=== PATIENT | male | born 1950 | race Caucasian/White ===

== ENCOUNTER 2019-07-10 15:55 | Inpatient (IN) | payer MEDICARE, OTHER, SELFPAY ==
[2019-07-10] VITALS (9 sets, daily range): BP systolic 173–219; BP diastolic 89–109; PULSE 62–70; RESP 13–22; TEMP 36.4–36.6; O2SAT 95–99; BMI 33.9
--- NOTE | ~2019-07-10 | XR_ITS ---
EXAMINATION: XR chest 1V portable EXAM DATE: 07/10/2019 16:38 INDICATION: Slurring words. Speech impairment. TECHNIQUE: Portable AP frontal chest x-ray was obtained. There is no prior study for comparison. FINDINGS: The lungs are clear. There are no pleural effusions. Mild cardiomegaly. There is no pneu mothorax suspected. The bones and soft tissues are unremarkable. IMPRESSION: Mild cardiomegaly. Reviewed, dictated and finalized at location A. HERIZATION INSTALLER IMPRESSION: Mild cardiomegaly.
--- NOTE | ~2019-07-10 | XR_ITS ---
EXAMINATION: XR chest 2V EXAM DATE: 07/13/2019 15:06 INDICATION: Cough. Aspiration risk. TECHNIQUE: Frontal and lateral projections of the chest obtained and reviewed. Comparison is made to prior examination from 07/10/2019. FINDINGS: Doppler feeding tube with tip overlying gastric cardia, adequate. There patient has develop ed subsegmental right middle lobe airspace disease which could be atelectasis given its linear appear ance. If patient has been aspirating, difficult to exclude developing pneumonia. The cardiomediastina l silhouette is prominent but magnified on this AP technique. Cardiac silhouette is stable in size co mpared to prior exam. No pneumothorax or pleural effusion. IMPRESSION: 1. Subsegmental linear right middle lobe opacity appearance most consistent with atelectasis. Develo ping pneumonia not excludable. 2. Doppler tube in position. Reviewed, dictated and finalized at location A. AND BEVERAGE OUTLETS MANAGER IMPRESSION: 1. Subsegmental linear right middle lobe opacity appearance most consistent wi th atelectasis. Developing pneumonia not excludable. 2. Doppler tube in position.
--- NOTE | ~2019-07-10 | CT_ITS ---
EXAMINATION: CT brain wo con EXAM DATE: 07/10/2019 16:18 INDICATION: Facial droop, slurred speech. Stroke protocol. TECHNIQUE: Spiral CT of the head was performed without contrast. Axial, coronal and sagittal images were reviewed. The dose-length product (DLP) for this examination was 681.00 mGy-cm. The exposure w as tailored according to patient size, and iterative reconstruction (ASIR) was used as additional dos e reduction technique. There is no prior study for comparison. FINDINGS: There is no acute intraparenchymal hemorrhage. No evidence of intraparenchymal brain mass lesion. No evidence of acute infarction. Please note that initial head CT has limited sensitivity f or small or acute infarctions. There is mild periventricular and subcortical hypodensity, nonspecifi c but probably related to small vessel ischemic disease. There is mild prominence of the sulci and ventricles related to cerebral atrophy. There is intracranial carotid arteriosclerosis. There are no extra-axial collections. There is no mass effect or midline shift. The orbits are unremarkable. Soft tissue is unremarkable. Moderate-sized mucus retention cyst in the inferior aspect of the left maxillary sinus with mild to m oderate mucoperiosteal thickening elsewhere in sinus wall thickening indicating that this is likely c hronic. There is also small amount of fluid in the left maxillary sinus. Mild to moderate opacity in the left ethmoid and sphenoid sinuses as well. Wall thickening of other sinuses indicating history of chronic sinusitis. IMPRESSION: 1. No acute intracranial findings. 2. Chronic age related findings. 3. Sinus opacity with small amount of fluid in the left maxillary sinus, could indicate acute on chr onic. As per stroke protocol, I called these results to emergency room, discussed with Angel Kathleen MD at 07/10/2019 16:21 HEAVY DUTY PRESS OPERATOR . Reviewed, dictated and finalized at location A. Y DUTY PRESS OPERATOR IMPRESSION: 1. No acute intracranial findings. 2. Chronic age related findings. 3. Sinus opacity with small amount of fluid in the left maxillary sinus, could indicate acute on chronic. As per stroke protocol, I called these results to emergency room, discussed dany Kathleen MD at 07/10/2019 16:21 HEAVY DUTY PRESS OPERATOR .
--- NOTE | ~2019-07-10 | MR_ITS ---
EXAMINATION: MR brain/brain stem wo/w con DATE: 07/11/2019 11:37 INDICATION: Stroke. TECHNIQUE: Magnetic resonance imaging (MRI) of the brain and brainstem was performed without and with 20 mL MultiHance intravenous contrast. Sequences included sagittal and axial T1-weighted FSE, axial diffusion-weighted FS EPI, axial T2*-weighted GRE, axial T2-weighted FLAIR Propeller, and axial T2-we ighted Propeller. Postcontrast sequences included axial and coronal T1-weighted FSE. Apparent diffusi on coefficient (ADC) maps were created. COMPARISON: Head CT 07/10/2019 FINDINGS: There is an acute infarct in the right side of the medulla. There are scattered areas of no nspecific increased T2-weighted signal intensity in the cerebral white matter, which is within normal limits for the patient's age. There is no intracranial hemorrhage or abnormal mass lesion. The ventr icles are normal in size. There is mucosal thickening in the paranasal sinuses. The orbits are normal . The mastoid air cells are normal. There is loss of the normal flow void in right vertebral artery. IMPRESSION: 1. 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 2. Loss of the normal flow void in right vertebral artery, consistent with thrombosis versus slow trinh w. Reviewed, dictated and finalized at location B. ANT DIRECTOR IMPRESSION: 1. 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 2. Loss of the normal flow void in right vertebral artery, consistent with thro mbosis versus slow flow.
--- NOTE | ~2019-07-10 | XR_ITS ---
EXAMINATION: XR chest 2V DATE: 07/16/2019 14:27 INDICATION: Aspiration pneumonia. TECHNIQUE: Frontal and lateral views of the chest were obtained. COMPARISON: Chest 2 views 07/13/2019 FINDINGS: The chest demonstrates clear lungs without pneumonia, pleural effusion, or pneumothorax. Th e heart size is normal. IMPRESSION: 1. No acute cardiopulmonary disease. Reviewed, dictated and finalized at location A. STOCK SPECULATOR
--- NOTE | ~2019-07-10 | CT_ITS ---
EXAMINATION: CTA brain DATE: 07/11/2019 13:30 INDICATION: Slurred speech. TECHNIQUE: Computed tomographic angiography (CTA) of the head was performed without and with 100 mL O mnipaque-350 intravenous contrast. Automated exposure control and iterative reconstruction technique were employed. The dose-length product was 1376.15 mGy-cm. Maximum intensity projection 3D reconstru ctions were created. Volume-rendered 3D reconstructions of the intracranial arteries were created by the technologist on a separate workstation. COMPARISON: Head CT 07/10/2019, brain MRI 07/11/2019 FINDINGS: There is no intracranial hemorrhage, acute infarction, or abnormal intracranial mass lesion . The ventricles are normal in size. The orbits are normal. There is mucosal thickening in the parana erika sinuses. There is thickening and sclerosis of the engle of the maxillary and left sphenoid sinuse s, consistent with chronic sinusitis. The mastoid air cells are normal. There is total occlusion of r ight vertebral artery. There is mild stenosis of left vertebral artery. There is no significant steno sis of basilar artery or the posterior cerebral arteries. There is no significant stenosis of the int racranial internal carotid arteries or anterior or middle cerebral arteries. Anterior communicating a rtery and the posterior communicating arteries are normal. There is no aneurysm. IMPRESSION: 1. Normal brain. 2. Total occlusion of right vertebral artery. 3. Chronic sinusitis. Reviewed, dictated and finalized at location B. LANE MECHANIC APPRENTICE
--- NOTE | ~2019-07-10 | XR_ITS ---
EXAMINATION: XR barium swallow modified DATE: 07/11/2019 14:39 INDICATION: Dysphagia. TECHNIQUE: Modified barium esophagram was performed by myself to administered fluoroscopy, in conjun ction with speech pathologist who administered barium in varying consistencies as per speech patholog ist documentation. This was recorded on tape. A single fluoroscopic spot image was recorded. The DA P for this procedure was 1.752 Gycm2. Fluoroscopy exposure time was 1.4 minutes. FINDINGS: Oral stage: Adequate function. Pharyngeal phase: Piriform sinus residue, unable to trigger swallow, no laryngeal closure.. Laryngeal penetration: None observed. Aspiration: None observed. Laryngeal sensitivity: Present. IMPRESSION: Puriform sinus residue with inability to trigger swallow at the pharyngeal stage. Please refer to speech pathologist findings and specific feeding recommendations. Reviewed, dictated and finalized at location A. ING MILL OPERATOR HELPER IMPRESSION: Puriform sinus residue with inability to trigger swallow at the pha ryngeal stage. Please refer to speech pathologist findings and specific feedin g recommendations.
--- NOTE | ~2019-07-10 | XR_ITS ---
EXAMINATION: XR fl Dobhoff insert/rad w img EXAM DATE: 07/12/2019 15:59 INDICATION: New stroke. TECHNIQUE: Fluoroscopy used during Dobhoff feeding tube placement, procedure performed by Dr. Jonny melchor. The DAP for this procedure was 4.5 Gycm2. FINDINGS: Dobhoff feeding tube was flushed with sterile saline syringe. Tube was carefully advanced, with multiple fluoroscopy checks during successive tube advancements to confirm expected course of t ube until tip was overlying gastric cardia, could not get tip to point inferiorly for placement more distal. The wire was then removed from the tube. There were no immediate complications. Patient jared ated the procedure well. IMPRESSION: Dobhoff feeding tube successfully placed, tip in gastric cardia. Reviewed, dictated and finalized at location A. EMENT OFFICER
--- NOTE | ~2019-07-10 | US_ITS ---
EXAMINATION: US carotid duplex BI DATE: 07/11/2019 11:16 INDICATION: Cerebral vascular accident. Slurred speech. TECHNIQUE: Grayscale, color Doppler, and pulsed Doppler images of the cervical carotid arteries were obtained. The degree of vessel stenosis is placed in one of the following categories: normal, <50%, 5 0-69%, >=70% but less than near-occlusion, near-occlusion, or total occlusion. Note that percent sten osis relative to normal distal artery lumen diameter is indirectly measured from velocity measurement s as described by Angel, et al. Radiology 2003; [id number]:340-346. COMPARISON: None. FINDINGS: RIGHT: The right common carotid artery (CCA) peak systolic velocity (PSV) is 109 cm/s. The right internal ca rotid artery (ICA) PSV is 58 cm/s. The right ICA end-diastolic velocity (EDV) is 20 cm/s. The right I CA/CCA PSV ratio is 0.5. Grayscale and color Doppler images yield an estimate of <50% diameter reduct ion from plaque in the ICA. There is antegrade flow in the right vertebral artery. LEFT: The left CCA PSV is 73 cm/s. The left ICA PSV is 54 cm/s. The left ICA EDV is 16 cm/s. The left ICA/C CA PSV ratio is 0.7. Grayscale and color Doppler images yield an estimate of <50% diameter reduction from plaque in the ICA. There is antegrade flow in the left vertebral artery. IMPRESSION: 1. <50% stenosis in the right internal carotid artery. 2. <50% stenosis in the left internal carotid artery. Reviewed, dictated and finalized at location B. ROBUTADIENE SCRUBBER OPERATOR
--- NOTE | 2019-07-10 16:00 | ECG_ITS ---
Measurements Intervals [place] Rate: 76 P: 53 TN: 168 QRS: -6 QRSD: 88 T: 44 QT: 375 QTc: 424 Interpretive Statements SINUS RHYTHM RSR' IN V1 OR V2, CONSIDER RIGHT VENTRICULAR HYPERTROPHY OR RIGHT VCD BORDERLINE ECG Electronically Signed On 07-11-2019 13:58:14 VENETIAN BLIND MACHINE OPERATOR by Jesús Smyth D.O.
--- NOTE | 2019-07-10 16:03 | ED.NEUROSD ---
HPI - Neuro Symptoms/Deficit General Chief Complaint: Suspected CVA Stated Complaint: slurring words Time Seen by Provider: 07/10/19 16:01 Source: patient and RN notes reviewed Mode of arrival: ambulatory Limitations: no limitations History of Present Illness HPI Narrative: Pt is a 69 y/o male who presents to the ED with c/o ataxia starting this afternoon. He notes that he felt normal this morning, stating that he was able to go for a long walk with no complications. Pt notes that he then took a nap around 13:30. He states that immediately after waking up, he tried getting up and walking, but notes that he kept falling to his rt side. Pt states that he doesn't feel weak on his rt side. He notes that his throat has been dry, which has affected his speech. Pt denies any visual changes, dizziness, lightheadedness, CP, or SOB. He notes that he has a Hx of HTN, but states that he hasn't taken any BP medications for quite some time. Location: ataxia Associated symptoms: other (abnormal speech) Related Data Allergies Allergy/AdvReac Type Severity Reaction Status Date / Time No Known Allergies Verified 12/10/09 09:50 Review of Systems Review of Systems: All systems reviewed & are unremarkable except as noted in HPI and below Eyes: Eyes: Denies change in vision Cardiovascular: Cardiovascular: Denies chest pain Respiratory: Respiratory: Denies dyspnea Neurologic: Reports Abnormal speech present, Reports abnormal gait, Denies dizziness, Denies focal weakness and Denies other (lightheadedness) PMFSH Past Medical History Medical History (Updated 07/10/19 @ 17:07 by Angel Kathleen MD) HTN (hypertension) Skin cancer Surgical History Surgical History (Updated 07/10/19 @ 16:19 by Catarino Baker) H/O local excision of skin lesion Social History Social History Gender identity (if verbalized by the patient): Male Comments PMHx limited. PCP is Dr. Armas. Exam Const: General: healthy appearing and no acute distress Nutritional Appearance: well nourished HENMT: Mouth: Yes tongue abnormal (tongue is asymmetrical) and Yes other (uvula deviated to the lt) Resp: Effort & Inspection: normal respiratory effort and no respiratory distress Auscultation: clear to auscultation bilaterally Cardio: Rate: regular rate Rhythm: regular rhythm Heart sounds: no murmurs Back/Spine/Pelvis: Back: other (Full ROM) Skin: General skin exam: normal color and other (warm; dry) Neuro: General: patient oriented x3 and other (Alert) Cranial nerves: Yes CN's II-XII intact bilaterally Speech: dysarthria Motor exam (neuro): 5/5 motor strength present throughout Extrem: General: normal to inspection and full ROM Psych: Appearance: grossly normal Affect: normal affect Course Reevaluation(s) Reevaluation #1: Spoke to pt and his and explained the risks and benefits of TPA, including the time sensitive nature. She said she understood, but wanted to wait to discuss with her daughter when she gets here. Date: 07/10/19 Time: 16:25 Reevaluation #2: Discussed TPA in detail with the patient in family. They are in agreement that they do not believe it is worth the risk. Date: 07/10/19 Time: 17:06 Consultations Consultation #1: Discussed case with PA to Hospitalist, Ingrid Yuan. Accepted admission. Date: 07/10/19 Time: 16:53 Vital Signs Vital signs: Vital Signs Temperature 36.4 C L 07/10/19 16:01 Pulse Rate 70 07/10/19 16:01 Respiratory Rate 15 07/10/19 16:01 Blood Pressure 211/98 H 07/10/19 16:01 Pulse Oximetry 99 07/10/19 16:01 Temperature 36.4 C L 07/10/19 16:01 Pulse Rate 66 07/10/19 16:30 Respiratory Rate 16 07/10/19 16:30 Blood Pressure 192/105 H 07/10/19 16:30 Pulse Oximetry 96 07/10/19 16:30 MDM - Neuro Symptoms/Deficit Differential Diagnosis Differential diagnosis: Likely cerebrovascular accident and transient cerebral ischemia Medical Records Attestation: I reviewed the patient's m
[2019-07-10] MEDS: LABETALOL HCL INJ 100 MG/20 ML VIAL 20 MG IV PUSH (16:23)
[2019-07-10 16:32] LABS: Glucose Point of Care 146 (65-105)
[2019-07-10 16:39] LABS: Basophils Percent Auto 0.2 % (0.2-1.2); Eosinophils Absolute Auto 0.1 K/mm3 (0-0.3); Eosinophils Percent Auto 1.2 % (0-4.4); Hematocrit 44.6 % (42.0-52.0); Hemoglobin 14.8 g/dL (14.0-18.0); Immature Granulocyte Absolute 0.03 K/mm3 (0.00-0.031); Immature Granulocyte Percent A 0.3 % (0-0.5); Lymphocytes Absolute Auto 1.09 K/mm3 (0.9-3.2); Lymphocytes Percent Auto 9.8 % (18.3-44.2); Mean Corpuscular HGB Conc 33.2 g/dl (32-36); Mean Corpuscular Volume 84.5 fl (80-100); Mean Platelet Volume 9.9 fl (7.4-10.4); Monocytes Absolute Auto 0.5 K/mm3 (0.1-0.6); Monocytes Percent Auto 4.9 % (2.6-8.5); Neutrophils Absolute Auto 9.3 K/mm3 (1.3-6.7); Neutrophils Percent Auto 83.6 % (45.5-73.1); Platelet Count Result 246 k/mm3 (150-375); Red Blood Count 5.28 M/mm3 (4.6-6.20); Red Cell Distribution Width 12.4 % (11.5-14.5); White Blood Count 11.1 K/mm3 (4.5-10.0)
[2019-07-10 16:48] LABS: Prothrombin Time 12.7 Seconds (11.1-14.7)
[2019-07-10 16:49] LABS: Partial Thromboplastin Time 32.6 SECONDS (22.3-36.8)
[2019-07-10 16:52] LABS: Alanine Aminotransferase 25 U/L (4-50); Albumin Level 4.2 g/dL (3.5-5.1); Alkaline Phosphatase 96 U/L (38-126); Aspartate Amino Transferase 27 U/L (17-59); Bilirubin,Total 0.5 mg/dL (0.2-1.3); Blood Urea Nitrogen 18 mg/dL (9-20); Calcium 8.8 mg/dL (8.4-10.2); Carbon Dioxide 23 mmol/L (22-30); Chloride 101 mmol/L (98-107); Estimated CRCL calculation 86 ml/min; Estimated Glomerular Filt Rate > 60; Glucose 152 mg/dL (75-110); Potassium 3.7 mmol/L (3.4-5.0); Sodium 135 mmol/L (137-145)
[2019-07-10] MEDS: ASPIRIN 81 MG CHEWABLE TABLET 324 MG PO (16:57)
--- NOTE | 2019-07-10 17:00 | PM.IMHP ---
H&P: HPI History of Present Illness Chief complaint: Slurred speech. Narrative: Mathew Venegas is a 69 year old male with longstanding untreated hypertension who presented to the emergency department earlier this afternoon from home for evaluation of slurred speech. He was in his usual state of health this morning, had lunch, and lay down to take a nap approximately 13:30. At approximately 15:00 the phone rang, and when he answered he notes that his speech was slurred. When he went to stand up he tells me that he was ?listing to the right? but denies overt vertigo. The symptoms continued and he came to the emergency department approximately 1 hour thereafter for evaluation. Brain CT was normal and tPA was discussed with the patient and his family members by the emergency department physician, however the patient did decline. He is noted to have frequent secretions, and with further questioning he has apparently had a productive cough for nearly 1 months time, and this is unchanged. He denies that he is having difficult times handling the secretions. He has not had a headache, auditory or visual changes, focal weakness, or paresthesias. He denies palpitations and feelings of racing heart. Review of Systems Review of Systems: Narrative: He has had a productive cough, occasionally green sputum, for nearly 1 months time. He denies other symptoms, specifically denying sinus congestion, otalgia, and odynophagia. He has not had fever, chills, or sweats. No chest pain or palpitations. No shortness of breath. He denies nausea and vomiting. Except as documented, all other systems were reviewed and are negative. [facility] Past Medical History Medical History (Updated 07/10/19 @ 22:46 by Ingrid Yuan PA-C) Hypertension He has not taken antihypertensives for > 15 years, which was the last time he saw physician. Skin cancer Surgical History Surgical History (Updated 07/10/19 @ 16:19 by Catarino Baker) H/O local excision of skin lesion Family History Family History Sibling Pancreatic cancer Cerebrovascular accident Mother Diabetes mellitus High cholesterol Renal failure Hypertension Father Stomach cancer CHF (congestive heart failure) High cholesterol Hypertension Other Patient's brother is Patient's father is Patient's mother is Social History Social History (Updated 07/10/19 @ 22:43 by Ingrid Yuan PA-C) Social History: The patient lives in [place] with his . He designates his Deb as his surrogate decision maker and he wishes to be a full code. He is a lifelong nonsmoker and denies alcohol and drug abuse. Smoking status: Never smoker Second hand tobacco smoke exposure: Yes (old occupation) Alcohol intake: never Substance use: never Gender identity (if verbalized by the patient): Male Spiritual care concerns: No Agree to blood products: Yes Meds Home Medications and Allergies Home Medications Medication Instructions Recorded Confirmed Type multivit with min-folic acid 0.4 mg PO QAM 07/10/19 07/10/19 History [Adult One Daily Multivitamin] Allergies Allergy/AdvReac Type Severity Reaction Status Date / Time mold Allergy Watery Eye Verified 07/10/19 18:33 ragweed pollen Allergy Watery Eye Verified 07/10/19 18:33 Vital Signs Vital Signs - 24 hr 07/10/19 16:01 07/10/19 16:21 07/10/19 16:23 Temperature 97.5 F L Pulse Rate 70 67 65 Respiratory Rate 15 19 13 Blood Pressure 211/98 H 219/109 H 173/103 H Pulse Oximetry 99 95 97 07/10/19 16:30 07/10/19 17:53 07/10/19 18:00 Temperature Pulse Rate 66 62 66 Respiratory Rate 16 20 Blood Pressure 192/105 H 174/101 H Pulse Oximetry 96 97 07/10/19 18:08 07/10/19 20:00 07/10/19 21:49 Temperature 97.8 F 97.7 F Pulse Rate 62 66 62 Respiratory Rate 22 H 20 Blood Pressure 186/98 H 180/89 H Pulse Oxi
[2019-07-10 17:03] LABS: Troponin I < 0.012 ng/mL (0.000-0.034)
--- NOTE | 2019-07-10 18:04 | ADMGEN ---
This patient, Mathew Venegas, was admitted to Medical Room 252-01. Patient/family oriented to hospital policies and general routines including ID bracelet, bed and alarms, visiting hours, pain management, procedures, bathroom and other care routines, personal items, smoking policy, room service/diet, and visiting hours. Valuables list has been completed. Information on how to activate the Rapid Response Team has been discussed. Patient/Family are encouraged to report perceived risks to care and to ask questions if they do not understand what they are told or what they should do.
--- NOTE | 2019-07-10 20:35 | PC.NURSE ---
ATTEMPTED TO GET PT OUT OF BED, LEANSTO RIGHT AND VERY UNSTEADY ON FEET. HAND GRASPS AND FOOT PUSHES EQUAL. PT HAVING TROUBLE SWALLOWING SECRETIONS, YANKAUR SUCTION GIVEN TO PT.
[2019-07-11] VITALS (13 sets, daily range): BP systolic 172–191; BP diastolic 89–113; PULSE 72–86; RESP 16–20; TEMP 36.6–37.2; O2SAT 93–94
[2019-07-11 05:06] LABS: Hematocrit 44.8 % (42.0-52.0); Hemoglobin 14.8 g/dL (14.0-18.0); Mean Corpuscular Volume 84.8 fl (80-100); Mean Platelet Volume 9.9 fl (7.4-10.4); Platelet Count Result 255 k/mm3 (150-375); Red Blood Count 5.28 M/mm3 (4.6-6.20); Red Cell Distribution Width 12.6 % (11.5-14.5); White Blood Count 9.7 K/mm3 (4.5-10.0)
[2019-07-11 05:17] LABS: Alanine Aminotransferase 23 U/L (4-50); Albumin Level 4.2 g/dL (3.5-5.1); Alkaline Phosphatase 84 U/L (38-126); Aspartate Amino Transferase 26 U/L (17-59); Bilirubin,Total 0.6 mg/dL (0.2-1.3); Blood Urea Nitrogen 19 mg/dL (9-20); Calcium 8.8 mg/dL (8.4-10.2); Carbon Dioxide 23 mmol/L (22-30); Chloride 100 mmol/L (98-107); Cholesterol 140 mg/dL (0-200); Estimated CRCL calculation 96 ml/min; Estimated Glomerular Filt Rate > 60; Glucose 132 mg/dL (75-110); HDL Direct 32 mg/dL; Potassium 3.9 mmol/L (3.4-5.0); Sodium 135 mmol/L (137-145); Triglycerides 151 mg/dL (<150)
[2019-07-11 05:28] LABS: LDL Cholesterol Direct 83 mg/dL
--- NOTE | 2019-07-11 11:00 | PCPTNOTE ---
Attempted PT eval. Pt off floor for MRI. Will try again at later time.
--- NOTE | 2019-07-11 13:07 | PCPTNOTE ---
Attempted PT eval. Pt going for test. Will try again at later time.
--- NOTE | 2019-07-11 14:07 | PCSTNOTE ---
Please refer to the Bedside Swallow Evaluation in the EMR.
--- NOTE | 2019-07-11 14:40 | PCPTNOTE ---
Attempted PT eval. Pt still off floor for tests. Will try again tomorrow.
[2019-07-11] MEDS: hydrALAZINE HCL 20 MG/ML VIAL 10 MG IV PUSH (15:51)
--- NOTE | 2019-07-11 16:18 | PM.IMPN ---
Progress Note: A&P Assessment and Plan (1) CVA (cerebral vascular accident): Code(s): I63.9 - Cerebral infarction, unspecified Status: Acute Assessment and Plan: May very well be due to longstanding, uncontrolled hypertension. It was decided by the patient's family and himself to declined tPA in the emergency room after the risks and benefits were given and everything falling around the 4 hour hermelinda. MRI showed infarct to the right side of the medulla in the expected distribution of the right vertebral artery. Loss of normal flow void in the right vertebral artery, consistent with thrombus versus low-flow. CTA brain and brainstem showed normal brain, total occlusion of right vertebral artery. Carotid Dopplers showed less than 50% bilaterally. Echocardiogram is still pending. Telemetry showed Normal sinus rhythm rate 79, with no abnormality noted just artifact. Will continue monitoring on telemetry to rule out any underlying abnormal arrhythmia. Dr. Fam neurology evaluated the patient and reported having a right brainstem stroke. The patient has been started on baby aspirin 81 mg daily, plans to better control patient's blood pressure and continue monitoring his symptoms. (2) Dysphagia: Code(s): R13.10 - Dysphagia, unspecified Status: Acute Assessment and Plan: The patient has been having dysphagia. The patient failed his bedside swallow and modified barium swallow showed very minimal laryngeal elevation and no laryngeal closure. The speech therapist do not recommend the patient having anything by mouth at this time and they will continue treating his dysphagia with daily speech therapy lessons. I called our GI specialist Dr. Gee miramontes who is on-call about the patient and possible need of a PEG tube. At this time we will place either an NG tube or Dobbhoff tube for feeding and see how much the patient improved with speech therapy. If the patient is not doing much better on Sunday we may need to place a PEG tube until further therapy can be completed. I discussed this with the patient and family and they are both in understanding and agreement with the plan at this point. Continue monitoring. Aspiration precautions initiated. (3) Hypertension: Code(s): I10 - Essential (primary) hypertension Status: Acute Assessment and Plan: The patient has not seen a physician in 15 years, and stopped taking his blood pressure medications about the same time. For now we will allow permissive hypertension. Starting in the morning the patient will be given lisinopril 10 mg and hydrochlorothiazide 12.5 mg which will be placed through his NG or Dobbhoff tube. Continue monitoring the patient's blood pressure. P.r.n. hydralazine is ordered as needed for systolic blood pressure greater than 180 or diastolic blood pressure greater than 100. (4) Hyperglycemia: Code(s): R73.9 - Hyperglycemia, unspecified Status: Acute Assessment and Plan: The patient's glucose on arrival was slightly elevated at 142 and this morning on his fasting labs glucose was 132. I am going to check hemoglobin A1c in the morning and continue monitoring his glucose. (5) Dyslipidemia: Code(s): E78.5 - Hyperlipidemia, unspecified Status: Acute Assessment and Plan: Patient's cholesterol value showed total cholesterol 140, triglycerides 151, LDL 83, HDL 32. We will start on a statin medication HS to keep LDL less than 70 since he now has a history of new CVA. Will have his primary care follow-up with checking his cholesterol again in 3 months. Time Spent With Patient Time with patient: 25 - 35 minutes Subjective Date/time seen: 07/11/19 16:18 Interval histo
[2019-07-11] MEDS: DEXTROSE 5%/LACTATED RINGERS 1,000 ML 100 ML IV CONT (18:21)
--- NOTE | 2019-07-11 18:23 | CONS_ITS ---
DATE OF CONSULTATION: 07/10/[address] Rosalva Campa. HISTORY OF PRESENT ILLNESS: This 69 years old right-handed male has been admitted to [facility] through the emergency room for the complaint of slurred speech. Reportedly, he was in usual state of health in the morning, had lunch, laid down to take a nap approximately 1330. At approximately 3 p.m., the phone rang and when he answered he noted his speech was slurred. He went to stand up, he tells. He told that he was lurching to the right side, though he was not vertiginous. Symptomatology continued until he came to the emergency room 1 hour thereafter for evaluation. Brain CT scan was negative. TPA was discussed with the patient and family members by the ER department physician; however, they declined. He was noted to have frequent secretion, productive cough of 1 month duration, was having difficult times in handling the secretion. He also did not complain of any headache, any visual difficulties or paresthesia. He has ongoing history of 1. Hypertension, though he is not taking medication for more than 15 years. 2. He has a history of skin cancer for which he underwent local excision. FAMILY HISTORY: Positive pancreatic cancer, cerebrovascular accident, diabetes mellitus, hypercholesterolemia, hypertension, renal failure, gastric cancer, and congestive heart failure. SOCIAL HISTORY: The patient himself is a nonsmoker, though he was exposed to secondhand tobacco on his occupation. MEDICATIONS: At the time of admission, he was taking only multivitamin 1 tablet daily. ALLERGIES: HE WAS ALLERGIC TO MOLD AND RAGWEED. PHYSICAL EXAMINATION: VITAL SIGNS: Stable with temp of 97.5, pulse 70, respiration 15, and blood pressure 211 over 90s, came down to 173/103. GENERAL: Revealed him to be awake, alert, cooperative, in no obvious acute distress. HEENT: Head normocephalic with no cranial bruit. Ears, nose, and throat exam normal. NECK: Supple with no cervical bruit. No thyromegaly. No lymphadenopathy. HEART: Regular. LUNGS: Clear. ABDOMEN: Soft. NEUROLOGICAL: He was awake, alert, oriented x3. Pupils round, regular. Jennings of vision full. Extraocular movements full. Face slightly asymmetrical with left facial droop. Tongue midline. Uvula and palate were asymmetrical. Motor examination revealed him to have weakness on the left side. He was admitted to the hospital for the diagnosis of the brainstem stroke in addition to hypertension. Subsequent evaluation included, as mentioned before, CT of the head which was negative for the bleed. MRI of the brain suggestive of the acute infarct in the right side of the medulla in the distribution of the right vertebral artery. 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 Chest x-ray negative with mild cardiomegaly. Carotid Doppler study with negative, less than 50% stenosis bilaterally. IMPRESSION: Brainstem stroke with right medullary infarct. Family informed, discussed and he is to be continued on the aspirin and further recommendation accordingly. SNEHA CHAVEZ M.D. PRODUCT MGMT DEV MANAGER PRODUCT MGMT DEV MANAGER D Will MT: Romain
[2019-07-11] MEDS: PANTOPRAZOLE SODIUM IV 40 MG VIAL IV PUSH (20:09)
--- NOTE | 2019-07-11 22:55 | ECHO_ITS ---
Patient Info Name: Mathew Venegas Age: 69 years : 1950 Gender: Male Ht: 70 in Wt: 236 lbs BSA: 2.34 m2 HR: 76 bpm BP: 185 / 97 mmHg Heart Rhythm: Sinus Rhythm Technical Quality: Fair Exam Date: 07/11/2019 2:53 PM Exam Location: [facility] Pulmonary Exam [place]: [facility] [place] [facility] [place] Patient Status: Inpatient Admit Date: 07/10/2019 Staff Ordering Physician: Ingrid Yuan PA-C Sports Book Board Attendant: Rose Gar RCS Attending Provider: Humera Nugent PA-C Referring Physician: Kwabena WONG; Exam Type: CA echo doppler color flow Study Info Indications - cva uncontrolled htn Complete two-dimensional, color flow and Doppler transthoracic echocardiogram is performed. Summary 1. Left ventricular chamber dimension is normal. 2. Left ventricular systolic function is normal, estimated at 60-65%. 3. There is mildly increased left ventricular wall thickness. 4. The left ventricular diastolic function is grade I diastolic dysfunction. 5. E/e' 7 is not elevated. 6. Left atrial chamber dimension is mildly enlarged. 7. There is mild aortic valve sclerosis. 8. There is trace aortic valve regurgitation. 9. No pulmonary hypertension, estimated pulmonary arterial systolic pressure is 23 mmHg. 10. There is mild pulmonic regurgitation. Left Ventricle E/e' 7 is not elevated. Left ventricular chamber dimension is normal. Left ventricular systolic function is normal, estimated at 60-65%. There is mildly increased left ventricular wall thickness. The left ventricular diastolic function is grade I diastolic dysfunction. Right Ventricle Right ventricular chamber dimension is normal. Right ventricular systolic function is normal. Left Atria Left atrial chamber dimension is mildly enlarged. Right Atria Right atrial chamber dimension is normal. Aortic Valve The aortic valve is trileaflet. There is mild aortic valve sclerosis. There is no aortic valve stenosis. There is trace aortic valve regurgitation. Pulmonic Valve There is mild pulmonic regurgitation. Mitral Valve There is no mitral valve stenosis. There is no mitral valve regurgitation. Tricuspid Valve There is no tricuspid valve regurgitation. No pulmonary hypertension, estimated pulmonary arterial systolic pressure is 23 mmHg. Pericardium/Pleural There is no pericardial effusion. Inferior Vena Cava Normal inferior vena cava with >50% collapse upon inspiration consistent with normal right atrial pressure, 5 mmHg. Aorta The aortic root size at the sinus of Valsalva is normal. Left Ventricular Outflow Tract Name Value Normal LVOT 2D LVOT Diameter 2.0 cm LVOT Doppler LVOT Peak Gradient 4 mmHg LVOT Mean Gradient 2 mmHg LVOT VTI 19 cm LVOT VTI/AV VTI Ratio 0.8 LVOT Stroke Volume 61 ml LVOT CO 13.0 l/min LVOT CI 5.6 l/min/m2 Pulmonic Valve Name
[2019-07-12] VITALS (12 sets, daily range): BP systolic 134–189; BP diastolic 66–95; PULSE 72–96; RESP 16–18; TEMP 36.4–37.3; O2SAT 84–94
[2019-07-12] MEDS: hydrALAZINE HCL 20 MG/ML VIAL 10 MG IV PUSH ×2 (04:20→14:47)
[2019-07-12] MEDS: DEXTROSE 5%/LACTATED RINGERS 1,000 ML 100 ML IV CONT ×2 (04:21→14:04)
[2019-07-12 05:38] LABS: Hematocrit 44.3 % (42.0-52.0); Hemoglobin 14.5 g/dL (14.0-18.0); Mean Corpuscular HGB Conc 32.7 g/dl (32-36); Mean Corpuscular Hemoglobin 27.9 pg (26-34); Mean Corpuscular Volume 85.4 fl (80-100); Mean Platelet Volume 10.2 fl (7.4-10.4); Platelet Count Result 273 k/mm3 (150-375); Red Blood Count 5.19 M/mm3 (4.6-6.20); Red Cell Distribution Width 12.9 % (11.5-14.5)
[2019-07-12 05:54] LABS: Blood Urea Nitrogen 17 mg/dL (9-20); Calcium 8.7 mg/dL (8.4-10.2); Carbon Dioxide 22 mmol/L (22-30); Chloride 102 mmol/L (98-107); Estimated CRCL calculation 96 ml/min; Estimated Glomerular Filt Rate > 60; Glucose 127 mg/dL (75-110); Potassium 3.6 mmol/L (3.4-5.0); Sodium 137 mmol/L (137-145)
[2019-07-12 06:28] LABS: Hemoglobin A1C 6.2 % (<5.7)
--- NOTE | 2019-07-12 11:44 | WPDGICN ---
Assessment and Plan Assessment and plan (1) Dysphagia: Qualifiers: Dysphagia type: oral phase Qualified Code(s): R13.11 - Dysphagia, oral phase Code(s): R13.10 - Dysphagia, unspecified Status: Acute Assessment and Plan: due to acute infarct of medulla. Patient and would like to attempt first enteral feeding after DobbHoff placement and await few days to see if he will have some improvement after speech therapy. They also understand that if does not recover enough function of swallowing then will need G-tube placement endoscopically but they would like to hold off for now. We can reassess in few more days to see his progress. 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 Code(s): I63.9 - Cerebral infarction, unspecified Status: Acute Assessment and Plan: medical management and neurology on board. (3) Hypertension: Qualifiers: Hypertension type: essential hypertension Qualified Code(s): I10 - Essential (primary) hypertension Code(s): I10 - Essential (primary) hypertension Status: Acute GI Consult Note Consult date/time: 07/12/19 11:44 re: dysphagia HPI: Mathew Venegas is a 69 year old male history of untreated hypertension who was in usual state of health the day of admission and noted new onset of slurred speech, also body leaning towards the right side. MRI showed acute infarct in the right side of the medulla in the expected distribution of the right vertebral artery and loss of the normal flow void in right vertebral artery, consistent with thrombosis versus slow flow. Family and patient declined TPA on arrival to ER. Barium esophagram showed uriform sinus residue with inability to trigger swallow at the pharyngeal stage, high risk of aspiration and speech recommended not to try oral feeding. He is scheduled to have DHT placement by radiology later today. He is alert and oriented x3 otherwise, he just can't control his swallowing. Patient never had dysphagia previous this hospitalization and no history of EGD or abdominal surgeries, his says that in fact he is quite healthy and has not been in the hospital for a long time. Review of Systems Constitutional: Constitutional: Denies headache(s) and Denies weakness Eyes: Eyes: Denies blurry vision ENT: Reports Normal hearing present, Denies headache(s) and Denies neck pain Cardiovascular: Cardiovascular: Denies chest pain and Denies dyspnea Respiratory: Respiratory: Denies dyspnea Gastrointestinal: Gastrointestinal: Reports dysphagia Genitourinary: Genitourinary: Denies dysuria Musculoskeletal: Musculoskeletal: Denies neck pain Integumentary/Breasts: Skin/Breast: Denies dry skin Neurologic: Reports Normal hearing present and Denies syncope Comments: dysphagia Psychiatric: Psychiatric: Denies anxiety Endocrine: Endocrine: Denies change in body appearance Hematologic/Lymphatic: Hematologic/Lymphatic: Denies easy bleeding Allergic/Immunologic: Allergic/Immunologic: Denies urticaria PMFSH Past Medical History Medical History (Updated 07/12/19 @ 11:54 by Maynor Martinez MD) Hypertension He has not taken antihypertensives for > 15 years, which was the last time he saw physician. Skin cancer Surgical History Surgical History (Updated 07/10/19 @ 16:19 by Catarino Baker) H/O local excision of skin lesion Family History Family History Sibling Pancreatic cancer Cerebrovascular accident Mother Diabetes mellitus High cholesterol Renal failure Hypertension Father Stomach cancer CHF (congestive heart failure) High cholesterol Hypertension Other Patient's brother is Pat
[2019-07-12] MEDS: PANTOPRAZOLE SODIUM IV 40 MG VIAL IV PUSH ×2 (13:53→20:19)
--- NOTE | 2019-07-12 14:00 | PM.IMPN ---
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 It was decided by the patient's family and himself to declined tPA in the emergency room after the risks and benefits were given and everything falling around the 4 hour hermelinda. MRI showed infarct to the right side of the medulla in the expected distribution of the right vertebral artery. Loss of normal flow void in the right vertebral artery, consistent with thrombus versus low-flow. CTA brain and brainstem showed normal brain, total occlusion of right vertebral artery. Carotid Dopplers showed less than 50% bilaterally. Echocardiogram showed Left ventricular chamber dimension is normal and systolic function is normal, EF 60-65%. There is mild LVH. The left ventricular diastolic function is grade I diastolic dysfunction. Telemetry showed Normal sinus rhythm rate 78, an alarm showing PVC every 7th beat x5, otherwise normal. Will discontinue his Telemetry at this time. CVA was most likely from plaque build up to right vertebral artery and uncontrolled HTN. Dr. Fam neurology evaluated the patient and reported having a right brainstem stroke. The patient has been started on baby aspirin 81 mg daily, plans to better control patient's blood pressure and continue monitoring his symptoms. (2) Dysphagia: Qualifiers: Dysphagia type: oral phase Qualified Code(s): R13.11 - Dysphagia, oral phase Code(s): R13.10 - Dysphagia, unspecified Status: Acute Assessment and Plan: The patient has been having dysphagia. The patient failed his bedside swallow and modified barium swallow showed very minimal laryngeal elevation and no laryngeal closure. The speech therapist do not recommend the patient having anything by mouth at this time and they will continue treating his dysphagia with daily speech therapy lessons. GI specialist Dr. Flynn who evaluated the patient today and will continue monitoring how the patient does in the next few days with speech therapy and talk about further placement of possible PEG tube at that time. We are waiting for the patient to be taken down for either an NG tube or Dobbhoff tube for feeding and see how much the patient improved with speech therapy. If the patient is not doing much better on Sunday we may need to place a PEG tube until further therapy can be completed. I discussed this with the patient and family and they are both in understanding and agreement with the plan at this point. Continue monitoring. Aspiration precautions initiated. (3) Hypertension: Qualifiers: Hypertension type: essential hypertension Qualified Code(s): I10 - Essential (primary) hypertension Code(s): I10 - Essential (primary) hypertension Status: Acute Assessment and Plan: The patient has not seen a physician in 15 years, and stopped taking his blood pressure medications about the same time. For now we will allow permissive hypertension. Will start lisinopril 10 mg and hydrochlorothiazide 12.5 mg once NG or Dobbhoff tube is in place. Continue monitoring the patient's blood pressure. P.r.n. hydralazine is ordered as needed for systolic blood pressure greater than 180 or diastolic blood pressure greater than 100. (4) Urinary retention: Code(s): R33.9 - Retention of urine, unspecified Status: Acute Assessment and Plan: Patient was noted to have urinary retentio
[2019-07-12 14:59] LABS: Add Urine Microscopic? YES; Appearance Urine Clear (Clear); Bacteria Urine Trace /hpf; Bilirubin Urine Negative (Negative); Blood Urine Negative (Negative); Color Urine Yellow (Yellow); Glucose Urine UA Negative (Negative); Ketones Urine Trace mg/dL (Negative); Leukocyte Esterase Ur Negative LEU/UL (Negative); Mucus Urine Rare /lpf; Nitrate Urine Negative (Negative); Protein Urine 1+ mg/dL (Negative); RBC Urine 0-2 /hpf (0-2); Urobilinogen Urine Negative mg/dL (<2.0)
--- NOTE | 2019-07-12 15:16 | PC.NURSE ---
To Radiology per stretcher with IV saline locked for dobhoff placement.
--- NOTE | 2019-07-12 15:56 | PC.NURSE ---
Patient returned to floor via stretcher with dobhoff in place. `
--- NOTE | 2019-07-12 16:05 | PC.NURSE ---
Spoke with Radiologist Jonny Johnson and dofantasmaoff is in correct place and ready for use at this time.
[2019-07-12] MEDS: ASPIRIN 81 MG CHEWABLE TABLET PO (16:27)
[2019-07-12] MEDS: hydroCHLOROthiazide 12.5 MG CAPSULE PO (16:27)
[2019-07-12] MEDS: THERAPEUTIC MULTIVITAMINS/MINERALS TAB (*BKC) 1 TABLET PO (16:27)
[2019-07-12] MEDS: lisinopriL 10 MG TABLET PO (16:27)
--- NOTE | 2019-07-12 17:47 | PCRCNOTE ---
Window of time for administration has passed. See next scheduled administration.
--- NOTE | 2019-07-12 17:48 | PCRCNOTE ---
Window of time for administration has passed. See next scheduled administration.
--- NOTE | 2019-07-12 17:51 | WPDNEUROPN ---
Progress Note: A&P Assessment and Plan (1) Urinary retention: Code(s): R33.9 - Retention of urine, unspecified Status: Acute (2) Dyslipidemia: Code(s): E78.5 - Hyperlipidemia, unspecified Status: Acute (3) Hyperglycemia: Code(s): R73.9 - Hyperglycemia, unspecified Status: Acute (4) Dysphagia: Qualifiers: Dysphagia type: oral phase Qualified Code(s): R13.11 - Dysphagia, oral phase Code(s): R13.10 - Dysphagia, unspecified Status: Acute (5) CVA (cerebral vascular accident): Qualifiers: CVA mechanism: thrombosis Precerebral and cerebral artery: vertebral artery Laterality of affected vessel: right Qualified Code(s): 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 Code(s): I63.9 - Cerebral infarction, unspecified Status: Acute (6) Hypertension: Qualifiers: Hypertension type: essential hypertension Qualified Code(s): I10 - Essential (primary) hypertension Code(s): I10 - Essential (primary) hypertension Status: Acute (7) Stroke: Qualifiers: CVA mechanism: unspecified Qualified Code(s): I63.9 - Cerebral infarction, unspecified Code(s): I63.9 - Cerebral infarction, unspecified Status: Acute Additional Plan patient has medullary infarct along with vertebral occlusion discussed with the family he will need PT OT and gait training along with the monitoring of his swallowing status Review of Systems Review of Systems: All systems reviewed & are unremarkable except as noted in HPI and below Exam Const: General: comfortable and no acute distress HENMT: General nose exam: Normal nares present Mouth: Yes moist mucous membranes Other: decreased movement of the palate Eyes: General: appearance normal, both eyes and all related structures Neck: Neck: supple and no JVD Resp: Effort & Inspection: normal respiratory effort Auscultation: clear to auscultation bilaterally Cardio: Rate: regular rate Rhythm: regular rhythm GI: Auscultation: normal bowel sounds Skin: General skin exam: normal color and no rashes or lesions noted Neuro: Other: patient has dysphagia, dysphonia and slight dysarthria along with right-sided weakness Extrem: General: normal to inspection Objective Data Vital Signs Vital Signs: Vital Signs - 24 hr 07/11/19 20:00 07/11/19 22:00 07/12/19 00:00 Temperature 37.2 C Pulse Rate 86 83 80 Respiratory Rate 18 Blood Pressure 172/95 H Pulse Oximetry 94 07/12/19 04:00 07/12/19 04:10 07/12/19 05:20 Temperature 37.3 C Pulse Rate 92 87 Respiratory Rate 18 Blood Pressure 189/94 H 185/95 H Pulse Oximetry 94 07/12/19 05:35 07/12/19 08:00 07/12/19 12:00 Temperature Pulse Rate 96 81 Respiratory Rate Blood Pressure 159/84 H Pulse Oximetry 07/12/19 14:00 Temperature 36.8 C Pulse Rate 81 Respiratory Rate 18 Blood Pressure 185/90 H Pulse Oximetry 94 Intake/Output Intake/Output: Intake & Output 07/09/19 07/10/19 07/11/19 07/12/19 23:59 23:59 23:59 23:59 Intake Total 0 2202 Output Total 800 243 7117 Balance -250 -550 -98 Meds/Results Medications: Active Medications Generic Name Dose Route Start Last Admin Trade Name Freq PRN Reason Stop Dose Admin Albuterol 2.5 mg 07/12/19 14:00 07/12/19 17:46 Albuterol Sulf Neb 2.5mg/0.5ml INHALATION Not Given Q6HRT [facility] Aspirin 81 mg 07/11/19 08:00 07/12/19 16:27 Aspirin Chewable PO 81 mg DAILY@0800 LICHA Administration Atorvastatin Calcium 40 mg 07/11/19 21:00 07/11/19 17:44 Lipitor PO Not Given HS [facility] Finasteride 5 mg 07/13/19 09:00 Proscar PO QAM [facility] Hydralazine HCl 10 mg 07/11/19 15:32 07/12/19 14:47 Apresoline Hcl Inj IV PUSH 10 mg Q8H PRN Administration Blood Pressure - High Hydrochlorothiazide 12.5 mg 07/11/19 09:00 07/12/19 16:27 Hydrochlorothiazide PO
[2019-07-12] MEDS: IPRATROPIUM BR 0.02% INH SOLN 0.5 MG/2.5 ML VIAL INHALATION (19:24)
[2019-07-12] MEDS: ALBUTEROL SULFATE NEB 2.5 MG/0.5 ML INH INHALATION (19:24)
[2019-07-12] MEDS: FINASTERIDE 5 MG TABLET PO (20:18)
[2019-07-12] MEDS: ATORVASTATIN 40 MG TABLET PO (20:19)
[2019-07-13] VITALS (11 sets, daily range): BP systolic 154–172; BP diastolic 78–93; PULSE 69–84; RESP 16–20; TEMP 36.4–37.7; O2SAT 93–94
[2019-07-13] MEDS: DEXTROSE 5%/LACTATED RINGERS 1,000 ML 75 ML IV CONT (00:23)
[2019-07-13] MEDS: ALBUTEROL SULFATE NEB 2.5 MG/0.5 ML INH INHALATION ×4 (02:49→20:19)
[2019-07-13] MEDS: IPRATROPIUM BR 0.02% INH SOLN 0.5 MG/2.5 ML VIAL INHALATION ×4 (02:49→20:19)
[2019-07-13 06:11] LABS: Hematocrit 43.4 % (42.0-52.0); Hemoglobin 14.5 g/dL (14.0-18.0); Mean Corpuscular HGB Conc 33.4 g/dl (32-36); Mean Corpuscular Hemoglobin 28.3 pg (26-34); Mean Corpuscular Volume 84.6 fl (80-100); Mean Platelet Volume 9.8 fl (7.4-10.4); Platelet Count Result 292 k/mm3 (150-375); Red Blood Count 5.13 M/mm3 (4.6-6.20); Red Cell Distribution Width 12.8 % (11.5-14.5); White Blood Count 11.7 K/mm3 (4.5-10.0)
[2019-07-13 06:19] LABS: Blood Urea Nitrogen 15 mg/dL (9-20); Calcium 8.6 mg/dL (8.4-10.2); Carbon Dioxide 25 mmol/L (22-30); Chloride 99 mmol/L (98-107); Estimated CRCL calculation 96 ml/min; Estimated Glomerular Filt Rate > 60; Glucose 122 mg/dL (75-110); Potassium 3.1 mmol/L (3.4-5.0); Sodium 135 mmol/L (137-145)
[2019-07-13] MEDS: PANTOPRAZOLE SODIUM IV 40 MG VIAL IV PUSH ×2 (09:40→21:16)
[2019-07-13] MEDS: lisinopriL 10 MG TABLET PO (09:40)
[2019-07-13] MEDS: hydroCHLOROthiazide 12.5 MG CAPSULE PO (09:40)
[2019-07-13] MEDS: FINASTERIDE 5 MG TABLET PO (09:40)
[2019-07-13] MEDS: ASPIRIN 81 MG CHEWABLE TABLET PO (09:40)
[2019-07-13] MEDS: POTASSIUM CHLORIDE 20 MEQ PACKET (FOR LIQUID) 40 MEQ PO (09:40)
[2019-07-13] MEDS: THERAPEUTIC MULTIVITAMINS/MINERALS TAB (*BKC) 1 TABLET PO (09:40)
--- NOTE | 2019-07-13 09:41 | PM.IMPN ---
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 It was decided by the patient's family and himself to declined tPA in the emergency room after the risks and benefits were given and everything falling around the 4 hour hermelinda. MRI showed infarct to the right side of the medulla in the expected distribution of the right vertebral artery. Loss of normal flow void in the right vertebral artery, consistent with thrombus versus low-flow. CTA brain and brainstem showed normal brain, total occlusion of right vertebral artery. Carotid Dopplers showed less than 50% bilaterally. Echocardiogram showed Left ventricular chamber dimension is normal and systolic function is normal, EF 60-65%. There is mild LVH. The left ventricular diastolic function is grade I diastolic dysfunction. Telemetry showed Normal sinus rhythm rate 78, an alarm showing PVC every 7th beat x5, otherwise normal. Will discontinue his Telemetry at this time. CVA was most likely from plaque build up to right vertebral artery and uncontrolled HTN. Dr. Fam Neurology evaluated the patient and reported having a right brainstem stroke. At this time we are working with physical therapy, occupational therapy, and speech therapy. The patient has been started on baby aspirin 81 mg daily, plans to better control patient's blood pressure and continue monitoring his symptoms. (2) Dysphagia: Qualifiers: Dysphagia type: oral phase Qualified Code(s): R13.11 - Dysphagia, oral phase Code(s): R13.10 - Dysphagia, unspecified Status: Acute Assessment and Plan: The patient has been having dysphagia. The patient failed his bedside swallow and modified barium swallow showed very minimal laryngeal elevation and no laryngeal closure. The speech therapist do not recommend the patient having anything by mouth at this time and they will continue treating his dysphagia with daily speech therapy lessons. GI specialist Dr. Flynn who evaluated the patient today and will continue monitoring how the patient does in the next few days with speech therapy and talk about further placement of possible PEG tube at that time. The patient had a Dobbhoff placed yesterday and he has started tube feedings and tolerating them well. If the patient is not doing much better on Sunday we may need to place a PEG tube until further therapy can be completed. I discussed this with the patient and family and they are both in understanding and agreement with the plan at this point. Continue monitoring. Aspiration precautions initiated. (3) Hypertension: Qualifiers: Hypertension type: essential hypertension Qualified Code(s): I10 - Essential (primary) hypertension Code(s): I10 - Essential (primary) hypertension Status: Acute Assessment and Plan: The patient has not seen a physician in 15 years, and stopped taking his blood pressure medications about the same time. After Dobbhoff tube was placed yesterday week administered blood pressure medications, lisinopril 10 mg and hydrochlorothiazide 12.5 mg. This morning his blood pressure is 161/78 before medications were given. Continue monitoring the patient's blood pressure. P.r.n. hydralazine is ordered as needed for systolic blood pressure greater than 180 or diastolic blood pressure greater than 100. (4) Urinary retention: Code(s): R33.9 - Retention of urine, uns
--- NOTE | 2019-07-13 12:11 | WPDGIPROGNO ---
Progress Note: A&P Assessment and Plan (1) Dysphagia: Qualifiers: Dysphagia type: oral phase Qualified Code(s): R13.11 - Dysphagia, oral phase Code(s): R13.10 - Dysphagia, unspecified Status: Acute Assessment and Plan: due to CVA, patient decided to wait few days and see progress with speech therapy before moving forward with G-tube placement. 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 Still not swallowing. Review of Systems Review of Systems: All systems reviewed & are unremarkable except as noted in HPI and below Exam Const: General: comfortable and no acute distress HENMT: General nose exam: Normal nares present Eyes: General: appearance normal, both eyes and all related structures Neck: Neck: no JVD Resp: Auscultation: clear to auscultation bilaterally Cardio: Rate: regular rate Rhythm: regular rhythm GI: Inspection: non-distended GI Palp: No abdominal tenderness and Yes Soft to palpation Auscultation: normal bowel sounds Skin: General skin exam: normal color Neuro: General: gait normal Speech: normal speech Extrem: General: normal to inspection Psych: Mental Status: mental status grossly normal Objective Data Vital Signs Vital Signs: Vital Signs - 24 hr 07/12/19 14:00 07/12/19 18:28 07/12/19 19:24 Temperature 98.2 F Pulse Rate 81 72 Respiratory Rate 18 16 Blood Pressure 185/90 H 155/77 H Pulse Oximetry 94 84 L 07/12/19 19:30 07/12/19 21:07 07/13/19 02:49 Temperature 97.6 F Pulse Rate 79 82 71 Respiratory Rate 16 16 16 Blood Pressure 134/66 Pulse Oximetry 94 07/13/19 03:00 07/13/19 06:00 07/13/19 07:55 Temperature 98.7 F Pulse Rate 77 78 84 Respiratory Rate 16 18 16 Blood Pressure 161/78 H Pulse Oximetry 94 07/13/19 08:05 Temperature Pulse Rate 82 Respiratory Rate 16 Blood Pressure Pulse Oximetry Intake/Output Intake/Output: Intake & Output 07/10/19 07/11/19 07/12/19 07/13/19 23:59 23:59 23:59 23:59 Intake Total 0 2202 2451 Output Total 919 204 8726 987 Balance -250 -862 -851 2658 Meds/Results Medications: Active Medications Generic Name Dose Route Start Last Admin Trade Name Freq PRN Reason Stop Dose Admin Albuterol 2.5 mg 07/12/19 14:00 07/13/19 07:54 Albuterol Sulf Neb 2.5mg/0.5ml INHALATION 2.5 mg Q6HRT LICHA Administration Aspirin 81 mg 07/11/19 08:00 07/13/19 09:40 Aspirin Chewable PO 81 mg DAILY@0800 LICHA Administration Atorvastatin Calcium 40 mg 07/11/19 21:00 07/12/19 20:19 Lipitor PO 40 mg HS LICHA Administration Finasteride 5 mg 07/12/19 18:15 07/13/19 09:40 Proscar PO 5 mg QAM LICHA Administration Hydralazine HCl 10 mg 07/11/19 15:32 07/12/19 14:47 Apresoline Hcl Inj IV PUSH 10 mg Q8H PRN Administration Blood Pressure - High Hydrochlorothiazide 12.5 mg 07/11/19 09:00 07/13/19 09:40 Hydrochlorothiazide PO 12.5 mg QAM LICHA Administration Ipratropium [place] 0.5 mg 07/12/19 14:00 07/13/19 07:54 Atrovent Neb INHALATION 0.5 mg Q6HRT LICHA Administration Lisinopril 10 mg
--- NOTE | 2019-07-13 15:40 | WPDNEUROPN ---
Progress Note: A&P Assessment and Plan (1) Blepharitis of left eye: Code(s): H01.006 - Unspecified blepharitis left eye, unspecified eyelid Status: Acute (2) Urinary retention: Code(s): R33.9 - Retention of urine, unspecified Status: Acute (3) Dyslipidemia: Code(s): E78.5 - Hyperlipidemia, unspecified Status: Acute (4) Hyperglycemia: Code(s): R73.9 - Hyperglycemia, unspecified Status: Acute (5) Dysphagia: Qualifiers: Dysphagia type: oral phase Qualified Code(s): R13.11 - Dysphagia, oral phase Code(s): R13.10 - Dysphagia, unspecified Status: Acute (6) CVA (cerebral vascular accident): Qualifiers: CVA mechanism: thrombosis Precerebral and cerebral artery: vertebral artery Laterality of affected vessel: right Qualified Code(s): 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 Code(s): I63.9 - Cerebral infarction, unspecified Status: Acute (7) Hypertension: Qualifiers: Hypertension type: essential hypertension Qualified Code(s): I10 - Essential (primary) hypertension Code(s): I10 - Essential (primary) hypertension Status: Acute (8) Stroke: Qualifiers: CVA mechanism: unspecified Qualified Code(s): I63.9 - Cerebral infarction, unspecified Code(s): I63.9 - Cerebral infarction, unspecified Status: Acute Additional Plan we should continue the present medical management physical therapy of compression therapy and gait training and since patient is not able to swallow and if he is not getting aspirin he can be given rectal aspirin rest of the management as per attending physician Review of Systems Constitutional: Constitutional: Reports no additional constitutional complaints Eyes: Eyes: Reports no additional eye complaints ENT: Reports system reviewed and no additional complaints, except as documented Cardiovascular: Cardiovascular: Reports no additional cardiovascular complaints Respiratory: Respiratory: Reports no additional respiratory complaints Gastrointestinal: Gastrointestinal: Reports no additional gastrointestinal complaints Genitourinary: Genitourinary: Reports no additional male genitourinary complaints Musculoskeletal: Musculoskeletal: Reports no additional musculoskeletal complaints Integumentary/Breasts: Skin/Breast: Reports system reviewed and no additional complaints, except as docu Neurologic: Reports system reviewed and no additional complaints, except as documented Comments: patient's mental status is normal he does have evidence of palatal weakness and dysphonia and dysarthria and dysphagia He has nasogastric tube placement hoping that he would improves and we will able to offer some Psychiatric: Psychiatric: Reports no additional psychiatric complaints Exam Const: General: comfortable and no acute distress HENMT: General nose exam: Normal nares present Mouth: Yes moist mucous membranes Other: palatal weakness causing dysphonia dysarthria and dysphagia Eyes: General: appearance normal, both eyes and all related structures Neck: Neck: supple and no JVD Resp: Effort & Inspection: normal respiratory effort Auscultation: clear to auscultation bilaterally Cardio: Rate: regular rate Rhythm: regular rhythm GI: Auscultation: normal bowel sounds Skin: General skin exam: normal color and no rashes or lesions noted Neuro: Other: dysphagia dysphonia and dysarthria with intact mental status examination and rest of the cranial examination however he has generalized weakness superimposed with the hemiparesis which in fact has improved Objective Data Vital Signs Vital Signs: Vital Signs - 24 hr 07/12/19 18:28 07/12/19 19:24 07/12/19 19:30 Temperature Pulse Rate 72 79 Respiratory Rate 16 16 Blood Pressure 155/77 H Pulse Oximetry 84 L 07/12/19 21:07 07/13/19 02:49 07/13/19 03:00 Temperature 36
[2019-07-13] MEDS: BACITRACIN OINTMENT 15 GM TUBE 1 APPLIC TOPICAL (21:16)
[2019-07-13] MEDS: ATORVASTATIN 40 MG TABLET PO (21:16)
[2019-07-14] VITALS (13 sets, daily range): BP systolic 121–185; BP diastolic 57–117; PULSE 61–90; RESP 16–18; TEMP 36.3–37.6; O2SAT 93–98; BMI 33.9
[2019-07-14] MEDS: ALBUTEROL SULFATE NEB 2.5 MG/0.5 ML INH INHALATION ×4 (01:47→20:23)
[2019-07-14] MEDS: IPRATROPIUM BR 0.02% INH SOLN 0.5 MG/2.5 ML VIAL INHALATION ×4 (01:47→20:23)
[2019-07-14] MEDS: hydrALAZINE HCL 20 MG/ML VIAL 10 MG IV PUSH (06:08)
[2019-07-14] MEDS: ASPIRIN 81 MG CHEWABLE TABLET PO (08:04)
[2019-07-14] MEDS: THERAPEUTIC MULTIVITAMINS/MINERALS TAB (*BKC) 1 TABLET PO (08:04)
[2019-07-14] MEDS: FINASTERIDE 5 MG TABLET PO (08:04)
[2019-07-14] MEDS: PANTOPRAZOLE SODIUM IV 40 MG VIAL IV PUSH ×2 (08:05→20:47)
[2019-07-14] MEDS: lisinopriL 10 MG TABLET PO (08:05)
[2019-07-14] MEDS: hydroCHLOROthiazide 12.5 MG CAPSULE PO (08:05)
--- NOTE | 2019-07-14 09:09 | PM.IMPN ---
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 It was decided by the patient's family and himself to declined tPA in the emergency room after the risks and benefits were given and everything falling around the 4 hour hermelinda. MRI showed infarct to the right side of the medulla in the expected distribution of the right vertebral artery. Loss of normal flow void in the right vertebral artery, consistent with thrombus versus low-flow. CTA brain and brainstem showed normal brain, total occlusion of right vertebral artery. Carotid Dopplers showed less than 50% bilaterally. Echocardiogram showed Left ventricular chamber dimension is normal and systolic function is normal, EF 60-65%. There is mild LVH. The left ventricular diastolic function is grade I diastolic dysfunction. Telemetry showed Normal sinus rhythm rate 78, an alarm showing PVC every 7th beat x5, otherwise normal. Will discontinue his Telemetry at this time, 07/13/2019. CVA was most likely from plaque build up to right vertebral artery and uncontrolled HTN. Dr. Fam Neurology evaluated the patient and we will continue Aspirin, BP control and therapy. At this time we are working with physical therapy, occupational therapy, and speech therapy. Will continue monitoring his symptoms. (2) Dysphagia: Qualifiers: Dysphagia type: oral phase Qualified Code(s): R13.11 - Dysphagia, oral phase Code(s): R13.10 - Dysphagia, unspecified Status: Acute Assessment and Plan: The patient has been having dysphagia. The patient failed his bedside swallow and modified barium swallow showed very minimal laryngeal elevation and no laryngeal closure. The speech therapist do not recommend the patient having anything by mouth at this time and they will continue treating his dysphagia with daily speech therapy lessons. The patient had a Dobbhoff placed 07/12/2019 and he has started tube feedings and tolerating them well. GI specialist Dr. Flynn who evaluated the patient today as well as myself and told the patient at this point since there has not been much progress made with his swallowing he needs to consider a PEG Tube. The patient told Dr. Flynn that he would like to talk to his about this. Dr. Flynn states he could probably place PEG Tube tomorrow. Continue monitoring. Aspiration precautions initiated. (3) Hypertension: Qualifiers: Hypertension type: essential hypertension Qualified Code(s): I10 - Essential (primary) hypertension Code(s): I10 - Essential (primary) hypertension Status: Acute Assessment and Plan: The patient has not seen a physician in 15 years, and stopped taking his blood pressure medications about the same time. He was started on lisinopril 10 mg and hydrochlorothiazide 12.5 mg. This morning his blood pressure is 159/77 before medications were given. Continue monitoring the patient's blood pressure. Make further adjustments if needed. P.r.n. hydralazine is ordered as needed for systolic blood pressure greater than 180 or diastolic blood pressure greater than 100. (4) Urinary retention: Code(s): R33.9 - Retention of urine, unspecified Status: Acute Assessment and Plan: The patient was having urinary retention issues and we place a Yates catheter in him yesterday. Urinalysis was ordered before Yates catheter was placed, which showed
[2019-07-14] MEDS: SALINE 0.65% NAS SOLN 44 ML BTL 1 SPRAY NASAL (10:50)
--- NOTE | 2019-07-14 10:56 | WPDNEUROPN ---
Progress Note: A&P Assessment and Plan (1) Urinary retention: Code(s): R33.9 - Retention of urine, unspecified Status: Acute (2) Dyslipidemia: Code(s): E78.5 - Hyperlipidemia, unspecified Status: Acute (3) Hyperglycemia: Code(s): R73.9 - Hyperglycemia, unspecified Status: Acute (4) Dysphagia: Qualifiers: Dysphagia type: oral phase Qualified Code(s): R13.11 - Dysphagia, oral phase Code(s): R13.10 - Dysphagia, unspecified Status: Acute (5) CVA (cerebral vascular accident): Qualifiers: CVA mechanism: thrombosis Precerebral and cerebral artery: vertebral artery Laterality of affected vessel: right Qualified Code(s): 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 Code(s): I63.9 - Cerebral infarction, unspecified Status: Acute (6) Hypertension: Qualifiers: Hypertension type: essential hypertension Qualified Code(s): I10 - Essential (primary) hypertension Code(s): I10 - Essential (primary) hypertension Status: Acute Additional Plan stable and improving will benefit from G-tube ,discussed with pt and family Review of Systems Review of Systems: All systems reviewed & are unremarkable except as noted in HPI and below Exam Narrative: Exam Narrative: NG tube in Const: General: cooperative, healthy appearing, comfortable, alert and awake Nutritional Appearance: average body habitus Orientation/consciousness: patient oriented x3 Limitations: other limitations (right hemiparetic) HENMT: Ears: hearing grossly normal bilaterally Eyes: Visual Melgar: normal visual melgar by confrontation Alignment and Position: position normal Cornea: corneas normal Pupils: Equal, round and reactive pupils present EOM: EOMs intact bilaterally Neck: Neck: full ROM Resp: Effort & Inspection: normal respiratory effort Auscultation: clear to auscultation bilaterally Cardio: Rate: regular rate Rhythm: regular rhythm Neuro: General: patient oriented x3 Cranial nerves: Yes Equal, round and reactive pupils present, Yes Nystagmus not present, Yes Midline tongue present, Yes Normal hearing present and Yes Ability to bilaterally elevate shoulders present Cognition (Neuro): normal cognition Speech: dysarthria and Other speech findings present (Neuro) (dysphonia) Gait exam (Neuro): Unable to assess gait Motor exam (neuro): 5/5 motor strength present throughout (right hemiparesis improving) Objective Data Vital Signs Vital Signs: Vital Signs - 24 hr 07/13/19 14:00 07/13/19 14:20 07/13/19 14:29 Temperature 36.4 C Pulse Rate 77 80 79 Respiratory Rate 20 16 16 Blood Pressure 154/80 H Pulse Oximetry 94 07/13/19 20:19 07/13/19 20:30 07/13/19 22:41 Temperature 37.7 C H Pulse Rate 69 70 84 Respiratory Rate 16 16 16 Blood Pressure 172/93 H Pulse Oximetry 93 07/14/19 01:48 07/14/19 01:55 07/14/19 06:02 Temperature 37.6 C Pulse Rate 61 71 77 Respiratory Rate 16 16 16 Blood Pressure 183/91 H Pulse Oximetry 96 07/14/19 06:05 07/14/19 08:00 07/14/19 08:25 Temperature 36.6 C Pulse Rate 88 90 Respiratory Rate 18 Blood Pressure 185/117 H 159/77 H Pulse Oximetry 93 07/14/19 08:31 Temperature Pulse Rate 88 Respiratory Rate 18 Blood Pressure Pulse Oximetry Intake/Output Intake/Output: Intake & Output 07/11/19 07/12/19 07/13/19 07/14/19 23:59 23:59 23:59 23:59 Intake Total 0 2202 3402 Output Total 550 2650 1878 500 Balance -550 -448 1527 -500 Meds/Results Medications: Active Medications Generic Name Dose Route Start Last Admin Trade Name Freq PRN Reason Stop Dose Admin Acetaminophen 650 mg 07/14/19 09:20 Tylenol Elixir FEED TUBE Q6H PRN Mild Pain (1-3),Fever,HEADACHE Albuterol 2.5 mg 07/12/19 14:00 07/14/19 08:23 Albuterol Sulf Neb 2.5mg/0.5ml INHALATION 2.5 mg Q6HRT LICHA Administration Artificial Tears 1
--- NOTE | 2019-07-14 12:59 | WPDGIPROGNO ---
Progress Note: A&P Assessment and Plan (1) Dysphagia: Qualifiers: Dysphagia type: oral phase Qualified Code(s): R13.11 - Dysphagia, oral phase Code(s): R13.10 - Dysphagia, unspecified Status: Acute Assessment and Plan: patient and family discussed with neurology, most likely we are looking a long time before recovery of swallowing function thus recommendation to proceed with g-tube placement, I will do it tomorrow. Patient will get abx before g-tube placement. 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 Review of Systems Review of Systems: All systems reviewed & are unremarkable except as noted in HPI and below Exam Const: General: comfortable and no acute distress HENMT: General nose exam: Normal nares present Eyes: EOM: EOMs intact bilaterally Neck: Neck: no JVD Resp: Auscultation: clear to auscultation bilaterally Cardio: Rate: regular rate Rhythm: regular rhythm GI: Inspection: non-distended GI Palp: No abdominal tenderness and Yes Soft to palpation Auscultation: normal bowel sounds Skin: General skin exam: normal color Neuro: General: gait normal Speech: normal speech Extrem: General: normal to inspection Psych: Mental Status: mental status grossly normal Objective Data Vital Signs Vital Signs: Vital Signs - 24 hr 07/13/19 14:00 07/13/19 14:20 07/13/19 14:29 Temperature 97.6 F Pulse Rate 77 80 79 Respiratory Rate 20 16 16 Blood Pressure 154/80 H Pulse Oximetry 94 07/13/19 20:19 07/13/19 20:30 07/13/19 22:41 Temperature 99.8 F H Pulse Rate 69 70 84 Respiratory Rate 16 16 16 Blood Pressure 172/93 H Pulse Oximetry 93 07/14/19 01:48 07/14/19 01:55 07/14/19 06:02 Temperature 99.6 F Pulse Rate 61 71 77 Respiratory Rate 16 16 16 Blood Pressure 183/91 H Pulse Oximetry 96 07/14/19 06:05 07/14/19 08:00 07/14/19 08:25 Temperature 97.9 F Pulse Rate 88 90 Respiratory Rate 18 Blood Pressure 185/117 H 159/77 H Pulse Oximetry 93 07/14/19 08:31 Temperature Pulse Rate 88 Respiratory Rate 18 Blood Pressure Pulse Oximetry Intake/Output Intake/Output: Intake & Output 07/11/19 07/12/19 07/13/19 07/14/19 23:59 23:59 23:59 23:59 Intake Total 0 2202 3402 Output Total 550 2650 1875 500 Balance -550 -448 1527 -500 Meds/Results Medications: Active Medications Generic Name Dose Route Start Last Admin Trade Name Freq PRN Reason Stop Dose Admin Acetaminophen 650 mg 07/14/19 09:20 Tylenol Elixir FEED TUBE Q6H PRN Mild Pain (1-3),Fever,HEADACHE Albuterol 2.5 mg 07/12/19 14:00 07/14/19 08:23 Albuterol Sulf Neb 2.5mg/0.5ml INHALATION 2.5 mg Q6HRT LICHA Administration Artificial Tears 1 drop 07/13/19 13:09 07/13/19 21:16 Artificial Tears EACH EYE 1 drop QID PRN Administration Dry Eye(s) Aspirin 81 mg 07/15/19 08:00 Aspirin Chewable FEED TUBE DAILY@0800 LICHA Atorvastatin Calcium 40 mg 07/14/19 21:00 Lipitor FEED TUBE HS LICHA Bacitracin 1 applic 07/13/19 21:00 07/13/19 21:16 Bacitracin Oint 15 Gm TOPICAL 1 applic HS [facility] Administration Cefazolin Sodium 1 gm 07/15/19 13:56 Ancef IV PUSH 07/15/19 13:57 ONCE ONE Finasteride 5
[2019-07-14] MEDS: BACITRACIN OINTMENT 15 GM TUBE 1 APPLIC TOPICAL (20:47)
[2019-07-14] MEDS: ATORVASTATIN 40 MG TABLET FEED TUBE (20:47)
[2019-07-15] VITALS (19 sets, daily range): BP systolic 125–169; BP diastolic 77–94; PULSE 18–87; RESP 16–95; TEMP 36.2–37.4; O2SAT 84–96
[2019-07-15] MEDS: ALBUTEROL SULFATE NEB 2.5 MG/0.5 ML INH INHALATION ×4 (01:53→19:00)
[2019-07-15] MEDS: IPRATROPIUM BR 0.02% INH SOLN 0.5 MG/2.5 ML VIAL INHALATION ×4 (01:53→19:00)
[2019-07-15 05:40] LABS: Basophils Percent Auto 0.2 % (0.2-1.2); Eosinophils Absolute Auto 0.1 K/mm3 (0-0.3); Hemoglobin 14.8 g/dL (14.0-18.0); Immature Granulocyte Absolute 0.05 K/mm3 (0.00-0.031); Immature Granulocyte Percent A 0.4 % (0-0.5); Lymphocytes Absolute Auto 1.44 K/mm3 (0.9-3.2); Lymphocytes Percent Auto 11.2 % (18.3-44.2); Mean Corpuscular HGB Conc 32.9 g/dl (32-36); Mean Corpuscular Hemoglobin 27.8 pg (26-34); Mean Corpuscular Volume 84.6 fl (80-100); Mean Platelet Volume 9.5 fl (7.4-10.4); Monocytes Absolute Auto 1.2 K/mm3 (0.1-0.6); Monocytes Percent Auto 9.2 % (2.6-8.5); Neutrophils Absolute Auto 10.1 K/mm3 (1.3-6.7); Platelet Count Result 288 k/mm3 (150-375); Red Blood Count 5.32 M/mm3 (4.6-6.20); Red Cell Distribution Width 12.7 % (11.5-14.5); White Blood Count 12.9 K/mm3 (4.5-10.0)
[2019-07-15 05:50] LABS: Blood Urea Nitrogen 22 mg/dL (9-20); Calcium 8.5 mg/dL (8.4-10.2); Carbon Dioxide 27 mmol/L (22-30); Chloride 98 mmol/L (98-107); Estimated CRCL calculation 78 ml/min; Estimated Glomerular Filt Rate > 60; Glucose 116 mg/dL (75-110); Magnesium 2.1 mg/dL (1.6-2.3); Potassium 3.8 mmol/L (3.4-5.0); Sodium 136 mmol/L (137-145)
--- NOTE | 2019-07-15 06:30 | PC.NURSE ---
Report given to Sherry and patient transfered to GI lab for PEG placement. Pt is alert and oriented and is at bedside
[2019-07-15] MEDS: LACTATED RINGERS 1,000 ML 150 ML IV CONT (06:44)
--- NOTE | 2019-07-15 07:09 | WPDANESEPPF ---
Anes - Initial Pre Proc Eval Procedure: Operation Date: 07/15/19 07:30 Proposed Procedures p Esophagogastroduodenoscopy - Maynor Martinez MD s Percutaneous Endoscopic Gastrostomy - Maynor Martinez MD Date/Time: 07/15/19 07:09 Pre Op Diagnosis: Stroke Patient Data Age: 69 Gender: M Height: 1.78 m Weight: 107.2 kg Last Vital Signs Temp 36.9 C 07/14/19 22:00 Pulse 87 07/15/19 02:01 Resp 18 07/15/19 02:01 BP 121/57 L 07/14/19 22:00 Pulse Ox 94 07/14/19 22:00 Allergies Allergy/AdvReac Type Severity Reaction Status Date / Time mold Allergy Watery Eye Verified 07/10/19 18:33 ragweed pollen Allergy Watery Eye Verified 07/10/19 18:33 Home Medications Medication Instructions Recorded Confirmed Type multivit with min-folic acid 0.4 mg PO QAM 07/10/19 07/10/19 History [Adult One Daily Multivitamin] Laboratory Tests 07/15/19 07/15/19 05:05 05:05 WBC 12.9 K/mm3 H K/mm3 (4.5-10.0) RBC 5.32 M/mm3 M/mm3 (4.6-6.20) Hgb 14.8 g/dL g/dL (14.0-18.0) Hct 45.0 % % (42.0-52.0) MCV 84.6 fl fl (80-100) MCH 27.8 pg pg (26-34) MCHC 32.9 g/dl g/dl (32-36) RDW 12.7 % % (11.5-14.5) Plt Count 288 k/mm3 k/mm3 (150-375) MPV 9.5 fl fl (7.4-10.4) Immature Gran % (Auto) 0.4 % % (0-0.5) Neut % (Auto) 78.0 % H % (45.5-73.1) Lymph % (Auto) 11.2 % L % (18.3-44.2) [place] % (Auto) 9.2 % H % (2.6-8.5) Eos % (Auto) 1.0 % % (0-4.4) Baso % (Auto) 0.2 % % (0.2-1.2) Lymph # (Auto) 1.44 K/mm3 K/mm3 (0.9-3.2) [place] # (Auto) 1.2 K/mm3 H K/mm3 (0.1-0.6) Eos # (Auto) 0.1 K/mm3 K/mm3 (0-0.3) Baso # (Auto) 0.0 K/mm3 K/mm3 (0.0-0.1) Abs Immat Gran (auto) 0.05 K/mm3 H K/mm3 (0.00-0.031) Absolute Neuts (auto) 10.1 K/mm3 H K/mm3 (1.3-6.7) Absolute Nucleated RBC 0.0 K/mm3 K/mm3 (0.0-0.012) Nucleated RBC % 0.0 % % (0.0-0.2) Sodium 136 mmol/L L mmol/L (137-145) Potassium 3.8 mmol/L mmol/L (3.4-5.0) Chloride 98 mmol/L mmol/L (98-107) Carbon Dioxide 27 mmol/L mmol/L (22-30) BUN 22 mg/dL H mg/dL (9-20) Creatinine 1.00 mg/dL mg/dL (0.7-1.3) Estim Creat Clear Calc 78 ml/min ml/min Estimated GFR > 60 (59 - ) Glucose 116 mg/dL H mg/dL (75-110) Calcium 8.5 mg/dL mg/dL (8.4-10.2) Magnesium 2.1 mg/dL mg/dL (1.6-2.3) ECG: Date of Service: 07/10/19 Procedure(s): CA 12 lead EKG Accession Number(s): [id number] cc: ~ Measurements Intervals [place] Rate: 76 P: 53 RI: 168 QRS: -6 QRSD: 88 T: 44 QT: 375 QTc: 424 Interpretive Statements SINUS RHYTHM RSR' IN V1 OR V2, CONSIDER RIGHT VENTRICULAR HYPERTROPHY OR RIGHT VCD BORDERLINE ECG Electronically Signed On 07-11-2019 13:58:14 [employer]ERCIAL CREDIT ANALYST by Jesús Smyth D.O. Dictated By: Jesús Smyth DO 07/10/19 1606 Patient hx anesthesia problems: none Family hx anesthesia problems: none [facility] Past Medical History Medical History (Updated 07/15/19 @ 07:11 by Acosta Odonnell MD) Cancer basal cell carcinoma CVA (cerebral vascular accident) Depression Dyslipidemia Dysphagia Hypertension He has not taken antihypertensives for > 15 years, which was the last time he saw physician. Obesity Skin cancer Urinary retention Surgical History Surgical History (Updated 07/10/19 @ 16:19 by Catarino Baker) H/O local excision of skin lesion Family History Family History Sibling Pancreatic cancer Cerebrovascular accide
--- NOTE | 2019-07-15 08:22 | SUR.PHASEII ---
pt to post-op peg tube placed, #4 at flange at skin. dressing intact. no drainage noted, bates catheter intact
--- NOTE | 2019-07-15 08:49 | PC.NURSE ---
Returned from GI Lab. Report received from JOSUE Boyd.
--- NOTE | 2019-07-15 09:45 | PC.NURSE ---
Patient not receiving 0900 meds through PEG tube due to orders from Dr. Flynn to not use PEG for 6 hours post PEG insertion. (Due to be used again at 1500). Sky Vasquez notified that patient will not receive 0900 meds.
[2019-07-15] MEDS: PANTOPRAZOLE SODIUM IV 40 MG VIAL IV PUSH ×2 (09:50→20:17)
--- NOTE | 2019-07-15 10:42 | PCPTNOTE ---
The PT treatment was not completed this morning due to recent return from PEG placement procedure. Will continue per Plan of Care frequency and duration.
--- NOTE | 2019-07-15 10:43 | PCDIET ---
Nutrition Follow-Up Complete: Swallowing Difficulties as related to Dysphasia as evidenced by failed MBS. Meet estimated kcal needs via tube feedings Goal:New goal started Pt current nutrition is npo. Nutrition recommendation: Jevity 1.2 with goal of 30ml/hr day one, advancing to final goal of 70ml/hr day two if tolerated Last recorded weight is 107.2 kg. Bowel Motility:na Labs Reviewed:glucose 116, Na 136 Meds Noted: Lisinopril, MTV, protonix Additional Notes: Pt currently day 5 NPO. At risk for refeeding syndrome. EN should start slow at 10ml/hr, advancing 10ml/ q 6hrs to goal of 30ml/hr day one. If tolerated and electrolytes remain stable (K, Na, Glucose, PO4), then recommend advancing as tolerated to final goal of 70ml/hr day two. PO4 lab recommend. At goal, EN will meet 100% of needs providing 1848 kcals, 85g protein, and 1243ml of free water over 22hrs. Free water flush of 80ml q 4 hrs recommend if no other fluids provided. Will monitor every Sunday and Sunday
--- NOTE | 2019-07-15 12:38 | WPDNEUROPN ---
Progress Note: A&P Additional Plan righy medullary stroke with peg now Exam Const: General: cooperative, healthy appearing, comfortable and no acute distress Nutritional Appearance: well nourished Orientation/consciousness: patient oriented x3 Eyes: General: appearance normal, both eyes and all related structures Neck: Neck: full ROM Resp: Auscultation: clear to auscultation bilaterally Cardio: Rate: regular rate Rhythm: regular rhythm Neuro: General: patient oriented x3 Psych: Appearance: grossly normal Objective Data Vital Signs Vital Signs: Vital Signs - 24 hr 07/14/19 14:00 07/14/19 14:14 07/14/19 14:22 Temperature 36.3 C L Pulse Rate 84 86 84 Respiratory Rate 16 16 18 Blood Pressure 150/87 H Pulse Oximetry 98 07/14/19 20:23 07/14/19 20:44 07/14/19 22:00 Temperature 36.9 C Pulse Rate 85 84 89 Respiratory Rate 18 18 16 Blood Pressure 121/57 L Pulse Oximetry 94 07/15/19 01:53 07/15/19 02:01 07/15/19 06:00 Temperature 36.6 C Pulse Rate 87 87 84 Respiratory Rate 18 18 18 Blood Pressure 159/78 H Pulse Oximetry 96 07/15/19 06:35 07/15/19 08:07 07/15/19 08:17 Temperature 37.4 C Pulse Rate 85 81 78 Respiratory Rate 18 16 16 Blood Pressure 141/81 H 132/79 125/77 Pulse Oximetry 93 92 93 07/15/19 08:27 07/15/19 08:50 07/15/19 09:02 Temperature 36.2 C L Pulse Rate 78 20 L 87 Respiratory Rate 16 93 H 18 Blood Pressure 125/80 155/86 H Pulse Oximetry 95 86 L 07/15/19 09:05 07/15/19 09:14 07/15/19 09:35 Temperature 36.3 C L 36.7 C Pulse Rate 18 L 86 20 L Respiratory Rate 95 H 18 94 H Blood Pressure 169/94 H 164/86 H Pulse Oximetry 86 L 84 L Intake/Output Intake/Output: Intake & Output 07/12/19 07/13/19 07/14/19 07/15/19 23:59 23:59 23:59 23:59 Intake Total 2202 3402 1857 627 Output Total 2650 1875 950 700 Balance -448 1527 907 -73 Meds/Results Medications: Active Medications Generic Name Dose Route Start Last Admin Trade Name Freq PRN Reason Stop Dose Admin Acetaminophen 650 mg 07/14/19 09:20 Tylenol Elixir FEED TUBE Q6H PRN Mild Pain (1-3),Fever,HEADACHE Albuterol 2.5 mg 07/12/19 14:00 07/15/19 09:00 Albuterol Sulf Neb 2.5mg/0.5ml INHALATION 2.5 mg Q6HRT LICHA Administration Artificial Tears 1 drop 07/13/19 13:09 07/14/19 14:31 Artificial Tears EACH EYE 1 drop QID PRN Administration Dry Eye(s) Aspirin 81 mg 07/15/19 08:00 07/15/19 09:05 Aspirin Chewable FEED TUBE Not Given DAILY@0800 LICHA Atorvastatin Calcium 40 mg 07/14/19 21:00 07/14/19 20:47 Lipitor FEED TUBE 40 mg HS LICHA Administration Bacitracin 1 applic 07/13/19 21:00 07/14/19 20:47 Bacitracin Oint 15 Gm TOPICAL 1 applic HS LICHA Administration Finasteride 5 mg 07/15/19 09:00 07/15/19 09:05 Proscar XX Not Given QAM LICHA Hydralazine HCl 10 mg 07/11/19 15:32 07/14/19 06:08 Apresoline Hcl Inj IV PUSH 10 mg Q8H PRN Administration Blood Pressure - High Hydrochlorothiazide 12.5 mg 07/15/19 09:00 07/15/19 09:05 Hydrochlorothiazide FEED TUBE Not Given QAM [facility] Acetaminophen 1,000 mg in 100 mls @ 400 mls/hr 07/15/19 08:58 07/15/19 09:48 Ofirmev 1,000 Mg Ivpb IVPB 07/16/19 08:59 400 mls/hr Q6H PRN Administration Headache Ipratropium [place] 0.5 mg 07/12/19 14:00 07/15/19 09:00 Atrovent Neb INHALATION 0.5 mg Q6HRT LICHA Administration Lisinopril 10 mg 07/15/19 09:00 07/15/19 09:05 Prinivil FEED TUBE Not Given DAILY LICHA Multivitamins/Calcium 1 tablet 07/15/19 09:00 07/15/19 09:06 Therapeutic Multivitamins/Minerals FEED TUBE Not Given QAM LICHA Pantoprazole Sodium 40 mg 07/11/19 21:00 07/15/19 09:50 Protonix Iv IV PUSH 40 mg Q12HR LICHA Administration Sodium Chloride 1 spray 07/14/19 09:06 07/14/19 10:50 [place] Nasal [place] NASAL 1 spray Q6HR PRN Administration Congestion Radiology Results: ITS I
--- NOTE | 2019-07-15 18:03 | PM.IMPN ---
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 MRI showed infarct to the right side of the medulla in the expected distribution of the right vertebral artery. Loss of normal flow void in the right vertebral artery, consistent with thrombus versus low-flow. CTA brain and brainstem showed normal brain, total occlusion of right vertebral artery. Carotid Dopplers unremarkable. Echocardiogram grossly unremarkable; grade I diastolic dysfunction noted. Dr. Fam Neurology evaluated the patient and we will continue Aspirin, BP control and therapy. Appreciate recommendations Continue with physical therapy, occupational therapy, and speech therapy. Will continue monitoring his symptoms. CC working on TRC placement (2) Dysphagia: Qualifiers: Dysphagia type: oral phase Qualified Code(s): R13.11 - Dysphagia, oral phase Code(s): R13.10 - Dysphagia, unspecified Status: Acute Assessment and Plan: The patient has been having dysphagia. The patient failed his bedside swallow and modified barium swallow showed very minimal laryngeal elevation and no laryngeal closure. The speech therapist do not recommend the patient having anything by mouth at this time and they will continue treating his dysphagia with daily speech therapy lessons. PEG tube placed today per Dr. Flynn; patient tolerating feeds thus far. Continue monitoring. Aspiration precautions initiated. Rhonchi noted on exam, although cleared with cough. Will monitor this tomorrow as patient at risk for aspiration PNA. If continued to have rhonchi, or spiking fever, consider another CXR. (3) Hypertension: Qualifiers: Hypertension type: essential hypertension Qualified Code(s): I10 - Essential (primary) hypertension Code(s): I10 - Essential (primary) hypertension Status: Acute Assessment and Plan: The patient has not seen a physician in 15 years, and stopped taking his blood pressure medications about the same time. He was started on lisinopril 10 mg and hydrochlorothiazide 12.5 mg. Continue this This morning his blood pressure is 120-140s sys prior to procedure Monitor as medications to be resumed P.r.n. hydralazine with parameters (4) Urinary retention: Code(s): R33.9 - Retention of urine, unspecified Status: Acute Assessment and Plan: The patient was having urinary retention issues currently has Yates He was started on Finasteride, cannot start Flomax because it is unable to be crushed to place in [facility]. Will continue monitoring his urine output and consider pulling Yates with Voiding trial prior to discharge vs continuing with Yates catheter in place and follow up with Urology. (5) Hyperglycemia: Code(s): R73.9 - Hyperglycemia, unspecified Status: Acute Assessment and Plan: The patient's glucose was slightly elevated at 132 this morning. [id number] was 6.2 which shows he is at risk for developing diabetes. Patient will need education on the risks of diabetes, diet changes, exercise daily. Will continue monitoring glucose while hospitalized. BGL 100s today
--- NOTE | 2019-07-15 18:43 | PC.NURSE ---
Spoke with burrer hand this afternoon in regards to patients tube feedings. She stated that patient should receive Jevity 1.2 at 30mls/hr until tomorrow (day shift). Tomorrow we may increase the tube feedings to 70mls/hr as he was previously receiving.
[2019-07-15] MEDS: GABAPENTIN 100 MG CAPSULE PO (19:03)
[2019-07-15] MEDS: ATORVASTATIN 40 MG TABLET FEED TUBE (20:17)
[2019-07-15] MEDS: MELATONIN 3 MG TABLET FEED TUBE (20:17)
[2019-07-15] MEDS: BACITRACIN OINTMENT 15 GM TUBE 1 APPLIC TOPICAL (20:17)
[2019-07-16] VITALS (13 sets, daily range): BP systolic 118–156; BP diastolic 65–95; PULSE 74–81; RESP 16–20; TEMP 35.9–37.6; O2SAT 91–95
[2019-07-16] MEDS: IPRATROPIUM BR 0.02% INH SOLN 0.5 MG/2.5 ML VIAL INHALATION ×3 (01:27→20:47)
[2019-07-16] MEDS: ALBUTEROL SULFATE NEB 2.5 MG/0.5 ML INH INHALATION ×3 (01:27→20:48)
[2019-07-16 06:03] LABS: Basophils Percent Auto 0.2 % (0.2-1.2); Eosinophils Absolute Auto 0.2 K/mm3 (0-0.3); Eosinophils Percent Auto 1.9 % (0-4.4); Hematocrit 44.6 % (42.0-52.0); Hemoglobin 14.5 g/dL (14.0-18.0); Immature Granulocyte Absolute 0.06 K/mm3 (0.00-0.031); Immature Granulocyte Percent A 0.5 % (0-0.5); Lymphocytes Absolute Auto 1.38 K/mm3 (0.9-3.2); Lymphocytes Percent Auto 11.1 % (18.3-44.2); Mean Corpuscular HGB Conc 32.5 g/dl (32-36); Mean Corpuscular Hemoglobin 28.2 pg (26-34); Mean Corpuscular Volume 86.6 fl (80-100); Mean Platelet Volume 9.9 fl (7.4-10.4); Monocytes Absolute Auto 1.2 K/mm3 (0.1-0.6); Monocytes Percent Auto 9.9 % (2.6-8.5); Neutrophils Absolute Auto 9.5 K/mm3 (1.3-6.7); Neutrophils Percent Auto 76.4 % (45.5-73.1); Platelet Count Result 279 k/mm3 (150-375); Red Blood Count 5.15 M/mm3 (4.6-6.20); Red Cell Distribution Width 12.8 % (11.5-14.5); White Blood Count 12.4 K/mm3 (4.5-10.0)
[2019-07-16 06:06] LABS: Blood Urea Nitrogen 24 mg/dL (9-20); Calcium 8.4 mg/dL (8.4-10.2); Carbon Dioxide 28 mmol/L (22-30); Chloride 98 mmol/L (98-107); Estimated CRCL calculation 86 ml/min; Estimated Glomerular Filt Rate > 60; Glucose 143 mg/dL (75-110); Magnesium 2.3 mg/dL (1.6-2.3); Potassium 4.2 mmol/L (3.4-5.0); Sodium 134 mmol/L (137-145)
[2019-07-16] MEDS: ASPIRIN 81 MG CHEWABLE TABLET FEED TUBE (08:46)
[2019-07-16] MEDS: PANTOPRAZOLE SODIUM IV 40 MG VIAL IV PUSH ×2 (08:46→21:00)
[2019-07-16] MEDS: FINASTERIDE 5 MG TABLET XX (08:47)
[2019-07-16] MEDS: hydroCHLOROthiazide 12.5 MG CAPSULE FEED TUBE (08:47)
[2019-07-16] MEDS: THERAPEUTIC MULTIVITAMINS/MINERALS TAB (*BKC) 1 TABLET FEED TUBE (08:47)
[2019-07-16] MEDS: lisinopriL 10 MG TABLET FEED TUBE (08:48)
--- NOTE | 2019-07-16 09:39 | PM.IMPN ---
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 MRI showed infarct to the right side of the medulla in the expected distribution of the right vertebral artery. Loss of normal flow void in the right vertebral artery, consistent with thrombus versus low-flow. CTA brain and brainstem showed normal brain, total occlusion of right vertebral artery. Carotid Dopplers unremarkable. Echocardiogram grossly unremarkable; grade I diastolic dysfunction noted. Dr. Fam (Neurology) evaluated the patient and we will continue Aspirin, BP control and therapy. Appreciate recommendations Continue with physical therapy, occupational therapy, and speech therapy. Will continue monitoring his symptoms. CC working on TRC placement (2) Dysphagia: Qualifiers: Dysphagia type: oral phase Qualified Code(s): R13.11 - Dysphagia, oral phase Code(s): R13.10 - Dysphagia, unspecified Status: Acute Assessment and Plan: The patient has been having dysphagia. The patient failed his bedside swallow and modified barium swallow showed very minimal laryngeal elevation and no laryngeal closure. The speech therapist do not recommend the patient having anything by mouth at this time and they will continue treating his dysphagia with daily speech therapy lessons. PEG tube placed today per Dr. Flynn; patient tolerating feeds thus far. Continue monitoring. Aspiration precautions initiated. Rhonchi noted on exam, although improved with cough. Will continue to monitor as patient at risk for aspiration PNA. Patient afebrile with improving leukocytosis; asymptomatic. If continued to have rhonchi, or spiking fever, consider another CXR. IS encouraged (3) Hypertension: Qualifiers: Hypertension type: essential hypertension Qualified Code(s): I10 - Essential (primary) hypertension Code(s): I10 - Essential (primary) hypertension Status: Acute Assessment and Plan: The patient has not seen a physician in 15 years, and stopped taking his blood pressure medications about the same time. He was started on lisinopril 10 mg and hydrochlorothiazide 12.5 mg. Continue this This morning his blood pressure is 130s sys Monitor closely P.r.n. hydralazine with parameters (4) Urinary retention: Code(s): R33.9 - Retention of urine, unspecified Status: Acute Assessment and Plan: The patient was having urinary retention issues currently has Yates He was started on Finasteride, cannot start Flomax because it is unable to be crushed to place in [place]/PEG Will continue monitoring his urine output and consider pulling Yates with voiding trial prior to discharge vs continuing with Yates catheter in place and follow up with Urology. (5) Hyperglycemia: Code(s): R73.9 - Hyperglycemia, unspecified Status: Acute Assessment and Plan: The patient's glucose was slightly elevated at 143 this morning. [id number] was 6.2 which shows he is at risk for developing diabetes. Patient will need education on the risks of diabetes, diet changes, exercise daily. Will continue monitoring glucose while hospitalized. BGL 100s
[2019-07-16] MEDS: GABAPENTIN 100 MG CAPSULE XX (10:24)
--- NOTE | 2019-07-16 10:50 | PCDIET ---
Stopped tube feeding.
--- NOTE | 2019-07-16 10:55 | WPDNEUROPN ---
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 Code(s): I63.9 - Cerebral infarction, unspecified Status: Acute (4) Hyperglycemia: Code(s): R73.9 - Hyperglycemia, unspecified Status: Acute (5) Hypertension: Qualifiers: Hypertension type: essential hypertension Qualified Code(s): I10 - Essential (primary) hypertension Code(s): I10 - Essential (primary) hypertension Status: Acute (6) Intractable hiccoughs: Code(s): R06.6 - Hiccough Status: Acute Review of Systems Review of Systems: Narrative: c/o continuous hiccough All systems reviewed & are unremarkable except as noted in HPI and below Exam Const: General: well developed, alert, awake and in distress Nutritional Appearance: well nourished Orientation/consciousness: patient oriented x3 Eyes: General: appearance normal, both eyes and all related structures Pupils: Equal, round and reactive pupils present EOM: EOMs intact bilaterally Neck: Neck: full ROM Resp: Effort & Inspection: normal respiratory effort Auscultation: clear to auscultation bilaterally Cardio: Rate: regular rate GI: Auscultation: normal bowel sounds Neuro: General: patient oriented x3 and moves all extremities Cranial nerves: Yes Equal, round and reactive pupils present, Yes Nystagmus not present and Yes Midline tongue present Cognition (Neuro): normal cognition Speech: normal speech (slow) Gait exam (Neuro): Unable to assess gait Deep tendon reflexes (DTR's): Right triceps reflex intensity grade: 2+, Left triceps reflex intensity grade: 1+, Rt Biceps (C5, C6): 2+, Left biceps reflex intensity grade: 1+, Right brachioradialis reflex intensity grade: 2+, Left brachioradialis reflex intensity grade: 1+, Right patellar reflex intensity grade: 2+, Left patellar reflex intensity grade: 1+, Right ankle reflex intensity grade: 2+ and Left ankle reflex intensity grade: 1+ Plantar Reflex Responses: upgoing (positive Babinski): right Objective Data Vital Signs Vital Signs: Vital Signs - 24 hr 07/15/19 14:00 07/15/19 15:00 07/15/19 15:07 Temperature 37.2 C Pulse Rate 83 84 85 Respiratory Rate 18 18 18 Blood Pressure 140/77 Pulse Oximetry 93 07/15/19 18:00 07/15/19 19:00 07/15/19 19:06 Temperature 36.6 C Pulse Rate 84 82 80 Respiratory Rate 16 18 18 Blood Pressure 156/93 H Pulse Oximetry 91 07/15/19 22:23 07/16/19 01:27 07/16/19 01:32 Temperature 37.1 C Pulse Rate 78 75 76 Respiratory Rate 16 18 18 Blood Pressure Pulse Oximetry 92 07/16/19 06:28 07/16/19 08:00 07/16/19 08:47 Temperature 37.3 C Pulse Rate 78 80 78 Respiratory Rate 16 18 18 Blood Pressure 137/65 Pulse Oximetry 95 93 07/16/19 08:49 07/16/19 08:56 07/16/19 10:05 Temperature 37.6 C H Pulse Rate 80 78 Respiratory Rate 18 16 Blood Pressure 156/95 H Pulse Oximetry 93 92 Intake/Output Intake/Output: Intake & Output 07/13/19 07/14/19 07/15/19 07/16/19 23:59 23:59 23:59 23:59 Intake Total 3400 1855 906 Output Total 4920 313 7931 1200 Balance 1525 861 -629 -2379 Meds/Results Medications: Active Medications Generic Name Dose Route Start Last Admin Trade Name Freq PRN Reason Stop Dose Admin Acetaminophen 650 mg 07/14/19 09:20 Tylenol Elixir FEED TUBE Q6H PRN Mild Pain (1-3),Fever,HEADACHE Albuterol 2.5 mg 07/12/19 14:00 07/16/19 08:46 Albuterol
--- NOTE | 2019-07-16 11:06 | PCOTNOTE ---
Attempted to see patient for OT treatment this AM. Patient declined any/all activity, reporting I haven't gotten any sleep in 2 days. I'm too tired. Will continue to attempt.
--- NOTE | 2019-07-16 11:53 | PC.NURSE ---
2 mls tube feeding residual. Started Jevity 1.2 at 20 ml/hour continuously.
[2019-07-16] MEDS: PROCHLORPERAZINE EDISYLATE 10 MG/2 ML VIAL IM (12:01)
[2019-07-16 13:28] LABS: Basophils Percent Auto 0.1 % (0.2-1.2); Eosinophils Absolute Auto 0.2 K/mm3 (0-0.3); Eosinophils Percent Auto 1.9 % (0-4.4); Hematocrit 44.7 % (42.0-52.0); Hemoglobin 14.7 g/dL (14.0-18.0); Immature Granulocyte Absolute 0.05 K/mm3 (0.00-0.031); Immature Granulocyte Percent A 0.4 % (0-0.5); Mean Corpuscular HGB Conc 32.9 g/dl (32-36); Mean Corpuscular Hemoglobin 28.1 pg (26-34); Mean Corpuscular Volume 85.5 fl (80-100); Mean Platelet Volume 9.8 fl (7.4-10.4); Monocytes Percent Auto 8.1 % (2.6-8.5); Neutrophils Absolute Auto 10.1 K/mm3 (1.3-6.7); Neutrophils Percent Auto 78.5 % (45.5-73.1); Platelet Count Result 274 k/mm3 (150-375); Red Blood Count 5.23 M/mm3 (4.6-6.20); Red Cell Distribution Width 12.6 % (11.5-14.5); White Blood Count 12.8 K/mm3 (4.5-10.0)
[2019-07-16 13:38] LABS: Alanine Aminotransferase 63 U/L (4-50); Alkaline Phosphatase 80 U/L (38-126); Aspartate Amino Transferase 44 U/L (17-59); Blood Urea Nitrogen 23 mg/dL (9-20); Calcium 8.6 mg/dL (8.4-10.2); Carbon Dioxide 27 mmol/L (22-30); Chloride 97 mmol/L (98-107); Estimated CRCL calculation 78 ml/min; Estimated Glomerular Filt Rate > 60; Glucose 124 mg/dL (75-110); Potassium 4.2 mmol/L (3.4-5.0); Sodium 134 mmol/L (137-145)
--- NOTE | 2019-07-16 14:00 | WPDANESPN ---
Anes - Prog Note Post-Op Date/Time: 07/16/19 14:00 Cardiovascular status: normal Respiratory status: normal Airway patency: baseline Mental status: baseline Post-Op hydration status: normal Vital Signs: Last Vital Signs Temp 37.6 C H 07/16/19 10:05 Pulse 78 07/16/19 10:05 Resp 16 07/16/19 10:05 BP 156/95 H 07/16/19 10:05 Pulse Ox 92 07/16/19 10:05 I/O: Intake & Output 07/15/19 07/16/19 07/16/19 23:59 07:59 15:59 Intake Total 179 210 Output Total 550 400 800 Balance -371 -400 -590 Laboratory Tests 07/16/19 13:16 07/16/19 13:16 07/16/19 07/16/19 07/16/19 05:05 05:05 13:16 WBC 12.4 H 12.8 H RBC 5.15 5.23 Hgb 14.5 14.7 Hct 44.6 44.7 MCV 86.6 85.5 MCH 28.2 28.1 MCHC 32.5 32.9 RDW 12.8 12.6 Plt Count 279 274 MPV 9.9 9.8 Immature Gran % (Auto) 0.5 0.4 Neut % (Auto) 76.4 H 78.5 H Lymph % (Auto) 11.1 L 11.0 L [place] % (Auto) 9.9 H 8.1 Eos % (Auto) 1.9 1.9 Baso % (Auto) 0.2 0.1 L Lymph # (Auto) 1.38 1.40 [place] # (Auto) 1.2 H 1.0 H Eos # (Auto) 0.2 0.2 Baso # (Auto) 0.0 0.0 Abs Immat Gran (auto) 0.06 H 0.05 H Absolute Neuts (auto) 9.5 H 10.1 H Absolute Nucleated RBC 0.0 0.0 Nucleated RBC % 0.0 0.0 Sodium 134 L Potassium 4.2 Chloride 98 Carbon Dioxide 28 BUN 24 H Creatinine 0.90 Estim Creat Clear Calc 86 Estimated GFR > 60 Glucose 143 H Calcium 8.4 Magnesium 2.3 Total Bilirubin AST ALT Alkaline Phosphatase Total Protein Albumin 07/16/19 13:16 WBC RBC Hgb Hct MCV MCH MCHC RDW Plt Count MPV Immature Gran % (Auto) Neut % (Auto) Lymph % (Auto) [place] % (Auto) Eos % (Auto) Baso % (Auto) Lymph # (Auto) [place] # (Auto) Eos # (Auto) Baso # (Auto) Abs Immat Gran (auto) Absolute Neuts (auto) Absolute Nucleated RBC Nucleated RBC % Sodium 134 L Potassium 4.2 Chloride 97 L Carbon Dioxide 27 BUN 23 H Creatinine 1.00 Estim Creat Clear Calc 78 Estimated GFR > 60 Glucose 124 H Calcium 8.6 Magnesium Total Bilirubin 1.0 AST 44 ALT 63 H Alkaline Phosphatase 80 Total Protein 8.0 Albumin 4.0 Post-procedural complaints: none Patient Feedback: Patient satisfied with anesthetic care.
[2019-07-16] MEDS: CHLORPROMAZINE HCL 25 MG TABLET FEED TUBE ×2 (14:34→21:12)
--- NOTE | 2019-07-16 14:52 | PCOTNOTE ---
OT treatment attempted this PM. Patient had just come back from testing and expressed that he was exhausted from not getting any rest the last two days. Pt. declined OT treatment this date. Will attempt OT treatment session tomorrow AM.
--- NOTE | 2019-07-16 15:05 | WPDGIPROGNO ---
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 Code(s): I63.9 - Cerebral infarction, unspecified Status: Acute (2) Dysphagia: Qualifiers: Dysphagia type: oral phase Qualified Code(s): R13.11 - Dysphagia, oral phase Code(s): R13.10 - Dysphagia, unspecified Status: Acute Assessment and Plan: g-tube placement yesterday without any problem (3) Hypertension: Qualifiers: Hypertension type: essential hypertension Qualified Code(s): I10 - Essential (primary) hypertension Code(s): I10 - Essential (primary) hypertension Status: Acute (4) Intractable hiccoughs: Code(s): R06.6 - Hiccough Status: Acute Assessment and Plan: started before G-tube placement, on compazine. CXR pending. Subjective Date/time seen: 07/16/19 15:05 Interval history: he is still having hiccups ( says that started the night before the endoscopic). He was tolerating tube feeding via g-tube but on hold for now because he is getting CXR (also cough with rhonchi) Review of Systems Review of Systems: Narrative: c/o continuous hiccough All systems reviewed & are unremarkable except as noted in HPI and below Exam Const: General: comfortable and no acute distress HENMT: General nose exam: Normal nares present Eyes: EOM: EOMs intact bilaterally Neck: Neck: no JVD Resp: Auscultation: no crackles, rhonchi and no wheezes Cardio: Rate: regular rate Rhythm: regular rhythm GI: Inspection: non-distended GI Palp: Yes Soft to palpation Auscultation: normal bowel sounds Other: g-tube in position, no bleeding, site looks ok Skin: General skin exam: normal color Neuro: General: gait normal Speech: normal speech Extrem: General: normal to inspection Psych: Mental Status: mental status grossly normal Objective Data Vital Signs Vital Signs: Vital Signs - 24 hr 07/15/19 15:07 07/15/19 18:00 07/15/19 19:00 Temperature 97.9 F Pulse Rate 85 84 82 Respiratory Rate 18 16 18 Blood Pressure 156/93 H Pulse Oximetry 91 07/15/19 19:06 07/15/19 22:23 07/16/19 01:27 Temperature 98.7 F Pulse Rate 80 78 75 Respiratory Rate 18 16 18 Blood Pressure Pulse Oximetry 92 07/16/19 01:32 07/16/19 06:28 07/16/19 08:00 Temperature 99.1 F Pulse Rate 76 78 80 Respiratory Rate 18 16 18 Blood Pressure 137/65 Pulse Oximetry 95 93 07/16/19 08:47 07/16/19 08:49 07/16/19 08:56 Temperature Pulse Rate 78 80 Respiratory Rate 18 18 Blood Pressure Pulse Oximetry 93 07/16/19 10:05 Temperature 99.7 F H Pulse Rate 78 Respiratory Rate 16 Blood Pressure 156/95 H Pulse Oximetry 92 Intake/Output Intake/Output: Intake & Output 07/13/19 07/14/19 07/15/19 07/16/19 23:59 23:59 23:59 23:59 Intake Total 3402 1857 906 210 Output Total 2408 766 2303 1200 Balance 1527 900 -176 -990 Meds/Results Medications: Active Medications Generic Name Dose Route Start Last Admin Trade Name Freq PRN Reason Stop Dose Admin Acetaminophen 650 mg 07/14/19 09:20 Tylenol Elixir FEED TUBE Q6H PRN Mild Pain (1-3),Fever,HEADACHE Albuterol 2.5 mg 07/12/19 14:00 07/16/19 14:14 Albuterol Sulf Neb 2.5mg/0.5ml INHALATION Not Given Q6HRT REPLACED BY [facility] Artificial Tears 1 drop 07/13/19 13:09 07/14/19 14:31 Artificial Tears EACH EYE 1 drop QID PRN Administration Dry Eye(s) Aspirin 81 mg 07/15/19 08:00 07/16/19 08:46 Aspirin Chewable FEED TUBE 81 mg DAILY@0800 REPLACED BY [facility] Administration Atorvastatin Calcium 40 mg 07/14/19 21:00 07/15/19 20:17 Lipitor FEED TUBE 40 mg HS LICHA Administration Bacitracin 1 applic 07/13/19 21:00 07/15/19 20:17 Bacitra
[2019-07-16] MEDS: BACITRACIN OINTMENT 15 GM TUBE 1 APPLIC TOPICAL (20:59)
[2019-07-16] MEDS: ATORVASTATIN 40 MG TABLET FEED TUBE (20:59)
[2019-07-16] MEDS: MELATONIN 3 MG TABLET FEED TUBE (21:00)
[2019-07-17] VITALS (11 sets, daily range): BP systolic 122–146; BP diastolic 72–77; PULSE 64–83; RESP 16–20; TEMP 35.9–36.8; O2SAT 91–93
[2019-07-17] MEDS: ALBUTEROL SULFATE NEB 2.5 MG/0.5 ML INH INHALATION ×4 (01:38→21:54)
[2019-07-17] MEDS: IPRATROPIUM BR 0.02% INH SOLN 0.5 MG/2.5 ML VIAL INHALATION ×4 (01:38→21:54)
[2019-07-17 06:00] LABS: Basophils Percent Auto 0.2 % (0.2-1.2); Eosinophils Absolute Auto 0.3 K/mm3 (0-0.3); Eosinophils Percent Auto 2.3 % (0-4.4); Hematocrit 45.4 % (42.0-52.0); Hemoglobin 14.6 g/dL (14.0-18.0); Immature Granulocyte Absolute 0.05 K/mm3 (0.00-0.031); Immature Granulocyte Percent A 0.4 % (0-0.5); Lymphocytes Absolute Auto 1.16 K/mm3 (0.9-3.2); Lymphocytes Percent Auto 9.3 % (18.3-44.2); Mean Corpuscular HGB Conc 32.2 g/dl (32-36); Mean Corpuscular Hemoglobin 27.9 pg (26-34); Mean Corpuscular Volume 86.6 fl (80-100); Mean Platelet Volume 10.2 fl (7.4-10.4); Monocytes Absolute Auto 1.2 K/mm3 (0.1-0.6); Monocytes Percent Auto 9.6 % (2.6-8.5); Neutrophils Absolute Auto 9.8 K/mm3 (1.3-6.7); Neutrophils Percent Auto 78.2 % (45.5-73.1); Platelet Count Result 271 k/mm3 (150-375); Red Blood Count 5.24 M/mm3 (4.6-6.20); Red Cell Distribution Width 12.8 % (11.5-14.5); White Blood Count 12.5 K/mm3 (4.5-10.0)
[2019-07-17 06:11] LABS: Blood Urea Nitrogen 27 mg/dL (9-20); Calcium 8.6 mg/dL (8.4-10.2); Carbon Dioxide 27 mmol/L (22-30); Chloride 98 mmol/L (98-107); Estimated CRCL calculation 78 ml/min; Estimated Glomerular Filt Rate > 60; Glucose 141 mg/dL (75-110); Magnesium 2.4 mg/dL (1.6-2.3); Sodium 135 mmol/L (137-145)
[2019-07-17] MEDS: PANTOPRAZOLE SODIUM IV 40 MG VIAL IV PUSH ×2 (08:45→21:02)
[2019-07-17] MEDS: THERAPEUTIC MULTIVITAMINS/MINERALS TAB (*BKC) 1 TABLET FEED TUBE (08:49)
[2019-07-17] MEDS: hydroCHLOROthiazide 12.5 MG CAPSULE FEED TUBE (08:49)
[2019-07-17] MEDS: FINASTERIDE 5 MG TABLET XX (08:49)
[2019-07-17] MEDS: ASPIRIN 81 MG CHEWABLE TABLET FEED TUBE (08:49)
[2019-07-17] MEDS: lisinopriL 10 MG TABLET FEED TUBE (08:54)
[2019-07-17] MEDS: CHLORPROMAZINE HCL 25 MG TABLET FEED TUBE (10:56)
--- NOTE | 2019-07-17 12:16 | PM.IMPN ---
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 It was decided by the patient's family and himself to decline tPA in the emergency room after the risks and benefits were given and everything falling around the 4 hour hermelinda. MRI showed infarct to the right side of the medulla in the expected distribution of the right vertebral artery. Loss of normal flow void in the right vertebral artery, consistent with thrombus versus low-flow. CTA brain and brainstem showed normal brain, total occlusion of right vertebral artery. Carotid Dopplers unremarkable. Echocardiogram grossly unremarkable; grade I diastolic dysfunction noted. Dr. Fam (Neurology) evaluated the patient and we will continue Aspirin, BP control and therapy. Appreciate recommendations Continue with physical therapy, occupational therapy, and speech therapy. TR upon discharge Patient medically stable for discharge to [facility] when facility is ready to accept patient (2) Dysphagia: Qualifiers: Dysphagia type: oral phase Qualified Code(s): R13.11 - Dysphagia, oral phase Code(s): R13.10 - Dysphagia, unspecified Status: Acute Assessment and Plan: The patient has been having dysphagia. The patient failed his bedside swallow and modified barium swallow showed very minimal laryngeal elevation and no laryngeal closure. The speech therapist do not recommend the patient having anything by mouth at this time and they will continue treating his dysphagia with daily speech therapy lessons. PEG tube placed today per Dr. Flynn; patient tolerating feeds thus far. Continue monitoring. Aspiration precautions initiated. Rhonchi noted on exam, improved with cough. Afebrile for 24 hours (slight temp of 99.7 yesterday morning) with stable/mild leukocytosis; asymptomatic. CXR yesterday was grossly unremarkable. If continued to have rhonchi, or spiking fever, consider another CXR or another UA (grossly unremarkable on 07/12) with reflex culture to rule out other source of infection IS encouraged (3) Hypertension: Qualifiers: Hypertension type: essential hypertension Qualified Code(s): I10 - Essential (primary) hypertension Code(s): I10 - Essential (primary) hypertension Status: Acute Assessment and Plan: The patient has not seen a physician in 15 years, and stopped taking his blood pressure medications about the same time. He was started on lisinopril 10 mg and hydrochlorothiazide 12.5 mg. Continue this BP 120s sys this afternoon Further management per TRC (4) Urinary retention: Code(s): R33.9 - Retention of urine, unspecified Status: Acute Assessment and Plan: The patient was having urinary retention issues and currently has Yates He was started on Finasteride, cannot start Flomax because it is unable to be crushed to place in Dobhoff/PEG Will do voiding trial tonight Replace Yates if still having urinary retention (5) Hyperglycemia: Code(s): R73.9 - Hyperglycemia, unspecified Status: Acute Assessment and Plan: The patient's glucose was slightly elevated at 141 this morning. [id number] was 6.2 which shows he is at risk for developing diabetes. Patient will need education on the risks of diabetes, diet changes, exercise daily. Further follow up with PCP
[2019-07-17] MEDS: ACETAMINOPHEN ELIXIR 325 MG/10.15 ML UDC 650 MG FEED TUBE ×2 (15:11→21:01)
--- NOTE | 2019-07-17 15:49 | PCOTNOTE ---
Attempted to see pt, PT with pt.
[2019-07-17] MEDS: BISACODYL 10 MG SUPPOSITORY RECTAL (18:11)
[2019-07-17] MEDS: BACITRACIN OINTMENT 15 GM TUBE 1 APPLIC TOPICAL (21:01)
[2019-07-17] MEDS: MELATONIN 3 MG TABLET FEED TUBE (21:02)
[2019-07-17] MEDS: ATORVASTATIN 40 MG TABLET FEED TUBE (21:02)
[2019-07-18] VITALS (8 sets, daily range): BP systolic 125–137; BP diastolic 74–78; PULSE 67–107; RESP 12–22; TEMP 35.9–37.4; O2SAT 91–92
[2019-07-18] MEDS: CHLORPROMAZINE HCL 25 MG TABLET FEED TUBE ×2 (01:59→08:30)
[2019-07-18] MEDS: ALBUTEROL SULFATE NEB 2.5 MG/0.5 ML INH INHALATION ×3 (02:30→14:47)
[2019-07-18] MEDS: IPRATROPIUM BR 0.02% INH SOLN 0.5 MG/2.5 ML VIAL INHALATION ×3 (02:30→14:47)
[2019-07-18 05:42] LABS: Basophils Percent Auto 0.1 % (0.2-1.2); Eosinophils Absolute Auto 0.3 K/mm3 (0-0.3); Eosinophils Percent Auto 2.2 % (0-4.4); Hematocrit 46.3 % (42.0-52.0); Hemoglobin 15.1 g/dL (14.0-18.0); Immature Granulocyte Absolute 0.06 K/mm3 (0.00-0.031); Immature Granulocyte Percent A 0.4 % (0-0.5); Lymphocytes Absolute Auto 1.06 K/mm3 (0.9-3.2); Lymphocytes Percent Auto 7.2 % (18.3-44.2); Mean Corpuscular HGB Conc 32.6 g/dl (32-36); Mean Corpuscular Hemoglobin 27.9 pg (26-34); Mean Corpuscular Volume 85.4 fl (80-100); Mean Platelet Volume 9.8 fl (7.4-10.4); Monocytes Percent Auto 6.7 % (2.6-8.5); Neutrophils Absolute Auto 12.3 K/mm3 (1.3-6.7); Neutrophils Percent Auto 83.4 % (45.5-73.1); Platelet Count Result 271 k/mm3 (150-375); Red Blood Count 5.42 M/mm3 (4.6-6.20); Red Cell Distribution Width 12.5 % (11.5-14.5); White Blood Count 14.8 K/mm3 (4.5-10.0)
[2019-07-18 05:50] LABS: Blood Urea Nitrogen 31 mg/dL (9-20); Carbon Dioxide 25 mmol/L (22-30); Chloride 95 mmol/L (98-107); Estimated CRCL calculation 86 ml/min; Estimated Glomerular Filt Rate > 60; Glucose 153 mg/dL (75-110); Potassium 3.9 mmol/L (3.4-5.0); Sodium 134 mmol/L (137-145)
--- NOTE | 2019-07-18 05:59 | PC.NURSE ---
pt feeding advanced by 10 ml at midnight. pt had complaints shortly after of hiccups and believes it is related, pt requested further advancement be held until later during the morning.
[2019-07-18] MEDS: lisinopriL 10 MG TABLET FEED TUBE (08:28)
[2019-07-18] MEDS: ASPIRIN 81 MG CHEWABLE TABLET FEED TUBE (08:28)
[2019-07-18] MEDS: hydroCHLOROthiazide 12.5 MG CAPSULE FEED TUBE (08:28)
[2019-07-18] MEDS: FINASTERIDE 5 MG TABLET XX (08:28)
[2019-07-18] MEDS: THERAPEUTIC MULTIVITAMINS/MINERALS TAB (*BKC) 1 TABLET FEED TUBE (08:29)
[2019-07-18] MEDS: PANTOPRAZOLE SODIUM IV 40 MG VIAL IV PUSH (08:29)
[2019-07-18] MEDS: ACETAMINOPHEN ELIXIR 325 MG/10.15 ML UDC 650 MG FEED TUBE (08:35)
--- NOTE | 2019-07-18 12:10 | PCNFU ---
Nutrition Follow-Up Complete: Swallowing Difficulties as related to Dysphagia as evidenced by failed MBS. Meet estimated kcal needs via tube feedings Goal:progressing towards goal. Pt current nutrition is tube feedings of Jevity 1.2 at 50 ml/hr. Nutrition recommendation: Jevity 1.2 at 70 ml/hr Last recorded weight is 107.2 kg. Bowel Motility:+BM reported 07/12 Labs Reviewed:BUN 31,Glu 152, Na 134 Meds Noted:Lipitor, Protonix Additional Notes: Patient had PEG placed on 07/15. Tube feeding is currently at 50 ml/hr and tolerating per nursing. I spoke with RN today, patient is not wanting tube feeding advanced due to the fact that he is getting hiccups. RD would continue to recommend advancing tube feeding by 10 ml/hr q 4 hours to goal rate of 70 ml/hr to meet caloric needs. Monitoring; Will monitor every Sunday and Sunday
--- NOTE | 2019-07-18 12:50 | PM.IMPN ---
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 It was decided by the patient's family and himself to decline tPA in the emergency room after the risks and benefits were given and everything falling around the 4 hour hermelinda. MRI showed infarct to the right side of the medulla in the expected distribution of the right vertebral artery. Loss of normal flow void in the right vertebral artery, consistent with thrombus versus low-flow. CTA brain and brainstem showed normal brain, total occlusion of right vertebral artery. Carotid Dopplers unremarkable. Echocardiogram grossly unremarkable; grade I diastolic dysfunction noted. Dr. Fam (Neurology) evaluated the patient and we will continue Aspirin, BP control and therapy. Appreciate recommendations Continue with physical therapy, occupational therapy, and speech therapy. TR upon discharge Patient medically [facility] facility [facility] to accept patient (2) Dysphagia: Qualifiers: Dysphagia type: oral phase Qualified Code(s): R13.11 - Dysphagia, oral phase Code(s): R13.10 - Dysphagia, unspecified Status: Acute Assessment and Plan: The patient has been having dysphagia. The patient failed his bedside swallow and modified barium swallow showed very minimal laryngeal elevation and no laryngeal closure. The speech therapist do not recommend the patient having anything by mouth at this time and they will continue treating his dysphagia with daily speech therapy lessons. PEG tube placed today per Dr. Flynn; patient tolerating feeds thus far. Continue monitoring. Aspiration precautions initiated. Rhonchi noted on exam, improved with cough; improved from yesterday as well. Afebrile for 24 hours (slight temp of 99.7 yesterday morning) with stable/mild leukocytosis; asymptomatic. CXR yesterday was grossly unremarkable. In setting of leukocytosis, UA (grossly unremarkable on 07/12) with reflex culture was ordered to rule out possible source of infection, although given that he is asymptomatic, I think this is unlikely. BC also obtained IS encouraged (3) Hypertension: Qualifiers: Hypertension type: essential hypertension Qualified Code(s): I10 - Essential (primary) hypertension Code(s): I10 - Essential (primary) hypertension Status: Acute Assessment and Plan: The patient has not seen a physician in 15 years, and stopped taking his blood pressure medications about the same time. Continue lisinopril 10 mg and hydrochlorothiazide 12.5 mg BP 130s sys today Further management per TRC (4) Urinary retention: Code(s): R33.9 - Retention of urine, unspecified Status: Acute Assessment and Plan: The patient was having urinary retention issues and had Yates during stay. Nursing reports patient not urinating as much, but he is urinating. He was started on Finasteride, cannot start Flomax because it is unable to be crushed to place in Dobhoff/PEG Monitor progress Replace Yates if still having urinary retention (5) Hyperglycemia: Code(s): R73.9 - Hyperglycemia, unspecified Status: Acute Assessment and Plan: The patient's glucose was slightly elevated at 141 this morning. [id number] was 6.2 which shows he is at risk for developing diabetes. Patient will need education
--- NOTE | 2019-07-18 13:46 | PM.DS ---
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 It was decided by the patient's family and himself to decline tPA in the emergency room after the risks and benefits were given and everything falling around the 4 hour hermelinda. MRI showed infarct to the right side of the medulla in the expected distribution of the right vertebral artery. Loss of normal flow void in the right vertebral artery, consistent with thrombus versus low-flow. CTA brain and brainstem showed normal brain, total occlusion of right vertebral artery. Carotid Dopplers unremarkable. Echocardiogram grossly unremarkable; grade I diastolic dysfunction noted. Dr. Fam (Neurology) evaluated the patient and we will continue Aspirin, BP control and therapy. Appreciate recommendations Continue with physical therapy, occupational therapy, and speech therapy. [facility] upon discharge Patient medically stable for discharge to [facility] today (2) Dysphagia: Qualifiers: Dysphagia type: oral phase Qualified Code(s): R13.11 - Dysphagia, oral phase Code(s): R13.10 - Dysphagia, unspecified Status: Acute Assessment and Plan: The patient has been having dysphagia. The patient failed his bedside swallow and modified barium swallow showed very minimal laryngeal elevation and no laryngeal closure. The speech therapist did not recommend the patient having anything by mouth at this time and they will continue treating his dysphagia with daily speech therapy lessons. PEG tube placed 07/[address] Flynn; patient tolerating feeds thus far. Continue monitoring. Aspiration precautions initiated. Rhonchi noted on exam, improved with cough; improved from yesterday as well. Afebrile for 24 hours (slight temp of 99.7 07/16 morning) with stable/mild leukocytosis; asymptomatic. CXR yesterday was grossly unremarkable. In setting of leukocytosis, UA (grossly unremarkable on 07/12) with reflex culture was ordered to rule out possible source of infection, although given that he is asymptomatic, I think this is unlikely. BC also obtained IS encouraged (3) Hypertension: Qualifiers: Hypertension type: essential hypertension Qualified Code(s): I10 - Essential (primary) hypertension Code(s): I10 - Essential (primary) hypertension Status: Acute Assessment and Plan: The patient has not seen a physician in 15 years, and stopped taking his blood pressure medications about the same time. Continue lisinopril 10 mg and hydrochlorothiazide 12.5 mg BP 130s sys today Further management per TRC (4) Urinary retention: Code(s): R33.9 - Retention of urine, unspecified Status: Acute Assessment and Plan: The patient was having urinary retention issues and had Yates during stay. Nursing reports patient not urinating as much, but he is urinating. He was started on Finasteride, cannot start Flomax because it is unable to be crushed to place in Dobhoff/PEG Monitor progress Replace Yates if still having urinary retention (5) Hyperglycemia: Code(s): R73.9 - Hyperglycemia, unspecified Status: Acute Assessment and Plan: The patient's glucose was slightly elevated at 141 this morning. [id number] was 6.2 which shows he is at risk for developing diabe
--- NOTE | 2019-07-18 13:51 | WPDNEUROPN ---
Progress Note: A&P Additional Plan stable with angelica can be transferred to ARU Review of Systems Review of Systems: All systems reviewed & are unremarkable except as noted in HPI and below Exam HENMT: Throat: uvula midline (deviated) Eyes: General: appearance normal, both eyes and all related structures Alignment and Position: alignment normal Conjunctivae: conjunctivae normal Sclera: sclerae normal Pupils: Equal, round and reactive pupils present EOM: EOMs intact bilaterally Neck: Neck: full ROM Resp: Effort & Inspection: normal respiratory effort and able to speak in complete sentences Auscultation: clear to auscultation bilaterally Cardio: Rate: regular rate Rhythm: regular rhythm Neuro: General: patient oriented x3, tone normal, moves all extremities and no meningeal signs Cranial nerves: Yes Equal, round and reactive pupils present, Yes Bilaterally intact EOM present, Yes Nystagmus not present, Yes Normal facial strength present, Yes Midline tongue present and Yes Symmetric palate elevation present (abnormal) Cognition (Neuro): normal cognition Gait exam (Neuro): Unable to assess gait Motor exam (neuro): Abnormal motor strength present (mild right hemiparesis) Deep tendon reflexes (DTR's): Right triceps reflex intensity grade: 2+, Left triceps reflex intensity grade: 1+, Rt Biceps (C5, C6): 2+, Left biceps reflex intensity grade: 1+, Right brachioradialis reflex intensity grade: 2+, Left brachioradialis reflex intensity grade: 1+, Right patellar reflex intensity grade: 2+, Left patellar reflex intensity grade: 1+, Right ankle reflex intensity grade: 2+ and Left ankle reflex intensity grade: 1+ Plantar Reflex Responses: downgoing: left and upgoing (positive Babinski): right Objective Data Vital Signs Vital Signs: Vital Signs - 24 hr 07/17/19 13:55 07/17/19 14:00 07/17/19 21:54 Temperature 36.8 C Pulse Rate 80 78 64 Respiratory Rate 18 18 20 Blood Pressure 123/72 Pulse Oximetry 91 07/17/19 22:00 07/17/19 22:03 07/18/19 02:30 Temperature 35.9 C L Pulse Rate 72 71 71 Respiratory Rate 16 20 16 Blood Pressure 122/76 Pulse Oximetry 93 07/18/19 02:37 07/18/19 06:00 07/18/19 09:24 Temperature 35.9 C L Pulse Rate 67 75 81 Respiratory Rate 18 22 H 12 Blood Pressure 137/78 Pulse Oximetry 92 91 07/18/19 09:33 Temperature Pulse Rate 77 Respiratory Rate 14 Blood Pressure Pulse Oximetry Intake/Output Intake/Output: Intake & Output 07/15/19 07/16/19 07/17/19 07/18/19 23:59 23:59 23:59 23:59 Intake Total 331 149 5308 Output Total 1250 1800 1000 Balance -344 -1195 80 Meds/Results Medications: Active Medications Generic Name Dose Route Start Last Admin Trade Name Freq PRN Reason Stop Dose Admin Acetaminophen 650 mg 07/14/19 09:20 07/18/19 08:35 Tylenol Elixir FEED TUBE 650 mg Q6H PRN Administration Mild Pain (1-3),Fever,HEADACHE Albuterol 2.5 mg 07/12/19 14:00 07/18/19 09:23 Albuterol Sulf Neb 2.5mg/0.5ml INHALATION 2.5 mg Q6HRT LICHA Administration Artificial Tears 1 drop 07/13/19 13:09 07/14/19 14:31 Artificial Tears EACH EYE 1 drop QID PRN Administration Dry Eye(s) Aspirin 81 mg 07/15/19 08:00 07/18/19 08:28 Aspirin Chewable FEED TUBE 81 mg DAILY@0800 LICHA Administration Atorvastatin Calcium 40 mg 07/14/19 21:00 07/17/19 21:02 Lipitor FEED TUBE 40 mg HS LICHA Administration Bacitracin 1 applic 07/13/19 21:00 07/17/19 21:01 Bacitracin Oint 15 Gm TOPICAL 1 applic HS LICHA Administration Chlorpromazine HCl 25 mg 07/16/19 21:01 07/18/19 08:30 Thorazine Po FEED TUBE 25 mg Q6H PRN Administration Hiccups Finasteride 5 mg 07/15/19 09:00 07/18/19 08:28 Proscar XX 5 mg QAM LICHA Administration Hydrochlorothiazide 12.5 mg 07/15/19 09:00 07/18/19 08:28 Hydrochlorothiazide FEED TUBE 12.5 mg QAM LICHA Administration Ipratropium [place] 0.5 mg 07/12/19 14:
[2019-07-18] MEDS: polyethylene glycoL 3350 17 GM POWD.PACK FEED TUBE (15:40)
== END 2019-07-18 16:10 | DRG 65 ==
LOC: ANHED 17:07 → ANH2MED 17:27
PROVIDERS: Internal Medicine Gastroenterology; Physician Assistant; Psychiatry & Neurology Neurology; Admitting Provider Family Medicine; Emergency Provider Emergency Medicine; Visit Provider Physician Assistant
PROC: 0DJ08ZZ Inspection of Upper Intestinal Tract, Via Natural or Artificial Opening Endoscopic (ICD-10-PCS; CPT 43235; principal; 2019-07-15 07:30)
PROC: 0DH63UZ Insertion of Feeding Device into Stomach, Percutaneous Approach (ICD-10-PCS; CPT 43246; 2019-07-15 07:30)
DX: I63.011 Cerebral infarction due to thrombosis of right vertebral artery (principal); G81.91 Hemiplegia, unspecified affecting right dominant side; R13.11 Dysphagia, oral phase; R27.0 Ataxia, unspecified; R47.81 Slurred speech; I10 Essential (primary) hypertension; K44.9 Diaphragmatic hernia without obstruction or gangrene; E11.65 Type 2 diabetes mellitus with hyperglycemia; E78.5 Hyperlipidemia, unspecified; E78.00 Pure hypercholesterolemia, unspecified; R33.9 Retention of urine, unspecified; R29.702 NIHSS score 2; Z85.828 Personal history of other malignant neoplasm of skin; Z85.07 Personal history of malignant neoplasm of pancreas; Z85.028 Personal history of other malignant neoplasm of stomach; H01.006 Unspecified blepharitis left eye, unspecified eyelid; E66.9 Obesity, unspecified; Z68.33 Body mass index [BMI] 33.0-33.9, adult
CPT/HCPCS: 36415; 43246; 43752; 70450; 70496; 70553; 71045; 71046; 80048; 80053; 80061; 81001; 83036; 83735; 84484; 85025; 85027; 85610; 85730; 87040; 92526; 92610; 92611; 93005; 93306; 93880; 94640; 94667; 94668; 96374; 97110; 97112; 97116; 97161; 97166; 97530; 97535; 99285; A9270; A9577; C9113; J0131; J0360; J0690; J0780; J2704; J7120; J7121; Q9967

== ENCOUNTER 2019-07-18 16:02 | IRF | payer MEDICARE, OTHER, SELFPAY ==
--- NOTE | ~2019-07-18 | XR_ITS ---
EXAMINATION: XR chest 1V portable DATE: 07/21/2019 06:31 INDICATION: Low oxygen saturation. TECHNIQUE: A single frontal view of the chest was obtained. COMPARISON: Chest 2 views 07/16/2019 FINDINGS: There are airspace opacities in the mid and lower lung zones. No pleural effusion or pneumo thorax. The heart size is normal. IMPRESSION: 1. Worsened airspace opacities in the mid and lower lung zones, consistent with atelectasis versus pn eumonia. Reviewed, dictated and finalized at location A. [employer] IMPRESSION: 1. Worsened airspace opacities in the mid and lower lung zones, consistent with atelectasis versus pneumonia.
[2019-07-18 16:05] VITALS: BP 124/70; PULSE 110; RESP 22; TEMP 37.4; O2SAT 93; BMI 32.1
--- NOTE | 2019-07-18 16:25 | ADMGEN ---
This patient, Mathew Venegas, was admitted to [facility] Room 225-01. Patient/family oriented to hospital policies and general routines including ID bracelet, bed and alarms, visiting hours, pain management, procedures, bathroom and other care routines, personal items, smoking policy, room service/diet, and visiting hours. Valuables list has been completed. Information on how to activate the Rapid Response Team has been discussed. Patient/Family are encouraged to report perceived risks to care and to ask questions if they do not understand what they are told or what they should do.
[2019-07-18 17:18] VITALS: PULSE 110; RESP 22; O2SAT 93
[2019-07-18] MEDS: ACETAMINOPHEN ELIXIR 325 MG/10.15 ML UDC 650 MG FEED TUBE (18:57)
[2019-07-18] MEDS: CHLORPROMAZINE HCL 25 MG TABLET FEED TUBE (21:01)
[2019-07-18] MEDS: BACITRACIN OINTMENT 15 GM TUBE 1 APPLIC TOPICAL (21:01)
[2019-07-18] MEDS: ATORVASTATIN 40 MG TABLET FEED TUBE (21:01)
[2019-07-18] MEDS: MELATONIN 3 MG TABLET FEED TUBE (21:01)
[2019-07-18 21:51] VITALS: BP 139/52; PULSE 101; RESP 22; TEMP 36.8; O2SAT 99
[2019-07-19 05:26] LABS: Basophils Percent Auto 0.1 % (0.2-1.2); Eosinophils Absolute Auto 0.2 K/mm3 (0-0.3); Eosinophils Percent Auto 1.1 % (0-4.4); Hematocrit 44.4 % (42.0-52.0); Hemoglobin 14.3 g/dL (14.0-18.0); Immature Granulocyte Percent A 0.6 % (0-0.5); Lymphocytes Absolute Auto 0.96 K/mm3 (0.9-3.2); Lymphocytes Percent Auto 5.5 % (18.3-44.2); Mean Corpuscular HGB Conc 32.2 g/dl (32-36); Mean Corpuscular Hemoglobin 27.8 pg (26-34); Mean Corpuscular Volume 86.4 fl (80-100); Mean Platelet Volume 10.6 fl (7.4-10.4); Monocytes Absolute Auto 1.3 K/mm3 (0.1-0.6); Monocytes Percent Auto 7.4 % (2.6-8.5); Neutrophils Absolute Auto 14.9 K/mm3 (1.3-6.7); Neutrophils Percent Auto 85.3 % (45.5-73.1); Platelet Count Result 287 k/mm3 (150-375); Red Blood Count 5.14 M/mm3 (4.6-6.20); White Blood Count 17.4 K/mm3 (4.5-10.0)
[2019-07-19 05:40] LABS: Blood Urea Nitrogen 49 mg/dL (9-20); Carbon Dioxide 26 mmol/L (22-30); Chloride 95 mmol/L (98-107); Cholesterol 88 mg/dL (0-200); Estimated CRCL calculation 51 ml/min; Estimated Glomerular Filt Rate 47; Glucose 153 mg/dL (75-110); HDL Direct 26 mg/dL; Sodium 135 mmol/L (137-145); Triglycerides 121 mg/dL (<150)
[2019-07-19 05:50] LABS: LDL Cholesterol Direct 39 mg/dL
[2019-07-19 06:00] VITALS: BP 129/74; PULSE 108; RESP 20; TEMP 36.6; O2SAT 98
[2019-07-19 08:00] VITALS: PULSE 79; RESP 20; O2SAT 93
[2019-07-19] MEDS: DOCUSATE SODIUM 100 MG CAPSULE PO (09:46)
[2019-07-19] MEDS: ASPIRIN 81 MG CHEWABLE TABLET FEED TUBE (09:46)
[2019-07-19] MEDS: THERAPEUTIC MULTIVITAMINS/MINERALS TAB (*BKC) 1 TABLET PO (09:48)
[2019-07-19] MEDS: lisinopriL 10 MG TABLET FEED TUBE (09:48)
[2019-07-19] MEDS: hydroCHLOROthiazide 12.5 MG CAPSULE FEED TUBE (09:48)
[2019-07-19] MEDS: ACETAMINOPHEN ELIXIR 325 MG/10.15 ML UDC 650 MG FEED TUBE (10:48)
[2019-07-19] MEDS: CHLORPROMAZINE HCL 25 MG TABLET FEED TUBE ×2 (10:57→19:01)
[2019-07-19 14:00] VITALS: BP 104/50; PULSE 79; RESP 20; TEMP 36.3; O2SAT 93
--- NOTE | 2019-07-19 16:52 | REHAB_ITS ---
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 The patient was seen [id number] as mentioned before at 11:30 a.m. on 07/19/2019. HISTORY AND PHYSICAL EXAM: This 69 years old right-handed male with history of long-standing untreated hypertension, presented to [facility] on 07/10/2019, with the complaint of slurred speech after waking up from a nap. Initial brain CT scan was negative for any acute abnormality and PPA was discussed with the patient, his family however declined. The patient reported that he has had a productive cough for nearly 1 month. Chest x-ray revealed mild cardiomegaly. Ultrasound of the carotid documented acute infarct in the right side of the medulla in the expected distribution of the right vertebral artery with a normal flow rate in the right vertebral artery consistent with the thrombosis versus slow flow. 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 Echocardiogram revealed an ejection fraction of 65%. Neurology evaluated the patient and recommended continued aspirin, BP control and therapy. He was started on lisinopril and hydrochlorothiazide for uncontrolled hypertension and blood pressure was in the 140 systolic. He showed signs of dysphagia and DOWELER was consulted on July 11, he failed his bedside swallowing and modified barium swallow showed very minimal laryngeal penetration and no laryngeal closure. The patient was placed on n.p.o. GI was consulted on July 12, and Dobhoff tube was placed. On July 15, a PEG tube was placed per Dr. Flynn. He was tolerating tube feeding and was on aspiration precaution. He will be at goal of 70 cc/hour by the evening of 07/18/2019, the patient was having urinary retention issues and a Yates's catheters were placed on July 13, and was started on finasteride. Yates catheter was discontinued on 07/17/2019, but he continued to have urinary retention issues requiring bladder scan and straight cath on need basis. Plan is to replace Yates if he is still having urinary retention. The patient's glucose level has been slightly elevated with hemoglobin A1c of only 6.2, which shows that he is at risk for developing diabetes. He will need a nutritional education on the risk of diabetes. The patient is awake, alert, and oriented x3. Medical complication included dysphagia, hypertension, urinary retention, hyperglycemia, blepharitis of the left eye, hiccups, leukocytosis, hyponatremia, and elevated BUN. He was discharged to [facility] on aspirin for DVT prophylaxis. Therapy was initiated at the acute care facility. The patient transferred to from [facility] on 07/18/2019. The patient has had major surgery of G-tube placement in the 100 days prior to the admission. He had no falls with injury in the past year. PAST MEDICAL HISTORY: Compatible with 1. Skin cancer. 2. Chronic sinusitis. 3. Hypertension. PAST SURGICAL HISTORY: Local excision of skin lesion. SOCIAL HISTORY: The patient lives in [place] with his , designated his , Yuko, as his surrogate decision maker and wishes to be a full code. He is a lifelong nonsmoker and denies alcohol and drug abuse. FAMILY HISTORY: The patient's brother is . Sibling has pancreatic cancer and cerebrovascular accident. The patient's mother is . Mother had diabetes mellitus, high cholesterol, renal failure, and hypertension. The patient's father is . Father had stomach cancer, CHF, high cholesterol, and hypertension. PRIOR LEVEL OF FUNCTION: Eating was independent, oral care was independent so as the toileting hygiene, shower, bathe uppe
[2019-07-19] MEDS: TRAMADOL HCL 50 MG TABLET PO (20:07)
[2019-07-19] MEDS: MELATONIN 3 MG TABLET FEED TUBE (20:07)
[2019-07-19] MEDS: BACITRACIN OINTMENT 15 GM TUBE 1 APPLIC TOPICAL (20:08)
[2019-07-19] MEDS: ATORVASTATIN 40 MG TABLET FEED TUBE (20:08)
[2019-07-19 22:00] VITALS: BP 110/58; PULSE 89; RESP 18; TEMP 36.8; O2SAT 92
[2019-07-20] VITALS (7 sets, daily range): BP systolic 99–124; BP diastolic 54–68; PULSE 88–104; RESP 16–22; TEMP 36.7–37; O2SAT 90–95
[2019-07-20] MEDS: TRAMADOL HCL 50 MG TABLET PO (09:00)
[2019-07-20] MEDS: ASPIRIN 81 MG CHEWABLE TABLET FEED TUBE (09:02)
[2019-07-20] MEDS: THERAPEUTIC MULTIVITAMINS/MINERALS TAB (*BKC) 1 TABLET PO (09:02)
[2019-07-20] MEDS: lisinopriL 10 MG TABLET FEED TUBE (09:02)
[2019-07-20] MEDS: SENNA/DOCUSATE SODIUM TABLET 1 TAB XX (09:02)
[2019-07-20] MEDS: hydroCHLOROthiazide 12.5 MG CAPSULE FEED TUBE (09:02)
[2019-07-20] MEDS: CHLORPROMAZINE HCL 25 MG TABLET FEED TUBE (10:02)
--- NOTE | 2019-07-20 12:43 | WPDNEURORHBP ---
Subjective Date/time seen: 07/20/19 12:43 Review of Systems Review of Systems: Narrative: definitely more comfortable ,less hiccough ,working well with therapy Functional Status Ambulation Ability Ability to Ambulate 10 Feet: Moderate Assistance X 2 Ambulation Assistive Devices: Walker, Wheeled Exam Const: General: no acute distress, well developed, alert, awake and Physically active Nutritional Appearance: well nourished Orientation/consciousness: patient oriented x3 Eyes: General: appearance normal, both eyes and all related structures Pupils: Equal, round and reactive pupils present Neck: Neck: full ROM and no lymphadenopathy Thyroid: thyroid normal Resp: Effort & Inspection: normal respiratory effort Auscultation: clear to auscultation bilaterally Cardio: Rate: regular rate Rhythm: regular rhythm GI: Inspection: normal to inspection and incision Auscultation: normal bowel sounds Rectal Exam: deferred : Male General Exam: Yes normal external exam Skin: General skin exam: no rashes or lesions noted Neuro: General: patient oriented x3 and moves all extremities Cranial nerves: Yes Facial sensation intact/muscles of mastication intact, Yes Intact sense of smell present, Yes Equal, round and reactive pupils present, Yes Normal accommodation reflex present, Yes Bilaterally intact EOM present, Yes Nystagmus not present, Yes Normal facial strength present, Yes facial symmetry, Yes Midline tongue present, Yes Normal gag reflex present (decreased), Yes Normal hearing present and Yes Ability to bilaterally elevate shoulders present Cognition (Neuro): normal cognition Speech: normal speech Gait exam (Neuro): Normal gait present (hemiparetic) Psych: Appearance: grossly normal Objective Data Vital Signs Vital Signs: Vital Signs - 24 hr 07/19/19 14:00 07/19/19 22:00 07/20/19 06:00 Temperature 36.3 C L 36.8 C 36.7 C Pulse Rate 79 89 91 Respiratory Rate 20 18 22 H Blood Pressure 104/50 L 110/58 L 119/60 Pulse Oximetry 93 92 90 07/20/19 11:02 07/20/19 11:03 Temperature Pulse Rate Respiratory Rate Blood Pressure 99/59 L 111/60 Pulse Oximetry Meds/Results Medications: Active Medications Generic Name Dose Route Start Last Admin Trade Name Freq PRN Reason Stop Dose Admin Acetaminophen 650 mg 07/18/19 18:18 07/19/19 10:48 Tylenol Elixir FEED TUBE 650 mg Q4H PRN Administration Mild Pain (1-3) or Fever Artificial Tears 1 drop 07/18/19 17:41 Artificial Tears LEFT EYE QID PRN Dry Eye(S) Aspirin 81 mg 07/19/19 08:00 07/20/19 09:02 Aspirin Chewable FEED TUBE 81 mg DAILY@0800 LICHA Administration Atorvastatin Calcium 40 mg 07/18/19 21:00 07/19/19 20:08 Lipitor FEED TUBE 40 mg HS LICHA Administration Bacitracin 1 applic 07/18/19 21:00 07/19/19 20:08 Bacitracin Oint 15 Gm TOPICAL 1 applic HS LICHA Administration Chlorpromazine HCl 25 mg 07/18/19 17:41 07/20/19 10:02 Thorazine Po FEED TUBE 25 mg Q6H PRN Administration Hiccups Finasteride 5 mg 07/19/19 09:00 Proscar BY MOUTH QAM LICHA Hydrochlorothiazide 12.5 mg 07/19/19 09:00 07/20/19 09:02 Hydrochlorothiazide FEED TUBE 12.5 mg QAM LICHA Administration Lisinopril 10 mg 07/19/19 09:00 07/20/19 09:02 Prinivil FEED TUBE 10 mg DAILY LICHA Administration Melatonin 3 mg 07/18/19 21:00 07/19/19 20:07 Melatonin FEED TUBE 3 mg HS LICHA Administration Multivitamins/Calcium 1 tablet 07/19/19 09:00 07/20/19 09:02 Therapeutic Multivitamins/Minerals PO 1 tablet QAM LICHA Administration Senna/Docusate Sodium 1 tab 07/20/19 09:00 07/20/19 09:02 Senokot S Tablet XX 1 tab QAM LICHA Administration Tramadol HCl 50 mg 07/19/19 12:20 07/20/19 09:00 Ultram PO 50 mg Q6H PRN Administration Pain Rated 4-6 Trazodone HCl 25 mg 07/18/19 21:00 07/19/19 20:08 Desyrel FEED TUBE 25 mg HS LICHA Administration
[2019-07-20] MEDS: LANSOPRAZOLE ORAL SUSP 30 MG/10 ML ORAL.SUSP FEED TUBE (14:39)
[2019-07-20] MEDS: CHLORPROMAZINE HCL 25 MG TABLET 12.5 MG FEED TUBE (19:02)
--- NOTE | 2019-07-20 20:09 | PC.NURSE ---
5pm: Patient up in chair, denies pain at this time, has been very tired all day but arousable. Complained of pain this morning around 9:30am and was given tramadol per his request. Dr. Fam aware of him being so tired and getting that dose of pain medicaine and the thorazine, and cut thorazine in half to 12.5. O2 had been started during the night due to desaturation (had melatonin, trazadone, and tramadol at HS and was in deep sleep) as well as is mouth breathing. O2 has continued and increased to 3L per nasal cannula to keep sats above 87-88. Have checked patient throughout the day and remains arousable, swabbed mouth and have checked patency of sunction which he has been performing for himself. As well as giving additional free water flushes with meds and checking residuals with no greater than 60. Tube feeding remains at 60 per hour with 100ml flush q4. Will continue to monitor. Family was in room and voiced concerns regarding our monitoring his oxygen and how tired he was. Explained we have been monitoring and the was aware and did see him. dehydrogenation supervisor was on floor and told of their concerns, etc. and spoke to them. She called DR. Fam and got a decrease on tramadol and some medication to possibly help with his secretions.
[2019-07-20] MEDS: DORNASE ALFA INH SOLN 1 MG/ML 2.5 ML AMP 2.5 MG INHALATION (20:27)
[2019-07-20] MEDS: ATORVASTATIN 40 MG TABLET FEED TUBE (21:02)
[2019-07-20] MEDS: BACITRACIN OINTMENT 15 GM TUBE 1 APPLIC TOPICAL (21:02)
[2019-07-21 03:41] VITALS: TEMP 39.6
[2019-07-21] MEDS: ACETAMINOPHEN ELIXIR 325 MG/10.15 ML UDC 650 MG FEED TUBE (03:41)
[2019-07-21 03:42] VITALS: TEMP 39.6
[2019-07-21 05:20] VITALS: TEMP 37.9
[2019-07-21 06:00] VITALS: BP 103/53; PULSE 110; RESP 20; TEMP 37.9; O2SAT 90
[2019-07-21 06:27] LABS: Base Excess ABG 0.1 mEq/l (+/-2.0); Fractional Inspired Oxygen 40 %; HCO3 ABG 24.5 mEq/l (22.0-26.0); Oxygen Content ABG 18.8 %vol (16.0-22.0); Oxygen Saturation ABG 91.1 % (95.0-100.0); Oxyhemoglobin 89.4 % THb (90.0-100.0); PCO2 ABG 39.1 mmHg (35.0-45.0); PO2 ABG 59.2 mmHg (80.0-100.0); PO2 FiO2 Ratio Arterial Blood 1.48 %; pH ABG 7.415 (7.350-7.450)
[2019-07-21 06:31] LABS: Device NASAL CANNULA; Modified Allen's Test Pass; Site Drawn RIGHT RADIAL
[2019-07-21 07:11] LABS: Hemoglobin 13.9 g/dL (14.0-18.0); Mean Corpuscular HGB Conc 32.3 g/dl (32-36); Mean Corpuscular Hemoglobin 28.1 pg (26-34); Mean Corpuscular Volume 86.9 fl (80-100); Mean Platelet Volume 10.5 fl (7.4-10.4); Platelet Count Result 312 k/mm3 (150-375); Red Blood Count 4.95 M/mm3 (4.6-6.20); Red Cell Distribution Width 13.3 % (11.5-14.5); White Blood Count 10.2 K/mm3 (4.5-10.0)
[2019-07-21 07:25] LABS: Alanine Aminotransferase 33 U/L (4-50); Alkaline Phosphatase 83 U/L (38-126); Aspartate Amino Transferase 38 U/L (17-59); Blood Urea Nitrogen 94 mg/dL (9-20); Calcium 9.1 mg/dL (8.4-10.2); Carbon Dioxide 24 mmol/L (22-30); Chloride 92 mmol/L (98-107); Estimated CRCL calculation 17 ml/min; Estimated Glomerular Filt Rate 12; Glucose 177 mg/dL (75-110); Potassium 4.7 mmol/L (3.4-5.0); Sodium 134 mmol/L (137-145)
[2019-07-21 07:39] LABS: Band Neutrophils Percent 23 % (0-6); Lymphocytes Absolute Manual 1.02 K/mm3 (1.1-4.5); Metamyelocytes Percent 1 %; Monocytes Absolute Manual 0.71 K/mm3 (0.1-0.90); Monocytes Percent Manual 7 % (3-9); Neutrophils Absolute Manual 8.36 K/mm3 (1.3-6.7); Neutrophils Percent Manual 59 % (46-73); Platelet Estimate Adequate (Adequate); Total Cells Counted 100
--- NOTE | 2019-07-21 13:48 | RPD ---
INDIVIDUALIZED PLAN OF CARE FOR Mathew Venegas Brief Synthesis of Pre-Admission Screen, Post-Admission Evaluation and Therapy Evaluations: The patient presents to rehab with acute infarct in the right side of the medulla in the expected distribution of the right vertebral artery. Comorbidities include Hypertension, skin cancer, chronic sinusitis, urinary retention, HLD, hyperglycemia, dysphagia, pre-diabetes, blepharitis of the left eye, blurry vision left eye, hyponatremia, leukocytosis, g-tube placement, hiccups. The patient needs physician monitoring and treatment of dysphagia, hypertension, urinary retention, hyperglycemia, blepharitis left eye, consistent hiccups, leukocytosis, hyponatremia, elevated BUN, monitoring for adverse reactions to new medications, monitoring of infection, and pain control. The patient requires nursing services for frequent neuro checks, anticoagulation therapy, medication management and education, pressure relief and skin care management, monitoring of labs, bowel and bladder training, diabetes management and education, tube-feeding administration, and fall/safety precautions. Deficits include: ADLs, Balance, Cognition, Endurance, Family Training/Education, Mobility, Pain Management, ROM, Safety, Speech, Strength, Transfers, Swallowing Geothermal Operating Engineer/Case Management for: Discharge Planning and Patient/Family Counseling Physical Therapy: 5 days per week for 60 minutes. Treatments may include: Therapeutic Exercise, Gait Training, Neuromuscular Re-education, Transfer Training, Community Reintegration, Bed Mobility, Patient/Family Education, Wheelchair Mobility Group Therapy/Concurrent Therapy Rationales: -Improve attention span during functional activities in a distracted environment. -Enhance problem solving and/or adequate judgment skills during functional activities in a distracted environment. -Promote increased safety awareness in a distracted environment to reduce fall risk with functional tasks, transfers, and ambulation to allow a more safe, self-sufficient return to the home environment. -Improve dynamic balance skills to promote safety and independence with functional activities in a distracted environment for maximum gain. Occupational Therapy: 5 days per week for 60 minutes. Treatments may include: Therapeutic Exercise, Therapeutic Activity, Cognitive Training, Self-Care Transfer Training, Community Reintegration, Home Management, Patient/Family Education, Wheelchair Mobility Training, Energy Conservation Training Group Therapy/Concurrent Therapy Rationales: -Allow therapist to observe and teach generalization and carry-over of skills learned in individual therapy. -Enhance problem solving and sequencing skills during therapeutic activities in a distracted environment. -Promote increased safety awareness in a realistic setting to reduce fall risk with functional tasks due to visual and verbal distractions. -Increase functional level with ADLs, ADL transfers and use of adaptive equipment through therapeutic activities with others while promoting safety to allow a more safe, self-sufficient return home. Speech Therapy: 5 days per week for 60 minutes. Treatments may include: Dysphasia Therapy, Speech/Language/Communication Therapy, Cognitive Training, Patient/Family Education Group Therapy/Concurrent Therapy - Rationale: -Allow therapist to observe and teach generalization and carry-over of skills learned in individual therapy. -Improve comprehension skills with complex or abstract ideas through discussion in a realistic setting. -Enhance problem solving skills with complex issues during activities in a distracted environment. -Promote increased memory skills and concentration in a distracted environment for a safe transition home. -Improve attention and focus with language/communication skills in a realistic and supportive therapeutic setting. -Allow for practice of expression of basic needs and ideas through functional activiti
--- NOTE | 2019-07-25 13:18 | P.DS_ITS ---
DS: Diagnosis Admitting Diagnosis Admitting Diagnosis: Acute respiratory failure with hypoxia Discharge Diagnosis (1) Atrial fibrillation with rapid ventricular response: Code(s): I48.91 - Unspecified atrial fibrillation Status: Acute (2) Hypotension: Code(s): I95.9 - Hypotension, unspecified Status: Resolved (3) Acute metabolic encephalopathy: Code(s): G93.41 - Metabolic encephalopathy Status: Resolved (4) DVT prophylaxis: Code(s): Z29.9 - Encounter for prophylactic measures, unspecified Status: Acute (5) Renal failure, acute: Qualifiers: Acute renal failure type: unspecified Qualified Code(s): N17.9 - Acute kidney failure, unspecified Code(s): N17.9 - Acute kidney failure, unspecified Status: Acute (6) Pneumonia: Qualifiers: Pneumonia type: due to unspecified organism Laterality: unspecified laterality Lung location: unspecified part of lung Qualified Code(s): J18.9 - Pneumonia, unspecified organism Code(s): J18.9 - Pneumonia, unspecified organism Status: Acute (7) Acute respiratory failure with hypoxia: Code(s): J96.01 - Acute respiratory failure with hypoxia Status: Acute (8) Intractable hiccoughs: Code(s): R06.6 - Hiccough Status: Acute (9) Cancer: Code(s): C80.1 - Malignant (primary) neoplasm, unspecified Status: Acute (10) Obesity: Code(s): E66.9 - Obesity, unspecified Status: Acute (11) Depression: Code(s): F32.9 - Major depressive disorder, single episode, unspecified Status: Acute (12) Urinary retention: Code(s): R33.9 - Retention of urine, unspecified Status: Acute (13) Dyslipidemia: Code(s): E78.5 - Hyperlipidemia, unspecified Status: Acute (14) Dysphagia: Qualifiers: Dysphagia type: oral phase Qualified Code(s): R13.11 - Dysphagia, oral phase Code(s): R13.10 - Dysphagia, unspecified Status: Acute (15) CVA (cerebral vascular accident): Qualifiers: CVA mechanism: thrombosis Precerebral and cerebral artery: vertebral artery Laterality of affected vessel: right Qualified Code(s): 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 Code(s): I63.9 - Cerebral infarction, unspecified Status: Acute (16) Hyperglycemia: Code(s): R73.9 - Hyperglycemia, unspecified Status: Acute (17) Hypertension: Qualifiers: Hypertension type: essential hypertension Qualified Code(s): I10 - Essential (primary) hypertension Code(s): I10 - Essential (primary) hypertension Status: Acute (18) Stroke: Qualifiers: CVA mechanism: unspecified Qualified Code(s): I63.9 - Cerebral infarction, unspecified Code(s): I63.9 - Cerebral infarction, unspecified Status: Acute DS: Summary Hospital Course Reason for hospitalization: the gentleman was admitted because of brainstem stroke and had significant dysphagia along with the hemiparesis however he was unable to tolerate tube feeding after having had the PEG tube done and developed acute respiratory failure due to multiple medical issues and had to be transferred to the intensive care unit and obviously the goals of over rehab center not achieved Hospital Course: the course of hospitalization of initial some progress however later decline in the respiratory and the overall mental status and the patient had to be moved to the ICU Status at Disc
== END 2019-07-21 07:59 | disposition short-term general hospital (02) | DRG 56 ==
PROVIDERS: Family Medicine; Admitting Provider Psychiatry & Neurology Neurology; Visit Provider Psychiatry & Neurology Neurology
DX: I69.351 Hemiplegia and hemiparesis following cerebral infarction affecting right dominant side (principal); J96.01 Acute respiratory failure with hypoxia; G93.49 Other encephalopathy; J18.9 Pneumonia, unspecified organism; E87.1 Hypo-osmolality and hyponatremia; N17.9 Acute kidney failure, unspecified; I69.391 Dysphagia following cerebral infarction; I69.322 Dysarthria following cerebral infarction; D72.829 Elevated white blood cell count, unspecified; E66.9 Obesity, unspecified; E78.5 Hyperlipidemia, unspecified; F32.9 Major depressive disorder, single episode, unspecified; H01.006 Unspecified blepharitis left eye, unspecified eyelid; I48.91 Unspecified atrial fibrillation; I10 Essential (primary) hypertension; J32.9 Chronic sinusitis, unspecified; R73.03 Prediabetes; R33.9 Retention of urine, unspecified; R73.9 Hyperglycemia, unspecified; Z79.82 Long term (current) use of aspirin; Z85.828 Personal history of other malignant neoplasm of skin; Z93.1 Gastrostomy status; Z68.32 Body mass index [BMI] 32.0-32.9, adult
CPT/HCPCS: 36415; 36600; 71045; 80048; 80053; 80061; 82805; 83605; 85025; 87040; 92526; 92610; 94640; 96125; 97110; 97162; 97166; 97530; 97535; A9270

== ENCOUNTER 2019-07-21 07:58 | Inpatient (IN) | payer MEDICARE, OTHER, SELFPAY ==
[2019-07-21] VITALS (20 sets, daily range): BP systolic 86–128; BP diastolic 48–78; PULSE 76–100; RESP 16–21; TEMP 36.1–36.9; O2SAT 92–97; BMI 33.2
--- NOTE | ~2019-07-21 | XR_ITS ---
EXAMINATION: XR chest 1V portable DATE: 07/26/2019 14:20 INDICATION: Dyspnea TECHNIQUE: frontal view of the chest was obtained. COMPARISON: Chest radiograph dated 07/24/2019 FINDINGS: Gradient of lower lung predominant diffuse hazy airspace opacity throughout the left hemithorax consi stent with likely small to moderate left pleural effusion which tracks cephalad along the mid to lowe r left hemithorax. Consolidation at the medial aspect of both lower lungs with air bronchograms in th e right which could represent atelectasis and/or pneumonia. No pneumothorax or right pleural effusion . The cardiomediastinal silhouette is normal. Mild to moderate degenerative skeletal changes in the s pine and bilateral shoulders. IMPRESSION: 1. Airspace disease in the bilateral lower lung zones which could represent pneumonia or atelectasis. 2. Small to moderate left pleural effusion. Reviewed, dictated and finalized at location A. IZATION REVIEWER IMPRESSION: 1. Airspace disease in the bilateral lower lung zones which could represent pne umonia or atelectasis. 2. Small to moderate left pleural effusion.
--- NOTE | ~2019-07-21 | XR_ITS ---
EXAMINATION: XR chest port-a-cath/central DATE: 08/03/2019 14:25 INDICATION: PICC line placement TECHNIQUE: frontal view of the chest was obtained. COMPARISON: Chest radiograph dated 08/03/2019 FINDINGS: Endotracheal tube tip 4.4 cm above the juanpablo. Interval placement of a left upper extremity peripher ally inserted central venous catheter (PICC) tip at the caudal superior vena cava. Continued improvement in aeration of the mid to upper left lung. Decreasing opacities at the left low er lung zone consistent with decreasing moderate-sized left pleural effusion and associated atelectas is and/or pneumonia in the mid to lower lung zone. Persistent opacities in the right infrahilar regio n and right midlung zone which could also represent atelectasis and/or pneumonia. No pneumothorax or right-sided pleural effusion. Cardiomegaly. IMPRESSION: 1. Endotracheal tube and left PICC line in expected positions. 2. Continued improvement in aeration of the left lung with decreasing moderate-sized left pleural eff usion. 3. Residual opacities in the left mid to lower lung zones and right infrahilar region which could rep resent atelectasis and/or pneumonia. 4. Cardiomegaly. Reviewed, dictated and finalized at location A. LWORKING INSTRUCTOR IMPRESSION: 1. Endotracheal tube and left PICC line in expected positions. 2. Continued improvement in aeration of the left lung with decreasing moderate- sized left pleural effusion. 3. Residual opacities in the left mid to lower lung zones and right infrahilar region which could represent atelectasis and/or pneumonia. 4. Cardiomegaly.
--- NOTE | ~2019-07-21 | US_ITS ---
EXAMINATION: US thoracentesis DATE: 08/07/2019 14:20 INDICATION: pleural effusion TECHNIQUE: The procedure and its risks, benefits, and alternatives were discussed with the patient. P otential risks discussed included bleeding, infection, and pneumothorax. The patient understood the r isks and agreed to proceed. The skin was prepped and draped in sterile fashion. 1% lidocaine was used for local anesthesia. Under ultrasound guidance, a 5 Fr catheter with trochar was advanced into the left pleural effusion. Fluid was aspirated. The catheter was removed, and a dressing was applied. The re were no immediate complications. FINDINGS: Ultrasound images demonstrate a left pleural effusion and the catheter within the fluid. IMPRESSION: 1. Successful ultrasound-guided thoracentesis yielding 300 mL of red-ana fluid. Reviewed, dictated and finalized at location A. ANDING OFFICER TRAFFIC DIVISION IMPRESSION: 1. Successful ultrasound-guided thoracentesis yielding 300 mL of red-ana flu id.
--- NOTE | ~2019-07-21 | XR_ITS ---
EXAMINATION: XR chest 1V portable DATE: 08/07/2019 06:05 INDICATION: Respiratory failure. TECHNIQUE: A single frontal view of the chest was obtained. COMPARISON: Chest single view 08/06/2019, CT abdomen and pelvis 07/25/2019 FINDINGS: There are airspace opacities in right mid and lower lung zones. There is a large left pleur al effusion. There are airspace opacities in left perihilar region and at left lung base. No pneumoth orax. The heart size is normal. A left upper extremity peripherally inserted central venous catheter (PICC) is seen with tip in the superior vena cava. IMPRESSION: 1. Stable airspace opacities in right mid and lower lung zones, consistent with pneumonia. Stable air space opacities in left perihilar region and at left lung base, likely a combination of atelectasis a nd pneumonia. 2. Stable large left pleural effusion. Reviewed, dictated and finalized at location A. GER WILLOW IMPRESSION: 1. Stable airspace opacities in right mid and lower lung zones, consistent with pneumonia. Stable airspace opacities in left perihilar region and at left lung base, likely a combination of atelectasis and pneumonia. 2. Stable large left pleural effusion.
--- NOTE | ~2019-07-21 | CT_ITS ---
EXAMINATION: CT abdomen pelvis wo con DATE: 07/25/2019 20:33 INDICATION: Acute onset severe upper abdominal pain. Right upper quadrant tenderness. TECHNIQUE: Computed tomography (CT) of the abdomen and pelvis was performed without intravenous contr ast. Automated exposure control and iterative reconstruction technique were employed. The dose-length product was 1401.32 mGy-cm. COMPARISON: None FINDINGS: Consolidation with air bronchograms and patchy airspace opacities in the bilateral lower lobes, lingu la and right middle lobe. Heart size is normal. No pericardial effusion. Small left pleural effusion. Percutaneous gastrostomy tube bulb in the distal body of the stomach. Multiple splenic and hepatic c alcifications consistent with old granulomatous disease. Gallbladder, pancreas, bilateral adrenal gla nds and left kidney are normal. 7.4 cm exophytic cyst at the upper pole of the right kidney. Normal a ppendix. There is moderate colonic diverticulosis with a sigmoid predominance. There is no adjacent inflammatory change to suggest diverticulitis. Small bowel is normal with no obstruction. Gas and a F oley catheter bulb within the partially decompressed bladder. Suggestion of a trabeculated bladder wa ll which can be seen with chronic outlet obstruction. The prostate appears relatively small for age s uggesting possible prior prostatectomy. Small fat-containing left inguinal hernia. No free intraperit burgess gas or fluid. No pathologically enlarged abdominal or pelvic lymphadenopathy. There are bridgin g osteophytes at multiple levels in the spine, consistent with diffuse idiopathic skeletal hyperostos is (DISH). IMPRESSION: 1. Multifocal pneumonia in the bilateral lower lung zones. 2. No acute intra-abdominal/pelvic process. Reviewed, dictated and finalized at location A. TIC MAKER
--- NOTE | ~2019-07-21 | XR_ITS ---
EXAMINATION: XR chest 1V portable DATE: 08/02/2019 08:19 INDICATION: Follow-up pneumonia and atelectasis TECHNIQUE: frontal view of the chest was obtained. COMPARISON: Chest radiograph dated 08/01/[address] dated 07/25/2019 FINDINGS: Persistent complete opacification of the left hemithorax which is new since 07/10/2019 consistent with large left pleural effusion and associated atelectasis and/or pneumonia. Mild opacities in the right mid and lower lung zone. No pneumothorax or definitive right pleural effusion. Left side of the card iomediastinal silhouette is obscured. Trachea remains midline. IMPRESSION: 1. Persistent complete opacification of the left hemithorax consistent with large left pleural effusi on and associated atelectasis and pneumonia. 2. Mild airspace opacities in the right mid and lower lung zones consistent with additional atelectas is or pneumonia. Reviewed, dictated and finalized at location A. ITAL RECRUITER IMPRESSION: 1. Persistent complete opacification of the left hemithorax consistent with lar ge left pleural effusion and associated atelectasis and pneumonia. 2. Mild airspace opacities in the right mid and lower lung zones consistent wit h additional atelectasis or pneumonia.
--- NOTE | ~2019-07-21 | XR_ITS ---
EXAMINATION: XR chest ET placement DATE: 08/02/2019 13:44 INDICATION: Endotracheal tube placement TECHNIQUE: frontal view of the chest was obtained. COMPARISON: Chest radiograph dated 08/02/2019 FINDINGS: Endotracheal tube tip 6.8 cm above the juanpablo. Persistent opacification of the left hemithorax. Right infrahilar airspace opacities with air bronchograms. No pneumothorax or right-sided pleural effusion . The left side of the cardiac mediastinal silhouette is obscured. There is new mild leftward deviati on of the trachea suggesting increasing volume loss in the left hemithorax. Abrupt cut off of the lef t mainstem bronchus which suggests a possibility of mucous plugging. IMPRESSION: 1. Endotracheal tube tip 6.8 cm above the juanpablo. Consider advancement by 4 cm. 2. Persistent complete opacification of the left hemithorax with leftward deviation of the trachea an d abrupt cut off of the left mainstem bronchus suggesting significant atelectasis in the left lung lisa ramos related to mucous plugging. Likely associated pneumonia and/or pleural effusion. 3. Right infrahilar opacities also concerning for pneumonia. Reviewed, dictated and finalized at location A. OD CONSULTANT IMPRESSION: 1. Endotracheal tube tip 6.8 cm above the juanpablo. Consider advancement by 4 cm. 2. Persistent complete opacification of the left hemithorax with leftward devia tion of the trachea and abrupt cut off of the left mainstem bronchus suggesting significant atelectasis in the left lung likely related to mucous plugging. Li rachel associated pneumonia and/or pleural effusion. 3. Right infrahilar opacities also concerning for pneumonia.
--- NOTE | ~2019-07-21 | XR_ITS ---
EXAMINATION: XR chest 2V DATE: 08/07/2019 14:19 INDICATION: Left pleural effusion status post thoracentesis. TECHNIQUE: Frontal and lateral views of the chest were obtained. COMPARISON: Chest single view at 5:[address] abdomen and pelvis 07/28/2019 FINDINGS: There are small right and moderate-sized left pleural effusions. There are airspace opaciti es in the mid and lower lung zones. No pneumothorax. The heart size is normal. A left upper extremity peripherally inserted central venous catheter (PICC) is seen with tip in the superior vena cava. IMPRESSION: 1. Small right and moderate-sized left pleural effusions with improvement on the left. 2. Stable airspace opacities in right mid and lower lung zones, consistent with pneumonia. Stable air space opacities in left mid and lower lung zones, likely a combination of atelectasis and pneumonia. Reviewed, dictated and finalized at location A. NE TEST CELL TECHNICIAN IMPRESSION: 1. Small right and moderate-sized left pleural effusions with improvement on th e left. 2. Stable airspace opacities in right mid and lower lung zones, consistent with pneumonia. Stable airspace opacities in left mid and lower lung zones, likely a combination of atelectasis and pneumonia.
--- NOTE | ~2019-07-21 | XR_ITS ---
XR chest 1V portable DATE: 08/08/2019 10:34 INDICATION: Left lower lobe atelectasis, pneumonia. Recent thoracentesis. TECHNIQUE: Portable upright AP chest on 08/08/2019 at 1026 hours COMPARISON: 08/07/2019 portable upright AP chest FINDINGS: Cardiomegaly. No right pleural effusion is evident. There is mild left pleural effusion. Th ere is infiltrate and/or atelectasis in the medial basilar right lower lobe and in the left lower marcy g field to a greater extent, particularly in the retrocardiac left lower lobe. Left upper extremity PIC catheter tip overlies the superior vena cava. IMPRESSION: Persistent mild left pleural effusion and bilateral lower lung infiltrate/atelectasis, le ft greater than right No evidence of pneumothorax Reviewed, dictated and finalized at location B. L OPERATIONS TECHNICIAN IMPRESSION: Persistent mild left pleural effusion and bilateral lower lung infi ltrate/atelectasis, left greater than right No evidence of pneumothorax
--- NOTE | ~2019-07-21 | XR_ITS ---
EXAMINATION: XR chest 1V portable DATE: 08/01/2019 05:43 INDICATION: Infiltrates. Follow-up. TECHNIQUE: A single frontal view of the chest was obtained. COMPARISON: Chest single view 07/26/2019, CT abdomen and pelvis 07/25/2019 FINDINGS: The patient is rotated to his right. There is complete opacification of left hemithorax wit h rightward displacement of the mediastinum. There are mild airspace opacities in all right lung zone s. No pneumothorax. The heart size is obscured. IMPRESSION: 1. Worsened complete opacification of left hemithorax, likely a combination of pneumonia and pleural effusion. 2. Worsened diffuse right lung disease, consistent with pneumonia. Reviewed, dictated and finalized at location A. MATCHER
--- NOTE | ~2019-07-21 | US_ITS ---
EXAMINATION: US renal BI EXAM DATE: 07/21/2019 12:30 INDICATION: Acute renal failure. TECHNIQUE: Multiple grayscale and Doppler images of the kidneys were obtained (by a technologist who performed the scan) and subsequently reviewed. There is no prior study for comparison. FINDINGS: Right kidney: There is normal contour and echogenicity. It measures 13.8 x 7.4 x 5.0 centimeters. Th ere is a focal anechoic lesion with increased through transmission measuring 8.5 x 7.1 x 6.0 cm, most likely a cyst. There is no hydronephrosis. Left kidney: There is normal contour and echogenicity. It measures 11.8 x 5.1 x 5.2 centimeters. Th ere are no focal renal lesions identified. There is no hydronephrosis. Yates catheter within collapsed bladder. IMPRESSION: 1. Right renal lesion most likely a cyst. 2. No hydronephrosis. Reviewed, dictated and finalized at location A. FACTURING QUALITY ENGINEER
--- NOTE | ~2019-07-21 | CT_ITS ---
EXAMINATION: CT brain wo con EXAM DATE: 07/21/2019 11:44 INDICATION: Decreased level of consciousness. Recent slurred speech. TECHNIQUE: Spiral CT of the head was performed without contrast. Axial, coronal and sagittal images were reviewed. The dose-length product (DLP) for this examination was 681.00 mGy-cm. The exposure w as tailored according to patient size, and iterative reconstruction (ASIR) was used as additional dos e reduction technique. Comparison is made to prior examination from 07/11/2019. FINDINGS: There is no acute intraparenchymal hemorrhage. No evidence of intraparenchymal brain mass lesion. No evidence of acute infarction. Please note that initial head CT has limited sensitivity f or small or acute infarctions. There is mild periventricular and subcortical hypodensity, nonspecific but probably related to small vessel ischemic disease. There is mild prominence of the sulci and v entricles related to cerebral atrophy. There is intracranial carotid arteriosclerosis. There are n o extra-axial collections. There is no mass effect or midline shift. The orbits are unremarkable. Soft tissue is unremarkable. Mild maxillary and ethmoid mucoperiosteal thickening. Mild left sphenoid mucoperiosteal thickening. S ome sinus wall thickening indicating history of chronic sinusitis. Small amount of left maxillary sin us fluid. IMPRESSION: 1. No acute intracranial findings. 2. Chronic age related findings. 3. Mild amount of sinus opacity, with interval improvement. Reviewed, dictated and finalized at location A. NING PROCESSOR
--- NOTE | ~2019-07-21 | XR_ITS ---
EXAMINATION: XR chest 1V portable DATE: 08/05/2019 05:30 INDICATION: Left lung collapse TECHNIQUE: frontal view of the chest was obtained. COMPARISON: Chest radiograph dated 08/04/2019 FINDINGS: Endotracheal tube tip 4.0 cm above the juanpablo. Asymmetric hazy airspace opacity throughout the left h emithorax with blunting at the left costophrenic angle consistent with small to moderate posteriorly layering left pleural effusion. During the region of retrocardiac consolidation in the left lower marcy g zone consistent with persistent left lower lobe collapse. Additional patchy airspace opacities in t he bilateral lower lung zones which could represent additional atelectasis or pneumonia. No pneumotho rax. Heart size is normal. There are bridging osteophytes at multiple levels in the spine, consistent with diffuse idiopathic skeletal hyperostosis (DISH). IMPRESSION: 1. Small to moderate-sized left pleural effusion. 2. Opacities in the bilateral lower lung zones, left greater than right consistent with atelectasis a nd/or pneumonia including likely persistent left lower lobe collapse. Reviewed, dictated and finalized at location A. BOARD FACTORY WORKER IMPRESSION: 1. Small to moderate-sized left pleural effusion. 2. Opacities in the bilateral lower lung zones, left greater than right consist ent with atelectasis and/or pneumonia including likely persistent left lower lo be collapse.
--- NOTE | ~2019-07-21 | XR_ITS ---
XR chest 1V portable 08/07/2019 18:07 Indication: Postthoracentesis. Procedure: AP portable chest Comparison: Comparison to multiple prior studies sequentially, with oldest reviewed study dated 08/05. Findings: Cardiomegaly with interstitial edema. Cannot exclude superimposed pneumonia. Persistent mod erate left effusion. No pneumothorax identified. Impression: 1: Cardiomegaly with interstitial edema. 2: Moderate left pleural effusion. Reviewed, dictated and finalized at location A. OR CORE JAVA DEVELOPER Impression: 1: Cardiomegaly with interstitial edema. 2: Moderate left pleural effusion.
--- NOTE | ~2019-07-21 | XR_ITS ---
EXAMINATION: XR chest 1V portable DATE: 07/22/2019 05:57 INDICATION: Respiratory failure. TECHNIQUE: A single frontal view of the chest was obtained. COMPARISON: Chest single view 07/21/2019 FINDINGS: The lung volumes are small. There are airspace opacities in the mid and lower lung zones wi th a basilar predominance. No pleural effusion or pneumothorax. The heart size is normal. IMPRESSION: 1. Small lung volumes with airspace opacities in the mid and lower lung zones with worsening on the r ight, consistent with atelectasis versus pneumonia. Reviewed, dictated and finalized at location A. CHER LARD IMPRESSION: 1. Small lung volumes with airspace opacities in the mid and lower lung zones w ith worsening on the right, consistent with atelectasis versus pneumonia.
--- NOTE | ~2019-07-21 | XR_ITS ---
EXAMINATION: XR chest 1V portable EXAM DATE: 07/24/2019 16:15 INDICATION: Aspiration pneumonia. TECHNIQUE: Portable AP frontal chest x-ray was obtained. Comparison is made to prior examination from 07/22/2019. FINDINGS: There is mild cardiomegaly and pulmonary vascular congestion. Cardiac silhouette is stable in size compared to prior exam. Patchy bilateral perihilar, lower lobe edema and/or pneumonia. There is no pneumothorax suspected. There are mild bony degenerative changes. IMPRESSION: Mild cardiomegaly. Bilateral edema and/or pneumonia unchanged. Reviewed, dictated and finalized at location A. NING ASSOCIATE
--- NOTE | ~2019-07-21 | XR_ITS ---
EXAMINATION: XR chest 1V portable DATE: 08/03/2019 05:40 INDICATION: Left lung collapse TECHNIQUE: One view COMPARISON: Chest radiograph dated 08/02/2019 FINDINGS: Endotracheal tube tip 3.9 cm above the juanpablo. Improved aeration in the left mid to upper lung zones. Persistent opacification of the left lower marcy g zone with moderate to large left pleural effusion tracking to the left apex along the lateral left mid to upper lung zones. Unchanged opacities in the right infrahilar region. No pneumothorax or right -sided pleural effusion. Portions of the left heart border obscured by the adjacent effusion and airs pace disease. The non obscured portions of the cardiac mediastinal silhouette appear normal. IMPRESSION: 1. Moderate to large left pleural effusion with reexpansion of previously collapsed portions of the l eft mid to upper lung zones. 2. Opacities in the bilateral lower lung zones likely combination of atelectasis and pneumonia. Reviewed, dictated and finalized at location A. WIPER IMPRESSION: 1. Moderate to large left pleural effusion with reexpansion of previously colla psed portions of the left mid to upper lung zones. 2. Opacities in the bilateral lower lung zones likely combination of atelectasi s and pneumonia.
--- NOTE | ~2019-07-21 | US_ITS ---
EXAMINATION: US venous doppler UE RT DATE: 08/03/2019 11:10 INDICATION: Respiratory failure with hypoxia TECHNIQUE: Grayscale images without and with compression and Doppler images of the right upper extrem ity veins were obtained. COMPARISON: None. FINDINGS: The right internal jugular vein, subclavian vein, axillary vein, brachial vein, basilic vein, cephali c vein, radial vein, and ulnar vein are patent. There is a likely thrombosed superficial vein at the lateral right forearm with thickened wall and demonstrating no internal flow on color Doppler. IMPRESSION: 1. The deep veins of the right upper extremity are patent with no evidence of venous thrombosis. 2. Dilated thrombosed superficial vessel at the lateral right forearm suspicious for thrombophlebitis . Reviewed, dictated and finalized at location A. T REMOVER IMPRESSION: 1. The deep veins of the right upper extremity are patent with no evidence of v enous thrombosis. 2. Dilated thrombosed superficial vessel at the lateral right forearm suspiciou s for thrombophlebitis.
--- NOTE | ~2019-07-21 | XR_ITS ---
EXAMINATION: XR chest 1V portable INDICATION: Pneumonia, pleural effusion TECHNIQUE: Portable AP chest at 0527 hours COMPARISON: 08/08/2019 FINDINGS: A moderate-sized left pleural effusion persists without significant change. There are stabl e airspace opacities of the left mid and lower lung zones and the right lower lung zone. No pneumotho rax is identified. The cardiomediastinal silhouette is stable. IMPRESSION: 1. Stable airspace opacities of the lung bases and left midlung zone, consistent with atelectasis and /or pneumonia. 2. Moderate-sized left pleural effusion, stable. Reviewed, dictated and finalized at location A. CULTURE TEACHER IMPRESSION: 1. Stable airspace opacities of the lung bases and left midlung zone, consisten t with atelectasis and/or pneumonia. 2. Moderate-sized left pleural effusion, stable.
--- NOTE | ~2019-07-21 | XR_ITS ---
EXAMINATION: XR abdomen/kub 1V DATE: 07/25/2019 19:01 INDICATION: Acute upper abdominal pain post recent abdominal surgery TECHNIQUE: A supine view of the abdomen on 2 radiographs was obtained. COMPARISON: None. FINDINGS: Percutaneous gastrostomy tube bulb projects over the gastric bubble at the left upper quadrant. No di lated loops of gas-filled bowel to suggest obstruction. Airspace disease in the bilateral lower lung zones, left greater than right which could represent atelectasis, pulmonary edema, pneumonia or some combination thereof. IMPRESSION: 1. No dilated loops of gas-filled bowel to suggest obstruction. 2. Bibasilar lung disease which could represent atelectasis, pulmonary edema, pneumonia or some combi nation thereof. Reviewed, dictated and finalized at location A. AL TRAINER IMPRESSION: 1. No dilated loops of gas-filled bowel to suggest obstruction. 2. Bibasilar lung disease which could represent atelectasis, pulmonary edema, p neumonia or some combination thereof.
--- NOTE | ~2019-07-21 | XR_ITS ---
EXAMINATION: XR chest 1V portable INDICATION: Left lung collapse TECHNIQUE: Portable AP chest at 1738 hours COMPARISON: 08/03/2019 FINDINGS: The endotracheal tube ends 5.5 cm above the juanpablo. There is continued improvement in aerat ion of the left lung. A left upper extremity PICC ends with its tip in the distal superior vena cava. A moderate-sized left pleural effusion is somewhat improved. There are airspace opacities in the mid and lower lung zones with improvement on the left. There is no pneumothorax. Stable cardiomegaly is noted. IMPRESSION: 1. Continued improvement in aeration of the left lung. 2. Moderate-sized left pleural effusion, decreased. 3. Airspace opacities of the mid and lower lung zones with slight improvement on the left, consistent with atelectasis versus pneumonia. 4. Stable cardiomegaly. Reviewed, dictated and finalized at location A. UNTS RECEIVABLE PROCESSOR IMPRESSION: 1. Continued improvement in aeration of the left lung. 2. Moderate-sized left pleural effusion, decreased. 3. Airspace opacities of the mid and lower lung zones with slight improvement o n the left, consistent with atelectasis versus pneumonia. 4. Stable cardiomegaly.
--- NOTE | ~2019-07-21 | XR_ITS ---
XR chest 1V portable DATE: 08/06/2019 05:55 INDICATION: Pneumonia TECHNIQUE: Portable AP chest on 08/06/2019 at 0517 hours COMPARISON: 08/05/2019 portable AP chest at 0519 hours FINDINGS: There is a large left pleural effusion tracking up the left lateral chest wall. There is ex tensive infiltrate/atelectasis in the left mid and particularly left lower lung field has resolved of the large effusion. There is patchy infiltrate and/or atelectasis in the right mid and lower lung zones. Heart size is difficult to assess due to portable technique with associated magnification and also be cause of the extensive left pleural effusion and compressive atelectasis obscuring the left cardiac m argin. There is mild pulmonary vascular congestion and redistribution. Minimal right pleural effusion is suggested. No pneumothorax. Left upper extremity PIC catheter tip overlies the superior vena cava. IMPRESSION: Very large increased left pleural effusion since 08/05/2019 with associated compressive at electasis of the mid and particularly left lower lung zone Patchy infiltrate in the right mid and lower lung zone Prominent vascular congestion, small right pleural effusion Left upper extremity PIC catheter Removal of ET tube since 08/05/2019 Reviewed, dictated and finalized at location [facility] IMPRESSION: Very large increased left pleural effusion since 08/05/2019 with ass ociated compressive atelectasis of the mid and particularly left lower lung zon e Patchy infiltrate in the right mid and lower lung zone Prominent vascular congestion, small right pleural effusion Left upper extremity PIC catheter Removal of ET tube since 08/05/2019
--- NOTE | 2019-07-21 08:19 | PC.NURSE ---
This patient, Mathew Venegas, was admitted to IMU Room 207-01. Patient/family oriented to hospital policies and general routines including ID bracelet, bed and alarms, visiting hours, pain management, procedures, bathroom and other care routines, personal items, smoking policy, room service/diet, and visiting hours. Valuables list has been completed. Information on how to activate the Rapid Response Team has been discussed. Patient/Family are encouraged to report perceived risks to care and to ask questions if they do not understand what they are told or what they should do.
--- NOTE | 2019-07-21 08:37 | ECG_ITS ---
Measurements Intervals [place] Rate: 90 P: 53 [place]: 160 QRS: 67 QRSD: 95 T: 72 QT: 358 QTc: 440 Interpretive Statements SINUS RHYTHM NONSPECIFIC T-WAVE ABNORMALITY- DIFFUSE LEADS BORDERLINE ECG Electronically Signed On 07-21-2019 9:37:12 CLINICAL FIELD SPECIALIST by Jesús Smyth D.O.
[2019-07-21] MEDS: SODIUM CHLORIDE 0.9% IV 1,000 ML 999 ML IV CONT ×2 (08:53→10:00)
[2019-07-21] MEDS: SODIUM CHLORIDE 0.9% IV 1,000 ML 100 ML IV CONT (09:47)
[2019-07-21] MEDS: ALBUTEROL SULFATE NEB 2.5 MG/0.5 ML INH 5 MG INHALATION ×2 (13:50→20:27)
[2019-07-21] MEDS: IPRATROPIUM BR 0.02% INH SOLN 0.5 MG/2.5 ML VIAL INHALATION ×2 (13:50→20:27)
[2019-07-21] MEDS: HEPARIN SODIUM 5,000 UNITS/ML VIAL 5000 UNITS SUB-Q ×2 (13:52→20:05)
[2019-07-21] MEDS: PANTOPRAZOLE SODIUM IV 40 MG VIAL IV PUSH (13:52)
[2019-07-21 14:24] LABS: Add Urine Microscopic? YES; Amorphous Sediment Urine Few; Appearance Urine Cloudy (Clear); Bacteria Urine Trace /hpf; Bilirubin Urine Negative (Negative); Blood Urine 3+ (Negative); Color Urine Yellow (Yellow); Glucose Urine UA Negative (Negative); Hyaline Casts Urine 30-49 /lpf; Ketones Urine Negative (Negative); Leukocyte Esterase Ur 2+ LEU/UL (NEGATIVE); Mucus Urine Few /lpf; Nitrate Urine Negative (Negative); Protein Urine 1+ mg/dL (Negative); Specific Grav Ur 1.018 (1.001-1.035); Squamous Epithelial Cell Urine Occasional /hpf (Few); Urobilinogen Urine Negative mg/dL (<2.0); WBC Clumps Urine Present /HPF; WBC Urine 31-50 /hpf (0-3)
[2019-07-21 14:27] LABS: Potassium Urine Random 89.3 meq/L
[2019-07-21 14:28] LABS: Sodium Urine Random < 5 meq/L
--- NOTE | 2019-07-21 14:45 | PC.NURSE ---
This patient, Mathew Venegas, was transferred to ICU 7 on 07/21/19 at 1445. Personal belongings sent with patient. Report given to JOSUE Vizcarra. Appropriate documentation sent with patient.
--- NOTE | 2019-07-21 14:50 | PC.NURSE ---
This patient, Mathew Venegas, was received from [[id number]] on 07/21/19 at 1450. REPORT RECEIVED FROM THOMAS SALAS. Personal belongings list checked and signed. Patient/family oriented to unit policies and routines
[2019-07-21 16:19] LABS: Albumin Level 3.4 g/dL (3.5-5.1); Blood Urea Nitrogen 93 mg/dL (9-20); Calcium 8.2 mg/dL (8.4-10.2); Carbon Dioxide 25 mmol/L (22-30); Chloride 102 mmol/L (98-107); Estimated Glomerular Filt Rate 15; Glucose 122 mg/dL (75-110); Magnesium 2.8 mg/dL (1.6-2.3); Phosphorus 5.7 mg/dL (2.5-4.5); Potassium 4.4 mmol/L (3.4-5.0); Sodium 138 mmol/L (137-145)
--- NOTE | 2019-07-21 17:20 | PM.IMHP ---
H&P: HPI History of Present Illness Chief complaint: Acute respiratory failure Narrative: Date of visit 07/21/2019 0800. Mathew Venegas is a 69 year old white male status post cerebral infarction 07/10/19 with residual dysphagia and balance issues. He has had chronic hiccups and has had a PEG tube placed her nourishment on TRC. Early this a.m. became less responsive with dropping blood pressure and O2 saturation and was sent to acute care for admission. Chest x-ray looked to be aspiration and was admitted with respiratory failure, sepsis, and acute renal failure Review of Systems Review of Systems: Narrative: Patient is currently not conversing verbally. states that was a little drowsy 07/20 but 07/19 he was up and ambulating and doing well Remainder of his review of systems were not obtainable due to his mental status PMFSH Past Medical History Medical History (Updated 07/21/19 @ 17:32 by Akash Sanchez MD) Cancer basal cell carcinoma CVA (cerebral vascular accident) Depression Dyslipidemia Dysphagia Hypertension He has not taken antihypertensives for > 15 years, which was the last time he saw physician. Obesity Skin cancer Urinary retention Surgical History Surgical History (Updated 07/10/19 @ 16:19 by Catarino Baker) H/O local excision of skin lesion Social History Social History (Updated 07/10/19 @ 22:43 by Ingrid Yuan PA-C) Social History: The patient lives in [place] with his . He designates his Deb as his surrogate decision maker and he wishes to be a full code. He is a lifelong nonsmoker and denies alcohol and drug abuse. Smoking status: Never smoker Second hand tobacco smoke exposure: Yes (old occupation) Alcohol intake: current Drinks per week: 0 Substance use: never Gender identity (if verbalized by the patient): Male Spiritual care concerns: No Agree to blood products: Yes Meds Home Medications and Allergies Home Medications Medication Instructions Recorded Confirmed Type aspirin [Children's Aspirin] 81 mg FEEDING TUBE DAILY@0800 #30 07/17/19 07/21/19 Rx tablet atorvastatin 40 mg FEEDING TUBE HS #30 tablet 07/17/19 07/21/19 Rx bacitracin 1 applic TOPICAL HS #14 gm 07/17/19 07/21/19 Rx finasteride [Proscar] 5 mg FEEDING TUBE QAM #30 tablet 07/17/19 07/21/19 Rx hydrochlorothiazide 12.5 mg FEEDING TUBE QAM #30 cap 07/17/19 07/21/19 Rx lisinopril 10 mg FEEDING TUBE DAILY #30 tablet 07/17/19 07/21/19 Rx melatonin 3 mg FEEDING TUBE HS #30 tablet 07/17/19 07/21/19 Rx peg [id number] 1 drp LEFTEYE QID PRN #15 ml 07/17/19 07/21/19 Rx [Artificial Tears([id number])] acetaminophen 650 mg PO Q4H PRN 07/21/19 07/21/19 History chlorpromazine 12.5 mg FEEDING TUBE Q6H PRN 07/21/19 07/21/19 History lansoprazole [Prevacid SoluTab] 30 mg FEEDING TUBE DAILY 07/21/19 07/21/19 History multivitamin with minerals 10 ml FEEDING TUBE DAILY 07/21/19 07/21/19 History sennosides-docusate sodium [Senna 1 tab-cap PO HS 07/21/19 07/21/19 History with Docusate Sodium] Allergies Allergy/AdvReac Type Severity Reaction Status Date / Time mold Allergy Watery Eye Verified 07/21/19 08:25 ragweed pollen Allergy Watery Eye Verified 07/21/19 08:25 Vital Signs Vital Signs - 24 hr 07/21/19 08:08 07/21/19 08:57 07/21/19 09:10 Temperature 36.4 C Pulse Rate 100 99 92 Respiratory Rate 16 18 Blood Pressure 86/53 L Pulse Oximetry 94 97 07/21/19 09:45 07/21/19 10:00 07/21/19 10:09 Temperature Pulse Rate 92 92 Respiratory Rate 20 Blood Pressure 90/48 L Pulse Oximetry 92 07/21/19 12:00 07/21/19 12:40 07/21/19 13:50 Temperature 36.1 C L Pulse Rate 88 90 88 Respiratory Rate 21 H 18 Blood Pressure 102/62 Pulse Oximetry 92 07/21/19 14:00 07/21/19 15:00 07/21/19 15:15 Temperature Pulse Rate 85 88 76 Respiratory Rate 18 18 18 Blood Pressure 105/69 104/61 Pulse Oximetry 93 93 07/21/19 15:30 Temperature P
[2019-07-21] MEDS: SODIUM CHLORIDE 0.9% IV 1,000 ML 150 ML IV CONT (17:29)
--- NOTE | 2019-07-21 22:15 | WPDCNINT ---
Assessment and Plan Assessment and plan (1) Acute respiratory failure with hypoxia: Code(s): J96.01 - Acute respiratory failure with hypoxia Status: Acute Assessment and Plan: This is likely due to aspiration pneumonia . cxr with RLL infilterate . On IV abx zosyn. Hold tube feeds via PEG for now . Cough appears to be weak. currently with stable sats on AIRVO at 60%. If hypoxia worsens then may need intubation as he is not acandidate for BIPAP due to aspiration. (2) Hypotension: Code(s): I95.9 - Hypotension, unspecified Status: Acute Assessment and Plan: This appears to be due to hypovolemia and less likely due to sepsis. Acute renal failure also causing worsening of clearance of antihypertensive meds that patient has been getting. Will continue IVF and hold antihypertensive meds for now. LA was 2.0. procalcitonin pending . (3) Pneumonia: Code(s): J18.9 - Pneumonia, unspecified organism Status: Acute Assessment and Plan: likely aspiration pneumonia . will continue oxygen , IV abx . Poor cough . Neurogenic dysphagia. (4) Renal failure, acute: Code(s): N17.9 - Acute kidney failure, unspecified Status: Acute Assessment and Plan: Probably secondary to hypotension and pre renal azotemia. Aggressive hydration with fluid boluses, and will also check renal US. Yates for accurate I and O. Urine lytes noted. (5) Acute metabolic encephalopathy: Code(s): G93.41 - Metabolic encephalopathy Status: Acute Assessment and Plan: Per patient is AAo x3 at baseline. Patient noted to be lethargic and poorly arouseable . CT head was negative . ? concern for Sz and post ictal state . Will check EEG. Patient was arouseable and able to follow commands . No focal defecits noted. (6) DVT prophylaxis: Code(s): Z29.9 - Encounter for prophylactic measures, unspecified Status: Acute Assessment and Plan: Subcu heparin with renal failure Additional Plan d/w at bedside CCT- 45 min Code status - full code. Music Therapy Teacher Consult Note Consult date: 07/21/19 Time Seen: 13:03 HPI: Mathew Venegas is a 69 year old male who was Tx from IMU today due to hypotension , acute renal failure and obtundation. Patient had been in the rehab unit after he had suffered CVA on 07/10/2019 due to acute occlusion of right vertebral artery. Patient had suffered dysphagia and balance issues post CVA . He was admitted to rehab floor for therapy. He has had PEG placed and was getting PEG tube feeds. Today he was initially moved to IMU as he was noted to be obtunded and poorly responsive . He was also noted to be hypotensive . On my assessment in IMU patient was not arousebale to painful stimulus . He was noted to have coarse b/l breath sounds concerning for aspiration. His tube feeds were held . He was noted to be hypoxic requiring airvo at 60% to maintain sats above 92%. He was given 2 litres of IVF bolus for hypotension . He remained afebrile . His lactic acid was 2.0. His cxr had RLL infilterate and hence he was started on Iv abx .He was noted to have acute renal failure with creatinine going from 1.5 to 4.8 in 24 hours . His urine lytes showed urine sodium <5. His UA was suggestive of infection . He was Tx to ICU due to due to concern for persistant hypotension and need for pressors. CT head was negative and EEg was orderd . However after arrival to ICU patient was noted to have stable BP with MAP.65. He was also noted to be easily arouseable and was able to follow all commands. [facility] Past Medical History Medical History (Updated 07/21/19 @ 22:45 by Marjorie Mendez MD) Cancer basal cell carcinoma CVA (cerebral vascular accident) Depression Dyslipidemia Dysphagia Hypertension He has not taken antihypertensives for > 15 years, which was the last time he saw physician. Obesity Skin cancer Urinary retention Surgical History Surgical History (Updated 07/10/19 @ 16:19
[2019-07-22] VITALS (24 sets, daily range): BP systolic 108–158; BP diastolic 72–91; PULSE 79–141; RESP 16–26; TEMP 36.7–37.2; O2SAT 91–97
--- NOTE | 2019-07-22 | ECHO_ITS ---
Patient Info Name: Mathew Venegas Age: 69 years : 1950 Gender: Male Ht: 70 in Wt: 239 lbs BSA: 2.35 m2 HR: 100 bpm BP: 108 / 88 mmHg Heart Rhythm: Atrial Fibrillation Technical Quality: Good Exam Date: 07/22/2019 3:01 PM Exam Location: [facility] Pulmonary Patient Status: Inpatient Admit Date: 07/21/2019 Staff Ordering Physician: Saad West MD Oil Deliverer: Brendan Jamison CAROLE Attending Provider: Bernardo Braun MD Referring Physician: Brett WINTERS; Exam Type: CA echo limited w bubble study Study Info Indications 436.0 - CVA Limited two-dimensional transthoracic echocardiogram is performed with agitated saline. Contrast/Agitated Saline Contrast/Ag. Saline: Agitated Saline Amount: 18.00 ml Administered By: Ana Campos, RN Summary 1. Left atrial chamber dimension is mildly enlarged. 2. Intact interatrial septum visualized by agitated saline imaging. Left Ventricle Left ventricular chamber dimension is normal. Left ventricular systolic function is normal, estimated at 60-65%. Right Ventricle Right ventricular chamber dimension is normal. Right ventricular systolic function is normal. Left Atria Left atrial chamber dimension is mildly enlarged. Atrial Septum Intact interatrial septum visualized by agitated saline imaging. Report Signatures
[2019-07-22] MEDS: SODIUM CHLORIDE 0.9% IV 1,000 ML 150 ML IV CONT ×2 (01:19→08:43)
[2019-07-22] MEDS: ALBUTEROL SULFATE NEB 2.5 MG/0.5 ML INH 5 MG INHALATION ×3 (01:47→14:04)
[2019-07-22] MEDS: IPRATROPIUM BR 0.02% INH SOLN 0.5 MG/2.5 ML VIAL INHALATION ×4 (01:47→20:15)
[2019-07-22 04:24] LABS: Hemoglobin 12.6 g/dL (14.0-18.0); Mean Corpuscular HGB Conc 31.5 g/dl (32-36); Mean Corpuscular Hemoglobin 28.2 pg (26-34); Mean Corpuscular Volume 89.5 fl (80-100); Mean Platelet Volume 9.8 fl (7.4-10.4); Platelet Count Result 283 k/mm3 (150-375); Red Blood Count 4.47 M/mm3 (4.6-6.20); Red Cell Distribution Width 13.3 % (11.5-14.5); White Blood Count 12.3 K/mm3 (4.5-10.0)
[2019-07-22 05:04] LABS: Alanine Aminotransferase 60 U/L (4-50); Albumin Level 3.4 g/dL (3.5-5.1); Alkaline Phosphatase 75 U/L (38-126); Aspartate Amino Transferase 163 U/L (17-59); Bilirubin,Total 0.5 mg/dL (0.2-1.3); Blood Urea Nitrogen 78 mg/dL (9-20); Calcium 8.6 mg/dL (8.4-10.2); Carbon Dioxide 25 mmol/L (22-30); Chloride 106 mmol/L (98-107); Estimated CRCL calculation 33 ml/min; Estimated Glomerular Filt Rate 27; Glucose 106 mg/dL (75-110); Potassium 4.2 mmol/L (3.4-5.0); Sodium 141 mmol/L (137-145)
[2019-07-22 05:58] LABS: Band Neutrophils Percent 12 % (0-6); Lymphocytes Absolute Manual 0.36 K/mm3 (1.1-4.5); Monocytes Absolute Manual 0.36 K/mm3 (0.1-0.90); Monocytes Percent Manual 3 % (3-9); Neutrophils Absolute Manual 11.56 K/mm3 (1.3-6.7); Neutrophils Percent Manual 82 % (46-73); Platelet Estimate Adequate (Adequate); Total Cells Counted 100
[2019-07-22] MEDS: HEPARIN SODIUM 5,000 UNITS/ML VIAL 5000 UNITS SUB-Q (08:43)
[2019-07-22] MEDS: ASPIRIN 81 MG CHEWABLE TABLET FEED TUBE (08:43)
[2019-07-22] MEDS: METOPROLOL TARTRATE INJ 5 MG/5 ML VIAL IV PUSH (09:50)
--- NOTE | 2019-07-22 09:52 | ECG_ITS ---
Measurements Intervals [place] Rate: 140 P: MD: 0 QRS: 16 QRSD: 88 T: -7 QT: 282 QTc: 432 Interpretive Statements ATRIAL FIBRILLATION WITH RAPID VENTRICULAR RESPONSE INCOMPLETE RIGHT BUNDLE BRANCH BLOCK BORDERLINE T WAVE ABNORMALITY- INFERIOR LEADS BASELINE ARTIFACT- I, II, III, AVL ABNORMAL ECG Electronically Signed On 07-22-2019 10:55:36 HEATING AND COOLING TECHNICIAN by Jesús Smyth D.O.
[2019-07-22] MEDS: PANTOPRAZOLE SODIUM IV 40 MG VIAL IV PUSH (10:05)
--- NOTE | 2019-07-22 10:33 | PHAR ---
DR. BOWLES WANTS THE HEPARIN BOLUS EVEN THOUGH PATIENT RECEIVED SUBQ DOSE OF 5,000 UNITS AT 0843. 07/22/19
[2019-07-22 11:24] LABS: INR 1.3; Prothrombin Time 15.8 Seconds (11.1-14.7)
[2019-07-22 11:25] LABS: Partial Thromboplastin Time 34.9 SECONDS (22.3-36.8)
--- NOTE | 2019-07-22 11:30 | NEURO_ITS ---
TEST: ELECTROENCEPHALOGRAM DIAGNOSIS: RULE OUT SEIZURE PATIENT NUMBER: [id number] EEG NUMBER: [id number] RECORDING DATE: 07/22/19 CONDITION OF RECORDING: Lethargic EEG DESCRIPTION: Basic resting occipital frequency consists of moderate amount of medium voltage 6-7hz theta mixed with small amount of low voltage 8-9hz alpha. Bilateral symmetrical sleep activity is seen during sleep. Regular intermittent EKG artifacts are noted. Hyperventilation and photic stimulation were not done. Nonparoxysmal. Nonfocal. Nonlateralizing IMPRESSION: Only minimally abnormal record due to slower background rhythms during brief periods of wakefulness. These abnormalities could be suggestive of underlying organic or metabolic encephalopathy or post ictal state but there is no evidence of any seizure discharge. [facility]
[2019-07-22] MEDS: HEPARIN SOD/D5W 100 UNITS/ML 25,000 UNITS/250 ML BAG 15 UNITS IV CONT (13:03)
[2019-07-22] MEDS: HEPARIN SODIUM 5,000 UNITS/ML VIAL 7000 UNITS IV PUSH (13:03)
--- NOTE | 2019-07-22 14:21 | PM.CNCAR ---
Assessment and Plan Assessment and plan (1) Atrial fibrillation with rapid ventricular response: Code(s): I48.91 - Unspecified atrial fibrillation Status: Acute Assessment and Plan: agree with heparinization for now. His heart rate is still elevated despite high dose diltiazem drip. Will give him an amiodarone bolus 150 mg IV x1 and if he does not convert, will probably stop his diltiazem drip and switch him to amiodarone depending on response. Echocardiogram performed at last visit showing normal left ventricular size and function with mild left atrial enlargement. Will check a TSH and free T4 levels. 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 Code(s): I63.9 - Cerebral infarction, unspecified Status: Acute Assessment and Plan: Possibly related to atrial fibrillation (3) Hypertension: Qualifiers: Hypertension type: essential hypertension Qualified Code(s): I10 - Essential (primary) hypertension Code(s): I10 - Essential (primary) hypertension Status: Acute Assessment and Plan: at goal (4) Dysphagia: Qualifiers: Dysphagia type: oral phase Qualified Code(s): R13.11 - Dysphagia, oral phase Code(s): R13.10 - Dysphagia, unspecified Status: Acute (5) Pneumonia: Code(s): J18.9 - Pneumonia, unspecified organism Status: Acute Assessment and Plan: likely aspiration History of Present Illness History of Present Illness Consult date/time: 07/22/19 14:21 Requesting physician: Marjorie Mendez MD Consult reason: atrial fibrillation Reason For Visit: Acute respiratory failure Narrative: date of service History: Patient is 69-year-old male who recently sustained a cerebrovascular accident and was in [facility]. He has residual dysphagia and balance problems as his main residual affects of his stroke. He suddenly became less responsive while and rehab with dropping blood pressure and O2 saturations. He was admitted and was found to have aspiration pneumonia. He is currently in the ICU undergoing breathing treatments, antibiotics and treatment of his aspiration pneumonia. Today he Suddenly went into atrial fibrillation with rapid ventricular response. heart rate has been difficult to control despite high-dose diltiazem treatment. He does answer questions and denies any chest pain, shortness of breath, syncope, presyncope, paroxysmal nocturnal dyspnea Dyspnea, orthopnea, edema or palpitations. Review of Systems Review of Systems: All systems reviewed & are unremarkable except as noted in HPI and below Constitutional: Constitutional: Denies chills Eyes: Eyes: Denies blurry vision ENT: Reports Normal hearing present Cardiovascular: Cardiovascular: Denies chest pain Respiratory: Respiratory: Reports cough and Denies dyspnea Gastrointestinal: Gastrointestinal: Denies abdominal pain Genitourinary: Genitourinary: Denies hematuria Musculoskeletal: Musculoskeletal: Denies neck pain Integumentary/Breasts: Skin/Breast: Denies dry skin Neurologic: Denies headache(s) Psychiatric: Psychiatric: Denies anxiety Endocrine: Endocrine: Denies excessive sweating Hematologic/Lymphatic: Hematologic/Lymphatic: Denies easy bleeding Allergic/Immunologic: Allergic/Immunologic: Denies lip swelling PMFSH Past Medical History Medical History Cancer basal cell carcinoma CVA (cerebral vascular accident) Depression Dyslipidemia Dysphagia Hypertension He has not taken antihypertensives for > 15 years, which was the last time he
[2019-07-22] MEDS: AMIODARONE 150 MG/D5W 100 ML 150 MG/100 ML BAG 600 MG IV CONT (14:55)
--- NOTE | 2019-07-22 15:39 | WPDINTPN ---
Progress Note: A&P Assessment and Plan (1) Acute respiratory failure with hypoxia: Code(s): J96.01 - Acute respiratory failure with hypoxia Status: Acute Assessment and Plan: This is likely due to aspiration pneumonia . cxr with RLL infilterate . On IV abx zosyn. Hold tube feeds via PEG for now . Cough appears to be weak. currently with stable sats on AIRVO at 60%. If hypoxia worsens then may need intubation as he is not acandidate for BIPAP due to aspiration. (2) Hypotension: Code(s): I95.9 - Hypotension, unspecified Status: Resolved Assessment and Plan: This appears to be due to hypovolemia and less likely due to sepsis. Acute renal failure also causing worsening of clearance of antihypertensive meds that patient has been getting. Will continue IVF and hold antihypertensive meds for now. Hypotension has resolved and patient is now hypertensive . (3) Pneumonia: Code(s): J18.9 - Pneumonia, unspecified organism Status: Acute Assessment and Plan: likely aspiration pneumonia . will continue oxygen , IV abx . Poor cough . Neurogenic dysphagia. (4) Renal failure, acute: Code(s): N17.9 - Acute kidney failure, unspecified Status: Acute Assessment and Plan: Probably secondary to hypotension and pre renal azotemia. Aggressive hydration with fluidbolus. Renal US is negative Yates for accurate I and O. Urine lytes noted. Improving (5) Acute metabolic encephalopathy: Code(s): G93.41 - Metabolic encephalopathy Status: Resolved Assessment and Plan: Per patient is AAo x3 at baseline. Patient noted to be lethargic and poorly arouseable . CT head was negative . ? concern for Sz and post ictal state . Will check EEG. Patient is now arouseable and able to follow commands . No focal defecits noted. (6) Atrial fibrillation with rapid ventricular response: Code(s): I48.91 - Unspecified atrial fibrillation Status: Acute Assessment and Plan: new onset with rates in 140s. Lopressor 5 mg IV push x1 given. Patient has been started on a Cardizem drip at max doses of 15 mg an hour however heart rate still remains high in 130s. Cardiology has been consulted. Echo noted. Will also check TSH in a.m.. This likely is the cause for patient's stroke about a week back. Patient likely has paroxysmal AFib. He has been started on full anticoagulation with IV heparin. (7) DVT prophylaxis: Code(s): Z29.9 - Encounter for prophylactic measures, unspecified Status: Acute Assessment and Plan: Subcu heparin with renal failure Additional Plan d/w at bedside CCT- 45 min Code status - full code. Subjective Date/time seen: 07/22/19 - awake and alert x3. keeps eyes closed. Went into afib RVR . oxygen requierments still high . BUN /creatinine has improved. Review of Systems Review of Systems: All systems reviewed & are unremarkable except as noted in HPI and below Constitutional: Constitutional: Denies chills, Denies excessive sweating and Denies headache(s) Eyes: Eyes: Denies blurry vision ENT: Reports Normal hearing present, Denies headache(s), Denies lip swelling and Denies neck pain Cardiovascular: Cardiovascular: Denies chest pain and Denies dyspnea Respiratory: Respiratory: Reports cough and Denies dyspnea Gastrointestinal: Gastrointestinal: Denies abdominal pain Genitourinary: Genitourinary: Denies hematuria Musculoskeletal: Musculoskeletal: Denies neck pain Integumentary/Breasts: Skin/Breast: Denies dry skin Neurologic: Reports Normal hearing present and Denies headache(s) Psychiatric: Psychiatric: Denies anxiety Endocrine: Endocrine: Denies excessive sweating Hematologic/Lymphatic: Hematologic/Lymphatic: Denies easy bleeding Allergic/Immunologic: Allergic/Immunologic: Denies lip swelling Exam Narrative: Exam Narrative: Pupils are small but equal his sclera is anicteric Neck supple
[2019-07-22] MEDS: SODIUM CHLORIDE 0.9% IV 1,000 ML 125 ML IV CONT (17:17)
[2019-07-22 17:35] LABS: Free T4 Free Thyroxine 1.35 ng/mL (0.78-2.19)
[2019-07-22 19:58] LABS: Partial Thromboplastin Time 147.1 SECONDS (22.3-36.8)
[2019-07-22] MEDS: ATORVASTATIN 40 MG TABLET FEED TUBE (20:05)
[2019-07-22] MEDS: LEVALBUTEROL NEB 1.25 MG/3 ML 0.63 MG INHALATION (20:15)
[2019-07-23] VITALS (25 sets, daily range): BP systolic 103–148; BP diastolic 60–105; PULSE 76–112; RESP 12–27; TEMP 36.7–37; O2SAT 90–97; BMI 34.3
[2019-07-23] MEDS: SODIUM CHLORIDE 0.9% IV 1,000 ML 125 ML IV CONT ×2 (02:09→08:30)
[2019-07-23] MEDS: IPRATROPIUM BR 0.02% INH SOLN 0.5 MG/2.5 ML VIAL INHALATION ×4 (02:10→19:44)
[2019-07-23] MEDS: LEVALBUTEROL NEB 1.25 MG/3 ML 0.63 MG INHALATION ×4 (02:10→19:45)
[2019-07-23 04:31] LABS: Basophils Percent Auto 0.1 % (0.2-1.2); Eosinophils Percent Auto 0.1 % (0-4.4); Hematocrit 38.4 % (42.0-52.0); Hemoglobin 12.2 g/dL (14.0-18.0); Immature Granulocyte Absolute 0.31 K/mm3 (0.00-0.031); Immature Granulocyte Percent A 2.1 % (0-0.5); Lymphocytes Percent Auto 4.1 % (18.3-44.2); Mean Corpuscular HGB Conc 31.8 g/dl (32-36); Mean Corpuscular Hemoglobin 28.2 pg (26-34); Mean Corpuscular Volume 88.9 fl (80-100); Mean Platelet Volume 9.8 fl (7.4-10.4); Monocytes Absolute Auto 0.9 K/mm3 (0.1-0.6); Monocytes Percent Auto 6.5 % (2.6-8.5); Neutrophils Absolute Auto 12.7 K/mm3 (1.3-6.7); Neutrophils Percent Auto 87.1 % (45.5-73.1); Platelet Count Result 307 k/mm3 (150-375); Red Blood Count 4.32 M/mm3 (4.6-6.20); Red Cell Distribution Width 13.4 % (11.5-14.5); White Blood Count 14.6 K/mm3 (4.5-10.0)
[2019-07-23 04:42] LABS: Partial Thromboplastin Time 75.3 SECONDS (22.3-36.8)
[2019-07-23] MEDS: HEPARIN SOD/D5W 100 UNITS/ML 25,000 UNITS/250 ML BAG 12 UNITS IV CONT (08:29)
[2019-07-23] MEDS: ASPIRIN 81 MG CHEWABLE TABLET FEED TUBE (08:30)
[2019-07-23] MEDS: PANTOPRAZOLE SODIUM IV 40 MG VIAL IV PUSH (08:32)
[2019-07-23 09:18] LABS: Albumin Level 3.1 g/dL (3.5-5.1); Blood Urea Nitrogen 44 mg/dL (9-20); Calcium 8.4 mg/dL (8.4-10.2); Carbon Dioxide 27 mmol/L (22-30); Chloride 108 mmol/L (98-107); Estimated CRCL calculation 71 ml/min; Estimated Glomerular Filt Rate > 60; Glucose 142 mg/dL (75-110); Magnesium 2.5 mg/dL (1.6-2.3); Phosphorus 2.7 mg/dL (2.5-4.5); Sodium 142 mmol/L (137-145)
[2019-07-23 10:37] LABS: Procalcitonin 7.27 ng/mL (<0.10)
[2019-07-23] MEDS: FUROSEMIDE INJ 40 MG/4 ML VIAL IV PUSH (10:37)
--- NOTE | 2019-07-23 11:20 | PM.PNCARD ---
Progress Note: A&P Assessment and Plan (1) Atrial fibrillation with rapid ventricular response: Code(s): I48.91 - Unspecified atrial fibrillation Status: Acute Assessment and Plan: agree with heparinization for now. 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 Code(s): I63.9 - Cerebral infarction, unspecified Status: Acute Assessment and Plan: Possibly related to atrial fibrillation (3) Hypertension: Qualifiers: Hypertension type: essential hypertension Qualified Code(s): I10 - Essential (primary) hypertension Code(s): I10 - Essential (primary) hypertension Status: Acute Assessment and Plan: at goal (4) Dysphagia: Qualifiers: Dysphagia type: oral phase Qualified Code(s): R13.11 - Dysphagia, oral phase Code(s): R13.10 - Dysphagia, unspecified Status: Acute (5) Pneumonia: Code(s): J18.9 - Pneumonia, unspecified organism Status: Acute Assessment and Plan: likely aspiration: Continue antibiotics. Agree with 1 dose IV furosemide 40 mg times 1 Subjective Date/time seen: 07/23/19 11:20 Interval history: Date of service 07/23/2019: No chest pain, hemodynamically more stable. No SOB. + productive cough Review of Systems Review of Systems: All systems reviewed & are unremarkable except as noted in HPI and below Constitutional: Constitutional: Denies chills, Denies excessive sweating and Denies headache(s) Eyes: Eyes: Denies blurry vision ENT: Reports Normal hearing present, Denies headache(s), Denies lip swelling and Denies neck pain Cardiovascular: Cardiovascular: Denies chest pain and Denies dyspnea Respiratory: Respiratory: Reports cough and Denies dyspnea Gastrointestinal: Gastrointestinal: Denies abdominal pain Genitourinary: Genitourinary: Denies hematuria Musculoskeletal: Musculoskeletal: Denies neck pain Integumentary/Breasts: Skin/Breast: Denies dry skin Neurologic: Reports Normal hearing present and Denies headache(s) Psychiatric: Psychiatric: Denies anxiety Endocrine: Endocrine: Denies excessive sweating Hematologic/Lymphatic: Hematologic/Lymphatic: Denies easy bleeding Allergic/Immunologic: Allergic/Immunologic: Denies lip swelling Exam Narrative: Exam Narrative: alert. No acute distress Const: General: comfortable HENMT: General nose exam: Normal nares present Eyes: Sclera: sclerae normal Neck: Neck: supple and no JVD Chest: Other: no chest wall pain to palpation Resp: Auscultation: crackles, rhonchi and diminished lung sounds Cardio: Rate: regular rate and tachycardic Rhythm: abnormal rhythm irregularly irregular Skin: General skin exam: normal color Neuro: Cranial nerves: Yes Normal hearing present Motor exam (neuro): 5/5 motor strength present throughout Sensory Exam: normal sensation Extrem: General: no edema and no pedal edema Psych: Mental Status: mental status grossly normal Objective Data Vital Signs Vital Signs: Vital Signs - 24 hr 07/22/19 11:56 07/22/19 12:00 07/22/19 14:00 Temperature 37.1 C Pulse Rate 135 H 140 H Respiratory Rate 22 H 25 H Blood Pressure 127/84 120/90 Pulse Oximetry 93 93 91 07/22/19 14:05 07/22/19 14:21 07/22/19 16:00 Temperature 36.9 C Pulse Rate 136 H 141 H 113 H Respiratory Rate 26 H 25 H 19 Blood Pressure 108/88 Pulse Oximetry 91 07/22/19 18:00 07/22/19 20:00 07/22/19 20:15 Temperature 37.1 C Pulse Rate 115 H 104 H 103 H Respiratory Rate 17 18 17 Blood Pressure 112/72 124/76 Pulse Oximetry 92 93 07/22/19 20:24 07/22/19 20:25 07/22/19 22:00 Temperature Pulse Rate 106 H 105 H Respiratory R
[2019-07-23] MEDS: ACETAMINOPHEN 325 MG TABLET 650 MG FEED TUBE (11:27)
[2019-07-23 12:06] LABS: Partial Thromboplastin Time 61.1 SECONDS (22.3-36.8)
[2019-07-23] MEDS: HEPARIN SODIUM 5,000 UNITS/ML VIAL 3500 UNITS IV PUSH (14:40)
--- NOTE | 2019-07-23 14:45 | WPDINTPN ---
Progress Note: A&P Assessment and Plan (1) Acute respiratory failure with hypoxia: Code(s): J96.01 - Acute respiratory failure with hypoxia Status: Acute Assessment and Plan: This is likely due to aspiration pneumonia . cxr with RLL infilterate . On IV abx zosyn. Hold tube feeds via PEG for now . Cough appears to be weak. currently with stable sats on AIRVO at 50% and will attempt to wean . Lasix x1 given today . (2) Hypotension: Code(s): I95.9 - Hypotension, unspecified Status: Resolved Assessment and Plan: This appears to be due to hypovolemia and less likely due to sepsis. Acute renal failure also causing worsening of clearance of antihypertensive meds that patient has been getting. Will continue IVF and hold antihypertensive meds for now. Hypotension has resolved and patient is now hypertensive . (3) Pneumonia: Code(s): J18.9 - Pneumonia, unspecified organism Status: Acute Assessment and Plan: likely aspiration pneumonia . will continue oxygen , IV abx . Poor cough . Neurogenic dysphagia. (4) Renal failure, acute: Code(s): N17.9 - Acute kidney failure, unspecified Status: Acute Assessment and Plan: Probably secondary to hypotension and pre renal azotemia. Aggressive hydration with fluidbolus. Renal US is negative Yates for accurate I and O. Urine lytes noted. Improving and back to baseline . (5) Acute metabolic encephalopathy: Code(s): G93.41 - Metabolic encephalopathy Status: Resolved Assessment and Plan: Per patient is AAo x3 at baseline. Patient noted to be lethargic and poorly arouseable . CT head was negative . ? concern for Sz and post ictal state . EEG is pending . Patient is now arouseable and able to follow commands . No focal defecits noted. very weak overall. PT ordered. (6) Atrial fibrillation with rapid ventricular response: Code(s): I48.91 - Unspecified atrial fibrillation Status: Acute Assessment and Plan: new onset with rates in 140s. Lopressor 5 mg IV push x1 given. Patient has been started on a Cardizem drip at max doses of 15 mg an hour however heart rate still remains high in 130s. Cardiology has been consulted. Echo noted. TSH is normal This likely is the cause for patient's stroke about a week back. Patient likely has paroxysmal AFib. He has been started on full anticoagulation with IV heparin. 2/5- HR is better controlled . will transition to po cardizem and eliquis (7) DVT prophylaxis: Code(s): Z29.9 - Encounter for prophylactic measures, unspecified Status: Acute Assessment and Plan: on Iv heparin drip Additional Plan d/w at bedside Code status - full code. Time spent- 40 min Subjective Date/time seen: 07/23/19 14:45- afib is rate controlled on cardizem and IV heparin drip . renal failure has resolved. lasix x1 given Interval history: Date of service 07/23/2019: Review of Systems Review of Systems: All systems reviewed & are unremarkable except as noted in HPI and below Constitutional: Constitutional: Denies chills, Denies excessive sweating and Denies headache(s) Eyes: Eyes: Denies blurry vision ENT: Reports Normal hearing present, Denies headache(s), Denies lip swelling and Denies neck pain Cardiovascular: Cardiovascular: Denies chest pain and Denies dyspnea Respiratory: Respiratory: Reports cough and Denies dyspnea Gastrointestinal: Gastrointestinal: Denies abdominal pain Genitourinary: Genitourinary: Denies hematuria Musculoskeletal: Musculoskeletal: Denies neck pain Integumentary/Breasts: Skin/Breast: Denies dry skin Neurologic: Reports Normal hearing present and Denies headache(s) Psychiatric: Psychiatric: Denies anxiety Endocrine: Endocrine: Denies excessive sweating Hematologic/Lymphatic: Hematologic/Lymphatic: Denies easy bleeding Allergic/Immunologic: Allergic/Immunologic: Denies lip swelling Exa
[2019-07-23] MEDS: APIXABAN 5 MG TABLET FEED TUBE (20:07)
[2019-07-23] MEDS: ATORVASTATIN 40 MG TABLET FEED TUBE (20:07)
[2019-07-23 20:15] LABS: Partial Thromboplastin Time 35.2 SECONDS (22.3-36.8)
[2019-07-23] MEDS: DILTIAZEM HCL 60 MG TABLET PO (23:01)
[2019-07-24] VITALS (21 sets, daily range): BP systolic 122–151; BP diastolic 85–102; PULSE 100–127; RESP 13–114; TEMP 36.9–37.6; O2SAT 92–95
[2019-07-24] MEDS: IPRATROPIUM BR 0.02% INH SOLN 0.5 MG/2.5 ML VIAL INHALATION ×4 (01:27→20:02)
[2019-07-24] MEDS: LEVALBUTEROL NEB 1.25 MG/3 ML 0.63 MG INHALATION ×4 (01:28→20:02)
[2019-07-24 01:53] LABS: Blood Urea Nitrogen 36 mg/dL (9-20); Calcium 8.4 mg/dL (8.4-10.2); Carbon Dioxide 28 mmol/L (22-30); Chloride 105 mmol/L (98-107); Estimated CRCL calculation 78 ml/min; Estimated Glomerular Filt Rate > 60; Glucose 145 mg/dL (75-110); Magnesium 2.1 mg/dL (1.6-2.3); Potassium 3.5 mmol/L (3.4-5.0); Sodium 141 mmol/L (137-145)
[2019-07-24] MEDS: ASPIRIN 81 MG CHEWABLE TABLET FEED TUBE (08:18)
[2019-07-24] MEDS: PANTOPRAZOLE SODIUM IV 40 MG VIAL IV PUSH (08:18)
[2019-07-24] MEDS: APIXABAN 5 MG TABLET FEED TUBE ×2 (08:18→20:36)
--- NOTE | 2019-07-24 08:48 | PM.IMPN ---
Progress Note: A&P Assessment and Plan (1) Acute respiratory failure with hypoxia: Code(s): J96.01 - Acute respiratory failure with hypoxia Status: Acute Assessment and Plan: due to pna doing well on high flow cannula at 40% (2) Pneumonia: Qualifiers: Pneumonia type: due to unspecified organism Laterality: unspecified laterality Lung location: unspecified part of lung Qualified Code(s): J18.9 - Pneumonia, unspecified organism Code(s): J18.9 - Pneumonia, unspecified organism Status: Acute Assessment and Plan: likely aspiration continue zosyn 2/ to IMU (3) Renal failure, acute: Qualifiers: Acute renal failure type: unspecified Qualified Code(s): N17.9 - Acute kidney failure, unspecified Code(s): N17.9 - Acute kidney failure, unspecified Status: Acute Assessment and Plan: resolved (4) CVA (cerebral vascular accident): Qualifiers: CVA mechanism: thrombosis Precerebral and cerebral artery: vertebral artery Laterality of affected vessel: right Qualified Code(s): 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 Aspirin, statin, and antihypertensive (5) Hypertension: Qualifiers: Hypertension type: essential hypertension Qualified Code(s): I10 - Essential (primary) hypertension Code(s): I10 - Essential (primary) hypertension Status: Acute Assessment and Plan: Antihypertensives on hold especially Facundo and diuretics (6) DVT prophylaxis: Code(s): Z29.9 - Encounter for prophylactic measures, unspecified Status: Acute Assessment and Plan: Subcu heparin Subjective Date/time seen: 07/24/19 08:48 Interval history: Tired. Tolerating high flow oxygen. Tolerating TF. Bowels moved. Denied pain. No sob at rest. No swelling. No bleeding. No rash or itching. Review of Systems Review of Systems: All systems reviewed & are unremarkable except as noted in HPI and below Exam Narrative: Exam Narrative: HEENT: EOMI, PERRL, pharyngeal mucosa pink and intact NECK: No JVD CHEST: Coarse BS HEART: NL S1/S2, regular, no murmur ABDOMEN: BS+, soft, nontender, no mass, no bruits EXTREMITIES: No cyanosis, edema, or clubbing NEUROLOGIC: CN intact and symmetric to inspection. MUSCULOSKELETAL: Tone and strength symmetric. PSYCH: Alert. Oriented to person, place, and time. Objective Data Vital Signs Vital Signs: Vital Signs - 24 hr 07/23/19 09:32 07/23/19 09:33 07/23/19 09:45 Temperature Pulse Rate 76 90 Respiratory Rate 12 20 Blood Pressure Pulse Oximetry 91 07/23/19 10:00 07/23/19 12:00 07/23/19 13:06 Temperature 98.6 F Pulse Rate 78 84 93 Respiratory Rate 14 15 18 Blood Pressure 136/70 103/67 Pulse Oximetry 96 94 07/23/19 13:09 07/23/19 13:15 07/23/19 13:32 Temperature Pulse Rate 76 Respiratory Rate 16 Blood Pressure Pulse Oximetry 96 94 07/23/19 14:00 07/23/19 16:00 07/23/19 18:00 Temperature 98.1 F Pulse Rate 92 95 88 Respiratory Rate 20 23 H 20 Blood Pressure 141/85 H 148/91 H 137/86 Pulse Oximetry 92 94 95 07/23/19 19:45 07/23/19 19:46 07/23/19 19:52 Temperature Pulse Rate 80 82 Respiratory Rate 16 16 Blood Pressure Pulse Oximetry 92 07/23/19 20:00 07/23/19 22:00 07/23/19 23:18 Temperature 98.5 F Pulse Rate 86 108 H Respiratory Rate 20 18 Blood Pressure 140/88 146/105 H Pulse Oximetry 92 93 90 07/24/19 00:00 07/24/19 01:28 07/24/19 01:34 Temperature 98.8 F Pulse Rate 105 H 116 H Respiratory Rate 15 20 Blood Pressure 143/100 H Pulse Oximetry 95 94 07/24/19 01:36 07/24/19 02:00 07/24/19 04:00 Temperature 98.5 F Pulse Rate 117 H 112 H Respiratory Rate 20 114 H 18 Blood Pressure 147/96 H 143/95 H Pulse Oximetry 94 93 02/0
--- NOTE | 2019-07-24 10:04 | PM.PNCARD ---
Progress Note: A&P Assessment and Plan (1) Atrial fibrillation with rapid ventricular response: Code(s): I48.91 - Unspecified atrial fibrillation Status: Acute Assessment and Plan: Continue Eliquis. Will stop diltiazem and switch to amiodarone. Will give another 150 mg IV bolus and then standard drip per protocol. 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 Code(s): I63.9 - Cerebral infarction, unspecified Status: Acute Assessment and Plan: Possibly related to atrial fibrillation (3) Hypertension: Qualifiers: Hypertension type: essential hypertension Qualified Code(s): I10 - Essential (primary) hypertension Code(s): I10 - Essential (primary) hypertension Status: Acute Assessment and Plan: at goal (4) Dysphagia: Qualifiers: Dysphagia type: oral phase Qualified Code(s): R13.11 - Dysphagia, oral phase Code(s): R13.10 - Dysphagia, unspecified Status: Acute (5) Pneumonia: Qualifiers: Pneumonia type: due to unspecified organism Laterality: unspecified laterality Lung location: unspecified part of lung Qualified Code(s): J18.9 - Pneumonia, unspecified organism Code(s): J18.9 - Pneumonia, unspecified organism Status: Acute Assessment and Plan: likely aspiration: Continue antibiotics. Subjective Date/time seen: 07/24/19 10:04 Interval history: Date of service 07/24/2019: No chest pain, hemodynamically more stable. No SOB. + productive cough. Heart rate did go back up and did need to be restarted on diltiazem drip Review of Systems Review of Systems: All systems reviewed & are unremarkable except as noted in HPI and below Constitutional: Constitutional: Denies chills, Denies excessive sweating and Denies headache(s) Eyes: Eyes: Denies blurry vision ENT: Reports Normal hearing present, Denies headache(s), Denies lip swelling and Denies neck pain Cardiovascular: Cardiovascular: Denies chest pain and Denies dyspnea Respiratory: Respiratory: Reports cough and Denies dyspnea Gastrointestinal: Gastrointestinal: Denies abdominal pain Genitourinary: Genitourinary: Denies hematuria Musculoskeletal: Musculoskeletal: Denies neck pain Integumentary/Breasts: Skin/Breast: Denies dry skin Neurologic: Reports Normal hearing present and Denies headache(s) Psychiatric: Psychiatric: Denies anxiety Endocrine: Endocrine: Denies excessive sweating Hematologic/Lymphatic: Hematologic/Lymphatic: Denies easy bleeding Allergic/Immunologic: Allergic/Immunologic: Denies lip swelling Exam Narrative: Exam Narrative: alert. No acute distress Const: General: comfortable HENMT: General nose exam: Normal nares present Eyes: Sclera: sclerae normal Neck: Neck: supple and no JVD Chest: Other: no chest wall pain to palpation Resp: Auscultation: crackles, rhonchi and diminished lung sounds Cardio: Rate: regular rate and tachycardic Rhythm: abnormal rhythm irregularly irregular Skin: General skin exam: normal color Neuro: Cranial nerves: Yes Normal hearing present Motor exam (neuro): 5/5 motor strength present throughout Sensory Exam: normal sensation Extrem: General: no edema and no pedal edema Psych: Mental Status: mental status grossly normal Objective Data Vital Signs Vital Signs: Vital Signs - 24 hr 07/23/19 12:00 07/23/19 13:06 07/23/19 13:09 Temperature 37.0 C Pulse Rate 84 93 Respiratory Rate 15 18 Blood Pressure 103/67 Pulse Oximetry 94 96 07/23/19 13:15 07/23/19 13:32 07/23/19 14:00 Temperature Pulse Rate 76 92 Respiratory Rate 16 20 Blood Pressure 141/85 H Pulse Oximetry 94 92 07/23/19 16:00 07/23/19 18
[2019-07-24] MEDS: AMIODARONE 360 MG/D5W 200 ML 360 MG/200 ML BAG 33.3 MG IV CONT (11:33)
[2019-07-24] MEDS: AMIODARONE 150 MG/D5W 100 ML 150 MG/100 ML BAG 600 MG IV CONT (11:34)
[2019-07-24] MEDS: ACETAMINOPHEN 325 MG TABLET 650 MG FEED TUBE ×2 (11:53→20:48)
--- NOTE | 2019-07-24 13:23 | WPDINTPN ---
Progress Note: A&P Assessment and Plan (1) Acute respiratory failure with hypoxia: Code(s): J96.01 - Acute respiratory failure with hypoxia Status: Acute Assessment and Plan: This is likely due to aspiration pneumonia . cxr with RLL infilterate . On IV abx zosyn. - Restarted, patient should be upright - cough appears strong with this morning - continue AIRVO with 45% FiO2, wean as tolerated (2) Hypotension: Code(s): I95.9 - Hypotension, unspecified Status: Resolved Assessment and Plan: RESOLVED: LIKELY DUE TO HYPOVOLEMIA THAN SEPSIS/SEPTIC SHOCK. - Patient hemodynamically stable with adequate urine output and normal blood pressures - Acute renal failure also causing worsening of clearance of antihypertensive meds that patient has been getting. (3) Pneumonia: Qualifiers: Pneumonia type: due to unspecified organism Laterality: unspecified laterality Lung location: unspecified part of lung Qualified Code(s): J18.9 - Pneumonia, unspecified organism Code(s): J18.9 - Pneumonia, unspecified organism Status: Acute Assessment and Plan: likely aspiration pneumonia . will continue oxygen , IV abx . Poor cough . Neurogenic dysphagia. (4) Renal failure, acute: Qualifiers: Acute renal failure type: unspecified Qualified Code(s): N17.9 - Acute kidney failure, unspecified Code(s): N17.9 - Acute kidney failure, unspecified Status: Acute Assessment and Plan: Probably secondary to hypotension and pre renal azotemia. Aggressive hydration with fluidbolus. Renal US is negative Yates for accurate I and O. Urine lytes noted. - - creatinine improving and back to baseline . (5) Acute metabolic encephalopathy: Code(s): G93.41 - Metabolic encephalopathy Status: Resolved Assessment and Plan: resolved: , alert, oriented, able to answer questions and follow commands. No focal deficits noted. - Patient has generalized weakness, PT / OT has been ordered and working with the patient (6) Atrial fibrillation with rapid ventricular response: Code(s): I48.91 - Unspecified atrial fibrillation Status: Acute Assessment and Plan: Patient with new onset atrial fibrillation, was in AFib RVR, started on amiodarone infusion by care asst today ( 07/24/2019) - continue Eliquis - echocardiogram showed LV EF estimated at 60-65%. Grade 1 diastolic dysfunction. No pulmonary hypertension - patient had a stroke last week of June 2019, could be related to paroxysmal AFib. Was started on full anticoagulation with IV heparin and now has been switched to Eliquis. - TSH is normal (7) DVT prophylaxis: Code(s): Z29.9 - Encounter for prophylactic measures, unspecified Status: Acute Assessment and Plan: Eliquis Additional Plan d/w at bedside and patient at bedside updated them with patient's condition and plan of care. I answered all questions Code status - full code. critical care time spent: 33 minutes Due to a high probability of clinically significant, life threatening deterioration, the patient required my highest level of preparedness to intervene emergently and I personally spent this critical care time directly and personally managing the patient. This critical care time included obtaining a history; examining the patient; pulse oximetry; ordering and review of studies; arranging urgent treatment with development of a management plan; evaluation of patient's response to treatment; frequent reassessment; and discussions with other providers. It was exclusive of separately billable procedures and treating other patients and teaching time. Please see Assessment and Plan section and the rest of the note for further information on patient assessment and treatment Subjective Date/time seen: 07/24/19 13:23 Interval history: Date of service 07/23/2019: REASON FOR CONSULT: acute
--- NOTE | 2019-07-24 13:29 | PCDIET ---
ICU Rounding Note: Patient tolerating Jevity 1.5 at goal rate of 55mL/hr. No residuals reported. Last recorded weight is 108.4kg which is stable. Bowel Motility: +BM today. Labs Reviewed: Glu (145), BUN (36) Meds Noted: Protonix, Zosyn, Amiodarone Additional Notes: No documented skin breakdown. Recommend continuing present tube feeding. Following daily in ICU rounds. Assessing/reassessing every Sunday/Sunday.
[2019-07-24] MEDS: AMIODARONE 360 MG/D5W 200 ML 360 MG/200 ML BAG 16.7 MG IV CONT (18:14)
[2019-07-24] MEDS: ATORVASTATIN 40 MG TABLET FEED TUBE (20:36)
[2019-07-25] VITALS (25 sets, daily range): BP systolic 115–149; BP diastolic 74–107; PULSE 101–170; RESP 15–94; TEMP 36.8–37.3; O2SAT 28–96
[2019-07-25] MEDS: LEVALBUTEROL NEB 1.25 MG/3 ML 0.63 MG INHALATION ×4 (02:31→19:42)
[2019-07-25] MEDS: IPRATROPIUM BR 0.02% INH SOLN 0.5 MG/2.5 ML VIAL INHALATION ×4 (02:31→19:42)
[2019-07-25] MEDS: METOPROLOL TARTRATE 25 MG TABLET FEED TUBE ×2 (02:42→08:24)
[2019-07-25] MEDS: AMIODARONE 360 MG/D5W 200 ML 360 MG/200 ML BAG 33.3 MG IV CONT (03:44)
[2019-07-25] MEDS: ACETAMINOPHEN 325 MG TABLET 650 MG FEED TUBE ×2 (07:01→15:40)
[2019-07-25] MEDS: ASPIRIN 81 MG CHEWABLE TABLET FEED TUBE (08:24)
[2019-07-25] MEDS: APIXABAN 5 MG TABLET FEED TUBE (08:24)
[2019-07-25] MEDS: PANTOPRAZOLE SODIUM IV 40 MG VIAL IV PUSH (08:24)
[2019-07-25 08:32] LABS: Hematocrit 40.4 % (42.0-52.0); Mean Corpuscular HGB Conc 32.2 g/dl (32-36); Mean Corpuscular Hemoglobin 28.3 pg (26-34); Mean Corpuscular Volume 87.8 fl (80-100); Mean Platelet Volume 9.5 fl (7.4-10.4); Platelet Count Result 351 k/mm3 (150-375); Red Cell Distribution Width 13.6 % (11.5-14.5); White Blood Count 15.1 K/mm3 (4.5-10.0)
[2019-07-25 08:49] LABS: Blood Urea Nitrogen 30 mg/dL (9-20); Calcium 8.5 mg/dL (8.4-10.2); Carbon Dioxide 31 mmol/L (22-30); Chloride 104 mmol/L (98-107); Estimated CRCL calculation 95 ml/min; Estimated Glomerular Filt Rate > 60; Glucose 138 mg/dL (75-110); Potassium 3.7 mmol/L (3.4-5.0); Sodium 145 mmol/L (137-145)
--- NOTE | 2019-07-25 08:49 | PM.PNCARD ---
Progress Note: A&P Additional Plan 69-year-old patient with acute onset atrial fibrillation a couple of days ago in prep likely due to respiratory difficulty with suspected aspiration. IV amiodarone started yesterday while in hopes that this will convert him to sinus rhythm. Anticoagulation with apixaban is appropriate If AFib persists electrical cardioversion will need to be considered at some point. His respiratory status on physical exam today would suggest he is at increased risk for heavy sedation for cardioversion and it is certainly possible that ongoing IV amiodarone will medically cardiovert this acute onset of atrial fib Time Spent With Patient Time with patient: 15 - 25 minutes Subjective Date/time seen: Date of service: 07/25/19 08:49 Interval history: Follow-up visit for acute onset atrial fibrillation in the setting of respiratory distress suspect aspiration pneumonia due to recent CVA Patient states that he actually feels relatively well this morning is requiring high-flow FiO2. Not aware of being in atrial fib IV amiodarone started yesterday, systemically anticoagulated with apixaban. Exam Const: General: uncomfortable Other: Obese gentleman in the ICU with high-flow nasal cannula oxygen, tachypneic otherwise no complaints HENMT: Mouth: Yes moist mucous membranes Eyes: Sclera: sclerae normal Pupils: Equal, round and reactive pupils present Neck: Neck: supple and no JVD Thyroid: thyroid normal Resp: Other: Coarse rhonchorous breath sounds in both lung melgar Cardio: Rate: tachycardic Rhythm: abnormal rhythm irregularly irregular GI: Auscultation: normal bowel sounds Skin: General skin exam: normal color Extrem: General: normal to inspection Objective Data Vital Signs Vital Signs: Vital Signs - 24 hr 07/24/19 10:00 07/24/19 12:00 07/24/19 13:53 Temperature 36.9 C Pulse Rate 103 H 100 Pulse Rate [With Activity During Therapy Session] 111 H Respiratory Rate 25 H 18 Blood Pressure 136/91 H 126/85 Pulse Oximetry 94 95 Pulse Oximetry [With Activity During Therapy Session] 92 07/24/19 14:00 07/24/19 14:10 07/24/19 16:00 Temperature 37.1 C Pulse Rate 105 H 105 H 100 Pulse Rate [With Activity During Therapy Session] Respiratory Rate 20 20 14 Blood Pressure 131/94 H 138/89 Pulse Oximetry 94 94 Pulse Oximetry [With Activity During Therapy Session] 07/24/19 18:00 07/24/19 20:00 07/24/19 20:04 Temperature 37.4 C Pulse Rate 107 H 113 H 118 H Pulse Rate [With Activity During Therapy Session] Respiratory Rate 18 13 20 Blood Pressure 140/95 H 151/100 H Pulse Oximetry 95 95 94 Pulse Oximetry [With Activity During Therapy Session] 07/24/19 20:17 07/24/19 22:00 07/25/19 00:00 Temperature 37.3 C Pulse Rate 124 H 127 H 118 H Pulse Rate [With Activity During Therapy Session] Respiratory Rate 25 H 24 H 17 Blood Pressure 127/102 H 149/107 H Pulse Oximetry 95 92 Pulse Oximetry [With Activity During Therapy Session] 07/25/19 02:31 07/25/19 02:40 07/25/19 02:42 Temperature Pulse Rate 135 H 131 H 126 H Pulse Rate [With Activity During Therapy Session] Respiratory Rate 15 17 Blood Pressure Pulse Oximetry Pulse Oximetry [With Activity During Therapy Session] 07/25/19 04:00 07/25/19 08:30 Temperature 37.2 C Pulse Rate 108 H 135 H Pulse Rate [With Activity During Therapy Session] Respiratory Rate 94 H Blood Pressure 126/89 Pulse Oximetry 28 L 95 Pulse Oximetry [With Activity During Therapy Session] Intake/Output Intake/Output: Intake & Output 07/22/19 07/23/19 07/24/19 07/25/19 23:59 23:59 23:59 23:59 Intake Total 3550 3882.0 1825 756 Output Total 2300 3625 1500 500 Balance 1250 257.0 325 256 Meds/Results Medications: Active Medications Generic Name Dose Route Start Last Admin Trade Name Freq PRN Reason Stop Dose Admin Acetaminophen 650 mg 07/23/19 11:16 07/25/19 07:01 Tylenol Tablet FEED TU
[2019-07-25] MEDS: AMIODARONE 360 MG/D5W 200 ML 360 MG/200 ML BAG 16.7 MG IV CONT ×2 (10:17→20:09)
--- NOTE | 2019-07-25 11:43 | PM.IMPN ---
Progress Note: A&P Assessment and Plan (1) Acute respiratory failure with hypoxia: Code(s): J96.01 - Acute respiratory failure with hypoxia Status: Acute Assessment and Plan: due to pna doing well on high flow cannula at 40% (2) Pneumonia: Qualifiers: Pneumonia type: due to unspecified organism Laterality: unspecified laterality Lung location: unspecified part of lung Qualified Code(s): J18.9 - Pneumonia, unspecified organism Code(s): J18.9 - Pneumonia, unspecified organism Status: Acute Assessment and Plan: likely aspiration continue zosyn day 10/22 (3) Renal failure, acute: Qualifiers: Acute renal failure type: unspecified Qualified Code(s): N17.9 - Acute kidney failure, unspecified Code(s): N17.9 - Acute kidney failure, unspecified Status: Acute Assessment and Plan: resolved (4) CVA (cerebral vascular accident): Qualifiers: CVA mechanism: thrombosis Precerebral and cerebral artery: vertebral artery Laterality of affected vessel: right Qualified Code(s): 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 Aspirin, statin, and antihypertensive (5) Hypertension: Qualifiers: Hypertension type: essential hypertension Qualified Code(s): I10 - Essential (primary) hypertension Code(s): I10 - Essential (primary) hypertension Status: Acute Assessment and Plan: Antihypertensives on hold especially Facundo and diuretics (6) DVT prophylaxis: Code(s): Z29.9 - Encounter for prophylactic measures, unspecified Status: Acute Assessment and Plan: Subcu heparin Subjective Date/time seen: 07/25/19 11:43 Interval history: Tired. Tolerating high flow oxygen. Tolerating TF. Bowels moved. Pain in hips and buttocks after sitting in chair this AM. No sob at rest. No swelling. No bleeding. No rash or itching. Review of Systems Review of Systems: All systems reviewed & are unremarkable except as noted in HPI and below Exam Narrative: Exam Narrative: HEENT: EOMI, PERRL, pharyngeal mucosa pink and intact NECK: No JVD CHEST: Coarse BS HEART: NL S1/S2, regular, no murmur ABDOMEN: BS+, soft, nontender, no mass, no bruits EXTREMITIES: No cyanosis, edema, or clubbing NEUROLOGIC: CN intact and symmetric to inspection. MUSCULOSKELETAL: Tone and strength symmetric. PSYCH: Alert. Oriented to person, place, and time. Objective Data Vital Signs Vital Signs: Vital Signs - 24 hr 07/24/19 12:00 07/24/19 13:53 07/24/19 14:00 Temperature 98.4 F Pulse Rate 100 105 H Pulse Rate [With Activity During Therapy Session] 111 H Respiratory Rate 18 20 Blood Pressure 126/85 131/94 H Pulse Oximetry 95 94 Pulse Oximetry [With Activity During Therapy Session] 92 07/24/19 14:10 07/24/19 16:00 07/24/19 18:00 Temperature 98.8 F Pulse Rate 105 H 100 107 H Pulse Rate [With Activity During Therapy Session] Respiratory Rate 20 14 18 Blood Pressure 138/89 140/95 H Pulse Oximetry 94 95 Pulse Oximetry [With Activity During Therapy Session] 07/24/19 20:00 07/24/19 20:04 07/24/19 20:17 Temperature 99.3 F Pulse Rate 113 H 118 H 124 H Pulse Rate [With Activity During Therapy Session] Respiratory Rate 13 20 25 H Blood Pressure 151/100 H Pulse Oximetry 95 94 Pulse Oximetry [With Activity During Therapy Session] 07/24/19 22:00 07/25/19 00:00 07/25/19 02:31 Temperature 99.2 F Pulse Rate 127 H 118 H 135 H Pulse Rate [With Activity During Therapy Session] Respiratory Rate 24 H 17 15 Blood Pressure 127/102 H 149/107 H Pulse Oximetry 95 92 Pulse Oximetry [With Activity During Therapy Session] 07/25/19 02:40 07/25/19 02:42 07/25/19 04:00 Temperature 98.9 F Pulse Rate 131 H 126 H 108 H Pulse Rate [With Activ
--- NOTE | 2019-07-25 13:18 | PM.DS ---
DS: Diagnosis Admitting Diagnosis Admitting Diagnosis: Acute respiratory failure with hypoxia Discharge Diagnosis (1) Atrial fibrillation with rapid ventricular response: Code(s): I48.91 - Unspecified atrial fibrillation Status: Acute (2) Hypotension: Code(s): I95.9 - Hypotension, unspecified Status: Resolved (3) Acute metabolic encephalopathy: Code(s): G93.41 - Metabolic encephalopathy Status: Resolved (4) DVT prophylaxis: Code(s): Z29.9 - Encounter for prophylactic measures, unspecified Status: Acute (5) Renal failure, acute: Qualifiers: Acute renal failure type: unspecified Qualified Code(s): N17.9 - Acute kidney failure, unspecified Code(s): N17.9 - Acute kidney failure, unspecified Status: Acute (6) Pneumonia: Qualifiers: Pneumonia type: due to unspecified organism Laterality: unspecified laterality Lung location: unspecified part of lung Qualified Code(s): J18.9 - Pneumonia, unspecified organism Code(s): J18.9 - Pneumonia, unspecified organism Status: Acute (7) Acute respiratory failure with hypoxia: Code(s): J96.01 - Acute respiratory failure with hypoxia Status: Acute (8) Intractable hiccoughs: Code(s): R06.6 - Hiccough Status: Acute (9) Cancer: Code(s): C80.1 - Malignant (primary) neoplasm, unspecified Status: Acute (10) Obesity: Code(s): E66.9 - Obesity, unspecified Status: Acute (11) Depression: Code(s): F32.9 - Major depressive disorder, single episode, unspecified Status: Acute (12) Urinary retention: Code(s): R33.9 - Retention of urine, unspecified Status: Acute (13) Dyslipidemia: Code(s): E78.5 - Hyperlipidemia, unspecified Status: Acute (14) Dysphagia: Qualifiers: Dysphagia type: oral phase Qualified Code(s): R13.11 - Dysphagia, oral phase Code(s): R13.10 - Dysphagia, unspecified Status: Acute (15) CVA (cerebral vascular accident): Qualifiers: CVA mechanism: thrombosis Precerebral and cerebral artery: vertebral artery Laterality of affected vessel: right Qualified Code(s): 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 Code(s): I63.9 - Cerebral infarction, unspecified Status: Acute (16) Hyperglycemia: Code(s): R73.9 - Hyperglycemia, unspecified Status: Acute (17) Hypertension: Qualifiers: Hypertension type: essential hypertension Qualified Code(s): I10 - Essential (primary) hypertension Code(s): I10 - Essential (primary) hypertension Status: Acute (18) Stroke: Qualifiers: CVA mechanism: unspecified Qualified Code(s): I63.9 - Cerebral infarction, unspecified Code(s): I63.9 - Cerebral infarction, unspecified Status: Acute DS: Summary Hospital Course Reason for hospitalization: the gentleman was admitted because of brainstem stroke and had significant dysphagia along with the hemiparesis however he was unable to tolerate tube feeding after having had the PEG tube done and developed acute respiratory failure due to multiple medical issues and had to be transferred to the intensive care unit and obviously the goals of over rehab center not achieved Hospital Course: the course of hospitalization of initial some progress however later decline in the respiratory and the overall mental status and the patient had to be moved to the ICU Status at Discharge Cognitive/behavioral status at discharge: patient had acute encephalopathy had to be moved to the intensive care unit encephalopathy is darkly related to the acute respiratory failure Overall status at discharge: patient is not back to baseline Time Spent with Patient Time attestation: Total time spent providing and/or coordinating discharge services: Exam Const: General: uncomfortable HENMT: General nose e
--- NOTE | 2019-07-25 15:04 | PCDIET ---
Nutrition Follow-Up Complete: Nutrition Diagnosis: Inadequate infusion of enteral nutrition related to aspiration/pneumonia as evidenced by NPO status. Nutrition Goal: Patient to meet estimated nutritional needs. Goal met. Patient tolerating Jevity 1.5 at goal rate of 55mL/hr with residuals 35mL and below. Last recorded weight is 105.9 kg which is decreased. Bowel Motility: BM x 5 recorded this date. Labs Reviewed: Glu (138), BUN (30) Meds Noted: Amiodarone, Protonix, Piperacillin Additional Notes: Skin intact. Recommend continuing present tube feeding. Would consider medication to prevent diarrhea, if indicated. Will continue to monitor with same goal. Nutrition Monitoring and Evaluation: Follow up every Sunday/Sunday. Follow daily in ICU rounds.
--- NOTE | 2019-07-25 15:26 | PCOTNOTE ---
The patient treatment was not able to be completed on 07/25/19. Will plan to continue treatment per plan of care.
[2019-07-25 16:33] LABS: Chloride Rand Ur < 20 mmol/L (32-290); Creatinine Random Urine 176 mg/dL (20-320)
[2019-07-25] MEDS: HYDROMORPHONE HCL 1 MG/ML INJ IV PUSH ×3 (19:00→23:22)
[2019-07-25 19:59] LABS: Basophils Absolute Auto 0.1 K/mm3 (0.0-0.1); Basophils Percent Auto 0.5 % (0.2-1.2); Eosinophils Absolute Auto 0.1 K/mm3 (0-0.3); Eosinophils Percent Auto 0.7 % (0-4.4); Hematocrit 44.2 % (42.0-52.0); Hemoglobin 13.8 g/dL (14.0-18.0); Immature Granulocyte Absolute 0.52 K/mm3 (0.00-0.031); Lymphocytes Absolute Auto 1.05 K/mm3 (0.9-3.2); Mean Corpuscular HGB Conc 31.2 g/dl (32-36); Mean Corpuscular Hemoglobin 28.2 pg (26-34); Mean Corpuscular Volume 90.2 fl (80-100); Mean Platelet Volume 9.4 fl (7.4-10.4); Monocytes Absolute Auto 0.9 K/mm3 (0.1-0.6); Monocytes Percent Auto 5.3 % (2.6-8.5); Neutrophils Absolute Auto 14.9 K/mm3 (1.3-6.7); Neutrophils Percent Auto 84.5 % (45.5-73.1); Nucleated Red Blood Cells Perc 0.1 % (0.0-0.2); Platelet Count Result 394 k/mm3 (150-375); Red Cell Distribution Width 13.4 % (11.5-14.5); White Blood Count 17.6 K/mm3 (4.5-10.0)
[2019-07-25 20:14] LABS: Alanine Aminotransferase 87 U/L (4-50); Albumin Level 3.4 g/dL (3.5-5.1); Alkaline Phosphatase 100 U/L (38-126); Aspartate Amino Transferase 69 U/L (17-59); Bilirubin,Total 0.4 mg/dL (0.2-1.3); Blood Urea Nitrogen 29 mg/dL (9-20); Calcium 8.8 mg/dL (8.4-10.2); Carbon Dioxide 32 mmol/L (22-30); Chloride 102 mmol/L (98-107); Estimated CRCL calculation 85 ml/min; Estimated Glomerular Filt Rate > 60; Glucose 150 mg/dL (75-110); Lipase 32 U/L (23-300); Potassium 3.5 mmol/L (3.4-5.0); Sodium 146 mmol/L (137-145)
[2019-07-25] MEDS: METOPROLOL TARTRATE INJ 5 MG/5 ML VIAL IV PUSH (22:01)
[2019-07-25 23:51] LABS: Add Urine Microscopic? YES; Appearance Urine Cloudy (Clear); Bacteria Urine Trace /hpf; Bilirubin Urine Negative (Negative); Blood Urine 3+ (Negative); Glucose Urine UA Negative (Negative); Ketones Urine Negative (Negative); Leukocyte Esterase Ur Trace LEU/UL (Negative); Mucus Urine Few /lpf; Nitrate Urine Negative (Negative); Protein Urine 2+ mg/dL (Negative); RBC Urine >75 /hpf (0-2); Urobilinogen Urine Negative mg/dL (<2.0); WBC Urine 16-20 /hpf
[2019-07-25 23:52] LABS: Specific Grav Ur 1.039 (1.001-1.035)
[2019-07-25 23:53] LABS: Color Urine Brown (Yellow)
[2019-07-26] VITALS (35 sets, daily range): BP systolic 119–174; BP diastolic 75–105; PULSE 129–188; RESP 14–30; TEMP 36.9–37.8; O2SAT 35–94
[2019-07-26] MEDS: IPRATROPIUM BR 0.02% INH SOLN 0.5 MG/2.5 ML VIAL INHALATION ×4 (02:01→21:16)
[2019-07-26] MEDS: LEVALBUTEROL NEB 1.25 MG/3 ML 0.63 MG INHALATION ×4 (02:03→21:16)
[2019-07-26] MEDS: HYDROMORPHONE HCL 1 MG/ML INJ IV PUSH ×4 (02:23→13:12)
[2019-07-26] MEDS: METOPROLOL TARTRATE INJ 5 MG/5 ML VIAL IV PUSH ×4 (03:44→20:45)
[2019-07-26 05:16] LABS: Hematocrit 41.8 % (42.0-52.0); Hemoglobin 12.7 g/dL (14.0-18.0); Mean Corpuscular HGB Conc 30.4 g/dl (32-36); Mean Corpuscular Hemoglobin 27.5 pg (26-34); Mean Corpuscular Volume 90.7 fl (80-100); Mean Platelet Volume 9.8 fl (7.4-10.4); Platelet Count Result 408 k/mm3 (150-375); Red Blood Count 4.61 M/mm3 (4.6-6.20); Red Cell Distribution Width 13.5 % (11.5-14.5); White Blood Count 18.4 K/mm3 (4.5-10.0)
[2019-07-26 05:35] LABS: Blood Urea Nitrogen 30 mg/dL (9-20); Calcium 8.4 mg/dL (8.4-10.2); Carbon Dioxide 32 mmol/L (22-30); Chloride 103 mmol/L (98-107); Estimated CRCL calculation 77 ml/min; Estimated Glomerular Filt Rate > 60; Glucose 140 mg/dL (75-110); Potassium 3.8 mmol/L (3.4-5.0); Sodium 145 mmol/L (137-145)
[2019-07-26] MEDS: METOPROLOL TARTRATE 25 MG TABLET FEED TUBE (09:30)
[2019-07-26] MEDS: PANTOPRAZOLE SODIUM IV 40 MG VIAL IV PUSH (09:31)
[2019-07-26] MEDS: ASPIRIN 81 MG CHEWABLE TABLET FEED TUBE (09:31)
[2019-07-26] MEDS: APIXABAN 5 MG TABLET FEED TUBE ×2 (09:31→20:44)
--- NOTE | 2019-07-26 10:06 | PM.IMPN ---
Progress Note: A&P Assessment and Plan (1) Acute respiratory failure with hypoxia: Code(s): J96.01 - Acute respiratory failure with hypoxia Status: Acute Assessment and Plan: due to pna doing well on high flow cannula at 40% wean as possible (2) Pneumonia: Qualifiers: Pneumonia type: due to unspecified organism Laterality: unspecified laterality Lung location: unspecified part of lung Qualified Code(s): J18.9 - Pneumonia, unspecified organism Code(s): J18.9 - Pneumonia, unspecified organism Status: Acute Assessment and Plan: likely aspiration continue zosyn day 11/22 (3) Atrial fibrillation with rapid ventricular response: Code(s): I48.91 - Unspecified atrial fibrillation Status: Acute Assessment and Plan: Continue amiodarone pending adjustment by cardiology add iv digoxin for rate control (4) Renal failure, acute: Qualifiers: Acute renal failure type: unspecified Qualified Code(s): N17.9 - Acute kidney failure, unspecified Code(s): N17.9 - Acute kidney failure, unspecified Status: Acute Assessment and Plan: resolved (5) CVA (cerebral vascular accident): Qualifiers: CVA mechanism: thrombosis Precerebral and cerebral artery: vertebral artery Laterality of affected vessel: right Qualified Code(s): 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 Aspirin, statin, and antihypertensive (6) Hypertension: Qualifiers: Hypertension type: essential hypertension Qualified Code(s): I10 - Essential (primary) hypertension Code(s): I10 - Essential (primary) hypertension Status: Acute Assessment and Plan: Antihypertensives on hold Subjective Date/time seen: 07/26/19 10:06 Interval history: No further abdominal pain. Feels better. Much more comfortable. Denied cp, sob at rest, edema, abd pain, diarrhea, bleeding. Review of Systems Review of Systems: All systems reviewed & are unremarkable except as noted in HPI and below Exam Narrative: Exam Narrative: HEENT: EOMI, PERRL, pharyngeal mucosa pink and intact NECK: No JVD CHEST: Coarse BS HEART: NL S1/S2, regular, no murmur ABDOMEN: BS+, soft, nontender, no mass, no bruits EXTREMITIES: No cyanosis, edema, or clubbing NEUROLOGIC: CN intact and symmetric to inspection. MUSCULOSKELETAL: Tone and strength symmetric. PSYCH: Alert. Oriented to person, place, and time. Objective Data Vital Signs Vital Signs: Vital Signs - 24 hr 07/25/19 12:00 07/25/19 14:00 07/25/19 14:46 Temperature 98.9 F Pulse Rate 121 H 117 H 123 H Respiratory Rate 18 26 H Blood Pressure 143/86 H Pulse Oximetry 93 07/25/19 15:05 07/25/19 16:00 07/25/19 18:00 Temperature 98.7 F Pulse Rate 132 H 131 H 130 H Respiratory Rate 26 H 20 Blood Pressure 143/74 H Pulse Oximetry 92 07/25/19 19:43 07/25/19 19:55 07/25/19 20:00 Temperature 99.2 F Pulse Rate 150 H 156 H 165 H Respiratory Rate 24 H 24 H 21 H Blood Pressure 133/96 H Pulse Oximetry 96 07/25/19 20:30 07/25/19 21:56 07/25/19 22:00 Temperature Pulse Rate 165 H 170 H 131 H Respiratory Rate 20 16 Blood Pressure 115/103 H Pulse Oximetry 82 L 91 07/25/19 22:01 07/26/19 00:00 07/26/19 02:00 Temperature 99 F Pulse Rate 170 H 143 H 132 H Respiratory Rate 15 Blood Pressure 119/98 H Pulse Oximetry 94 07/26/19 02:05 07/26/19 02:15 07/26/19 03:44 Temperature Pulse Rate 136 H 156 H 140 H Respiratory Rate 21 H 14 Blood Pressure Pulse Oximetry 07/26/19 04:00 07/26/19 06:00 07/26/19 09:01 Temperature 100.0 F H Pulse Rate 149 H 140 H 133 H Respiratory Rate 20 30 H Blood Pressure 151/75 H Pulse Oximetry 92 07/26/19 09:03 07/26/19 09:13 07/26/19 09:30 Temperature
[2019-07-26] MEDS: DIGOXIN INJ 250 MCG/ML 2 ML AMP (*BKC) IV PUSH ×2 (10:45→15:31)
[2019-07-26 11:43] LABS: Base Excess ABG 6.2 mEq/l (+/-2.0); Device HIGH FLOW NASAL CANN; Fractional Inspired Oxygen 45 %; HCO3 ABG 30.2 mEq/l (22.0-26.0); Modified Allen's Test Pass; Oxygen Content ABG 17.3 %vol (16.0-22.0); Oxygen Saturation ABG 91.1 % (95.0-100.0); Oxyhemoglobin 89.9 % THb (90.0-100.0); PCO2 ABG 41.2 mmHg (35.0-45.0); PO2 FiO2 Ratio Arterial Blood 1.24 %; Site Drawn RIGHT RADIAL; Total Hemoglobin 13.7 g/dL (12.0-18.0); pH ABG 7.483 (7.350-7.450)
--- NOTE | 2019-07-26 12:31 | PM.PNCARD ---
Progress Note: A&P Assessment and Plan (1) Atrial fibrillation with rapid ventricular response: Code(s): I48.91 - Unspecified atrial fibrillation Status: Acute Assessment and Plan: Continue Eliquis. Continue IV amiodarone and intravenous metoprolol. Discontinue oral metoprolol. Continue IV digoxin. Monitor renal function and electrolytes very closely. Keep potassium around 4 and magnesium 2.0. High risk for Marshall arrhythmia given concomitant antiarrhythmic and AV kobi blocking agents. If patient not tolerating atrial fibrillation and/or refractory may consider cardioversion. Patient will require transesophageal echocardiographic guidance. Patient at relatively high risk for respiratory compromise given multifocal pneumonia, aspiration. Avoid sedation if at all possible as risk for intubation would be increased. 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 Code(s): I63.9 - Cerebral infarction, unspecified Status: Acute Assessment and Plan: Possibly related to atrial fibrillation (3) Hypertension: Qualifiers: Hypertension type: essential hypertension Qualified Code(s): I10 - Essential (primary) hypertension Code(s): I10 - Essential (primary) hypertension Status: Acute Assessment and Plan: Stable (4) Dysphagia: Qualifiers: Dysphagia type: oral phase Qualified Code(s): R13.11 - Dysphagia, oral phase Code(s): R13.10 - Dysphagia, unspecified Status: Acute Assessment and Plan: per primary service (5) Pneumonia: Qualifiers: Laterality: unspecified laterality Lung location: unspecified part of lung Pneumonia type: due to unspecified organism Qualified Code(s): J18.9 - Pneumonia, unspecified organism Code(s): J18.9 - Pneumonia, unspecified organism Status: Acute Assessment and Plan: likely aspiration: Continue antibiotics and supportive care Subjective Date/time seen: Date of Service: 07/26/19 12:31 Interval history: Follow-up visit for acute onset atrial fibrillation in the setting of respiratory distress suspect aspiration pneumonia due to recent CVA Nursing reports patient complained of abdominal pain requiring Dilaudid. Atrial fibrillation difficult to manage overnight and this morning heart rates up to 150s despite IV metoprolol and continues amiodarone. IV digoxin administered this morning by primary service. Patient denies palpitations, chest pain or shortness of breath. Abdominal pain improved states he is much more comfortable at this time. Review of Systems Review of Systems: All systems reviewed & are unremarkable except as noted in HPI and below Constitutional: Constitutional: Reports as per HPI, Denies chills, Denies excessive sweating and Denies headache(s) Eyes: Eyes: Reports as per HPI and Denies blurry vision ENT: Reports as per HPI, Reports Normal hearing present, Denies headache(s), Denies lip swelling and Denies neck pain Cardiovascular: Cardiovascular: Reports as per HPI, Denies chest pain, Denies palpitations and Denies dyspnea Respiratory: Respiratory: Reports as per HPI, Reports cough, Denies hemoptysis and Denies dyspnea Gastrointestinal: Gastrointestinal: Reports as per HPI and Denies abdominal pain Genitourinary: Genitourinary: Reports as per HPI and Denies hematuria Musculoskeletal: Musculoskeletal: Reports as per HPI and Denies neck pain Integumentary/Breasts: Skin/Breast: Reports as per HPI and Denies dry skin Neurologic: Reports as per HPI, Reports Normal hearing present and Denies headache(s) Psychiatric: Psychiatric: Reports as per HPI and Denies anxiety Endocrine: Endocrine: Denies excessive sweating
[2019-07-26 13:07] LABS: Lactic Acid 1.2 mmol/L (0.7-2.1)
--- NOTE | 2019-07-26 14:03 | PC.NURSE ---
Pt transferred to room 212 at this time, bedside report given to Basia SALAS. Belongings sent with pt.
--- NOTE | 2019-07-26 14:40 | PC.NURSE ---
Late entry: Prior to transfering patient to IMU, called Dr Turcios to report pts HR 170-180 and pt complaining of back pain. Family states that pt has had similar pain from sciatica in the past. MD Turcios made aware. Pt awake and alert at time of transfer, moaning in pain. O2 per [facility].
[2019-07-26] MEDS: ACETAMINOPHEN 325 MG TABLET 650 MG FEED TUBE (17:46)
[2019-07-26] MEDS: predniSONE 20 MG TABLET 40 MG FEED TUBE (17:47)
[2019-07-26] MEDS: FUROSEMIDE INJ 40 MG/4 ML VIAL IV PUSH (17:47)
[2019-07-26] MEDS: AMIODARONE 150 MG/D5W 100 ML 150 MG/100 ML BAG 600 MG IV CONT (19:37)
[2019-07-26] MEDS: AMIODARONE 360 MG/D5W 200 ML 360 MG/200 ML BAG 16.7 MG IV CONT (20:23)
[2019-07-26] MEDS: GABAPENTIN 100 MG CAPSULE XX (20:44)
[2019-07-26] MEDS: ATORVASTATIN 40 MG TABLET FEED TUBE (20:44)
[2019-07-27] VITALS (34 sets, daily range): BP systolic 116–132; BP diastolic 69–95; PULSE 93–170; RESP 18–26; TEMP 36.2–37.9; O2SAT 90–93
[2019-07-27] MEDS: ACETAMINOPHEN 325 MG TABLET 650 MG FEED TUBE ×4 (00:24→18:30)
[2019-07-27] MEDS: LEVALBUTEROL NEB 1.25 MG/3 ML 0.63 MG INHALATION ×4 (01:50→21:18)
[2019-07-27] MEDS: IPRATROPIUM BR 0.02% INH SOLN 0.5 MG/2.5 ML VIAL INHALATION ×4 (01:52→21:18)
[2019-07-27] MEDS: METOPROLOL TARTRATE INJ 5 MG/5 ML VIAL IV PUSH ×6 (02:46→22:30)
[2019-07-27] MEDS: AMIODARONE 360 MG/D5W 200 ML 360 MG/200 ML BAG 33.3 MG IV CONT ×4 (03:41→22:29)
[2019-07-27 05:09] LABS: Hematocrit 43.9 % (42.0-52.0); Hemoglobin 13.9 g/dL (14.0-18.0); Mean Corpuscular HGB Conc 31.7 g/dl (32-36); Mean Corpuscular Hemoglobin 28.3 pg (26-34); Mean Corpuscular Volume 89.2 fl (80-100); Mean Platelet Volume 9.5 fl (7.4-10.4); Platelet Count Result 372 k/mm3 (150-375); Red Blood Count 4.92 M/mm3 (4.6-6.20); White Blood Count 23.5 K/mm3 (4.5-10.0)
[2019-07-27 05:27] LABS: Alanine Aminotransferase 55 U/L (4-50); Albumin Level 3.1 g/dL (3.5-5.1); Alkaline Phosphatase 85 U/L (38-126); Aspartate Amino Transferase 38 U/L (17-59); Bilirubin,Total 0.6 mg/dL (0.2-1.3); Blood Urea Nitrogen 42 mg/dL (9-20); Calcium 8.5 mg/dL (8.4-10.2); Carbon Dioxide 31 mmol/L (22-30); Chloride 103 mmol/L (98-107); Estimated CRCL calculation 48 ml/min; Estimated Glomerular Filt Rate 51; Glucose 194 mg/dL (75-110); Potassium 3.7 mmol/L (3.4-5.0); Sodium 147 mmol/L (137-145)
[2019-07-27] MEDS: GABAPENTIN 100 MG CAPSULE XX ×3 (05:45→21:43)
[2019-07-27 06:01] LABS: Digoxin 0.5 ng/mL (0.8-2.0)
[2019-07-27] MEDS: PANTOPRAZOLE SODIUM IV 40 MG VIAL IV PUSH (09:51)
[2019-07-27] MEDS: predniSONE 20 MG TABLET 40 MG FEED TUBE (09:53)
[2019-07-27] MEDS: APIXABAN 5 MG TABLET FEED TUBE ×2 (09:54→21:43)
[2019-07-27] MEDS: ASPIRIN 81 MG CHEWABLE TABLET FEED TUBE (09:54)
[2019-07-27] MEDS: LACTATED RINGERS 1,000 ML 250 ML IV CONT (10:11)
[2019-07-27 12:00] LABS: Alveolar/Arterial O2 Gradient 400.7 mmHg; Base Excess ABG 6.4 mEq/l (+/-2.0); Fractional Inspired Oxygen 70 %; HCO3 ABG 30.2 mEq/l (22.0-26.0); Oxygen Content ABG 17.6 %vol (16.0-22.0); Oxygen Saturation ABG 90.9 % (95.0-100.0); Oxyhemoglobin 89.4 % THb (90.0-100.0); PCO2 ABG 40.4 mmHg (35.0-45.0); PO2 FiO2 Ratio Arterial Blood 0.79 %; pH ABG 7.492 (7.350-7.450)
[2019-07-27 12:01] LABS: Device HIGH FLOW THERAPY; Site Drawn LEFT BRACHIAL
[2019-07-27 13:05] LABS: Hematocrit 41.7 % (42.0-52.0); Hemoglobin 13.1 g/dL (14.0-18.0); Mean Corpuscular HGB Conc 31.4 g/dl (32-36); Mean Corpuscular Hemoglobin 28.1 pg (26-34); Mean Corpuscular Volume 89.5 fl (80-100); Mean Platelet Volume 9.6 fl (7.4-10.4); Platelet Count Result 337 k/mm3 (150-375); Red Blood Count 4.66 M/mm3 (4.6-6.20); White Blood Count 24.8 K/mm3 (4.5-10.0)
[2019-07-27 13:18] LABS: Blood Urea Nitrogen 43 mg/dL (9-20); Calcium 8.3 mg/dL (8.4-10.2); Carbon Dioxide 33 mmol/L (22-30); Chloride 106 mmol/L (98-107); Estimated CRCL calculation 59 ml/min; Estimated Glomerular Filt Rate 51; Glucose 158 mg/dL (75-110); Potassium 3.5 mmol/L (3.4-5.0); Sodium 146 mmol/L (137-145)
--- NOTE | 2019-07-27 14:15 | PM.PNCARD ---
Progress Note: A&P Assessment and Plan (1) Atrial fibrillation with rapid ventricular response: Code(s): I48.91 - Unspecified atrial fibrillation Status: Acute Assessment and Plan: Continue Eliquis. Continue IV amiodarone and intravenous metoprolol. IV digoxin stopped due to acute renal insufficiency. Monitor renal function and electrolytes very closely. Keep potassium around 4 and magnesium 2.0. High risk for Marshall arrhythmia given concomitant antiarrhythmic and AV kobi blocking agents. If patient not tolerating atrial fibrillation and/or refractory may consider cardioversion. Patient will require transesophageal echocardiographic guidance. Patient at relatively high risk for respiratory compromise given multifocal pneumonia, aspiration. Avoid sedation if at all possible as risk for intubation would be increased. Discussed at bedside with patient and his . All questions answered to their satisfaction. She would also prefer to avoid if possible proceeding with cardioversion. 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 Code(s): I63.9 - Cerebral infarction, unspecified Status: Acute Assessment and Plan: Possibly related to atrial fibrillation (3) Hypertension: Qualifiers: Hypertension type: essential hypertension Qualified Code(s): I10 - Essential (primary) hypertension Code(s): I10 - Essential (primary) hypertension Status: Acute Assessment and Plan: Stable (4) Dysphagia: Qualifiers: Dysphagia type: oral phase Qualified Code(s): R13.11 - Dysphagia, oral phase Code(s): R13.10 - Dysphagia, unspecified Status: Acute Assessment and Plan: per primary service (5) Pneumonia: Qualifiers: Laterality: unspecified laterality Lung location: unspecified part of lung Pneumonia type: due to unspecified organism Qualified Code(s): J18.9 - Pneumonia, unspecified organism Code(s): J18.9 - Pneumonia, unspecified organism Status: Acute Assessment and Plan: likely aspiration: Continue antibiotics and supportive care Subjective Date/time seen: Date of Service: 07/27/19 14:16 Interval history: Follow-up visit for acute onset atrial fibrillation in the setting of respiratory distress suspect aspiration pneumonia due to recent CVA Doing better overall. Heart rate much better controlled after amiodarone bolus and increase in continuous rate to 1 mg/min and IV metoprolol 5 mg Q 4 hour period digoxin discontinue this a.m. due to acute renal insufficiency. Patient received IV Lasix 40 mg x 1 yesterday. Currently receiving IV fluids. Jorge discontinue, Tylenol provided for pain of which patient has no complaints. Patient states he is doing well denies shortness of breath or chest pain although feels a little tired. Heart rate has been down the low 1 100s to 120s significant improvement from 160 to 180s prior to increase in amiodarone. Review of Systems Review of Systems: All systems reviewed & are unremarkable except as noted in HPI and below Constitutional: Constitutional: Reports as per HPI, Denies chills, Denies excessive sweating and Denies headache(s) Eyes: Eyes: Reports as per HPI and Denies blurry vision ENT: Reports as per HPI, Reports Normal hearing present, Denies headache(s), Denies lip swelling and Denies neck pain Cardiovascular: Cardiovascular: Reports as per HPI, Denies chest pain, Denies palpitations and Denies dyspnea Respiratory: Respiratory: Reports as per HPI, Reports cough, Denies hemoptysis and Denies dyspnea Gastrointestinal: Gastrointestinal: Reports as per HPI and Denies abdominal pain Genitourinary: Genitourinary: Reports as per HPI an
--- NOTE | 2019-07-27 17:12 | PM.IMPN ---
Progress Note: A&P Assessment and Plan (1) Acute respiratory failure with hypoxia: Code(s): J96.01 - Acute respiratory failure with hypoxia Status: Acute Assessment and Plan: due to multifocal on high flow cannula at 40L wean as possible (2) Pneumonia: Qualifiers: Pneumonia type: due to unspecified organism Laterality: unspecified laterality Lung location: unspecified part of lung Qualified Code(s): J18.9 - Pneumonia, unspecified organism Code(s): J18.9 - Pneumonia, unspecified organism Status: Acute Assessment and Plan: likely aspiration may be having ongoing episodes, perhaps silent, that are delaying his recovery 07/26 CXR improved continue zosyn day 12/22 (may need to extend coarse) (3) Atrial fibrillation with rapid ventricular response: Code(s): I48.91 - Unspecified atrial fibrillation Status: Acute Assessment and Plan: Continue iv amiodarone Continue iv metoprolol Continue iv digoxin 07/27 rate improved, but cardioversion may be needed (4) Renal failure, acute: Qualifiers: Acute renal failure type: unspecified Qualified Code(s): N17.9 - Acute kidney failure, unspecified Code(s): N17.9 - Acute kidney failure, unspecified Status: Acute Assessment and Plan: resolved (5) CVA (cerebral vascular accident): Qualifiers: CVA mechanism: thrombosis Precerebral and cerebral artery: vertebral artery Laterality of affected vessel: right Qualified Code(s): 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 Aspirin, statin, and antihypertensive (6) Hypertension: Qualifiers: Hypertension type: essential hypertension Qualified Code(s): I10 - Essential (primary) hypertension Code(s): I10 - Essential (primary) hypertension Status: Acute Assessment and Plan: Antihypertensives on hold Subjective Date/time seen: 07/27/19 17:12 Interval history: Comfortable. No dyspnea at rest. No new complaints this morning. Review of Systems Review of Systems: All systems reviewed & are unremarkable except as noted in HPI and below Exam Narrative: Exam Narrative: HEENT: EOMI, PERRL, pharyngeal mucosa pink and intact NECK: No JVD CHEST: Coarse BS HEART: NL S1/S2, regular, no murmur ABDOMEN: BS+, soft, nontender, no mass, no bruits EXTREMITIES: No cyanosis, edema, or clubbing NEUROLOGIC: CN intact and symmetric to inspection. MUSCULOSKELETAL: Tone and strength symmetric. PSYCH: Alert. Oriented to person, place, and time. Objective Data Vital Signs Vital Signs: Vital Signs - 24 hr 07/26/19 17:44 07/26/19 18:00 07/26/19 19:54 Temperature 99.5 F Pulse Rate 175 H 177 H 164 H Respiratory Rate 22 H Blood Pressure 127/105 H Pulse Oximetry 35 L 07/26/19 20:00 07/26/19 20:45 07/26/19 21:16 Temperature Pulse Rate 160 H 172 H 151 H Respiratory Rate 26 H Blood Pressure Pulse Oximetry 92 07/26/19 21:27 07/26/19 21:38 07/26/19 22:00 Temperature 98.5 F Pulse Rate 156 H 164 H 166 H Respiratory Rate 28 H 26 H Blood Pressure 148/98 H Pulse Oximetry 92 07/27/19 00:00 07/27/19 01:57 07/27/19 01:59 Temperature 98.8 F Pulse Rate 170 H 138 H 133 H Respiratory Rate 24 H 26 H 26 H Blood Pressure 122/92 H Pulse Oximetry 91 91 07/27/19 02:00 07/27/19 02:10 07/27/19 02:45 Temperature Pulse Rate 152 H 136 H Respiratory Rate 22 H Blood Pressure 116/81 Pulse Oximetry 07/27/19 02:46 07/27/19 04:00 07/27/19 05:43 Temperature 97.1 F L Pulse Rate 142 H 137 H 126 H Respiratory Rate 22 H 26 H Blood Pressure 116/75 Pulse Oximetry 90 92 07/27/19 05:44 07/27/19 06:00 07/27/19 08:00 Temperature 98.6 F Pulse Rate 125 H 107 H 115 H Respiratory Rate 20 Blood Pressure 132/
[2019-07-27] MEDS: ATORVASTATIN 40 MG TABLET FEED TUBE (21:43)
[2019-07-28] VITALS (36 sets, daily range): BP systolic 123–151; BP diastolic 72–98; PULSE 91–126; RESP 18–24; TEMP 36–36.9; O2SAT 92–97
[2019-07-28] MEDS: ACETAMINOPHEN 325 MG TABLET 650 MG FEED TUBE ×4 (00:28→18:04)
[2019-07-28] MEDS: METOPROLOL TARTRATE INJ 5 MG/5 ML VIAL IV PUSH ×6 (02:31→22:16)
[2019-07-28] MEDS: LEVALBUTEROL NEB 1.25 MG/3 ML 0.63 MG INHALATION ×4 (03:55→22:14)
[2019-07-28] MEDS: IPRATROPIUM BR 0.02% INH SOLN 0.5 MG/2.5 ML VIAL INHALATION ×4 (03:55→22:15)
[2019-07-28] MEDS: AMIODARONE 360 MG/D5W 200 ML 360 MG/200 ML BAG 33.3 MG IV CONT ×4 (04:25→22:04)
[2019-07-28 05:05] LABS: Hematocrit 41.1 % (42.0-52.0); Hemoglobin 12.6 g/dL (14.0-18.0); Mean Corpuscular HGB Conc 30.7 g/dl (32-36); Mean Corpuscular Hemoglobin 28.1 pg (26-34); Mean Corpuscular Volume 91.7 fl (80-100); Platelet Count Result 299 k/mm3 (150-375); Red Blood Count 4.48 M/mm3 (4.6-6.20); Red Cell Distribution Width 13.7 % (11.5-14.5); White Blood Count 24.1 K/mm3 (4.5-10.0)
[2019-07-28 05:22] LABS: Blood Urea Nitrogen 43 mg/dL (9-20); Calcium 8.1 mg/dL (8.4-10.2); Carbon Dioxide 34 mmol/L (22-30); Chloride 104 mmol/L (98-107); Estimated CRCL calculation 59 ml/min; Estimated Glomerular Filt Rate 51; Glucose 177 mg/dL (75-110); Potassium 3.2 mmol/L (3.4-5.0); Sodium 145 mmol/L (137-145)
[2019-07-28] MEDS: GABAPENTIN 100 MG CAPSULE XX ×3 (06:11→21:06)
[2019-07-28 06:41] LABS: Digoxin < 0.4 ng/mL (0.8-2.0)
--- NOTE | 2019-07-28 09:39 | PM.PNCARD ---
Progress Note: A&P Additional Plan 69-year-old man with ; Persistent atrial fibrillation despite intravenous amiodarone started middle of last week. Also receiving beta-jacinto and digoxin for heart rate control systemically anticoagulated with apixaban. Significant aspiration pneumonitis with prior CVA. Oxygenation is adequate but respiratory status is not stable Discussed with patient and nursing staff the plans to attempt cardioversion at some point since AFib was acute onset at the beginning of this hospitalization. For his safety this would need to be attended by the anesthesiology staff as well his respiratory status is not stable for us to sedate this patient without their assistance. Will plan on DC cardioversion later this week and interrupt tube feeding as he will need to be NPO for that procedure. Time Spent With Patient Time with patient: 15 - 25 minutes Subjective Date/time seen: Date of service: 07/28/19 09:39 Interval history: Follow-up visit for new onset of atrial fib which is persistent despite amiodarone treatment Primary comorbidity is aspiration pneumonia and previous CVA Patient is responsive alert and offers no cardiovascular complaints this morning. Exam Const: General: no acute distress HENMT: Mouth: Yes moist mucous membranes Eyes: Sclera: sclerae normal Pupils: Equal, round and reactive pupils present Neck: Neck: no JVD Thyroid: thyroid normal Resp: Other: Coarse rhonchorous breath sounds in both lung melgar Cardio: Rhythm: abnormal rhythm Other: Irregularly irregular rhythm GI: Auscultation: normal bowel sounds Skin: General skin exam: normal color Neuro: Cognition (Neuro): normal cognition Extrem: General: normal to inspection Objective Data Vital Signs Vital Signs: Vital Signs - 24 hr 07/27/19 09:45 07/27/19 10:00 07/27/19 12:00 Temperature 36.9 C Pulse Rate 120 H 93 119 H Respiratory Rate 20 Blood Pressure 126/72 Pulse Oximetry 90 07/27/19 14:00 07/27/19 14:44 07/27/19 14:55 Temperature Pulse Rate 122 H 129 H 127 H Respiratory Rate 20 20 Blood Pressure Pulse Oximetry 07/27/19 14:57 07/27/19 16:00 07/27/19 18:00 Temperature 37.3 C Pulse Rate 123 H 137 H 143 H Respiratory Rate 24 H Blood Pressure 119/95 H Pulse Oximetry 92 07/27/19 18:30 07/27/19 19:57 07/27/19 20:00 Temperature 37.9 C H Pulse Rate 135 H 131 H 135 H Respiratory Rate 22 H 22 H Blood Pressure 131/92 H Pulse Oximetry 90 90 07/27/19 20:43 07/27/19 21:20 07/27/19 21:28 Temperature 37.2 C Pulse Rate 136 H 136 H Respiratory Rate 20 Blood Pressure Pulse Oximetry 93 91 07/27/19 21:36 07/27/19 21:39 07/27/19 22:00 Temperature Pulse Rate 121 H 123 H 131 H Respiratory Rate 20 24 H Blood Pressure 124/87 Pulse Oximetry 90 07/27/19 22:30 07/27/19 22:36 07/28/19 00:00 Temperature Pulse Rate 121 H 122 H 120 H Respiratory Rate 18 18 Blood Pressure Pulse Oximetry 93 93 07/28/19 00:02 07/28/19 00:34 07/28/19 02:00 Temperature 36.5 C Pulse Rate 117 H 118 H 107 H Respiratory Rate 18 Blood Pressure 125/81 Pulse Oximetry 93 07/28/19 02:31 07/28/19 03:55 07/28/19 03:58 Temperature Pulse Rate 126 H 115 H 105 H Respiratory Rate 18 20 Blood Pressure 140/98 H Pulse Oximetry 93 92 07/28/19 04:00 07/28/19 04:01 07/28/19 04:23 Temperature 36.9 C Pulse Rate 108 H 107 H 103 H Respiratory Rate 20 20 20 Blood Pressure 129/81 Pulse Oximetry 93 93 07/28/19 06:00 07/28/19 06:22 07/28/19 06:24 Temperature Pulse Rate 112 H 108 H 108 H Respiratory Rate 18 Blood Pressure 134/87 Pulse Oximetry 92 07/28/19 07:29 Temperature 36.9 C Pulse Rate 103 H Respiratory Rate 18 Blood Pressure 123/72 Pulse Oximetry 94 Intake/Output Intake/Output: Intake & Output 07/25/19 07/26/19 07/27/19 07/28/19 23:59 23:59 23:59 23:59 Intake Total 2113 502 920 545 Output Total 950 45
[2019-07-28] MEDS: KCL 20 MEQ/LR 1,000 ML 100 ML IV CONT ×2 (09:43→21:06)
[2019-07-28] MEDS: DIGOXIN INJ 250 MCG/ML 2 ML AMP (*BKC) IV PUSH (09:48)
[2019-07-28] MEDS: POTASSIUM CHLORIDE 20 MEQ PACKET (FOR LIQUID) 40 MEQ FEED TUBE (09:56)
[2019-07-28] MEDS: ASPIRIN 81 MG CHEWABLE TABLET FEED TUBE (09:59)
[2019-07-28] MEDS: PANTOPRAZOLE SODIUM IV 40 MG VIAL IV PUSH (10:00)
[2019-07-28] MEDS: predniSONE 20 MG TABLET 40 MG FEED TUBE (10:00)
[2019-07-28] MEDS: APIXABAN 5 MG TABLET FEED TUBE ×2 (10:00→21:01)
--- NOTE | 2019-07-28 15:02 | PM.PNCARD ---
Progress Note: A&P Assessment and Plan (1) Atrial fibrillation with rapid ventricular response: Code(s): I48.91 - Unspecified atrial fibrillation Status: Acute Assessment and Plan: Continue Eliquis. Continue IV amiodarone and intravenous metoprolol. Digoxin level less than 0.4. Digoxin continued. Monitor closely. Prefer to simplify regimen. Reduce IV amiodarone tomorrow morning. Monitor renal function and electrolytes very closely. Keep potassium around 4 and magnesium 2.0. High risk for Marshall arrhythmia given concomitant antiarrhythmic and AV kobi blocking agents. at bedside. We discussed again cardioversion with RACHEL. Patient high risk for sedation/anesthesia. Would need to be done with Anesthesiology for safety if pursued. She wishes to continue medical therapy and monitor for now. However, if unable to down titrate amiodarone and/or simplify regimen may need pursue cardioversion with Anesthesiology. Expressed my concern given concomitant amiodarone, metoprolol and digoxin although patient tolerating very well at this time. I would recommend proceeding with cardioversion in the next 24-48 hours if patient and agreeable with Anesthesiology. 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 Code(s): I63.9 - Cerebral infarction, unspecified Status: Acute Assessment and Plan: Possibly related to atrial fibrillation (3) Hypertension: Qualifiers: Hypertension type: essential hypertension Qualified Code(s): I10 - Essential (primary) hypertension Code(s): I10 - Essential (primary) hypertension Status: Acute Assessment and Plan: Stable (4) Dysphagia: Qualifiers: Dysphagia type: oral phase Qualified Code(s): R13.11 - Dysphagia, oral phase Code(s): R13.10 - Dysphagia, unspecified Status: Acute Assessment and Plan: per primary service (5) Pneumonia: Qualifiers: Pneumonia type: due to unspecified organism Laterality: unspecified laterality Lung location: unspecified part of lung Qualified Code(s): J18.9 - Pneumonia, unspecified organism Code(s): J18.9 - Pneumonia, unspecified organism Status: Acute Assessment and Plan: Likely aspiration: Continue antibiotics and supportive care. Bronchodilators, IV antibiotics and prednisone continued. Per primary service. Subjective Date/time seen: Date of service: 07/28/19 15:02 Interval history: Follow-up visit for new onset of atrial fib which is persistent despite amiodarone treatment Patient states he is fine. Heart rate variable rapid intermittently but under much better control on IV amiodarone 1 mg, IV BB, and Digoxin. Denies SOB, CP or palps. Resting but arousable. Pt answers questions short one word answers. Review of Systems Review of Systems: All systems reviewed & are unremarkable except as noted in HPI and below Constitutional: Constitutional: Reports as per HPI, Denies chills, Denies excessive sweating and Denies headache(s) Eyes: Eyes: Reports as per HPI and Denies blurry vision ENT: Reports as per HPI, Reports Normal hearing present, Denies headache(s), Denies lip swelling and Denies neck pain Cardiovascular: Cardiovascular: Reports as per HPI, Denies chest pain, Denies palpitations and Denies dyspnea Respiratory: Respiratory: Reports as per HPI, Reports cough, Denies hemoptysis and Denies dyspnea Gastrointestinal: Gastrointestinal: Reports as per HPI and Denies abdominal pain Genitourinary: Genitourinary: Reports as per HPI and Denies hematuria Musculoskeletal: Musculoskeletal: Reports as per HPI and Denies neck pain Integumentary/Breasts: Skin/Breast: Reports as per HPI and Denies dry skin
--- NOTE | 2019-07-28 19:07 | PM.IMPN ---
Progress Note: A&P Assessment and Plan (1) Acute respiratory failure with hypoxia: Code(s): J96.01 - Acute respiratory failure with hypoxia Status: Acute Assessment and Plan: due to multifocal pneumonia on high flow cannula at 40L wean as possible (2) Pneumonia: Qualifiers: Pneumonia type: due to unspecified organism Laterality: unspecified laterality Lung location: unspecified part of lung Qualified Code(s): J18.9 - Pneumonia, unspecified organism Code(s): J18.9 - Pneumonia, unspecified organism Status: Acute Assessment and Plan: likely aspiration may be having ongoing episodes, perhaps silent, that are delaying his recovery 07/26 CXR improved continue zosyn day 8 (may need to extend coarse) and prednisone pulmonology to consult 07/28 (3) Atrial fibrillation with rapid ventricular response: Code(s): I48.91 - Unspecified atrial fibrillation Status: Acute Assessment and Plan: Continue iv amiodarone Continue iv metoprolol Continue iv digoxin 07/28 rate improved to 90s-100s (4) Renal failure, acute: Qualifiers: Acute renal failure type: unspecified Qualified Code(s): N17.9 - Acute kidney failure, unspecified Code(s): N17.9 - Acute kidney failure, unspecified Status: Acute Assessment and Plan: resolved (5) CVA (cerebral vascular accident): Qualifiers: CVA mechanism: thrombosis Precerebral and cerebral artery: vertebral artery Laterality of affected vessel: right Qualified Code(s): 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 Aspirin, statin, and antihypertensive (6) Hypertension: Qualifiers: Hypertension type: essential hypertension Qualified Code(s): I10 - Essential (primary) hypertension Code(s): I10 - Essential (primary) hypertension Status: Acute Assessment and Plan: Metoprolol Monitor Subjective Date/time seen: 07/28/19 09:00 Interval history: Comfortable. No dyspnea at rest. No new c/o. Denied CP, Abd pain, n/v, diarrhea, bleeding. Review of Systems Review of Systems: All systems reviewed & are unremarkable except as noted in HPI and below Exam Narrative: Exam Narrative: HEENT: EOMI, PERRL, pharyngeal mucosa pink and intact NECK: No JVD CHEST: Coarse BS HEART: NL S1/S2, regular, no murmur ABDOMEN: BS+, soft, nontender, no mass, no bruits EXTREMITIES: No cyanosis 1+ edema NEUROLOGIC: CN intact and symmetric to inspection. MUSCULOSKELETAL: Tone and strength symmetric. PSYCH: Alert. Oriented to person, place, and time. Objective Data Vital Signs Vital Signs: Vital Signs - 24 hr 07/27/19 19:57 07/27/19 20:00 07/27/19 20:43 Temperature 100.2 F H 99.0 F Pulse Rate 131 H 135 H Respiratory Rate 22 H 22 H Blood Pressure 131/92 H Pulse Oximetry 90 90 93 07/27/19 21:20 07/27/19 21:28 07/27/19 21:36 Temperature Pulse Rate 136 H 136 H 121 H Respiratory Rate 20 20 Blood Pressure Pulse Oximetry 91 07/27/19 21:39 07/27/19 22:00 07/27/19 22:30 Temperature Pulse Rate 123 H 131 H 121 H Respiratory Rate 24 H Blood Pressure 124/87 Pulse Oximetry 90 07/27/19 22:36 07/28/19 00:00 07/28/19 00:02 Temperature 97.7 F Pulse Rate 122 H 120 H 117 H Respiratory Rate 18 18 18 Blood Pressure 125/81 Pulse Oximetry 93 93 93 07/28/19 00:34 07/28/19 02:00 07/28/19 02:31 Temperature Pulse Rate 118 H 107 H 126 H Respiratory Rate 18 Blood Pressure 140/98 H Pulse Oximetry 93 07/28/19 03:55 07/28/19 03:58 07/28/19 04:00 Temperature Pulse Rate 115 H 105 H 108 H Respiratory Rate 20 20 Blood Pressure Pulse Oximetry 92 93 07/28/19 04:01 07/28/19 04:23 07/28/19 06:00 Temperature 98.4 F Pulse Rate 107 H 103 H 112 H Respiratory Rate
--- NOTE | 2019-07-28 19:09 | PM.CNPUL ---
Assessment and Plan Assessment and plan (1) Acute respiratory failure with hypoxia: Code(s): J96.01 - Acute respiratory failure with hypoxia Status: Acute Assessment and Plan: He had a stroke recently, had peg placed for aspiration. He is not able to protect his airway. His says that his breathing deteriorated when he had a sedative and pain meds together Sunday night and he has not recovered. He was able to exhale through the Cornet easily on setting 2 of 5. Setting 3 seemed to give enough resistance to help with secretions. His secretions are dry, and he may benefit from having more hydration. He is now receiving IV fluids 100/hour; will increase fluids in the GI tract to loosen the secretions; 50 ml water flushes Q 4 hours through PEG, now at 30 ml Q 4 hours. Will also try Pulmozyme for mucolytic effect, continue the Cornet on the higher setting. He is able to get out of the chair. Mobility is good. He is saturating 94-95% on the High Flow set up, may need to decrease the settings to see what he is able to tolerate. 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 (3) Atrial fibrillation with rapid ventricular response: Code(s): I48.91 - Unspecified atrial fibrillation Status: Acute Assessment and Plan: planning cardioversion when pulmonary status is more stable History of Present Illness History of Present Illness Consult date: 07/30/19 Requesting physician: Jerry Turcios MD Reason for consult: hypoxemia Chief complaint: Acute respiratory failure Narrative: PULMONARY CONSULT Dr Turcios requested consult for persistent hypoxemia; Mathew Venegas is a 69 yo man had a recent stroke 07/10/2019, aspirates due to dysphagia, has a G-tube to prevent aspiration. He was transferred form [facility] on 07/21/2019 when he became less responsive with a drop in his blood pressure and saturation. He has acute respiratory failure, sepsis, and acute renal failure. These things were treated and improved. 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 History is obtained from chart, Dr. Turcios, and the patient's who is at the bedside. He is on IV amiodarone for a-fib; O2 has been high flow NC now at 50 L/min and 80% FiO2. This has not been able to be weaned. He was diuresed effectively, required getting some replacement fluids as his diuresis was quite effective with rising Na+ and BUN, however oxygenation did not improve. His sife says that he had the PEG placed last Sunday. Several days later he aspirated after receiving a pain pill and a sedative. He has not recovered completely. He is NPO, gets nutrition through the feeding tube. He has a Cornet valve, is using it with some improvement however his secretions are dry and difficult to mobilize. He is still being treated for pneumonia. with large amount of infiltrate on the left side. Review of Systems Review of Systems: All systems reviewed & are unremarkable except as noted in HPI and below PMFSH Past Medical History Medical History Cancer basal cell carcinoma CVA (cerebral vascular accident) Depression Dyslipidemia Dysphagia Hypertension He has not taken antihypertensives for > 15 years, which was the last time he saw physician. Obesity Skin cancer Urinary retention Surgical H
[2019-07-28] MEDS: ATORVASTATIN 40 MG TABLET FEED TUBE (21:01)
[2019-07-29] VITALS (29 sets, daily range): BP systolic 124–146; BP diastolic 63–97; PULSE 61–120; RESP 16–22; TEMP 36–37.6; O2SAT 92–99
[2019-07-29] MEDS: ACETAMINOPHEN 325 MG TABLET 650 MG FEED TUBE ×4 (00:41→17:26)
[2019-07-29] MEDS: METOPROLOL TARTRATE INJ 5 MG/5 ML VIAL IV PUSH ×6 (02:09→21:44)
[2019-07-29] MEDS: IPRATROPIUM BR 0.02% INH SOLN 0.5 MG/2.5 ML VIAL INHALATION ×4 (02:46→20:54)
[2019-07-29] MEDS: LEVALBUTEROL NEB 1.25 MG/3 ML 0.63 MG INHALATION ×4 (02:46→20:53)
[2019-07-29] MEDS: AMIODARONE 360 MG/D5W 200 ML 360 MG/200 ML BAG 33.3 MG IV CONT ×3 (03:32→15:33)
[2019-07-29] MEDS: GABAPENTIN 100 MG CAPSULE XX ×3 (05:49→21:44)
[2019-07-29 06:42] LABS: Hematocrit 39.2 % (42.0-52.0); Hemoglobin 12.2 g/dL (14.0-18.0); Mean Corpuscular HGB Conc 31.1 g/dl (32-36); Mean Corpuscular Hemoglobin 28.3 pg (26-34); Mean Platelet Volume 10.3 fl (7.4-10.4); Platelet Count Result 275 k/mm3 (150-375); Red Blood Count 4.31 M/mm3 (4.6-6.20); Red Cell Distribution Width 13.7 % (11.5-14.5); White Blood Count 22.8 K/mm3 (4.5-10.0)
[2019-07-29 06:56] LABS: Blood Urea Nitrogen 34 mg/dL (9-20); Calcium 7.9 mg/dL (8.4-10.2); Carbon Dioxide 31 mmol/L (22-30); Chloride 102 mmol/L (98-107); Estimated CRCL calculation 102 ml/min; Estimated Glomerular Filt Rate > 60; Glucose 185 mg/dL (75-110); Potassium 3.7 mmol/L (3.4-5.0); Sodium 143 mmol/L (137-145)
[2019-07-29] MEDS: DORNASE ALFA INH SOLN 1 MG/ML 2.5 ML AMP 2.5 MG INHALATION ×2 (08:29→20:54)
[2019-07-29] MEDS: PANTOPRAZOLE SODIUM IV 40 MG VIAL IV PUSH (08:43)
[2019-07-29] MEDS: predniSONE 20 MG TABLET 40 MG FEED TUBE (08:43)
[2019-07-29] MEDS: ASPIRIN 81 MG CHEWABLE TABLET FEED TUBE (08:43)
[2019-07-29] MEDS: DIGOXIN INJ 250 MCG/ML 2 ML AMP (*BKC) IV PUSH (08:43)
[2019-07-29] MEDS: APIXABAN 5 MG TABLET FEED TUBE ×2 (08:44→21:44)
[2019-07-29] MEDS: KCL 20 MEQ/LR 1,000 ML 100 ML IV CONT ×2 (08:47→21:41)
--- NOTE | 2019-07-29 11:00 | PCDIET ---
Nutrition Follow-Up Complete: Nutrition Diagnosis: Inadequate infusion of enteral nutrition related to aspiration/pneumonia as evidenced by NPO status. Nutrition Goal: Patient to meet estimated nutritional needs. Goal met. Patient receiving Jevity 1.5 at 55mL/hr goal rate with no significant residuals. Patient reports feeling well; only c/o is dry mouth. RN informed. Last recorded weight is 120.8 kg which is increased. I/O positive. Bowel Motility: Last documented bowel movement on 07/25/19. Patient has received enemas but denies feeling constipated. Labs Reviewed: Glu (185), BUN (34), Alb (3.1), Yosvany Ca (8.62) Meds Noted: Amiodarone, Roxicodone, Protonix, Zosyn, Prednisone, LR with 20mEq KCl at 100mL/hr Additional Notes: Documented pressure ulcer on sacrum. Recommend continuing present tube feeding with same goal. Will likely suggest increased water flushes of 150-200mL every 4 hours once IV fluids discontinued. Nutrition Monitoring and Evaluation: Follow up every Sunday/Sunday. Follow daily in ICU rounds.
--- NOTE | 2019-07-29 15:01 | PM.PNCARD ---
Progress Note: A&P Assessment and Plan (1) Atrial fibrillation with rapid ventricular response: Code(s): I48.91 - Unspecified atrial fibrillation Status: Acute Assessment and Plan: Continue Eliquis. Monitor for bleeding continue IV amiodarone and intravenous metoprolol. Reduce amiodarone to 0.5 milligram/minute. Once again discussed with patient and his at bedside potential for RACHEL guided cardioversion and timing. Allowing him to further recover improved tolerance with sedation if required. If able to control heart rate reasonably continue medical management. Anticipate heart rate will improve as he recovers further and with adequate hydration. Patient and preferred conservative management the time being. 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 Code(s): I63.9 - Cerebral infarction, unspecified Status: Acute Assessment and Plan: Possibly related to atrial fibrillation (3) Hypertension: Qualifiers: Hypertension type: essential hypertension Qualified Code(s): I10 - Essential (primary) hypertension Code(s): I10 - Essential (primary) hypertension Status: Acute Assessment and Plan: Stable (4) Dysphagia: Qualifiers: Dysphagia type: oral phase Qualified Code(s): R13.11 - Dysphagia, oral phase Code(s): R13.10 - Dysphagia, unspecified Status: Acute Assessment and Plan: per primary service (5) Pneumonia: Qualifiers: Pneumonia type: due to unspecified organism Laterality: unspecified laterality Lung location: unspecified part of lung Qualified Code(s): J18.9 - Pneumonia, unspecified organism Code(s): J18.9 - Pneumonia, unspecified organism Status: Acute Assessment and Plan: Likely aspiration: Continue antibiotics and supportive care. Bronchodilators, IV antibiotics and prednisone continued. Per primary service. Subjective Date/time seen: Date of service: 07/29/19 15:01 Interval history: Follow-up visit for new onset of atrial fib which is persistent despite amiodarone treatment Patient states he is feeling better. Heart rate under better control 90s to 110s generally in AFib. Patient denies shortness of breath, chest pain or palpitations. Review of Systems Review of Systems: All systems reviewed & are unremarkable except as noted in HPI and below Constitutional: Constitutional: Reports as per HPI, Denies chills, Denies excessive sweating, Reports fatigue and Denies headache(s) Eyes: Eyes: Reports as per HPI and Denies blurry vision ENT: Reports as per HPI, Reports Normal hearing present, Denies headache(s), Denies lip swelling and Denies neck pain Cardiovascular: Cardiovascular: Reports as per HPI, Denies chest pain, Denies palpitations and Denies dyspnea Respiratory: Respiratory: Reports as per HPI, Reports cough, Denies hemoptysis and Denies dyspnea Gastrointestinal: Gastrointestinal: Reports as per HPI and Denies abdominal pain Genitourinary: Genitourinary: Reports as per HPI and Denies hematuria Musculoskeletal: Musculoskeletal: Reports as per HPI and Denies neck pain Integumentary/Breasts: Skin/Breast: Reports as per HPI and Denies dry skin Neurologic: Reports as per HPI, Reports Normal hearing present and Denies headache(s) Psychiatric: Psychiatric: Reports as per HPI and Denies anxiety Endocrine: Endocrine: Denies excessive sweating and Denies palpitations Hematologic/Lymphatic: Hematologic/Lymphatic: Denies easy bleeding Allergic/Immunologic: Allergic/Immunologic: Denies lip swelling Exam Narrative: Exam Narrative: alert. No acute distress Const: General: comfortable, no acute distress and uncomfortable Other:
[2019-07-29] MEDS: AMIODARONE 360 MG/D5W 200 ML 360 MG/200 ML BAG 16.7 MG IV CONT (21:42)
[2019-07-29] MEDS: ATORVASTATIN 40 MG TABLET FEED TUBE (21:44)
--- NOTE | 2019-07-29 21:54 | PM.IMPN ---
Progress Note: A&P Assessment and Plan (1) Acute respiratory failure with hypoxia: Code(s): J96.01 - Acute respiratory failure with hypoxia Status: Acute Assessment and Plan: due to multifocal pneumonia on high flow cannula L weaning as possible (2) Pneumonia: Qualifiers: Pneumonia type: due to unspecified organism Laterality: unspecified laterality Lung location: unspecified part of lung Qualified Code(s): J18.9 - Pneumonia, unspecified organism Code(s): J18.9 - Pneumonia, unspecified organism Status: Acute Assessment and Plan: likely aspiration may be having ongoing episodes, perhaps silent, that are delaying his recovery 07/26 CXR improved continue zosyn day 9 (may need to extend coarse) and prednisone pulmonology input appreciated (3) Atrial fibrillation with rapid ventricular response: Code(s): I48.91 - Unspecified atrial fibrillation Status: Acute Assessment and Plan: Continue iv amiodarone Continue iv metoprolol Continue iv digoxin 07/28 rate improved to 90s-100s (4) Renal failure, acute: Qualifiers: Acute renal failure type: unspecified Qualified Code(s): N17.9 - Acute kidney failure, unspecified Code(s): N17.9 - Acute kidney failure, unspecified Status: Acute Assessment and Plan: resolved, creatinine 0.8 today (5) CVA (cerebral vascular accident): Qualifiers: CVA mechanism: thrombosis Precerebral and cerebral artery: vertebral artery Laterality of affected vessel: right Qualified Code(s): 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 Aspirin, statin, and antihypertensive (6) Hypertension: Qualifiers: Hypertension type: essential hypertension Qualified Code(s): I10 - Essential (primary) hypertension Code(s): I10 - Essential (primary) hypertension Status: Acute Assessment and Plan: Metoprolol and with creatinine down can restart lisinopril Monitor Subjective Date/time seen: 07/29/19 21:54 Interval history: date of visit 07/29 Comfortable. No dyspnea at rest. No new c/o. Denied CP, Abd pain, n/v, diarrhea, bleeding. HR 90-110 and no cardiac complaints Exam Narrative: Exam Narrative: Bp 146/96 110 HEENT: EOMI, PERRL, NECK: No JVD CHEST: Coarse BS HEART: NL S1/S2, irregular, no murmur ABDOMEN: BS+, soft, nontender, no mass, no bruits EXTREMITIES: No cyanosis 1+ edema NEUROLOGIC: CN intact and symmetric to inspection. MUSCULOSKELETAL: Tone and strength symmetric. Objective Data Vital Signs Vital Signs: Vital Signs - 24 hr 07/28/19 22:00 07/28/19 22:15 07/28/19 22:16 Temperature Pulse Rate 103 H 112 H 97 Respiratory Rate 18 Blood Pressure Pulse Oximetry 97 07/28/19 22:25 07/28/19 23:56 07/29/19 00:00 Temperature 36.5 C Pulse Rate 107 H 91 98 Respiratory Rate 18 22 H 22 H Blood Pressure 135/72 Pulse Oximetry 96 96 07/29/19 02:00 07/29/19 02:09 07/29/19 02:47 Temperature Pulse Rate 93 98 99 Respiratory Rate 18 18 Blood Pressure 132/73 Pulse Oximetry 93 07/29/19 02:56 07/29/19 04:00 07/29/19 05:51 Temperature 36.5 C Pulse Rate 97 112 H 94 Respiratory Rate 18 20 Blood Pressure 146/86 H Pulse Oximetry 95 07/29/19 06:00 07/29/19 07:06 07/29/19 08:00 Temperature 36.6 C Pulse Rate 92 87 102 H Respiratory Rate 20 20 Blood Pressure 124/80 Pulse Oximetry 99 99 07/29/19 08:29 07/29/19 08:39 07/29/19 08:43 Temperature Pulse Rate 97 101 H 95 Respiratory Rate 18 18 Blood Pressure Pulse Oximetry 93 07/29/19 09:15 07/29/19 10:00 07/29/19 12:00 Temperature 36.8 C Pulse Rate 91 87 107 H Respiratory Rate 16 Blood Pressure 143/92 H Pulse Oximetry 92 07/29/19 12:55 07/29/19 14:00 07/29/19 14:46
[2019-07-30] VITALS (31 sets, daily range): BP systolic 139–167; BP diastolic 69–81; PULSE 56–68; RESP 18–24; TEMP 35.8–37.2; O2SAT 87–98
[2019-07-30] MEDS: ACETAMINOPHEN 325 MG TABLET 650 MG FEED TUBE ×5 (00:08→23:38)
[2019-07-30] MEDS: IPRATROPIUM BR 0.02% INH SOLN 0.5 MG/2.5 ML VIAL INHALATION ×4 (02:04→21:55)
[2019-07-30] MEDS: LEVALBUTEROL NEB 1.25 MG/3 ML 0.63 MG INHALATION ×4 (02:04→21:27)
[2019-07-30] MEDS: METOPROLOL TARTRATE INJ 5 MG/5 ML VIAL IV PUSH ×3 (02:52→09:07)
[2019-07-30 04:58] LABS: Hematocrit 39.6 % (42.0-52.0); Mean Corpuscular HGB Conc 30.3 g/dl (32-36); Mean Corpuscular Hemoglobin 27.8 pg (26-34); Mean Corpuscular Volume 91.7 fl (80-100); Mean Platelet Volume 10.6 fl (7.4-10.4); Platelet Count Result 293 k/mm3 (150-375); Red Blood Count 4.32 M/mm3 (4.6-6.20); Red Cell Distribution Width 13.5 % (11.5-14.5); White Blood Count 22.7 K/mm3 (4.5-10.0)
[2019-07-30 05:17] LABS: Blood Urea Nitrogen 28 mg/dL (9-20); Calcium 7.9 mg/dL (8.4-10.2); Carbon Dioxide 32 mmol/L (22-30); Chloride 102 mmol/L (98-107); Estimated CRCL calculation 116 ml/min; Estimated Glomerular Filt Rate > 60; Glucose 168 mg/dL (75-110); Potassium 3.8 mmol/L (3.4-5.0); Sodium 141 mmol/L (137-145)
[2019-07-30] MEDS: GABAPENTIN 100 MG CAPSULE XX ×3 (05:31→21:11)
[2019-07-30] MEDS: APIXABAN 5 MG TABLET FEED TUBE ×2 (08:56→21:11)
[2019-07-30] MEDS: PANTOPRAZOLE SODIUM IV 40 MG VIAL IV PUSH (08:56)
[2019-07-30] MEDS: lisinopriL 10 MG TABLET FEED TUBE (08:56)
[2019-07-30] MEDS: predniSONE 20 MG TABLET 40 MG FEED TUBE (08:56)
[2019-07-30] MEDS: ASPIRIN 81 MG CHEWABLE TABLET FEED TUBE (08:56)
[2019-07-30] MEDS: DIGOXIN INJ 250 MCG/ML 2 ML AMP (*BKC) IV PUSH (08:57)
[2019-07-30] MEDS: AMIODARONE 360 MG/D5W 200 ML 360 MG/200 ML BAG 16.7 MG IV CONT (09:13)
[2019-07-30] MEDS: DORNASE ALFA INH SOLN 1 MG/ML 2.5 ML AMP 2.5 MG INHALATION ×2 (09:45→21:27)
[2019-07-30] MEDS: AMIODARONE HCL 200 MG TABLET 400 MG PO ×2 (11:49→21:11)
--- NOTE | 2019-07-30 12:25 | PM.PNCARD ---
Progress Note: A&P Assessment and Plan (1) Atrial fibrillation with rapid ventricular response: Code(s): I48.91 - Unspecified atrial fibrillation Status: Acute Assessment and Plan: Converted to sinus rhythm last night. Continue Eliquis. Change amiodarone to 400 mg per tube b.i.d.. Discontinue IV infusion. Change metoprolol to 50 mg p.o. per tube b.i.d.. Discontinue digoxin. Continue telemetry. 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 Code(s): I63.9 - Cerebral infarction, unspecified Status: Acute Assessment and Plan: Possibly related to atrial fibrillation (3) Hypertension: Qualifiers: Hypertension type: essential hypertension Qualified Code(s): I10 - Essential (primary) hypertension Code(s): I10 - Essential (primary) hypertension Status: Acute Assessment and Plan: Stable (4) Dysphagia: Qualifiers: Dysphagia type: oral phase Qualified Code(s): R13.11 - Dysphagia, oral phase Code(s): R13.10 - Dysphagia, unspecified Status: Acute Assessment and Plan: per primary service (5) Pneumonia: Qualifiers: Laterality: unspecified laterality Lung location: unspecified part of lung Pneumonia type: due to unspecified organism Qualified Code(s): J18.9 - Pneumonia, unspecified organism Code(s): J18.9 - Pneumonia, unspecified organism Status: Acute Assessment and Plan: Likely aspiration: Continue antibiotics and supportive care. Bronchodilators, IV antibiotics and prednisone continued. Per primary service. Subjective Date/time seen: Date of service: 07/30/19 10:20 Interval history: Follow-up visit for new onset of atrial fib which is persistent despite amiodarone treatment He continues to feel better. Patient converted to sinus rhythm last evening. No shortness of breath or chest pain. No abdominal pain. No new issues overnight. Blood pressure stable. Review of Systems Review of Systems: All systems reviewed & are unremarkable except as noted in HPI and below Constitutional: Constitutional: Reports as per HPI, Denies chills, Denies excessive sweating, Reports fatigue and Denies headache(s) Eyes: Eyes: Reports as per HPI and Denies blurry vision ENT: Reports as per HPI, Reports Normal hearing present, Denies headache(s), Denies lip swelling and Denies neck pain Cardiovascular: Cardiovascular: Reports as per HPI, Denies chest pain, Denies palpitations and Denies dyspnea Respiratory: Respiratory: Reports as per HPI, Reports cough, Denies hemoptysis and Denies dyspnea Gastrointestinal: Gastrointestinal: Reports as per HPI and Denies abdominal pain Genitourinary: Genitourinary: Reports as per HPI and Denies hematuria Musculoskeletal: Musculoskeletal: Reports as per HPI and Denies neck pain Integumentary/Breasts: Skin/Breast: Reports as per HPI and Denies dry skin Neurologic: Reports as per HPI, Reports Normal hearing present and Denies headache(s) Psychiatric: Psychiatric: Reports as per HPI and Denies anxiety Endocrine: Endocrine: Denies excessive sweating, Reports fatigue and Denies palpitations Hematologic/Lymphatic: Hematologic/Lymphatic: Denies easy bleeding Allergic/Immunologic: Allergic/Immunologic: Denies lip swelling Exam Narrative: Exam Narrative: alert. No acute distress Const: General: comfortable, no acute distress and uncomfortable Other: Obese gentleman in the ICU with high-flow nasal cannula oxygen, tachypneic otherwise no complaints HENMT: General nose exam: Normal nares present Mouth: Yes moist mucous membranes Eyes: Sclera: sclerae normal Pupils: Equal, round and reactive pupils present Neck: Neck: supple and no JV
--- NOTE | 2019-07-30 13:38 | ECG_ITS ---
Measurements Intervals [place] Rate: 65 P: 29 [place]: 155 QRS: 6 QRSD: 89 T: 5 QT: 379 QTc: 396 Interpretive Statements SINUS RHYTHM BORDERLINE T WAVE ABNORMALITY- INFERIOR LEADS BORDERLINE ECG Electronically Signed On 07-30-2019 14:39:01 [employer] by Jesús Smyth D.O.
--- NOTE | 2019-07-30 17:07 | PM.IMPN ---
Progress Note: A&P Assessment and Plan (1) Acute respiratory failure with hypoxia: Code(s): J96.01 - Acute respiratory failure with hypoxia Status: Acute Assessment and Plan: due to multifocal pneumonia on high flow cannula L weaning as possible (2) Pneumonia: Qualifiers: Pneumonia type: due to unspecified organism Laterality: unspecified laterality Lung location: unspecified part of lung Qualified Code(s): J18.9 - Pneumonia, unspecified organism Code(s): J18.9 - Pneumonia, unspecified organism Status: Acute Assessment and Plan: likely aspiration may be having ongoing episodes, perhaps silent, that are delaying his recovery 07/26 CXR improved continue zosyn day 10 (probable d/c after today) and continue prednisone pulmonology input appreciated (3) Atrial fibrillation with rapid ventricular response: Code(s): I48.91 - Unspecified atrial fibrillation Status: Acute Assessment and Plan: Continue iv amiodarone Continue iv metoprolol Continue iv digoxin 07/28 rate 07/30 back to SR (4) Renal failure, acute: Qualifiers: Acute renal failure type: unspecified Qualified Code(s): N17.9 - Acute kidney failure, unspecified Code(s): N17.9 - Acute kidney failure, unspecified Status: Acute Assessment and Plan: resolved, creatinine 0.7today (5) CVA (cerebral vascular accident): Qualifiers: CVA mechanism: thrombosis Precerebral and cerebral artery: vertebral artery Laterality of affected vessel: right Qualified Code(s): 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 Aspirin, statin, and antihypertensive Have speech rx eval again (6) Hypertension: Qualifiers: Hypertension type: essential hypertension Qualified Code(s): I10 - Essential (primary) hypertension Code(s): I10 - Essential (primary) hypertension Status: Acute Assessment and Plan: Metoprolol and with creatinine down restarted lisinopril today Monitor Subjective Date/time seen: 07/30/19 17:07 Interval history: date of visit 07/30 Comfortable. No dyspnea at rest. No new c/o. Denied CP, Abd pain, n/v, diarrhea, bleeding. HR 80 and no cardiac complaints Exam Narrative: Exam Narrative: Bp 164/78 78 HEENT: EOMI, PERRL, NECK: No JVD CHEST: Coarse BS HEART: NL S1/S2, more regular, no murmur ABDOMEN: BS+, soft, nontender, no mass, no bruits EXTREMITIES: No cyanosis 1+ edema NEUROLOGIC: CN intact and symmetric to inspection. MUSCULOSKELETAL: Tone and strength symmetric. Objective Data Vital Signs Vital Signs: Vital Signs - 24 hr 07/29/19 17:26 07/29/19 18:00 07/29/19 20:00 Temperature 36.8 C Pulse Rate 110 H 97 116 H Respiratory Rate 22 H Blood Pressure 132/83 Pulse Oximetry 95 07/29/19 20:54 07/29/19 21:11 07/29/19 21:44 Temperature Pulse Rate 99 103 H 109 H Respiratory Rate 20 20 Blood Pressure Pulse Oximetry 95 07/29/19 22:00 07/29/19 23:38 07/30/19 00:00 Temperature 37.6 C Pulse Rate 65 61 60 Respiratory Rate 22 H Blood Pressure 131/63 Pulse Oximetry 94 94 07/30/19 01:29 07/30/19 02:04 07/30/19 02:14 Temperature Pulse Rate 56 L 60 59 L Respiratory Rate 20 20 Blood Pressure Pulse Oximetry 93 07/30/19 02:52 07/30/19 03:45 07/30/19 05:31 Temperature 37.2 C Pulse Rate 58 L 58 L 60 Respiratory Rate 24 H Blood Pressure 139/77 Pulse Oximetry 95 07/30/19 05:43 07/30/19 08:00 07/30/19 08:57 Temperature 35.8 C L Pulse Rate 63 66 66 Respiratory Rate 20 Blood Pressure 153/80 H Pulse Oximetry 94 07/30/19 09:07 07/30/19 09:47 07/30/19 09:48 Temperature Pulse Rate 68 67 Respiratory Rate 20 Blood Pressure Pulse Oximetry 93 07/30/19 09:55 07/30/19 1
--- NOTE | 2019-07-30 18:57 | PM.PNPUL ---
Progress Note: A&P Assessment and Plan (1) Acute respiratory failure with hypoxia: Code(s): J96.01 - Acute respiratory failure with hypoxia Status: Acute Assessment and Plan: He had a stroke recently, had peg placed for aspiration. He is not able to protect his airway. His says that his breathing deteriorated when he had a sedative and pain meds together last Sunday night and he has not recovered. Cornet setting 3 is being used to help with secretions, not as dry with increased fluids IV and through peg. Continue Pulmozyme for mucolytic effect, continue the Cornet on the higher setting. Getting lots of therapy. Will try to wean O2. He is on high flow at high settings, sometimes needs to be aggressively weaned to see if he can tolerate lower flow. He has poor balance, needs more therapy as he is not able to walk unassisted. he is saturating 93% on the High Flow set up, 80% and 60L/min, and this can be weaned some. 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 (3) Atrial fibrillation with rapid ventricular response: Code(s): I48.91 - Unspecified atrial fibrillation Status: Acute Assessment and Plan: converted to sinus last night. Subjective Date/time seen: 07/30/19 18:57 This 69 yo man is seen in follow up for acute hypoxic resp failure after a stroke 07/10/2019; aspirates due to dysphagia, has a G-tube to prevent aspiration. Tish villalba was transferred form [facility] on 07/21/2019 when he became less responsive with a drop in his blood pressure and saturation. He has acute respiratory failure, sepsis, and acute renal failure. These things were treated and improved. [facility]; had a busy day, therapy; now sitting in a chair, tired, on high flow 60L/min and 80%. Review of Systems Review of Systems: All systems reviewed & are unremarkable except as noted in HPI and below Exam Narrative: Exam Narrative: This 69 yo man is reclining in bed in the left semi-lateral position. He is not able to help much as far as re-positioning himself. He is pale, voice is weak, phonation is not normal. He is alert, cooperative. Wearing high flow NA 50L/min and FiO2 80%. Sat is 94-95%. Const: General: no acute distress HENMT: Mouth: Yes Abnormal oral and palatal mucosa present (dry mucosa with thick saliva. Could not see the oropharynx.) Eyes: Pupils: Equal, round and reactive pupils present Neck: Neck: no JVD Lymphatic: lymphadenopathy not noted Resp: Other: He has symmetric excursion; harsh rhonchi bilaterally. No wheezes. Decreased breath sounds in the bases. I was not able to get a full exam of the posterior chest as he was lying tilted to the right, and I could not access the entire right posterior chest wall. Cardio: Rate: tachycardic (105 rate) Rhythm: regular rhythm GI: Other: G-tube in place, nonditended abdomen. Skin: General skin exam: normal color Neuro: Cranial nerves: Yes Equal, round and reactive pupils present Extrem: General: normal to inspection Psych: Affect: normal affect Objective Data Vital Signs Vital Signs: Vital Signs - 24 hr 07/29/19 20:00 07/29/19 20:54 07/29/19 21:11 Temperature 36.8 C Pulse Rate 116 H 99 103 H Respiratory Rate 22 H 20 20 Blood Pressure 132/83 Pulse Oximetry 95 95 07/29/19 21:44 07/29/19 22:00 07/29/19 23:38 Temperature 37.6 C Pulse Rate 109 H 65 61 Respiratory Rate 22 H Blood
[2019-07-30] MEDS: ATORVASTATIN 40 MG TABLET FEED TUBE (21:11)
[2019-07-30] MEDS: METOPROLOL TARTRATE 50 MG TAB PO (21:11)
[2019-07-31] VITALS (27 sets, daily range): BP systolic 148–173; BP diastolic 74–86; PULSE 59–69; RESP 18–24; TEMP 35.7–37.1; O2SAT 92–97
[2019-07-31] MEDS: LEVALBUTEROL NEB 1.25 MG/3 ML 0.63 MG INHALATION ×4 (03:36→19:43)
[2019-07-31] MEDS: IPRATROPIUM BR 0.02% INH SOLN 0.5 MG/2.5 ML VIAL INHALATION ×4 (03:37→19:43)
[2019-07-31] MEDS: GABAPENTIN 100 MG CAPSULE XX ×3 (05:16→21:51)
[2019-07-31] MEDS: ACETAMINOPHEN 325 MG TABLET 650 MG FEED TUBE ×3 (05:16→17:34)
[2019-07-31 05:27] LABS: Albumin Level 2.7 g/dL (3.5-5.1); Blood Urea Nitrogen 26 mg/dL (9-20); Calcium 7.9 mg/dL (8.4-10.2); Carbon Dioxide 36 mmol/L (22-30); Chloride 100 mmol/L (98-107); Estimated CRCL calculation 103 ml/min; Estimated Glomerular Filt Rate > 60; Glucose 174 mg/dL (75-110); Phosphorus 2.1 mg/dL (2.5-4.5); Potassium 3.8 mmol/L (3.4-5.0); Sodium 142 mmol/L (137-145)
[2019-07-31] MEDS: DORNASE ALFA INH SOLN 1 MG/ML 2.5 ML AMP 2.5 MG INHALATION ×2 (09:08→19:43)
[2019-07-31] MEDS: lisinopriL 10 MG TABLET FEED TUBE (09:15)
[2019-07-31] MEDS: AMIODARONE HCL 200 MG TABLET 400 MG PO ×2 (09:15→21:50)
[2019-07-31] MEDS: ASPIRIN 81 MG CHEWABLE TABLET FEED TUBE (09:17)
[2019-07-31] MEDS: METOPROLOL TARTRATE 50 MG TAB PO ×2 (09:17→21:50)
[2019-07-31] MEDS: predniSONE 20 MG TABLET 40 MG FEED TUBE (09:17)
[2019-07-31] MEDS: APIXABAN 5 MG TABLET FEED TUBE ×2 (09:17→21:50)
[2019-07-31] MEDS: POTASSIUM PHOS,M-BASIC-D-BASIC 20 MMOL in SODIUM CHLORIDE 0.9% IV 250 ML 62.5 MMOL IVPB (09:18)
[2019-07-31] MEDS: PANTOPRAZOLE SODIUM IV 40 MG VIAL IV PUSH (09:22)
--- NOTE | 2019-07-31 09:37 | PCOTNOTE ---
Attempted to see pt this morning for skilled OT tx. Pt was with resp therapy.
--- NOTE | 2019-07-31 14:48 | PCOTNOTE ---
Attempted to see patient this pm, however patient was with respiratory therapy.
--- NOTE | 2019-07-31 16:31 | PM.PNCARD ---
Progress Note: A&P Assessment and Plan (1) Atrial fibrillation with rapid ventricular response: Code(s): I48.91 - Unspecified atrial fibrillation Status: Acute Assessment and Plan: Maintaining sinus rhythm. Continue Eliquis. Amiodarone 400 mg per tube b.i.d. change to daily tomorrow. Metoprolol 50 mg p.o. per tube b.i.d.. Monitor for bradyarrhythmia. Stable thus far. Monitor electrolytes closely. Continue telemetry. 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 (4) Dysphagia: Qualifiers: Dysphagia type: oral phase Qualified Code(s): R13.11 - Dysphagia, oral phase Code(s): R13.10 - Dysphagia, unspecified Status: Acute Assessment and Plan: per primary service (5) Pneumonia: Qualifiers: Pneumonia type: due to unspecified organism Laterality: unspecified laterality Lung location: unspecified part of lung Qualified Code(s): J18.9 - Pneumonia, unspecified organism Code(s): J18.9 - Pneumonia, unspecified organism Status: Acute Assessment and Plan: Likely aspiration: Continue antibiotics and supportive care. Bronchodilators, IV antibiotics and prednisone continued. Per primary service. Subjective Date/time seen: Date of service: 07/31/19 16:31 Follow-up for atrial fibrillation with rapid ventricular response Feels fine, no new issues overnight. Maintaining sinus rhythm. No chest pain. States he feels okay in general. No fevers or chills. Review of Systems Review of Systems: All systems reviewed & are unremarkable except as noted in HPI and below Constitutional: Constitutional: Reports as per HPI, Denies chills, Denies excessive sweating, Reports fatigue and Denies headache(s) Eyes: Eyes: Reports as per HPI and Denies blurry vision ENT: Reports as per HPI, Reports Normal hearing present, Denies headache(s), Denies lip swelling and Denies neck pain Cardiovascular: Cardiovascular: Reports as per HPI, Denies chest pain, Denies palpitations and Denies dyspnea Respiratory: Respiratory: Reports as per HPI, Reports cough, Denies hemoptysis and Denies dyspnea Gastrointestinal: Gastrointestinal: Reports as per HPI and Denies abdominal pain Genitourinary: Genitourinary: Reports as per HPI and Denies hematuria Musculoskeletal: Musculoskeletal: Reports as per HPI and Denies neck pain Integumentary/Breasts: Skin/Breast: Reports as per HPI and Denies dry skin Neurologic: Reports as per HPI, Reports Normal hearing present and Denies headache(s) Psychiatric: Psychiatric: Reports as per HPI and Denies anxiety Endocrine: Endocrine: Denies excessive sweating, Reports fatigue and Denies palpitations Hematologic/Lymphatic: Hematologic/Lymphatic: Denies easy bleeding Allergic/Immunologic: Allergic/Immunologic: Denies lip swelling Exam Narrative: Exam Narrative: alert. No acute distress Const: General: comfortable, no acute distress and uncomfortable Other: High-flow nasal canula HENMT: General nose exam: Normal nares present Mouth: Yes moist mucous membranes Eyes: Sclera: sclerae normal Pupils: Equal, round and reactive pupils present Neck: Neck: supple and no JVD Thyroid: thyroid normal Chest: Other: no chest wall pain to palpation Resp: Auscultation: crackles, rhonchi and dim
--- NOTE | 2019-07-31 18:04 | PM.PNPUL ---
Progress Note: A&P Assessment and Plan (1) Acute respiratory failure with hypoxia: Code(s): J96.01 - Acute respiratory failure with hypoxia Status: Acute Assessment and Plan: He had a stroke recently, had peg placed for aspiration. He is not able to protect his airway. His says that his breathing deteriorated when he had a sedative and pain meds together last Sunday night and he has not recovered. Cornet setting 3 is being used to help with secretions, not as dry with increased fluids IV and through peg. Continue Pulmozyme for mucolytic effect, continue the Cornet on the higher setting. Getting lots of therapy. Will try to wean O2. He is on high flow at high settings, sometimes needs to be aggressively weaned to see if he can tolerate lower flow. He has poor balance, needs more therapy as he is not able to walk unassisted. he is saturating 93% on the High Flow set up, 80% and 60L/min, and this can be weaned some. 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 (3) Atrial fibrillation with rapid ventricular response: Code(s): I48.91 - Unspecified atrial fibrillation Status: Acute Assessment and Plan: converted to sinus last night. Subjective Date/time seen: 07/31/19 18:04 This 69 yo man is seen in follow up for acute hypoxic resp failure after a stroke 07/10/2019; aspirates due to dysphagia, has a G-tube to prevent aspiration. He was transferred form [facility] on 07/21/2019 when he became less responsive with a drop in his blood pressure and saturation. He has acute respiratory failure, sepsis, and acute renal failure. These things were treated and improved. His is at the bedside; was tired today; now resting in bed; on high flow 60L/min and 80%. Review of Systems Review of Systems: All systems reviewed & are unremarkable except as noted in HPI and below Exam Narrative: Exam Narrative: This 69 yo man is reclining in bed in the left semi-lateral position. He is not able to help much as far as re-positioning himself. He is pale, voice is weak, phonation is not normal. He is alert, cooperative. Wearing high flow NA 50L/min and FiO2 80%. Sat is 94-95%. Const: General: no acute distress HENMT: Mouth: Yes Abnormal oral and palatal mucosa present (dry mucosa with thick saliva. Could not see the oropharynx.) Eyes: Pupils: Equal, round and reactive pupils present Neck: Neck: no JVD Lymphatic: lymphadenopathy not noted Resp: Other: He has symmetric excursion; harsh rhonchi bilaterally. No wheezes. Decreased breath sounds in the bases. I was not able to get a full exam of the posterior chest as he was lying tilted to the right, and I could not access the entire right posterior chest wall. Cardio: Rate: tachycardic (105 rate) Rhythm: regular rhythm GI: Other: G-tube in place, nonditended abdomen. Skin: General skin exam: normal color Neuro: Cranial nerves: Yes Equal, round and reactive pupils present Extrem: General: normal to inspection Psych: Affect: normal affect Objective Data Vital Signs Vital Signs: Vital Signs - 24 hr 07/30/19 19:33 07/30/19 20:00 07/30/19 21:11 Temperature 36.2 C L Pulse Rate 65 66 60 Respiratory Rate 22 H Blood Pressure 167/77 H Pulse Oximetry 93 96 07/30/19 21:28 07/30/19 21:52 07/30/19 21:56 Temperature Pulse Rate 64 64 62 Respiratory Rate 18 18 Blood Pressure Pulse Oximetry 96
--- NOTE | 2019-07-31 18:19 | PM.IMPN ---
Progress Note: A&P Assessment and Plan (1) Acute respiratory failure with hypoxia: Code(s): J96.01 - Acute respiratory failure with hypoxia Status: Acute Assessment and Plan: due to multifocal pneumonia on high flow cannula L weaning as possible recheck cxr 08/01 (2) Pneumonia: Qualifiers: Pneumonia type: due to unspecified organism Laterality: unspecified laterality Lung location: unspecified part of lung Qualified Code(s): J18.9 - Pneumonia, unspecified organism Code(s): J18.9 - Pneumonia, unspecified organism Status: Acute Assessment and Plan: likely aspiration may be having ongoing episodes, perhaps silent, that are delaying his recovery 07/26 CXR improved continue zosyn day 10 (probable d/c after 07/31) and continue prednisone pulmonology input appreciated repeat chest xray 08/01 (3) Atrial fibrillation with rapid ventricular response: Code(s): I48.91 - Unspecified atrial fibrillation Status: Acute Assessment and Plan: Continue amiodarone Continue metoprolol 07/28 rate 07/30 back to SR (4) Renal failure, acute: Qualifiers: Acute renal failure type: unspecified Qualified Code(s): N17.9 - Acute kidney failure, unspecified Code(s): N17.9 - Acute kidney failure, unspecified Status: Acute Assessment and Plan: resolved (5) CVA (cerebral vascular accident): Qualifiers: CVA mechanism: thrombosis Precerebral and cerebral artery: vertebral artery Laterality of affected vessel: right Qualified Code(s): 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 Aspirin, statin, and antihypertensive Have speech rx eval again (6) Hypertension: Qualifiers: Hypertension type: essential hypertension Qualified Code(s): I10 - Essential (primary) hypertension Code(s): I10 - Essential (primary) hypertension Status: Acute Assessment and Plan: Metoprolol and with creatinine down restarted lisinopril 07/29 Monitor Subjective Date/time seen: 07/31/19 18:19 Interval history: date of visit 07/31 Comfortable. No dyspnea at rest. No new c/o. Denied CP, Abd pain, n/v, diarrhea, bleeding. HR 68 and no cardiac complaints Exam Narrative: Exam Narrative: Bp 160/80 P 68 HEENT: EOMI, PERRL, NECK: No JVD CHEST: Coarse BS HEART: NL S1/S2, regular, no murmur ABDOMEN: BS+, soft, nontender, no mass, no bruits EXTREMITIES: No cyanosis 1+ edema NEUROLOGIC: CN intact and symmetric to inspection. Objective Data Vital Signs Vital Signs: Vital Signs - 24 hr 07/30/19 19:33 07/30/19 20:00 07/30/19 21:11 Temperature 36.2 C L Pulse Rate 65 66 60 Respiratory Rate 22 H Blood Pressure 167/77 H Pulse Oximetry 93 96 07/30/19 21:28 07/30/19 21:52 07/30/19 21:56 Temperature Pulse Rate 64 64 62 Respiratory Rate 18 18 Blood Pressure Pulse Oximetry 96 07/30/19 23:39 07/30/19 23:43 07/31/19 01:39 Temperature 37.1 C Pulse Rate 61 59 L 59 L Respiratory Rate 22 H Blood Pressure 146/69 H Pulse Oximetry 98 96 07/31/19 03:39 07/31/19 03:54 07/31/19 06:00 Temperature 36.1 C L Pulse Rate 63 64 67 Respiratory Rate 18 24 H Blood Pressure 148/76 H Pulse Oximetry 95 07/31/19 07:10 07/31/19 07:50 07/31/19 08:00 Temperature 35.9 C L Pulse Rate 62 69 Respiratory Rate 18 Blood Pressure 152/74 H Pulse Oximetry 93 95 07/31/19 08:16 07/31/19 09:00 07/31/19 09:10 Temperature 35.8 C L Pulse Rate 68 68 67 Respiratory Rate 18 18 18 Blood Pressure 173/79 H Pulse Oximetry 94 93 07/31/19 09:15 07/31/19 09:17 07/31/19 12:00 Temperature Pulse Rate 64 64 63 Respiratory Rate Blood Pressure Pulse Oximetry 07/31/19 12:05 07/31/19 14:00 07/31/19 15:00 Temperature 35.8
[2019-07-31] MEDS: ATORVASTATIN 40 MG TABLET FEED TUBE (21:50)
[2019-08-01] VITALS (30 sets, daily range): BP systolic 97–177; BP diastolic 62–81; PULSE 56–84; RESP 18–24; TEMP 35.7–37.1; O2SAT 90–96
[2019-08-01] MEDS: ACETAMINOPHEN 325 MG TABLET 650 MG FEED TUBE ×2 (00:14→06:15)
[2019-08-01] MEDS: IPRATROPIUM BR 0.02% INH SOLN 0.5 MG/2.5 ML VIAL INHALATION ×4 (01:55→20:40)
[2019-08-01] MEDS: LEVALBUTEROL NEB 1.25 MG/3 ML 0.63 MG INHALATION ×4 (01:55→20:40)
[2019-08-01 04:52] LABS: Basophils Absolute Auto 0.1 K/mm3 (0.0-0.1); Basophils Percent Auto 0.2 % (0.2-1.2); Eosinophils Absolute Auto 0.1 K/mm3 (0-0.3); Eosinophils Percent Auto 0.4 % (0-4.4); Hemoglobin 11.7 g/dL (14.0-18.0); Immature Granulocyte Absolute 0.26 K/mm3 (0.00-0.031); Lymphocytes Absolute Auto 0.56 K/mm3 (0.9-3.2); Lymphocytes Percent Auto 2.1 % (18.3-44.2); Mean Corpuscular Hemoglobin 27.9 pg (26-34); Mean Corpuscular Volume 92.9 fl (80-100); Mean Platelet Volume 10.6 fl (7.4-10.4); Monocytes Percent Auto 3.6 % (2.6-8.5); Neutrophils Absolute Auto 25.2 K/mm3 (1.3-6.7); Neutrophils Percent Auto 92.7 % (45.5-73.1); Platelet Count Result 375 k/mm3 (150-375); Red Cell Distribution Width 13.7 % (11.5-14.5); White Blood Count 27.2 K/mm3 (4.5-10.0)
[2019-08-01 05:18] LABS: Albumin Level 2.7 g/dL (3.5-5.1); Blood Urea Nitrogen 24 mg/dL (9-20); Calcium 7.9 mg/dL (8.4-10.2); Carbon Dioxide 36 mmol/L (22-30); Chloride 100 mmol/L (98-107); Estimated CRCL calculation 115 ml/min; Estimated Glomerular Filt Rate > 60; Glucose 175 mg/dL (75-110); Phosphorus 2.6 mg/dL (2.5-4.5); Potassium 4.1 mmol/L (3.4-5.0); Sodium 142 mmol/L (137-145)
[2019-08-01] MEDS: GABAPENTIN 100 MG CAPSULE XX ×3 (06:15→21:45)
[2019-08-01] MEDS: DORNASE ALFA INH SOLN 1 MG/ML 2.5 ML AMP 2.5 MG INHALATION ×2 (08:47→20:40)
[2019-08-01] MEDS: ASPIRIN 81 MG CHEWABLE TABLET FEED TUBE (08:58)
[2019-08-01] MEDS: predniSONE 20 MG TABLET 40 MG FEED TUBE (08:58)
[2019-08-01] MEDS: AMIODARONE HCL 200 MG TABLET 400 MG PO ×2 (08:58→21:43)
[2019-08-01] MEDS: PANTOPRAZOLE SODIUM IV 40 MG VIAL IV PUSH (08:59)
[2019-08-01] MEDS: lisinopriL 10 MG TABLET FEED TUBE ×2 (08:59→17:48)
[2019-08-01] MEDS: METOPROLOL TARTRATE 50 MG TAB PO ×2 (08:59→21:46)
[2019-08-01] MEDS: APIXABAN 5 MG TABLET FEED TUBE ×2 (09:03→21:45)
--- NOTE | 2019-08-01 11:18 | PCDIET ---
Nutrition Follow-Up Complete: Nutrition Diagnosis: Inadequate infusion of enteral nutrition related to aspiration/pneumonia as evidenced by NPO status. Nutrition Goal: Patient to meet estimated nutritional needs. Goal met. Patient tolerating Jevity 1.5 at 55mL/hr goal rate with no GI c/o. Last recorded weight is 120.5 kg which is decreased from last review, but up from admission. +I/O noted. Bowel Motility: +BM on 07/31/19. Labs Reviewed: Glu (175), Alb (2.7), Yosvany Ca (8.94) Meds Noted: Prednisone, Protonix Additional Notes: s/p K-Phos on 07/31/19; sacral pressure ulcer noted. Recommendation: Consider change to Glucerna 1.2 at goal of 70mL/hr x 22 hours/day for optimal glucose control and slightly higher protein content to promote healing. This would provide 1848kcal, 92 grams protein and 1239mL free water. Would suggest minimum water flush of 30mL every 4 hours since tube feeding would provide more fluid than current formula. Nutrition Monitoring and Evaluation: Follow up every Sunday/Sunday.
--- NOTE | 2019-08-01 12:59 | PM.IMPN ---
Progress Note: A&P Assessment and Plan (1) Acute respiratory failure with hypoxia: Code(s): J96.01 - Acute respiratory failure with hypoxia Status: Acute Assessment and Plan: due to multifocal pneumonia on high flow cannula L weaning as possible recheck cxr today white out of left lung, ? possible therapeutic bronch (2) Pneumonia: Qualifiers: Pneumonia type: due to unspecified organism Laterality: unspecified laterality Lung location: unspecified part of lung Qualified Code(s): J18.9 - Pneumonia, unspecified organism Code(s): J18.9 - Pneumonia, unspecified organism Status: Acute Assessment and Plan: likely aspiration may be having ongoing episodes, perhaps silent, that are delaying his recovery finished 10 days zosyn 07/31 and continue prednisone pulmonology input appreciated repeat chest xray today as above (3) Atrial fibrillation with rapid ventricular response: Code(s): I48.91 - Unspecified atrial fibrillation Status: Acute Assessment and Plan: Continue amiodarone Continue metoprolol 07/28 rate 07/30 back to SR (4) Renal failure, acute: Qualifiers: Acute renal failure type: unspecified Qualified Code(s): N17.9 - Acute kidney failure, unspecified Code(s): N17.9 - Acute kidney failure, unspecified Status: Acute Assessment and Plan: resolved (5) CVA (cerebral vascular accident): Qualifiers: CVA mechanism: thrombosis Precerebral and cerebral artery: vertebral artery Laterality of affected vessel: right Qualified Code(s): 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 Aspirin, statin, and antihypertensive speech rx (6) Hypertension: Qualifiers: Hypertension type: essential hypertension Qualified Code(s): I10 - Essential (primary) hypertension Code(s): I10 - Essential (primary) hypertension Status: Acute Assessment and Plan: Metoprolol and with creatinine down restarted lisinopril 07/29 and will increase to 20 mg Monitor Subjective Date/time seen: 08/01/19 12:59 Interval history: date of visit 08/01 Comfortable. No dyspnea at rest. No new c/o. Denied CP, Abd pain, n/v, diarrhea, bleeding. HR 62 and no cardiac complaints Exam Narrative: Exam Narrative: Bp 160/60 P 62 HEENT: EOMI, PERRL, NECK: No JVD CHEST: Coarse BS especially left with crackles HEART: NL S1/S2, regular, no murmur ABDOMEN: BS+, soft, nontender, no mass, no bruits EXTREMITIES: No cyanosis 1+ edema, right arm warm and more swollen than left NEUROLOGIC: CN intact and symmetric to inspection. Objective Data Vital Signs Vital Signs: Vital Signs - 24 hr 07/31/19 14:00 07/31/19 15:00 07/31/19 15:09 Temperature Pulse Rate 61 67 67 Respiratory Rate 18 18 Blood Pressure Pulse Oximetry 07/31/19 16:00 07/31/19 17:03 07/31/19 18:00 Temperature 35.7 C L Pulse Rate 64 68 64 Respiratory Rate 19 Blood Pressure 166/86 H Pulse Oximetry 97 07/31/19 19:35 07/31/19 19:43 07/31/19 19:57 Temperature 36.1 C L Pulse Rate 65 64 66 Respiratory Rate 24 H 20 20 Blood Pressure 155/78 H Pulse Oximetry 92 94 07/31/19 20:00 07/31/19 21:50 07/31/19 22:00 Temperature Pulse Rate 64 64 60 Respiratory Rate Blood Pressure Pulse Oximetry 92 07/31/19 23:54 08/01/19 00:00 08/01/19 01:55 Temperature 37.1 C Pulse Rate 59 L 61 61 Respiratory Rate 24 H 20 Blood Pressure 150/77 H Pulse Oximetry 94 94 96 08/01/19 02:00 08/01/19 02:03 08/01/19 03:50 Temperature 36.4 C L Pulse Rate 60 60 62 Respiratory Rate 20 22 H Blood Pressure 150/68 H Pulse Oximetry 93 08/01/19 04:00 08/01/19 06:00 08/01/19 07:56 Temperature 35.9 C L Pulse Rate 60 65 63 Respiratory Rate 22 H Blo
[2019-08-01] MEDS: ATORVASTATIN 40 MG TABLET FEED TUBE (21:45)
[2019-08-02] VITALS (38 sets, daily range): BP systolic 70–165; BP diastolic 49–95; PULSE 49–76; RESP 14–24; TEMP 35.7–37.2; O2SAT 81–100
[2019-08-02] MEDS: IPRATROPIUM BR 0.02% INH SOLN 0.5 MG/2.5 ML VIAL INHALATION ×3 (02:58→14:57)
[2019-08-02] MEDS: LEVALBUTEROL NEB 1.25 MG/3 ML 0.63 MG INHALATION ×3 (02:59→14:58)
[2019-08-02 04:41] LABS: Basophils Percent Auto 0.1 % (0.2-1.2); Eosinophils Absolute Auto 0.1 K/mm3 (0-0.3); Eosinophils Percent Auto 0.6 % (0-4.4); Hematocrit 39.4 % (42.0-52.0); Hemoglobin 11.7 g/dL (14.0-18.0); Immature Granulocyte Absolute 0.19 K/mm3 (0.00-0.031); Immature Granulocyte Percent A 0.8 % (0-0.5); Lymphocytes Absolute Auto 0.45 K/mm3 (0.9-3.2); Lymphocytes Percent Auto 1.8 % (18.3-44.2); Mean Corpuscular HGB Conc 29.7 g/dl (32-36); Mean Corpuscular Hemoglobin 27.4 pg (26-34); Mean Corpuscular Volume 92.3 fl (80-100); Mean Platelet Volume 10.2 fl (7.4-10.4); Monocytes Absolute Auto 0.9 K/mm3 (0.1-0.6); Monocytes Percent Auto 3.6 % (2.6-8.5); Neutrophils Absolute Auto 22.7 K/mm3 (1.3-6.7); Neutrophils Percent Auto 93.1 % (45.5-73.1); Platelet Count Result 446 k/mm3 (150-375); Red Blood Count 4.27 M/mm3 (4.6-6.20); Red Cell Distribution Width 13.6 % (11.5-14.5); White Blood Count 24.4 K/mm3 (4.5-10.0)
[2019-08-02 04:52] LABS: Blood Urea Nitrogen 23 mg/dL (9-20); Calcium 7.9 mg/dL (8.4-10.2); Carbon Dioxide 35 mmol/L (22-30); Chloride 100 mmol/L (98-107); Estimated CRCL calculation 115 ml/min; Estimated Glomerular Filt Rate > 60; Glucose 171 mg/dL (75-110); Potassium 4.4 mmol/L (3.4-5.0); Sodium 140 mmol/L (137-145)
[2019-08-02] MEDS: GABAPENTIN 100 MG CAPSULE XX ×2 (05:06→21:33)
[2019-08-02] MEDS: ACETAMINOPHEN ELIXIR 325 MG/10.15 ML UDC 650 MG FEED TUBE (05:07)
[2019-08-02] MEDS: DORNASE ALFA INH SOLN 1 MG/ML 2.5 ML AMP 2.5 MG INHALATION (07:33)
[2019-08-02] MEDS: predniSONE 10 MG TABLET 30 MG FEED TUBE (09:30)
[2019-08-02] MEDS: ASPIRIN 81 MG CHEWABLE TABLET FEED TUBE (09:30)
[2019-08-02] MEDS: AMIODARONE HCL 200 MG TABLET 400 MG PO (09:31)
[2019-08-02] MEDS: PANTOPRAZOLE SODIUM IV 40 MG VIAL IV PUSH (09:32)
[2019-08-02] MEDS: lisinopriL 20 MG TABLET FEED TUBE (09:32)
[2019-08-02] MEDS: METOPROLOL TARTRATE 50 MG TAB PO (09:32)
[2019-08-02] MEDS: APIXABAN 5 MG TABLET FEED TUBE ×2 (09:32→21:32)
--- NOTE | 2019-08-02 10:55 | PM.PNCARD ---
Progress Note: A&P Additional Plan 69-year-old patient with paroxysmal atrial fibrillation appears to have converted to sinus rhythm with amiodarone treatment and is doing well from that respect. Pneumonia is radiographically concerning with whiteout of the left hemithorax. Pulmonology involved, potential candidate for bronchoscopy Will continue to follow his cardiac status/rhythm while he is in the hospital Time Spent With Patient Time with patient: less than 15 minutes Subjective Date/time seen: Date of service: 08/02/19 10:55 Interval history: Follow-up visit for new onset of atrial fib which is persistent despite amiodarone treatment He continues to feel better. No cardiovascular symptoms. Above notes reviewed that the chest x-ray shows essentially white out of the left hemithorax. Exam Narrative: Exam Narrative: alert. No acute distress Const: General: comfortable, no acute distress and uncomfortable Other: High-flow nasal canula HENMT: General nose exam: Normal nares present Mouth: Yes moist mucous membranes Eyes: Sclera: sclerae normal Pupils: Equal, round and reactive pupils present Neck: Neck: supple and no JVD Thyroid: thyroid normal Chest: Other: no chest wall pain to palpation Resp: Auscultation: crackles, rhonchi and diminished lung sounds Other: Coarse rhonchorous breath sounds in both lung melgar, wheezing Cardio: Rate: regular rate Rhythm: regular rhythm Heart sounds: S1 normal heart sound present, S2 normal heart sound present and no murmurs Other: Irregularly irregular rhythm GI: Auscultation: normal bowel sounds Skin: General skin exam: normal color Neuro: Cranial nerves: Yes Equal, round and reactive pupils present and Yes Normal hearing present Cognition (Neuro): normal cognition Motor exam (neuro): 5/5 motor strength present throughout Sensory Exam: normal sensation Extrem: General: normal to inspection, no edema and no pedal edema Psych: Mental Status: mental status grossly normal Objective Data Vital Signs Vital Signs: Vital Signs - 24 hr 08/01/19 12:00 08/01/19 13:16 08/01/19 14:00 Temperature 35.7 C L Pulse Rate 63 63 63 Respiratory Rate 21 H 21 H Blood Pressure 167/75 H Pulse Oximetry 91 91 08/01/19 16:00 08/01/19 16:13 08/01/19 17:43 Temperature 37.0 C Pulse Rate 66 75 66 Respiratory Rate 21 H 20 20 Blood Pressure 164/78 H Pulse Oximetry 91 92 08/01/19 18:00 08/01/19 19:26 08/01/19 20:00 Temperature 37.1 C Pulse Rate 66 66 67 Respiratory Rate 24 H Blood Pressure 172/80 H Pulse Oximetry 95 08/01/19 20:41 08/01/19 20:42 08/01/19 20:57 Temperature Pulse Rate 63 77 84 Respiratory Rate 20 20 20 Blood Pressure Pulse Oximetry 92 08/01/19 21:43 08/01/19 21:46 08/01/19 22:00 Temperature Pulse Rate 69 69 66 Respiratory Rate Blood Pressure Pulse Oximetry 08/02/19 00:00 08/02/19 02:00 08/02/19 02:59 Temperature 36.1 C L Pulse Rate 61 63 71 Respiratory Rate 24 H 18 Blood Pressure 141/80 H Pulse Oximetry 94 08/02/19 03:08 08/02/19 04:00 08/02/19 05:54 Temperature 36.7 C Pulse Rate 76 61 67 Respiratory Rate 20 22 H Blood Pressure 165/78 H Pulse Oximetry 92 08/02/19 07:34 08/02/19 07:52 08/02/19 08:10 Temperature Pulse Rate 66 64 Respiratory Rate 20 20 Blood Pressure Pulse Oximetry 87 L 08/02/19 08:18 08/02/19 08:27 08/02/19 09:31 Temperature 36.5 C Pulse Rate 60 62 Respiratory Rate 16 Blood Pressure 158/77 H Pulse Oximetry 89 L 93 08/02/19 09:32 Temperature Pulse Rate 62 Respiratory Rate Blood Pressure Pulse Oximetry Intake/Output Intake/Output: Intake & Output 07/30/19 07/31/19 08/01/19 08/02/19 23:59 23:59 23:59 23:59 Intake Total 3420.5 1834 1687 861 Output Total 850 1250 1675 Balance 2570.5 584 12 861 Meds/Results Medications: Active Medications Generic Name Dose Route Start Last Admin Trade Name
--- NOTE | 2019-08-02 11:28 | PM.PNPUL ---
Progress Note: A&P Assessment and Plan (1) Acute respiratory failure with hypoxia: Code(s): J96.01 - Acute respiratory failure with hypoxia Status: Acute Assessment and Plan: He had a stroke recently, had peg placed for aspiration. He is not able to protect his airway. His says that his breathing deteriorated when he had a sedative and pain meds together last Sunday night and he has not recovered. Cornet setting 3 is being used to help with secretions, not as dry with increased fluids IV and through peg. Continue Pulmozyme for mucolytic effect, continue the Cornet on the higher setting. Getting lots of therapy. Will try to wean O2. He is on high flow at high settings, sometimes needs to be aggressively weaned to see if he can tolerate lower flow. He has poor balance, needs more therapy as he is not able to walk unassisted. he is saturating 93% on the High Flow set up, 80% and 60L/min, and this can be weaned some. 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 (3) Atrial fibrillation with rapid ventricular response: Code(s): I48.91 - Unspecified atrial fibrillation Status: Acute Assessment and Plan: converted to sinus last night. Subjective Date/time seen: 08/02/19 11:28 THis 69 yo man is still having left sided atelectasis without improvement using CPT, Pulmozyme, vibratory vest and Cornet valve. His Yuko is aware and agrees with plans to perform bronchoscopy to remove secretions. Will plan to move him to the ICU, intubate, and plan to extubate when completed. Review of Systems Review of Systems: All systems reviewed & are unremarkable except as noted in HPI and below Exam Narrative: Exam Narrative: This 69 yo man is reclining in bed in the left semi-lateral position. He is not able to help much as far as re-positioning himself. He is pale, voice is weak, phonation is not normal. He is alert, cooperative. Wearing high flow NA 50L/min and FiO2 80%. Sat is 94-95%. Const: General: no acute distress HENMT: Mouth: Yes Abnormal oral and palatal mucosa present (dry mucosa with thick saliva. Could not see the oropharynx.) Eyes: Pupils: Equal, round and reactive pupils present Neck: Neck: no JVD Lymphatic: lymphadenopathy not noted Resp: Other: He has symmetric excursion; harsh rhonchi bilaterally. No wheezes. Decreased breath sounds in the bases. I was not able to get a full exam of the posterior chest as he was lying tilted to the right, and I could not access the entire right posterior chest wall. Cardio: Rate: tachycardic (105 rate) Rhythm: regular rhythm GI: Other: G-tube in place, nonditended abdomen. Skin: General skin exam: normal color Neuro: Cranial nerves: Yes Equal, round and reactive pupils present Extrem: General: normal to inspection Psych: Affect: normal affect Objective Data Vital Signs Vital Signs: Vital Signs - 24 hr 08/01/19 12:00 08/01/19 13:16 08/01/19 14:00 Temperature 35.7 C L Pulse Rate 63 63 63 Respiratory Rate 21 H 21 H Blood Pressure 167/75 H Pulse Oximetry 91 91 08/01/19 16:00 08/01/19 16:13 08/01/19 17:43 Temperature 37.0 C Pulse Rate 66 75 66 Respiratory Rate 21 H 20 20 Blood Pressure 164/78 H Pulse Oximetry 91 92 08/01/19 18:00 08/01/19 19:26 08/01/19 20:00 Temperature 37.1 C Pulse Rate 66 66 67 Respiratory Rate 24 H Blood Pressure 172/80 H Pulse O
[2019-08-02] MEDS: RAPID SEQUENCE INTUBATION KIT 1 EACH (12:07)
--- NOTE | 2019-08-02 12:08 | PC.NURSE ---
This patient, Mathew Venegas, was transferred to ICU-10 on 08/02/19 at 1208. Personal belongings sent with patient. Belongings list checked and signed with receiving RN. Report given to JOSUE Hutson. Appropriate documentation sent with patient.
--- NOTE | 2019-08-02 12:09 | PM.IMPN ---
Progress Note: A&P Assessment and Plan (1) Acute respiratory failure with hypoxia: Code(s): J96.01 - Acute respiratory failure with hypoxia Status: Acute Assessment and Plan: due to multifocal pneumonia on high flow cannula L weaning as possible recheck cxr today 08/12 still white out of left lung, Pul to bronch today (2) Pneumonia: Qualifiers: Pneumonia type: due to unspecified organism Laterality: unspecified laterality Lung location: unspecified part of lung Qualified Code(s): J18.9 - Pneumonia, unspecified organism Code(s): J18.9 - Pneumonia, unspecified organism Status: Acute Assessment and Plan: likely aspiration may be having ongoing episodes, perhaps silent, that are delaying his recovery finished 10 days zosyn 07/31 and continue prednisone pulmonology input appreciated repeat chest xray today as above (3) Atrial fibrillation with rapid ventricular response: Code(s): I48.91 - Unspecified atrial fibrillation Status: Acute Assessment and Plan: Continue amiodarone Continue metoprolol 07/28 rate 07/30 back to SR (4) Renal failure, acute: Qualifiers: Acute renal failure type: unspecified Qualified Code(s): N17.9 - Acute kidney failure, unspecified Code(s): N17.9 - Acute kidney failure, unspecified Status: Acute Assessment and Plan: resolved (5) CVA (cerebral vascular accident): Qualifiers: CVA mechanism: thrombosis Precerebral and cerebral artery: vertebral artery Laterality of affected vessel: right Qualified Code(s): 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 Aspirin, statin, and antihypertensive speech rx (6) Hypertension: Qualifiers: Hypertension type: essential hypertension Qualified Code(s): I10 - Essential (primary) hypertension Code(s): I10 - Essential (primary) hypertension Status: Acute Assessment and Plan: Metoprolol and with creatinine down restarted lisinopril 07/29 and will increase to 20 mg 07/31 bp still a little high . Monitor Subjective Date/time seen: 08/02/19 12:09 Interval history: date of visit 08/02 Comfortable. No dyspnea at rest but more hypoxic. No new c/o. Denied CP, Abd pain, n/v, diarrhea, bleeding. HR 62 and no cardiac complaints Exam Narrative: Exam Narrative: Bp 160/90 P 62 sat 88-90 on high flow HEENT: EOMI, PERRL, NECK: No JVD CHEST: Coarse BS especially left with crackles and some decreased BS left hemithorax HEART: NL S1/S2, regular, no murmur ABDOMEN: BS+, soft, nontender, no mass, no bruits EXTREMITIES: No cyanosis 1+ edema, right arm still slightly warm betu less edema NEUROLOGIC: CN intact and symmetric to inspection. Objective Data Vital Signs Vital Signs: Vital Signs - 24 hr 08/01/19 13:16 08/01/19 14:00 08/01/19 16:00 Temperature 35.7 C L Pulse Rate 63 63 66 Respiratory Rate 21 H 21 H Blood Pressure 167/75 H Pulse Oximetry 91 91 08/01/19 16:13 08/01/19 17:43 08/01/19 18:00 Temperature 37.0 C Pulse Rate 75 66 66 Respiratory Rate 20 20 Blood Pressure 164/78 H Pulse Oximetry 92 08/01/19 19:26 08/01/19 20:00 08/01/19 20:41 Temperature 37.1 C Pulse Rate 66 67 63 Respiratory Rate 24 H 20 Blood Pressure 172/80 H Pulse Oximetry 95 92 08/01/19 20:42 08/01/19 20:57 08/01/19 21:43 Temperature Pulse Rate 77 84 69 Respiratory Rate 20 20 Blood Pressure Pulse Oximetry 08/01/19 21:46 08/01/19 22:00 08/02/19 00:00 Temperature 36.1 C L Pulse Rate 69 66 61 Respiratory Rate 24 H Blood Pressure 141/80 H Pulse Oximetry 94 08/02/19 02:00 08/02/19 02:59 08/02/19 03:08 Temperature Pulse Rate 63 71 76 Respiratory Rate 18 20 Blood Pressure Pulse Oximetry 08/02/19 04
[2019-08-02] MEDS: PROPOFOL IV EMULSION 100 ML 14.5 MG IV CONT (12:30)
--- NOTE | 2019-08-02 12:30 | P.PCNBED_ITS ---
Procedures Intubation: Intubation Date: 08/02/19 Intubation Time: 12:24 A pre- procedural Time-Out was completed immediately before starting the procedure and confirmed: Patient Identification, Site, Procedure, Patient Position and the Availability of Requisite Equipment: Yes Sedative: etomidate Paralytic: succinylcholine Laryngoscope: fiber optic video scope Assist device used: fiber optic device ET tube size: 8 Tube secured depth (cm): 23 Tube secured location: lips Tube placement confirmation: visualized tube passing through cords, equal breath sounds bilaterally and confirmation by capnometry Patient tolerated procedure: well Intubation complications: none
--- NOTE | 2019-08-02 12:33 | WPDINTPN ---
Progress Note: A&P Assessment and Plan (1) Acute respiratory failure with hypoxia: Code(s): J96.01 - Acute respiratory failure with hypoxia Status: Acute Assessment and Plan: patient was transferred to intermediate unit to ICU for left lung collapse, hypoxic respiratory failure, on high-flow nasal cannula at 90% FiO2 - discussed with rolled seat trimmer, bronchoscopy planned and patient was intubated For the procedure - bronchoscopy showed thick secretions, erythema and swelling of the airway was noted. - Secretions were thick which was suctioned out and we sent for culture. - Sedation with propofol at this time. Patient is more bradycardic or hypotensive will switch to fentanyl and Versed (2) Collapse of left lung: Code(s): J98.11 - Atelectasis Status: Acute Assessment and Plan: status post bronchoscopy. Please review bronchoscopy note per rolled seat trimmer - continue chest percussion therapy, Mucomyst Nebs, Pulmozyme, bronchodilators - will repeat chest x-ray in a.m., may require another bronch if left lung does not open up (3) Pneumonia: Qualifiers: Laterality: unspecified laterality Lung location: unspecified part of lung Pneumonia type: due to unspecified organism Qualified Code(s): J18.9 - Pneumonia, unspecified organism Code(s): J18.9 - Pneumonia, unspecified organism Status: Acute Assessment and Plan: patient has been treated with Zosyn for 10 days for presumed aspiration pneumonia - prolactin has been elevated, neutrophils of 93% - given the thick secretions on bronchoscopy, discussed with pulmonology, it will be a good idea to place him on cefepime and vancomycin, will deescalate after BAL cultures are reported (4) CVA (cerebral vascular accident): Qualifiers: CVA mechanism: thrombosis Laterality of affected vessel: right Precerebral and cerebral artery: vertebral artery Qualified Code(s): 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) - patient require rehab at some point (5) Hypertension: Qualifiers: Hypertension type: essential hypertension Qualified Code(s): I10 - Essential (primary) hypertension Code(s): I10 - Essential (primary) hypertension Status: Acute Assessment and Plan: patient essential hypertension, blood pressure is currently stable on sedation, will continue to monitor (6) Dietary surveillance and counseling: Code(s): Z71.3 - Dietary counseling and surveillance Status: Acute Assessment and Plan: will restart tube feeds (7) Atrial fibrillation: Qualifiers: Atrial fibrillation type: unspecified Qualified Code(s): I48.91 - Unspecified atrial fibrillation Code(s): I48.91 - Unspecified atrial fibrillation Status: Acute Assessment and Plan: patient amiodarone, metoprolol and Eliquis - continue amiodarone, will hold metoprolol as patient is bradycardic in the 50s likely related to propofol. (8) DVT prophylaxis: Code(s): Z29.9 - Encounter for prophylactic measures, unspecified Status: Acute Assessment and Plan: patient on Eliquis Additional Plan Discussed with patient's , updated her with patient's condition and plan of care. I updated her with the bronchoscopy results, she is aware that the patient will remain intubated, will repeat ches x-ray in a.m. and if left lung does not open he may require another bronchoscopy code status: Full code Critical care time spent: 56 minutes Due to a high probability of clinically significant, life threatening deterioration, the patient required my highest level of preparedness to intervene emerge
[2019-08-02] MEDS: ACETYLCYSTEINE 20% INHAL SOLN 800 MG/4 ML VIAL 200 MG INHALATION (12:53)
--- NOTE | 2019-08-02 12:58 | PCPTNOTE ---
The patient treatment was not able to be completed on 08/02/19 due to decline in status and place on ventilator. Will plan to continue treatment per plan of care.
--- NOTE | 2019-08-02 13:57 | PM.OP ---
Procedure Note - Brief Procedure Note - Brief Date of procedure: 08/02/19 Pre-op diagnosis: Acute respiratory failure Surgeon: Bronchoscopy Dr. Padilla intubated the patient for hypoxemia and need for bronchoscopy for left lung atelectasis. Yuko signed consent; risks including low O2 saturation, arrhythmia, bleeding discussed and she agreed to proceed with allowing the bronchoscopy. Time Out performed. Start time 12:45 pm End time 13:09. Bronchoscope was inserted through the ETT. Sedation was Propofol at 50 mcg/minute. The left mainstem bronchus was occluded with thick white secretions which were tenacious, and had to be flushed from the channel of the scope by removing it from the ETT. After several repetitions of taking the scope out to flush the channel, I was able to flush through the channel and suction, removing some secretions through the scope. The airway was inflamed after removing secretions. All the orifices were patent however secretions were still present. I flushed Mucomyst 20%, 1 ml mixed with 5 ml of saline into these segments; Left upper lobe bronchus, superior segment of the LLL, LLL bronchus x 2. The Mucomyst thinned the secretions and allowed more to be suctioned. He had a total of 120 ml of saline used as bronch wash. Specimens were sent to the lab. The patient tolerated the procedure, however was not able to be extubated due to the large amount of secretions and need for ventilator support. He desaturated after the procedure, required having his head of the bed elevated and FiO2 increased to 100% temporarily. CXR was obtained after the procedure, showing improved but persistent collapse. There was minimally more aeration in the LLL with air bronchograms seen. All the segments were patent when the procedure ended. Will plan to continue Pulmozyme Q 12 hours., and levalbuterol, ipratropium followed by Mucomsyt at noon, 16:00, midnight and 4:00 am. Maureen Mesa MD
--- NOTE | 2019-08-02 14:06 | SUR.OPER ---
120 ml Normal saline given intrabronchial. 137 ml out via specimen containter.
--- NOTE | 2019-08-02 14:26 | PCOTNOTE ---
Attempted to see patient but was advised by RN that patient needed to be placed on hold for therapy due to declined medical status.
[2019-08-02 14:49] LABS: Alveolar/Arterial O2 Gradient 519.4 mmHg; Base Excess ABG 5.5 mEq/l (+/-2.0); Fractional Inspired Oxygen 90 %; HCO3 ABG 28.6 mEq/l (22.0-26.0); Oxygen Content ABG 16.9 %vol (16.0-22.0); Oxygen Saturation ABG 97.2 % (95.0-100.0); Oxyhemoglobin 95.6 % THb (90.0-100.0); PCO2 ABG 36.8 mmHg (35.0-45.0); PO2 ABG 84.6 mmHg (80.0-100.0); PO2 FiO2 Ratio Arterial Blood 0.94 %; Total Hemoglobin 12.5 g/dL (12.0-18.0); pH ABG 7.509 (7.350-7.450)
[2019-08-02 14:54] LABS: Device VENTILATOR; Modified Allen's Test Pass; Site Drawn LEFT RADIAL
[2019-08-02 14:55] LABS: Arterial Blood Gas PEEP 8 cmH2O; Arterial Blood Gas Tidal Volume 500 ml; Arterial Blood Gas Vent Mode CMV; Arterial Blood Gas Ventilator rate 18 /MIN
--- NOTE | 2019-08-02 16:08 | PC.NURSE ---
Pt to room icu 10 to be intubated for bronch per dr islas. Pt intubated by dr anaya at 1219. 30 Etomidate and 100 succinylcholine given. Propofol drip ordered. Per md start drip at 10mcg/kg/min. Bronchoscopy procedure started by dr. islas. Requests propofol bolus of 10mg iv be given and turn drip up to 50mcg/kg/min. Titrated down to 15mg/kg/min after procedure.
--- NOTE | 2019-08-02 16:14 | PCSTNOTE ---
ST attempted this date but pt is intubated until possibly Sunday.
--- NOTE | 2019-08-02 16:25 | PCRCNOTE ---
Window of time for administration has passed. See next scheduled administration.
[2019-08-02 17:10] LABS: Appearance Bronchial Fluid Cloudy; Color Bronchial Fluid Colorless; Monocytes Bronchial Fluid 1 %; Neutrophils Bronchial Fluid 98 %; Source Bronchial Fluid Bronchial Washings
[2019-08-02 17:11] LABS: Macrophages Bronchial Fluid 1
[2019-08-02] MEDS: PROPOFOL IV EMULSION 100 ML 7.3 MG IV CONT (19:59)
[2019-08-02] MEDS: ATORVASTATIN 40 MG TABLET FEED TUBE (21:33)
[2019-08-03] VITALS (33 sets, daily range): BP systolic 103–134; BP diastolic 59–80; PULSE 53–91; RESP 14–28; TEMP 36.4–37.1; O2SAT 91–99
[2019-08-03] MEDS: LEVALBUTEROL NEB 1.25 MG/3 ML 0.63 MG INHALATION ×4 (00:24→15:36)
[2019-08-03] MEDS: IPRATROPIUM BR 0.02% INH SOLN 0.5 MG/2.5 ML VIAL INHALATION ×4 (00:25→15:35)
[2019-08-03] MEDS: DORNASE ALFA INH SOLN 1 MG/ML 2.5 ML AMP 2.5 MG INHALATION ×3 (00:25→19:58)
[2019-08-03 04:19] LABS: Alveolar/Arterial O2 Gradient 477.6 mmHg; Base Excess ABG 2.8 mEq/l (+/-2.0); Carboxyhemoglobin 0.3 % THb (0-2.0); Fractional Inspired Oxygen 80 %; HCO3 ABG 25.4 mEq/l (22.0-26.0); Methemoglobin ABG 0.4 %THb (0-1.5); Oxygen Content ABG 15.2 %vol (16.0-22.0); Oxygen Saturation ABG 92.9 % (95.0-100.0); Oxyhemoglobin 90.7 % THb (90.0-100.0); PCO2 ABG 32.7 mmHg (35.0-45.0); PO2 ABG 58.5 mmHg (80.0-100.0); PO2 FiO2 Ratio Arterial Blood 0.73 %; Reduced Hemoglobin 8.6 %THb (0-5.0); Total Hemoglobin 11.9 g/dL (12.0-18.0); pH ABG 7.509 (7.350-7.450)
[2019-08-03 04:20] LABS: Site Drawn RIGHT RADIAL
[2019-08-03 04:21] LABS: Arterial Blood Gas PEEP 8 cmH2O; Arterial Blood Gas Vent Mode CMV; Arterial Blood Gas Ventilator rate 16 /MIN; Device VENTILATOR; Modified Allen's Test Pass
[2019-08-03 04:22] LABS: Arterial Blood Gas Tidal Volume 500 ml
[2019-08-03] MEDS: ACETYLCYSTEINE 20% INHAL SOLN 800 MG/4 ML VIAL 200 MG XX ×4 (04:33→15:35)
[2019-08-03] MEDS: GABAPENTIN 100 MG CAPSULE XX ×3 (05:15→21:17)
[2019-08-03] MEDS: PROPOFOL IV EMULSION 100 ML 10.9 MG IV CONT (08:53)
[2019-08-03] MEDS: AMIODARONE HCL 200 MG TABLET 400 MG PO ×2 (08:54→20:09)
[2019-08-03] MEDS: predniSONE 20 MG TABLET PO (08:54)
[2019-08-03] MEDS: PANTOPRAZOLE SODIUM IV 40 MG VIAL IV PUSH (08:55)
[2019-08-03] MEDS: APIXABAN 5 MG TABLET FEED TUBE ×2 (08:55→20:11)
[2019-08-03] MEDS: ASPIRIN 81 MG CHEWABLE TABLET FEED TUBE (11:09)
[2019-08-03] MEDS: ONDANSETRON INJ 4 MG/2 ML VIAL IV PUSH (11:29)
--- NOTE | 2019-08-03 12:16 | WPDINTPN ---
Progress Note: A&P Assessment and Plan (1) Acute respiratory failure with hypoxia: Code(s): J96.01 - Acute respiratory failure with hypoxia Status: Acute Assessment and Plan: on 08/02/2019 patient was transferred from intermediate unit to ICU for left lung collapse, hypoxic respiratory failure, on high-flow nasal cannula at 90% FiO2 and was intubated on the same day, patient also had a bronchoscopy on the same day which showed thick secretions, erythema and swelling of the airway was noted. Cultures were obtained - Sedation with propofol at this time, patient is awake, nods to questions and follows simple commands. (2) Collapse of left lung: Code(s): J98.11 - Atelectasis Status: Acute Assessment and Plan: status post bronchoscopy. Please review bronchoscopy note per field engineer - continue chest percussion therapy, Mucomyst Nebs, Pulmozyme, bronchodilators - Chest x-ray showed mild re-expansion of left upper lung zones (3) Pneumonia: Qualifiers: Pneumonia type: due to unspecified organism Laterality: unspecified laterality Lung location: unspecified part of lung Qualified Code(s): J18.9 - Pneumonia, unspecified organism Code(s): J18.9 - Pneumonia, unspecified organism Status: Acute Assessment and Plan: patient has been treated with Zosyn for 10 days for presumed aspiration pneumonia - prolactin has been elevated, neutrophils of 93% - given the thick secretions on bronchoscopy, discussed with pulmonology, it will be a good idea to place him on cefepime and vancomycin, will deescalate after BAL cultures are reported - leukocytosis improving (4) CVA (cerebral vascular accident): Qualifiers: CVA mechanism: thrombosis Precerebral and cerebral artery: vertebral artery Laterality of affected vessel: right Qualified Code(s): 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) - patient will require rehab at some point (5) Hypertension: Qualifiers: Hypertension type: essential hypertension Qualified Code(s): I10 - Essential (primary) hypertension Code(s): I10 - Essential (primary) hypertension Status: Acute Assessment and Plan: patient essential hypertension, blood pressure is currently stable on sedation, will continue to monitor (6) Dietary surveillance and counseling: Code(s): Z71.3 - Dietary counseling and surveillance Status: Acute Assessment and Plan: will restart tube feeds (7) Atrial fibrillation: Qualifiers: Atrial fibrillation type: unspecified Qualified Code(s): I48.91 - Unspecified atrial fibrillation Code(s): I48.91 - Unspecified atrial fibrillation Status: Acute Assessment and Plan: patient amiodarone, metoprolol and Eliquis - continue amiodarone, will hold metoprolol as blood pressure borderline and patient is bradycardic (8) DVT prophylaxis: Code(s): Z29.9 - Encounter for prophylactic measures, unspecified Status: Acute Assessment and Plan: patient on Eliquis Additional Plan Discussed with patient's , updated her with patient's condition and plan of care. I answered all questions, I also discussed and convey the x-ray is from yesterday and today. code status: Full code Critical care time spent: 35 minutes Due to a high probability of clinically significant, life threatening deterioration, the patient required my highest level of preparedness to intervene emergently and I personally spent this critical care time directly and personally managing the patient. This critical care time included obtaining a history; examining the patient; pulse oxim
--- NOTE | 2019-08-03 13:22 | PM.PNCARD ---
Progress Note: A&P Additional Plan Atrial fibrillation in the setting of pneumonia, respiratory distress patient has converted to sinus rhythm with amiodarone and maintains sinus rhythm at this time Hopefully following bronchoscopy and with ventilation/aeration of the left lung respiratory status will now improved and recovery will be more effective. For now amiodarone should be continued Time Spent With Patient Time with patient: less than 15 minutes Subjective Date/time seen: Date of service: 08/03/19 13:22 Interval history: Follow-up visit for new onset of atrial fib which is persistent despite amiodarone treatment Patient brought ICU yesterday, intubated and underwent bronchoscopy removing extensive mucus plugging from the left long. Left lung radiographically is now aerated. Still intubated with expectation for attempted extubation later today Objective Data Vital Signs Vital Signs: Vital Signs - 24 hr 08/02/19 13:40 08/02/19 14:00 08/02/19 15:00 Temperature Pulse Rate 57 L 56 L 54 L Respiratory Rate Blood Pressure Pulse Oximetry 94 97 08/02/19 15:01 08/02/19 15:10 08/02/19 16:00 Temperature Pulse Rate 55 L 55 L 59 L Respiratory Rate 16 16 16 Blood Pressure 110/71 Pulse Oximetry 100 08/02/19 16:31 08/02/19 17:55 08/02/19 18:00 Temperature 37.2 C Pulse Rate 53 L 54 L Respiratory Rate 16 Blood Pressure 107/70 Pulse Oximetry 95 97 08/02/19 20:00 08/02/19 21:30 08/02/19 21:44 Temperature 36.6 C Pulse Rate 54 L 49 L 53 L Respiratory Rate 15 Blood Pressure 116/70 Pulse Oximetry 96 97 08/02/19 22:00 08/02/19 23:44 08/03/19 00:00 Temperature 36.9 C Pulse Rate 54 L 52 L 53 L Respiratory Rate 16 16 Blood Pressure 121/74 122/80 Pulse Oximetry 96 96 96 08/03/19 00:42 08/03/19 01:17 08/03/19 02:00 Temperature Pulse Rate 54 L 61 56 L Respiratory Rate 16 16 Blood Pressure 132/65 Pulse Oximetry 91 91 08/03/19 04:00 08/03/19 04:24 08/03/19 04:45 Temperature 37.1 C Pulse Rate 58 L 62 62 Respiratory Rate 20 16 Blood Pressure 121/77 Pulse Oximetry 95 92 08/03/19 04:47 08/03/19 04:48 08/03/19 06:00 Temperature Pulse Rate 61 64 56 L Respiratory Rate 16 16 16 Blood Pressure 134/77 Pulse Oximetry 95 08/03/19 08:00 08/03/19 08:54 08/03/19 10:00 Temperature 36.7 C Pulse Rate 58 L 57 L 58 L Respiratory Rate 14 14 Blood Pressure 134/78 134/67 Pulse Oximetry 97 93 08/03/19 10:43 08/03/19 10:50 08/03/19 10:55 Temperature Pulse Rate 57 L 63 65 Respiratory Rate 15 28 H Blood Pressure Pulse Oximetry 96 08/03/19 12:00 08/03/19 12:52 Temperature Pulse Rate 59 L Respiratory Rate 14 16 Blood Pressure Pulse Oximetry 95 Intake/Output Intake/Output: Intake & Output 07/31/19 08/01/19 08/02/19 08/03/19 23:59 23:59 23:59 23:59 Intake Total 1834 1687 1561 650.0 Output Total 1250 1675 725 650 Balance 584 12 836 0 Meds/Results Medications: Active Medications Generic Name Dose Route Start Last Admin Trade Name Freq PRN Reason Stop Dose Admin Acetaminophen 650 mg 08/01/19 13:11 08/02/19 05:07 Tylenol Elixir FEED TUBE 650 mg Q6HR PRN Administration pain or fever Acetylcysteine 200 mg 08/03/19 00:00 08/03/19 12:57 Mucomyst 20% Inhal Soln XX 200 mg 0000,0400,1200,1600 LICHA Administration Amiodarone HCl 400 mg 07/30/19 10:30 08/03/19 08:54 Pacerone PO 400 mg Q12HR LICHA Administration Apixaban 5 mg 07/23/19 21:00 08/03/19 08:55 Eliquis FEED TUBE 5 mg Q12HR LICHA Administration Aspirin 81 mg 07/22/19 08:00 08/03/19 11:09 Aspirin Chewable FEED TUBE 81 mg DAILY@0800 [facility] Administration Atorvastatin Calcium 40 mg 07/22/19 21:00 08/02/19 21:33 Lipitor FEED TUBE 40 mg HS LICHA Administration Dornase Eleazar 2.5 mg 07/29/19 08:00 08/03/19 10:40 Pulmozyme INHALATION 2.5 mg Q12HRT LICHA Administration Gabapentin 100
[2019-08-03 15:15] LABS: Basophils Percent Auto 0.1 % (0.2-1.2); Eosinophils Absolute Auto 0.1 K/mm3 (0-0.3); Eosinophils Percent Auto 0.4 % (0-4.4); Hematocrit 34.6 % (42.0-52.0); Hemoglobin 10.7 g/dL (14.0-18.0); Immature Granulocyte Percent A 0.6 % (0-0.5); Lymphocytes Absolute Auto 0.32 K/mm3 (0.9-3.2); Mean Corpuscular HGB Conc 30.9 g/dl (32-36); Mean Corpuscular Hemoglobin 27.9 pg (26-34); Mean Corpuscular Volume 90.1 fl (80-100); Monocytes Absolute Auto 0.7 K/mm3 (0.1-0.6); Monocytes Percent Auto 4.5 % (2.6-8.5); Neutrophils Absolute Auto 14.7 K/mm3 (1.3-6.7); Neutrophils Percent Auto 92.4 % (45.5-73.1); Platelet Count Result 408 k/mm3 (150-375); Red Blood Count 3.84 M/mm3 (4.6-6.20); Red Cell Distribution Width 13.8 % (11.5-14.5); White Blood Count 15.9 K/mm3 (4.5-10.0)
[2019-08-03 15:28] LABS: Alanine Aminotransferase 77 U/L (4-50); Albumin Level 2.6 g/dL (3.5-5.1); Alkaline Phosphatase 63 U/L (38-126); Aspartate Amino Transferase 37 U/L (17-59); Bilirubin,Total 0.6 mg/dL (0.2-1.3); Blood Urea Nitrogen 26 mg/dL (9-20); Calcium 7.6 mg/dL (8.4-10.2); Carbon Dioxide 31 mmol/L (22-30); Chloride 98 mmol/L (98-107); Estimated CRCL calculation 98 ml/min; Estimated Glomerular Filt Rate > 60; Glucose 155 mg/dL (75-110); Lactic Acid 1.1 mmol/L (0.7-2.1); Magnesium 2.2 mg/dL (1.6-2.3); Phosphorus 3.8 mg/dL (2.5-4.5); Potassium 5.2 mmol/L (3.4-5.0); Sodium 135 mmol/L (137-145)
--- NOTE | 2019-08-03 15:51 | PM.IMPN ---
Progress Note: A&P Assessment and Plan (1) Acute respiratory failure with hypoxia: Code(s): J96.01 - Acute respiratory failure with hypoxia Status: Acute Assessment and Plan: due to multifocal pneumonia on high flow cannula L until 08/02 at which point intubated and bronched with copius thick secretions removed cxr and PE much better aeration left lung today after bronch, acetylcysteine and pulmozyme (2) Pneumonia: Qualifiers: Pneumonia type: due to unspecified organism Laterality: unspecified laterality Lung location: unspecified part of lung Qualified Code(s): J18.9 - Pneumonia, unspecified organism Code(s): J18.9 - Pneumonia, unspecified organism Status: Acute Assessment and Plan: likely aspiration may be having ongoing episodes, perhaps silent, that are delaying his recovery finished 10 days zosyn 07/31 and continue prednisonewith taper pulmonology bronched with mucous plug removal and started Vanc 08/02 (3) Atrial fibrillation with rapid ventricular response: Code(s): I48.91 - Unspecified atrial fibrillation Status: Acute Assessment and Plan: Continue amiodarone Continue metoprolol 07/28 rate 07/30 back to SR (4) Renal failure, acute: Qualifiers: Acute renal failure type: unspecified Qualified Code(s): N17.9 - Acute kidney failure, unspecified Code(s): N17.9 - Acute kidney failure, unspecified Status: Acute Assessment and Plan: resolved (5) CVA (cerebral vascular accident): Qualifiers: CVA mechanism: thrombosis Precerebral and cerebral artery: vertebral artery Laterality of affected vessel: right Qualified Code(s): 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 Aspirin, statin, and antihypertensive speech rx (6) Hypertension: Qualifiers: Hypertension type: essential hypertension Qualified Code(s): I10 - Essential (primary) hypertension Code(s): I10 - Essential (primary) hypertension Status: Acute Assessment and Plan: Metoprolol and with creatinine down restarted lisinopril 07/29 and increased to 20 mg 07/31 bp better . Monitor Subjective Date/time seen: 08/03/19 15:51 Interval history: date of visit 08/03 Comfortable now sedated on vent. follow up cxr after 10 days of antibiotics and increasing hypoxia 08/01 revealed left hemithorax opacifiaction intubated and bronched 08/02 when conservative measures were inaffective Exam Narrative: Exam Narrative: Bp 160/90 P 62 sat 88-90 on high flow HEENT: EOMI, PERRL, NECK: No JVD CHEST: Coarse BS and much better aeration left lung on auscultation HEART: NL S1/S2, regular, no murmur ABDOMEN: BS+, soft, nontender, no mass, no bruits EXTREMITIES: No cyanosis 1+ edema, right arm still slightly warm bet less edema NEUROLOGIC: sedated Objective Data Vital Signs Vital Signs: Vital Signs - 24 hr 08/02/19 16:00 08/02/19 16:31 08/02/19 17:55 Temperature 37.2 C Pulse Rate 59 L 53 L Respiratory Rate 16 Blood Pressure 110/71 Pulse Oximetry 100 95 08/02/19 18:00 08/02/19 20:00 08/02/19 21:30 Temperature 36.6 C Pulse Rate 54 L 54 L 49 L Respiratory Rate 16 15 Blood Pressure 107/70 116/70 Pulse Oximetry 97 96 08/02/19 21:44 08/02/19 22:00 08/02/19 23:44 Temperature Pulse Rate 53 L 54 L 52 L Respiratory Rate 16 Blood Pressure 121/74 Pulse Oximetry 97 96 96 08/03/19 00:00 08/03/19 00:42 08/03/19 01:17 Temperature 36.9 C Pulse Rate 53 L 54 L 61 Respiratory Rate 16 16 Blood Pressure 122/80 Pulse Oximetry 96 91 08/03/19 02:00 08/03/19 04:00 08/03/19 04:24 Temperature 37.1 C Pulse Rate 56 L 58 L 62 Respiratory Rate 16 20 Blood Pressure 132/65 121/77 Pulse Oximetry 91 95 92 08/03/19 04:45 08/03/19 04:47
[2019-08-03] MEDS: PROPOFOL IV EMULSION 100 ML 14.5 MG IV CONT (16:06)
[2019-08-03 16:18] LABS: Blood Urea Nitrogen 25 mg/dL (9-20); Calcium 7.8 mg/dL (8.4-10.2); Carbon Dioxide 30 mmol/L (22-30); Chloride 97 mmol/L (98-107); Estimated CRCL calculation 98 ml/min; Estimated Glomerular Filt Rate > 60; Glucose 158 mg/dL (75-110); Potassium 5.3 mmol/L (3.4-5.0); Sodium 135 mmol/L (137-145)
[2019-08-03] MEDS: DEXTROSE 50% 25 GM/50 ML SYRINGE IV PUSH (17:20)
[2019-08-03] MEDS: INSULIN HUMAN REGULAR (*BKC) 100 UNITS/ML 10 UNITS IV PUSH (17:20)
[2019-08-03] MEDS: SODIUM BICARBONATE 8.4% 50 MEQ/50 ML VIAL IV PUSH (17:20)
[2019-08-03] MEDS: ATORVASTATIN 40 MG TABLET FEED TUBE (20:07)
[2019-08-04] VITALS (34 sets, daily range): BP systolic 115–149; BP diastolic 58–86; PULSE 57–105; RESP 14–20; TEMP 36.4–37.4; O2SAT 93–100; BMI 30.2
[2019-08-04] MEDS: LEVALBUTEROL NEB 1.25 MG/3 ML 0.63 MG INHALATION ×5 (00:43→23:39)
[2019-08-04] MEDS: IPRATROPIUM BR 0.02% INH SOLN 0.5 MG/2.5 ML VIAL INHALATION ×5 (00:44→23:38)
[2019-08-04] MEDS: ACETYLCYSTEINE 20% INHAL SOLN 800 MG/4 ML VIAL 200 MG XX ×5 (01:07→23:38)
[2019-08-04 01:59] LABS: Vancomycin Trough 17.4 ug/mL (10.0-20.0)
[2019-08-04 04:36] LABS: Alveolar/Arterial O2 Gradient 379.8 mmHg; Base Excess ABG 5.3 mEq/l (+/-2.0); Carboxyhemoglobin 0.2 % THb (0-2.0); Fractional Inspired Oxygen 70 %; HCO3 ABG 29.1 mEq/l (22.0-26.0); Methemoglobin ABG 0.4 %THb (0-1.5); Oxygen Content ABG 15.5 %vol (16.0-22.0); Oxygen Saturation ABG 96.2 % (95.0-100.0); Oxyhemoglobin 93.9 % THb (90.0-100.0); PCO2 ABG 39.6 mmHg (35.0-45.0); PO2 ABG 76.7 mmHg (80.0-100.0); Reduced Hemoglobin 5.5 %THb (0-5.0); Total Hemoglobin 11.7 g/dL (12.0-18.0); pH ABG 7.484 (7.350-7.450)
[2019-08-04 04:37] LABS: Arterial Blood Gas PEEP 10 cmH2O; Arterial Blood Gas Tidal Volume 500 ml; Arterial Blood Gas Vent Mode CMV; Arterial Blood Gas Ventilator rate 14 /MIN; Device VENTILATOR; Modified Allen's Test Pass; Site Drawn RIGHT RADIAL
[2019-08-04] MEDS: PROPOFOL IV EMULSION 100 ML 14.5 MG IV CONT ×2 (05:38)
[2019-08-04] MEDS: GABAPENTIN 100 MG CAPSULE XX ×3 (05:40→21:03)
[2019-08-04 06:05] LABS: Basophils Percent Auto 0.1 % (0.2-1.2); Eosinophils Absolute Auto 0.2 K/mm3 (0-0.3); Eosinophils Percent Auto 1.3 % (0-4.4); Hematocrit 34.4 % (42.0-52.0); Hemoglobin 10.8 g/dL (14.0-18.0); Immature Granulocyte Absolute 0.11 K/mm3 (0.00-0.031); Immature Granulocyte Percent A 0.8 % (0-0.5); Lymphocytes Absolute Auto 1.12 K/mm3 (0.9-3.2); Lymphocytes Percent Auto 8.2 % (18.3-44.2); Mean Corpuscular HGB Conc 31.4 g/dl (32-36); Mean Corpuscular Hemoglobin 27.8 pg (26-34); Mean Corpuscular Volume 88.4 fl (80-100); Mean Platelet Volume 10.1 fl (7.4-10.4); Monocytes Percent Auto 6.9 % (2.6-8.5); Neutrophils Absolute Auto 11.4 K/mm3 (1.3-6.7); Neutrophils Percent Auto 82.7 % (45.5-73.1); Platelet Count Result 468 k/mm3 (150-375); Red Blood Count 3.89 M/mm3 (4.6-6.20); Red Cell Distribution Width 13.8 % (11.5-14.5); White Blood Count 13.7 K/mm3 (4.5-10.0)
[2019-08-04 06:14] LABS: Blood Urea Nitrogen 23 mg/dL (9-20); Calcium 7.9 mg/dL (8.4-10.2); Carbon Dioxide 30 mmol/L (22-30); Chloride 97 mmol/L (98-107); Estimated CRCL calculation 98 ml/min; Estimated Glomerular Filt Rate > 60; Glucose 133 mg/dL (75-110); Magnesium 2.2 mg/dL (1.6-2.3); Phosphorus 3.7 mg/dL (2.5-4.5); Potassium 4.6 mmol/L (3.4-5.0); Sodium 137 mmol/L (137-145)
[2019-08-04] MEDS: DORNASE ALFA INH SOLN 1 MG/ML 2.5 ML AMP 2.5 MG INHALATION ×2 (08:16→21:10)
[2019-08-04] MEDS: PANTOPRAZOLE SODIUM IV 40 MG VIAL IV PUSH (08:41)
[2019-08-04] MEDS: predniSONE 20 MG TABLET PO (08:41)
[2019-08-04] MEDS: APIXABAN 5 MG TABLET FEED TUBE ×2 (08:41→20:20)
[2019-08-04] MEDS: AMIODARONE HCL 200 MG TABLET 400 MG PO ×2 (08:41→20:21)
[2019-08-04] MEDS: ASPIRIN 81 MG CHEWABLE TABLET FEED TUBE (08:43)
--- NOTE | 2019-08-04 10:48 | PCDIET ---
ICU Rounding Note: Patient intubated. Jevity 1.5 advancing toward goal rate of 55mL/hr via PEG; currently at 40mL/hr with no significant residuals. Last recorded weight is 95.4kg which is significantly decreased. Recommend reweighing patient to ensure accuracy. Bowel Motility: Last documented bowel movement 08/01/19. Labs Reviewed: Glu (133), Alb (2.6), Yosvany Ca (9.02), Hgb (10.8), Hct (34.4) Meds Noted: Cefepime, Protonix, Prednisone, Vancomycin, Propofol at 14.5mL/hr (382kcal over 24 hour period). Additional Notes: Sacral ulcer documented. Recommend continuing to advance tube feeding toward goal. If Propofol continues and signs of excessive feeding should arise, will recommend adjustment in rate. Following daily in ICU rounds. Assessing/reassessing every Sunday/Sunday.
--- NOTE | 2019-08-04 11:24 | PM.PNCARD ---
Progress Note: A&P Assessment and Plan (1) Atrial fibrillation with rapid ventricular response: Code(s): I48.91 - Unspecified atrial fibrillation Status: Acute Assessment and Plan: Maintaining sinus rhythm. Beta-jacinto has been discontinued. Continue amiodarone and Eliquis. 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 (4) Dysphagia: Qualifiers: Dysphagia type: oral phase Qualified Code(s): R13.11 - Dysphagia, oral phase Code(s): R13.10 - Dysphagia, unspecified Status: Acute Assessment and Plan: Intubated at this time (5) Pneumonia: Qualifiers: Laterality: unspecified laterality Lung location: unspecified part of lung Pneumonia type: due to unspecified organism Qualified Code(s): J18.9 - Pneumonia, unspecified organism Code(s): J18.9 - Pneumonia, unspecified organism Status: Acute Assessment and Plan: Management per primary team Additional Plan Continue supportive care. Plan discussed with Dr. Lang 1130 08/04/2019 Subjective Date/time seen: 08/04/19 11:24 Interval history: Follow-up for: atrial fibrillation converted to normal sinus rhythm on amiodarone, extensive mucus plugging of the left lung Date of service: 08/04/2019 Subjective: Remains intubated but is awake and answering yes/no questions. Denied any pain. States breathing feels better. No abdominal pain. Review of Systems Review of Systems: ROS unobtainable: unobtainable due to endotracheal tube (Unable to obtain extensive review of systems) Exam Narrative: Exam Narrative: alert. No acute distress Const: General: cooperative, comfortable and no acute distress Other: Remains intubated. HENMT: Head: normal to inspection General nose exam: Normal external nose present Mouth: Yes moist mucous membranes Eyes: Sclera: sclerae normal Pupils: Equal, round and reactive pupils present Neck: Neck: supple and no JVD Chest: Other: no chest wall pain to palpation Resp: Auscultation: diminished lung sounds on the left in the lower lung melgar (To about 2/3 up) Cardio: Rate: regular rate Rhythm: regular rhythm Heart sounds: S1 normal heart sound present, S2 normal heart sound present and no murmurs GI: Auscultation: normal bowel sounds Skin: General skin exam: normal color Neuro: Cranial nerves: Yes Equal, round and reactive pupils present and Yes Normal hearing present Extrem: General: normal to inspection and no edema Psych: Mental Status: mental status grossly normal Objective Data Vital Signs Vital Signs: Vital Signs - 24 hr 08/03/19 12:00 08/03/19 12:15 08/03/19 12:52 Temperature 36.4 C Pulse Rate 59 L 63 59 L Respiratory Rate 14 16 Blood Pressure 127/79 Pulse Oximetry 94 96 08/03/19 13:05 08/03/19 14:00 08/03/19 15:38 Temperature Pulse Rate 63 63 60 Respiratory Rate 16 15 14 Blood Pressure 131/72 Pulse Oximetry 95 08/03/19 15:46 08/03/19 16:00 08/03/19 16:50 Temperature 36.4 C Pulse Rate 60 66 63 Respiratory Rate 14 15 Blood Pressure 122/67 Pulse Oximetry 93 96 08/03/19 18:00 08/03/19 20:00 08/03/19 20:05 Temperatu
--- NOTE | 2019-08-04 11:33 | WPDINTPN ---
Progress Note: A&P Assessment and Plan (1) Acute respiratory failure with hypoxia: Code(s): J96.01 - Acute respiratory failure with hypoxia Status: Acute Assessment and Plan: on 08/02/2019 patient was transferred from intermediate unit to ICU for left lung collapse, hypoxic respiratory failure, on high-flow nasal cannula at 90% FiO2 and was intubated on the same day, patient also had a bronchoscopy on the same day which showed thick secretions, erythema and swelling of the airway was noted. Cultures were obtained - Sedation with propofol at this time, patient is awake, nods to questions and follows simple commands. (2) Collapse of left lung: Code(s): J98.11 - Atelectasis Status: Acute Assessment and Plan: status post bronchoscopy. Please review bronchoscopy note per bench hand machine - continue chest percussion therapy, Mucomyst Nebs, Pulmozyme, bronchodilators - Chest x-ray showed Continued improvement in aeration of the left lung. - Appreciate pulmonology following the patient (3) Pneumonia: Qualifiers: Pneumonia type: due to unspecified organism Laterality: unspecified laterality Lung location: unspecified part of lung Qualified Code(s): J18.9 - Pneumonia, unspecified organism Code(s): J18.9 - Pneumonia, unspecified organism Status: Acute Assessment and Plan: patient has been treated with Zosyn for 10 days for presumed aspiration pneumonia - prolactin has been elevated, neutrophils of 93% - given the thick secretions on bronchoscopy, discussed with pulmonology, it will be a good idea to place him on cefepime and vancomycin, will deescalate after BAL cultures are reported which are pending - leukocytosis improving (4) CVA (cerebral vascular accident): Qualifiers: CVA mechanism: thrombosis Precerebral and cerebral artery: vertebral artery Laterality of affected vessel: right Qualified Code(s): 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) - patient will require rehab at some point (5) Hypertension: Qualifiers: Hypertension type: essential hypertension Qualified Code(s): I10 - Essential (primary) hypertension Code(s): I10 - Essential (primary) hypertension Status: Acute Assessment and Plan: patient essential hypertension, blood pressure is currently stable on sedation, will continue to monitor (6) Dietary surveillance and counseling: Code(s): Z71.3 - Dietary counseling and surveillance Status: Acute Assessment and Plan: tolerating tube feeds, added MiraLax as patient has not had a bowel movement since 08/01 (7) Atrial fibrillation: Qualifiers: Atrial fibrillation type: unspecified Qualified Code(s): I48.91 - Unspecified atrial fibrillation Code(s): I48.91 - Unspecified atrial fibrillation Status: Acute Assessment and Plan: patient amiodarone, metoprolol and Eliquis - continue amiodarone, (8) DVT prophylaxis: Code(s): Z29.9 - Encounter for prophylactic measures, unspecified Status: Acute Assessment and Plan: patient on Eliquis Additional Plan Discussed with patient's , updated her with patient's condition and plan of care. I answered all questions, I showed the the chest x-ray code status: Full code Critical care time spent: 33 minutes Due to a high probability of clinically significant, life threatening deterioration, the patient required my highest level of preparedness to intervene emergently and I personally spent this critical care time directly and personally managing the patient. This critical care time included obtaining a history
[2019-08-04] MEDS: PROPOFOL IV EMULSION 100 ML 18.2 MG IV CONT ×3 (11:54→22:03)
[2019-08-04] MEDS: SILVERGEL (ELTA) 45 ML 1 APPLIC TOPICAL (11:56)
[2019-08-04] MEDS: polyethylene glycoL 3350 17 GM POWD.PACK PO (11:56)
--- NOTE | 2019-08-04 13:26 | PCSTNOTE ---
The patient treatment was not able to be completed on 08/04/19 due to intubation. Will plan to continue treatment per plan of care.
--- NOTE | 2019-08-04 17:10 | PM.IMPN ---
Progress Note: A&P Assessment and Plan (1) Acute respiratory failure with hypoxia: Code(s): J96.01 - Acute respiratory failure with hypoxia Status: Acute Assessment and Plan: due to multifocal pneumonia on high flow cannula L until 08/02 at which point intubated and bronched with copius thick secretions removed cxr and PExam much better aeration left lung after bronch, acetylcysteine and pulmozyme (2) Pneumonia: Qualifiers: Pneumonia type: due to unspecified organism Laterality: unspecified laterality Lung location: unspecified part of lung Qualified Code(s): J18.9 - Pneumonia, unspecified organism Code(s): J18.9 - Pneumonia, unspecified organism Status: Acute Assessment and Plan: likely aspiration may be having ongoing episodes, perhaps silent, that are delaying his recovery finished 10 days zosyn 07/31 and continue prednisonewith taper pulmonology bronched with mucous plug removal and started Vanc 08/02 along with cefepime 08/04 (3) Atrial fibrillation with rapid ventricular response: Code(s): I48.91 - Unspecified atrial fibrillation Status: Acute Assessment and Plan: Continue amiodarone metoprolol on hold 07/28 rate controlled 07/30 back to SR (4) Renal failure, acute: Qualifiers: Acute renal failure type: unspecified Qualified Code(s): N17.9 - Acute kidney failure, unspecified Code(s): N17.9 - Acute kidney failure, unspecified Status: Acute Assessment and Plan: resolved (5) CVA (cerebral vascular accident): Qualifiers: CVA mechanism: thrombosis Precerebral and cerebral artery: vertebral artery Laterality of affected vessel: right Qualified Code(s): 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 Aspirin, statin, and antihypertensive speech rx (6) Hypertension: Qualifiers: Hypertension type: essential hypertension Qualified Code(s): I10 - Essential (primary) hypertension Code(s): I10 - Essential (primary) hypertension Status: Acute Assessment and Plan: Metoprolol on hold and with creatinine down restarted lisinopril 07/29 and increased to 20 mg 07/31 bp better . Monitor Subjective Date/time seen: 08/04/19 17:10 Interval history: date of visit 08/04 Comfortable now sedated on vent. follow up cxr after 10 days of antibiotics and increasing hypoxia 08/01 revealed left hemithorax opacifiaction intubated and bronched 08/02 when conservative measures were inaffective. Continues to improve and alert with no neurological deficits when off sedation Exam Narrative: Exam Narrative: Bp 134/66 P 62 sat 98% on FiO2 of 70 HEENT: EOMI, PERRL, NECK: No JVD CHEST: Coarse BS and much better aeration left lung on auscultation HEART: NL S1/S2, regular, no murmur ABDOMEN: BS+, soft, nontender, no mass, no bruits EXTREMITIES: No cyanosis 1+ edema, right arm still slightly warm bet less edema NEUROLOGIC: sedated Objective Data Vital Signs Vital Signs: Vital Signs - 24 hr 08/03/19 18:00 08/03/19 20:00 08/03/19 20:05 Temperature 36.9 C Pulse Rate 62 61 60 Respiratory Rate 15 14 Blood Pressure 120/65 103/59 L Pulse Oximetry 92 96 97 08/03/19 20:09 08/03/19 20:13 08/03/19 20:23 Temperature Pulse Rate 62 60 60 Respiratory Rate 14 14 Blood Pressure Pulse Oximetry 08/03/19 22:00 08/03/19 23:05 08/04/19 00:00 Temperature 37.0 C Pulse Rate 57 L 56 L 57 L Respiratory Rate 14 14 Blood Pressure 114/65 116/67 Pulse Oximetry 95 97 96 08/04/19 00:50 08/04/19 01:05 08/04/19 02:00 Temperature Pulse Rate 63 63 63 Respiratory Rate 14 14 15 Blood Pressure 127/65 Pulse Oximetry 93 08/04/19 04:00 08/04/19 04:53 08/04/19 05:05 Temperature 36.8 C Pulse Rate 67 67 72 Respiratory Ra
--- NOTE | 2019-08-04 19:57 | PM.PNPUL ---
Progress Note: A&P Assessment and Plan (1) Acute respiratory failure with hypoxia: Code(s): J96.01 - Acute respiratory failure with hypoxia Status: Acute Subjective Date/time seen: 08/04/19 19:57 67 Review of Systems Review of Systems: ROS unobtainable: unobtainable due to endotracheal tube Objective Data Vital Signs Vital Signs: Vital Signs - 24 hr 08/03/19 20:00 08/03/19 20:05 08/03/19 20:09 Temperature 36.9 C Pulse Rate 61 60 62 Respiratory Rate 14 Blood Pressure 103/59 L Pulse Oximetry 96 97 08/03/19 20:13 08/03/19 20:23 08/03/19 22:00 Temperature Pulse Rate 60 60 57 L Respiratory Rate 14 14 14 Blood Pressure 114/65 Pulse Oximetry 95 08/03/19 23:05 08/04/19 00:00 08/04/19 00:50 Temperature 37.0 C Pulse Rate 56 L 57 L 63 Respiratory Rate 14 14 Blood Pressure 116/67 Pulse Oximetry 97 96 08/04/19 01:05 08/04/19 02:00 08/04/19 04:00 Temperature 36.8 C Pulse Rate 63 63 67 Respiratory Rate 14 15 14 Blood Pressure 127/65 119/71 Pulse Oximetry 93 96 08/04/19 04:53 08/04/19 05:05 08/04/19 05:07 Temperature Pulse Rate 67 72 67 Respiratory Rate 14 14 Blood Pressure Pulse Oximetry 99 08/04/19 06:00 08/04/19 08:00 08/04/19 08:16 Temperature 36.9 C Pulse Rate 105 H 89 85 Respiratory Rate 15 15 18 Blood Pressure 115/58 L 120/62 Pulse Oximetry 100 99 08/04/19 08:18 08/04/19 08:41 08/04/19 10:00 Temperature Pulse Rate 85 85 77 Respiratory Rate 15 Blood Pressure 132/86 Pulse Oximetry 99 98 08/04/19 11:28 08/04/19 12:00 08/04/19 12:31 Temperature 37.4 C Pulse Rate 77 75 74 Respiratory Rate 15 15 Blood Pressure 149/82 H Pulse Oximetry 100 99 08/04/19 12:40 08/04/19 14:00 08/04/19 15:01 Temperature 36.8 C Pulse Rate 88 91 91 Respiratory Rate 20 15 Blood Pressure 128/72 Pulse Oximetry 100 100 08/04/19 16:00 08/04/19 16:14 08/04/19 17:45 Temperature 37.0 C Pulse Rate 82 80 95 Respiratory Rate 15 Blood Pressure 135/73 Pulse Oximetry 99 100 08/04/19 18:00 Temperature Pulse Rate 77 Respiratory Rate 15 Blood Pressure 135/71 Pulse Oximetry 100 Intake/Output Intake/Output: Intake & Output 08/01/19 08/02/19 08/03/19 08/04/19 23:59 23:59 23:59 23:59 Intake Total 1687 1561 1450.0 1682 Output Total 8919 070 4231 2425 Balance 12 476 556 -065 Meds/Results Medications: Active Medications Generic Name Dose Route Start Last Admin Trade Name Freq PRN Reason Stop Dose Admin Acetaminophen 650 mg 08/01/19 13:11 08/02/19 05:07 Tylenol Elixir FEED TUBE 650 mg Q6HR PRN Administration pain or fever Acetylcysteine 200 mg 08/03/19 00:00 08/04/19 16:27 Mucomyst 20% Inhal Soln XX 200 mg 0000,0400,1200,1600 LICHA Administration Amiodarone HCl 400 mg 07/30/19 10:30 08/04/19 08:41 Pacerone PO 400 mg Q12HR LICHA Administration Apixaban 5 mg 07/23/19 21:00 08/04/19 08:41 Eliquis FEED TUBE 5 mg Q12HR LICHA Administration Aspirin 81 mg 07/22/19 08:00 08/04/19 08:43 Aspirin Chewable FEED TUBE 81 mg DAILY@0800 LICHA Administration Atorvastatin Calcium 40 mg 07/22/19 21:00 08/03/19 20:07 Lipitor FEED TUBE 40 mg HS LICHA Administration Dornase Eleazar 2.5 mg 07/29/19 08:00 08/04/19 08:16 Pulmozyme INHALATION 2.5 mg Q12HRT LICHA Administration Gabapentin 100 mg 07/26/19 18:05 08/04/19 15:52 Neurontin XX 100 mg Q8HR LICHA Administration Propofol 100 mls @ 18.15 mls/hr 08/02/19 12:25 08/04/19 17:47 Diprivan IV CONT 25 mcg/kg/min .Q5H31M LICHA 18.2 mls/hr Titration Protocol 25 MCG/KG/MIN Cefepime HCl 2 gm in 50 mls @ 100 mls/hr 08/02/19 14:00 08/04/19 16:25 Maxipime 2 Gm/D5w 50 Ml IVPB Infused Q8HR LICHA Infusion Vancomycin HCl 1,750 mg in 500 mls @ 250 mls/hr 08/04/19 10:00 08/04/19 11:10 Vancomycin 1,750 Mg/D5w 500 Ml IVPB Infused Q18H LICHA Infusion Ipratropium Br
[2019-08-04] MEDS: ATORVASTATIN 40 MG TABLET FEED TUBE (20:23)
[2019-08-05] VITALS (29 sets, daily range): BP systolic 129–167; BP diastolic 63–94; PULSE 63–82; RESP 14–19; TEMP 35.7–36.6; O2SAT 91–98
[2019-08-05] MEDS: PROPOFOL IV EMULSION 100 ML 18.2 MG IV CONT (02:32)
[2019-08-05] MEDS: IPRATROPIUM BR 0.02% INH SOLN 0.5 MG/2.5 ML VIAL INHALATION ×3 (03:36→17:10)
[2019-08-05] MEDS: LEVALBUTEROL NEB 1.25 MG/3 ML 0.63 MG INHALATION ×3 (03:36→17:10)
[2019-08-05] MEDS: ACETYLCYSTEINE 20% INHAL SOLN 800 MG/4 ML VIAL 200 MG XX ×2 (03:37→12:44)
[2019-08-05 04:58] LABS: Basophils Percent Auto 0.1 % (0.2-1.2); Eosinophils Absolute Auto 0.2 K/mm3 (0-0.3); Eosinophils Percent Auto 1.8 % (0-4.4); Hemoglobin 10.1 g/dL (14.0-18.0); Immature Granulocyte Absolute 0.06 K/mm3 (0.00-0.031); Immature Granulocyte Percent A 0.5 % (0-0.5); Lymphocytes Absolute Auto 0.77 K/mm3 (0.9-3.2); Mean Corpuscular HGB Conc 30.6 g/dl (32-36); Mean Corpuscular Hemoglobin 27.7 pg (26-34); Mean Corpuscular Volume 90.4 fl (80-100); Mean Platelet Volume 9.7 fl (7.4-10.4); Monocytes Absolute Auto 0.7 K/mm3 (0.1-0.6); Monocytes Percent Auto 6.8 % (2.6-8.5); Neutrophils Absolute Auto 9.2 K/mm3 (1.3-6.7); Neutrophils Percent Auto 83.8 % (45.5-73.1); Platelet Count Result 417 k/mm3 (150-375); Red Blood Count 3.65 M/mm3 (4.6-6.20); Red Cell Distribution Width 13.9 % (11.5-14.5)
[2019-08-05 05:05] LABS: Base Excess ABG 4.6 mEq/l (+/-2.0); Carboxyhemoglobin 0.3 % THb (0-2.0); Fractional Inspired Oxygen 40 %; HCO3 ABG 29.3 mEq/l (22.0-26.0); Methemoglobin ABG 0.3 %THb (0-1.5); Oxygen Saturation ABG 92.8 % (95.0-100.0); Oxyhemoglobin 91.1 % THb (90.0-100.0); PCO2 ABG 44.4 mmHg (35.0-45.0); PO2 ABG 63.1 mmHg (80.0-100.0); PO2 FiO2 Ratio Arterial Blood 1.58 %; Reduced Hemoglobin 8.3 %THb (0-5.0); Total Hemoglobin 11.7 g/dL (12.0-18.0); pH ABG 7.438 (7.350-7.450)
[2019-08-05 05:11] LABS: Modified Allen's Test Pass; Site Drawn RIGHT RADIAL
[2019-08-05 05:12] LABS: Arterial Blood Gas Ventilator rate 14 /MIN; Device VENTILATOR
[2019-08-05 05:13] LABS: Arterial Blood Gas PEEP 10 cmH2O; Arterial Blood Gas Tidal Volume 500 ml; Arterial Blood Gas Vent Mode CMV
[2019-08-05 05:19] LABS: Blood Urea Nitrogen 18 mg/dL (9-20); Calcium 7.8 mg/dL (8.4-10.2); Carbon Dioxide 32 mmol/L (22-30); Chloride 98 mmol/L (98-107); Estimated CRCL calculation 111 ml/min; Estimated Glomerular Filt Rate > 60; Glucose 156 mg/dL (75-110); Magnesium 2.3 mg/dL (1.6-2.3); Phosphorus 3.2 mg/dL (2.5-4.5); Potassium 4.4 mmol/L (3.4-5.0); Sodium 136 mmol/L (137-145)
[2019-08-05] MEDS: GABAPENTIN 100 MG CAPSULE XX ×3 (06:44→22:05)
[2019-08-05] MEDS: AMIODARONE HCL 200 MG TABLET 400 MG PO ×2 (08:03→22:03)
[2019-08-05] MEDS: polyethylene glycoL 3350 17 GM POWD.PACK PO (08:03)
[2019-08-05] MEDS: predniSONE 10 MG TABLET PO (08:03)
[2019-08-05] MEDS: SILVERGEL (ELTA) 45 ML 1 APPLIC TOPICAL (08:03)
[2019-08-05] MEDS: APIXABAN 5 MG TABLET FEED TUBE ×2 (08:03→22:02)
[2019-08-05] MEDS: PANTOPRAZOLE SODIUM IV 40 MG VIAL IV PUSH (08:04)
[2019-08-05] MEDS: ASPIRIN 81 MG CHEWABLE TABLET FEED TUBE (08:05)
[2019-08-05] MEDS: PROPOFOL IV EMULSION 100 ML 14.5 MG IV CONT (08:21)
[2019-08-05] MEDS: DORNASE ALFA INH SOLN 1 MG/ML 2.5 ML AMP 2.5 MG INHALATION ×2 (08:31→20:20)
[2019-08-05] MEDS: ACETAMINOPHEN ELIXIR 325 MG/10.15 ML UDC 650 MG FEED TUBE (09:55)
--- NOTE | 2019-08-05 11:24 | PCSTNOTE ---
The patient treatment was not able to be completed on 08/05/19 due to intubation. Will plan to continue treatment per plan of care.
--- NOTE | 2019-08-05 11:33 | PCDIET ---
Nutrition Follow-Up Complete: Nutrition Diagnosis: Inadequate infusion of enteral nutrition related to aspiration/pneumonia as evidenced by NPO status. Nutrition Goal: Patient to meet estimated nutritional needs. Goal met, as patient tolerating Jevity 1.5 at 55mL/hr goal rate; however, tube feedings now to be held for possible extubation today. Last recorded weight is 112.7 kg which is increased from 08/04/19 but stable with 08/03/19 weight. Bowel Motility: Last documented bowel movement 08/03/19, per RN. Labs Reviewed: Glu (156), BUN (32), Na (136), Hgb (10.1), Hct (33.0) Meds Noted: Cefepime, Protonix, Miralax, Prednisone, Vancomycin Additional Notes: Propofol previously infusing at 7.3mL/hr (193kcal over 24 hour period) but is being stopped. Pressure ulcer on sacrum reported. Recommend resuming tube feedings once extubated and medically appropriate. Nutrition Monitoring and Evaluation: Follow up every Sunday/Sunday. Follow daily in ICU rounds.
--- NOTE | 2019-08-05 12:07 | PM.IMPN ---
Progress Note: A&P Assessment and Plan (1) Acute respiratory failure with hypoxia: Code(s): J96.01 - Acute respiratory failure with hypoxia Status: Acute Assessment and Plan: due to multifocal pneumonia on high flow cannula L until 08/02 at which point intubated and bronched with copius thick secretions removed cxr and PExam much better aeration left lung after bronch, acetylcysteine and pulmozyme 08/05 weaning sedation with extubation planned (2) Pneumonia: Qualifiers: Pneumonia type: due to unspecified organism Laterality: unspecified laterality Lung location: unspecified part of lung Qualified Code(s): J18.9 - Pneumonia, unspecified organism Code(s): J18.9 - Pneumonia, unspecified organism Status: Acute Assessment and Plan: likely aspiration may be having ongoing episodes, perhaps silent, that are delaying his recovery finished 10 days zosyn 07/31 and continue prednisone with taper pulmonology bronched with mucous plug removal and started Vanc 08/02 along with cefepime 08/04 (3) Atrial fibrillation with rapid ventricular response: Code(s): I48.91 - Unspecified atrial fibrillation Status: Acute Assessment and Plan: Continue amiodarone metoprolol on hold 07/28 rate controlled 07/30 back to SR (4) Renal failure, acute: Qualifiers: Acute renal failure type: unspecified Qualified Code(s): N17.9 - Acute kidney failure, unspecified Code(s): N17.9 - Acute kidney failure, unspecified Status: Acute Assessment and Plan: resolved (5) CVA (cerebral vascular accident): Qualifiers: CVA mechanism: thrombosis Precerebral and cerebral artery: vertebral artery Laterality of affected vessel: right Qualified Code(s): 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 Aspirin, statin, and antihypertensive speech therapy (6) Hypertension: Qualifiers: Hypertension type: essential hypertension Qualified Code(s): I10 - Essential (primary) hypertension Code(s): I10 - Essential (primary) hypertension Status: Acute Assessment and Plan: Metoprolol on hold and with creatinine down restarted lisinopril 07/29 and increased to 20 mg 07/31 bp better . Monitor Subjective Date/time seen: 08/05/19 12:07 Interval history: Tolerating vent. More awake. Denied pain. Review of Systems Review of Systems: ROS unobtainable: unobtainable due to endotracheal tube Exam Narrative: Exam Narrative: Bp 134/66 P 62 sat 98% on FiO2 of 70 HEENT: EOMI, PERRL, ET tube in place NECK: No JVD CHEST: Slightly coarse HEART: NL S1/S2, regular, no murmur ABDOMEN: BS+, soft, nontender, no mass, no bruits EXTREMITIES: No cyanosis or edema of legs, right arm with less edema NEUROLOGIC: CN appear symmetric, mild left weakness Objective Data Vital Signs Vital Signs: Vital Signs - 24 hr 08/04/19 12:31 08/04/19 12:40 08/04/19 14:00 Temperature 98.2 F Pulse Rate 74 88 91 Respiratory Rate 15 20 15 Blood Pressure 128/72 Pulse Oximetry 100 08/04/19 15:01 08/04/19 16:00 08/04/19 16:14 Temperature 98.6 F Pulse Rate 91 82 80 Respiratory Rate 15 Blood Pressure 135/73 Pulse Oximetry 100 99 08/04/19 17:45 08/04/19 18:00 08/04/19 20:00 Temperature 97.6 F Pulse Rate 95 77 68 Respiratory Rate 15 14 Blood Pressure 135/71 128/72 Pulse Oximetry 100 100 100 08/04/19 20:21 08/04/19 21:10 08/04/19 21:18 Temperature Pulse Rate 67 66 66 Respiratory Rate 14 Blood Pressure Pulse Oximetry 100 08/04/19 21:22 08/04/19 22:00 08/04/19 23:08 Temperature Pulse Rate 68 63 64 Respiratory Rate 14 14 Blood Pressure 123/74 Pulse Oximetry 97 100 08/04/19 23:36 08/04/19 23:53 08/05/19 00:00 Temperature 97.6 F Pulse R
[2019-08-05 13:18] LABS: Alveolar/Arterial O2 Gradient 145.7 mmHg; Base Excess ABG 5.3 mEq/l (+/-2.0); Carboxyhemoglobin 0.3 % THb (0-2.0); Device VENTILATOR; Fractional Inspired Oxygen 40 %; HCO3 ABG 30.4 mEq/l (22.0-26.0); Methemoglobin ABG 0.4 %THb (0-1.5); Modified Allen's Test Pass; Oxygen Content ABG 16.2 %vol (16.0-22.0); Oxygen Saturation ABG 96.7 % (95.0-100.0); Oxyhemoglobin 95.3 % THb (90.0-100.0); PCO2 ABG 46.6 mmHg (35.0-45.0); PO2 ABG 85.9 mmHg (80.0-100.0); PO2 FiO2 Ratio Arterial Blood 2.15 %; Site Drawn RIGHT RADIAL; pH ABG 7.432 (7.350-7.450)
[2019-08-05 13:19] LABS: Arterial Blood Gas PEEP 5 cmH2O; Arterial Blood Gas Pressure Support 8 cmH2O; Arterial Blood Gas Vent Mode SPONTANEOUS
--- NOTE | 2019-08-05 14:04 | WPDINTPN ---
Progress Note: A&P Assessment and Plan (1) Acute respiratory failure with hypoxia: Code(s): J96.01 - Acute respiratory failure with hypoxia Status: Acute Assessment and Plan: on 08/02/2019 patient was transferred from intermediate unit to ICU for left lung collapse, hypoxic respiratory failure, on high-flow nasal cannula at 90% FiO2 and was intubated on the same day, patient also had a bronchoscopy on the same day which showed thick secretions, erythema and swelling of the airway was noted. Cultures were obtained - Bronchial washing cultures growing Klebsiella, patient on cefepime and vancomycin. will discontinue vancomycin - no fungal element seen on bronchial washing - Sedation with propofol at this time, patient is awake, nods to questions and follows simple commands. (2) Collapse of left lung: Code(s): J98.11 - Atelectasis Status: Acute Assessment and Plan: status post bronchoscopy. Please review bronchoscopy note per tractor mechanic helper - continue chest percussion therapy, Mucomyst Nebs, Pulmozyme, bronchodilators - Chest x-ray reviewed, patient was placed on SBT and evaluate for extubation - Appreciate pulmonology following the patient (3) Pneumonia: Qualifiers: Pneumonia type: due to unspecified organism Laterality: unspecified laterality Lung location: unspecified part of lung Qualified Code(s): J18.9 - Pneumonia, unspecified organism Code(s): J18.9 - Pneumonia, unspecified organism Status: Acute Assessment and Plan: patient has been treated with Zosyn for 10 days for presumed aspiration pneumonia - prolactin has been elevated, neutrophils of 93% - given the thick secretions on bronchoscopy, discussed with pulmonology, - bronch washing cultures growing Klebsiella continue cefepime and will discontinue vancomycin - leukocytosis improving (4) CVA (cerebral vascular accident): Qualifiers: CVA mechanism: thrombosis Precerebral and cerebral artery: vertebral artery Laterality of affected vessel: right Qualified Code(s): 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) - patient will require rehab at some point (5) Hypertension: Qualifiers: Hypertension type: essential hypertension Qualified Code(s): I10 - Essential (primary) hypertension Code(s): I10 - Essential (primary) hypertension Status: Acute Assessment and Plan: patient essential hypertension, blood pressure is currently stable on sedation, will continue to monitor (6) Dietary surveillance and counseling: Code(s): Z71.3 - Dietary counseling and surveillance Status: Acute Assessment and Plan: hold tube feeds for possible extubation - continue MiraLax as patient has not had a bowel movement since 08/01 (7) Atrial fibrillation: Qualifiers: Atrial fibrillation type: unspecified Qualified Code(s): I48.91 - Unspecified atrial fibrillation Code(s): I48.91 - Unspecified atrial fibrillation Status: Acute Assessment and Plan: patient on amiodarone, metoprolol and Eliquis (8) DVT prophylaxis: Code(s): Z29.9 - Encounter for prophylactic measures, unspecified Status: Acute Assessment and Plan: patient on Eliquis Additional Plan Discussed with patient and his and updated with his plan of care. I discussed with them regarding placing the patient on SBT and evaluating him for extubation today. I answered all questions. Discussed with pulmonology code status: Full code Critical care time spent: 35 minutes Due to a high probability of clinically significant, life threatening deterioration, th
[2019-08-05] MEDS: ATORVASTATIN 40 MG TABLET FEED TUBE (22:02)
[2019-08-06] VITALS (27 sets, daily range): BP systolic 134–168; BP diastolic 79–99; PULSE 16–79; RESP 14–76; TEMP 36.6–37.2; O2SAT 90–95; BMI 10.0
[2019-08-06] MEDS: IPRATROPIUM BR 0.02% INH SOLN 0.5 MG/2.5 ML VIAL INHALATION ×4 (00:30→16:26)
[2019-08-06] MEDS: LEVALBUTEROL NEB 1.25 MG/3 ML 0.63 MG INHALATION ×4 (00:30→16:26)
[2019-08-06 04:26] LABS: Basophils Percent Auto 0.1 % (0.2-1.2); Eosinophils Absolute Auto 0.3 K/mm3 (0-0.3); Eosinophils Percent Auto 2.3 % (0-4.4); Hematocrit 35.3 % (42.0-52.0); Immature Granulocyte Absolute 0.05 K/mm3 (0.00-0.031); Immature Granulocyte Percent A 0.4 % (0-0.5); Lymphocytes Absolute Auto 0.63 K/mm3 (0.9-3.2); Lymphocytes Percent Auto 5.6 % (18.3-44.2); Mean Corpuscular HGB Conc 31.2 g/dl (32-36); Mean Corpuscular Hemoglobin 28.1 pg (26-34); Mean Corpuscular Volume 90.1 fl (80-100); Mean Platelet Volume 9.4 fl (7.4-10.4); Monocytes Absolute Auto 0.9 K/mm3 (0.1-0.6); Monocytes Percent Auto 7.5 % (2.6-8.5); Neutrophils Absolute Auto 9.5 K/mm3 (1.3-6.7); Neutrophils Percent Auto 84.1 % (45.5-73.1); Platelet Count Result 483 k/mm3 (150-375); Red Blood Count 3.92 M/mm3 (4.6-6.20); Red Cell Distribution Width 13.7 % (11.5-14.5); White Blood Count 11.3 K/mm3 (4.5-10.0)
[2019-08-06] MEDS: GABAPENTIN 100 MG CAPSULE XX ×3 (05:59→23:10)
[2019-08-06] MEDS: DORNASE ALFA INH SOLN 1 MG/ML 2.5 ML AMP 2.5 MG INHALATION ×2 (08:02→21:28)
[2019-08-06] MEDS: polyethylene glycoL 3350 17 GM POWD.PACK PO (08:55)
[2019-08-06] MEDS: PANTOPRAZOLE SODIUM IV 40 MG VIAL IV PUSH (08:55)
[2019-08-06] MEDS: AMIODARONE HCL 200 MG TABLET 400 MG PO ×2 (08:56→23:09)
[2019-08-06] MEDS: SILVERGEL (ELTA) 45 ML 1 APPLIC TOPICAL (08:56)
[2019-08-06] MEDS: predniSONE 10 MG TABLET PO (08:57)
--- NOTE | 2019-08-06 09:10 | PM.IMPN ---
Progress Note: A&P Assessment and Plan (1) Acute respiratory failure with hypoxia: Code(s): J96.01 - Acute respiratory failure with hypoxia Status: Acute Assessment and Plan: due to multifocal pneumonia on high flow cannula L until 08/02 at which point intubated and bronched with copius thick secretions removed 08/06 CXR with L pleural effusion; hold apixaban and repeat 08/07, consider U/s guided thoracentesis for dx/tx (2) Pneumonia: Qualifiers: Pneumonia type: due to unspecified organism Laterality: unspecified laterality Lung location: unspecified part of lung Qualified Code(s): J18.9 - Pneumonia, unspecified organism Code(s): J18.9 - Pneumonia, unspecified organism Status: Acute Assessment and Plan: likely aspiration may be having ongoing episodes, perhaps silent, that are delaying his recovery finished 10 days zosyn 07/31 and continue prednisone with taper pulmonology bronched with mucous plug removal and started Vanc 08/02 along with cefepime 08/04 08/06 sputum growing Klebsiella (3) Atrial fibrillation with rapid ventricular response: Code(s): I48.91 - Unspecified atrial fibrillation Status: Acute Assessment and Plan: Continue amiodarone metoprolol on hold 07/28 rate controlled 07/30 back to SR (4) Renal failure, acute: Qualifiers: Acute renal failure type: unspecified Qualified Code(s): N17.9 - Acute kidney failure, unspecified Code(s): N17.9 - Acute kidney failure, unspecified Status: Acute Assessment and Plan: resolved (5) CVA (cerebral vascular accident): Qualifiers: CVA mechanism: thrombosis Precerebral and cerebral artery: vertebral artery Laterality of affected vessel: right Qualified Code(s): 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 Aspirin, statin, and antihypertensive speech therapy (6) Hypertension: Qualifiers: Hypertension type: essential hypertension Qualified Code(s): I10 - Essential (primary) hypertension Code(s): I10 - Essential (primary) hypertension Status: Acute Assessment and Plan: Metoprolol on hold and with creatinine down restarted lisinopril 07/29 and increased to 20 mg 07/31 Monitor Subjective Date/time seen: 08/06/19 09:10 Interval history: Awake. Denied pain. SOB with exertion. Tolerating TF. No bleeding. Review of Systems Review of Systems: All systems reviewed & are unremarkable except as noted in HPI and below Exam Narrative: Exam Narrative: HEENT: EOMI, PERRL, ET tube in place NECK: No JVD CHEST: Slightly coarse HEART: NL S1/S2, regular, no murmur ABDOMEN: BS+, soft, nontender, no mass, no bruits EXTREMITIES: No cyanosis or edema of legs, right arm with less edema NEUROLOGIC: CN appear symmetric, mild left weakness Objective Data Vital Signs Vital Signs: Vital Signs - 24 hr 08/05/19 10:00 08/05/19 12:00 08/05/19 12:35 Temperature 96.3 F L Pulse Rate 67 64 69 Respiratory Rate 14 17 17 Blood Pressure 141/77 H 133/79 Pulse Oximetry 95 97 08/05/19 12:45 08/05/19 13:35 08/05/19 14:00 Temperature Pulse Rate 68 73 Respiratory Rate 17 15 Blood Pressure 157/94 H Pulse Oximetry 92 93 08/05/19 16:00 08/05/19 17:15 08/05/19 17:25 Temperature 97.6 F Pulse Rate 75 67 69 Respiratory Rate 19 18 18 Blood Pressure 167/89 H Pulse Oximetry 95 08/05/19 18:00 08/05/19 20:00 08/05/19 20:20 Temperature 97.8 F Pulse Rate 79 80 79 Respiratory Rate 15 19 18 Blood Pressure 163/93 H 157/86 H Pulse Oximetry 94 91 08/05/19 20:25 08/05/19 20:34 08/05/19 22:00 Temperature Pulse Rate 79 79 75 Respiratory Rate 18 16 Blood Pressure 157/88 H Pulse Oximetry 93 94 08/05/19 22:03 08/06/19 00:00 08/06/19 00:30 [place]
--- NOTE | 2019-08-06 10:57 | PCDIET ---
ICU Rounding Note: Patient extubated. Jevity 1.5 tube feedings resumed at 55mL/hr. Recommend [place] (80kcal, 14g amino acid) BID to promote healing. Last recorded weight is 106.8kg which is decreased. I/O negative. Good urine output. Bowel Motility: +BM today. Labs Reviewed: Hgb (11.0), Hct (35.3) Meds Noted: Cefepime, Precedex, Miralax, Prednisone, Vancomycin Additional Notes: Unstageable ulcer on sacral area, per nurse. Discussed recommendation for [place] with RN and MD. Following daily in ICU rounds. Assessing/reassessing every Sunday/Sunday.
[2019-08-06] MEDS: ASPIRIN 81 MG CHEWABLE TABLET FEED TUBE (11:23)
--- NOTE | 2019-08-06 12:25 | WPDINTPN ---
Progress Note: A&P Assessment and Plan (1) Acute respiratory failure with hypoxia: Code(s): J96.01 - Acute respiratory failure with hypoxia Status: Acute Assessment and Plan: patient successfully extubated on 08/05/2019 - On 08/02/2019 patient was transferred from intermediate unit to ICU for left lung collapse, hypoxic respiratory failure, on high-flow nasal cannula at 90% FiO2 and was intubated on the same day, patient also had a bronchoscopy on the same day which showed thick secretions, erythema and swelling of the airway was noted. Cultures were obtained - Bronchial washing cultures growing Klebsiella, patient on cefepime and vancomycin. - no fungal element seen on bronchial washing (2) Collapse of left lung: Code(s): J98.11 - Atelectasis Status: Acute Assessment and Plan: status post bronchoscopy. Please review bronchoscopy note per senior front end web developer - continue chest percussion therapy, Mucomyst Nebs, Pulmozyme, bronchodilators - Chest x-ray reviewed, probably left pleural effusion, Eliquis stopped for possible thoracentesis in a.m. 08/07/2019 - Appreciate pulmonology following the patient (3) Pneumonia: Qualifiers: Laterality: unspecified laterality Lung location: unspecified part of lung Pneumonia type: due to unspecified organism Qualified Code(s): J18.9 - Pneumonia, unspecified organism Code(s): J18.9 - Pneumonia, unspecified organism Status: Acute Assessment and Plan: patient has been treated with Zosyn for 10 days for presumed aspiration pneumonia - prolactin has been elevated, neutrophils of 93% - given the thick secretions on bronchoscopy, discussed with pulmonology, - bronch washing cultures growing Klebsiella continue cefepime - leukocytosis improving (4) CVA (cerebral vascular accident): Qualifiers: CVA mechanism: thrombosis Laterality of affected vessel: right Precerebral and cerebral artery: vertebral artery Qualified Code(s): 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) - patient will require rehab at some point (5) Hypertension: Qualifiers: Hypertension type: essential hypertension Qualified Code(s): I10 - Essential (primary) hypertension Code(s): I10 - Essential (primary) hypertension Status: Acute Assessment and Plan: patient essential hypertension, blood pressure is currently stable on sedation, will continue to monitor (6) Dietary surveillance and counseling: Code(s): Z71.3 - Dietary counseling and surveillance Status: Acute Assessment and Plan: hold tube feeds for possible extubation - continue MiraLax as patient has not had a bowel movement since 08/01 (7) Atrial fibrillation: Qualifiers: Atrial fibrillation type: unspecified Qualified Code(s): I48.91 - Unspecified atrial fibrillation Code(s): I48.91 - Unspecified atrial fibrillation Status: Acute Assessment and Plan: patient on amiodarone, metoprolol and Eliquis (8) DVT prophylaxis: Code(s): Z29.9 - Encounter for prophylactic measures, unspecified Status: Acute Assessment and Plan: Eliquis held for thoracentesis Na Additional Plan Discussed with patient and his and updated with his plan of care. I discussed with them regarding the possibility of thoracentesis in a.m. Discussed with pulmonology code status: Full code Critical care time spent: 32 minutes Due to a high probability of clinically significant, life threatening deterioration, the patient required my highest level of preparedness to intervene emergently and I personally spent this critical c
[2019-08-06 12:57] LABS: Blood Urea Nitrogen 17 mg/dL (9-20); Carbon Dioxide 34 mmol/L (22-30); Chloride 97 mmol/L (98-107); Estimated CRCL calculation 108 ml/min; Estimated Glomerular Filt Rate > 60; Glucose 173 mg/dL (75-110); Magnesium 2.4 mg/dL (1.6-2.3); Phosphorus 2.9 mg/dL (2.5-4.5); Potassium 4.7 mmol/L (3.4-5.0); Sodium 137 mmol/L (137-145)
--- NOTE | 2019-08-06 13:16 | WPDINTPN ---
Subjective Date/time seen: 08/06/19 13:16 Objective Data Vital Signs Vital Signs: Vital Signs - 24 hr 08/05/19 13:35 08/05/19 14:00 08/05/19 16:00 Temperature 97.6 F Pulse Rate 73 75 Respiratory Rate 15 19 Blood Pressure 157/94 H 167/89 H Pulse Oximetry 92 93 95 08/05/19 17:15 08/05/19 17:25 08/05/19 18:00 Temperature Pulse Rate 67 69 79 Respiratory Rate 18 18 15 Blood Pressure 163/93 H Pulse Oximetry 94 08/05/19 20:00 08/05/19 20:20 08/05/19 20:25 Temperature 97.8 F Pulse Rate 80 79 79 Respiratory Rate 19 18 Blood Pressure 157/86 H Pulse Oximetry 91 93 08/05/19 20:34 08/05/19 22:00 08/05/19 22:03 Temperature Pulse Rate 79 75 82 Respiratory Rate 18 16 Blood Pressure 157/88 H Pulse Oximetry 94 08/06/19 00:00 08/06/19 00:30 08/06/19 00:40 Temperature 97.9 F Pulse Rate 79 77 76 Respiratory Rate 17 18 18 Blood Pressure 150/85 H Pulse Oximetry 92 08/06/19 02:00 08/06/19 03:50 08/06/19 04:00 Temperature 98.2 F Pulse Rate 74 76 76 Respiratory Rate 14 16 17 Blood Pressure 145/82 H 145/79 H Pulse Oximetry 90 91 08/06/19 04:01 08/06/19 06:00 08/06/19 08:00 Temperature 98.3 F Pulse Rate 76 76 74 Respiratory Rate 16 17 17 Blood Pressure 146/89 H 151/89 H Pulse Oximetry 93 90 08/06/19 08:02 08/06/19 08:12 08/06/19 08:56 Temperature Pulse Rate 76 72 75 Respiratory Rate 16 16 Blood Pressure Pulse Oximetry 93 08/06/19 10:00 08/06/19 12:00 Temperature Pulse Rate 73 75 Respiratory Rate 16 Blood Pressure 134/81 Pulse Oximetry 92 Intake/Output Intake/Output: Intake & Output 08/03/19 08/04/19 08/05/19 08/06/19 23:59 23:59 23:59 23:59 Intake Total 1450.0 1769 2103 720 Output Total 1275 2425 3650 2400 Balance 072 -656 -1547 -1300 Meds/Results Medications: Active Medications Generic Name Dose Route Start Last Admin Trade Name Freq PRN Reason Stop Dose Admin Acetaminophen 650 mg 08/01/19 13:11 08/05/19 09:55 Tylenol Elixir FEED TUBE 650 mg Q6HR PRN Administration pain or fever Amiodarone HCl 400 mg 07/30/19 10:30 08/06/19 08:56 Pacerone PO 400 mg Q12HR LICHA Administration Aspirin 81 mg 07/22/19 08:00 08/06/19 11:23 Aspirin Chewable FEED TUBE 81 mg DAILY@0800 LICHA Administration Atorvastatin Calcium 40 mg 07/22/19 21:00 08/05/19 22:02 Lipitor FEED TUBE 40 mg HS LICHA Administration Dornase Eleazar 2.5 mg 07/29/19 08:00 08/06/19 08:02 Pulmozyme INHALATION 2.5 mg Q12HRT LICHA Administration Gabapentin 100 mg 07/26/19 18:05 08/06/19 05:59 Neurontin XX 100 mg Q8HR LICHA Administration Cefepime HCl 2 gm in 50 mls @ 100 mls/hr 08/02/19 14:00 08/06/19 06:29 Maxipime 2 Gm/D5w 50 Ml IVPB 0 mls/hr Q8HR LICHA Infusion Vancomycin HCl 1,750 mg in 500 mls @ 250 mls/hr 08/04/19 10:00 08/06/19 01:09 Vancomycin 1,750 Mg/D5w 500 Ml IVPB Infused Q18H LICHA Infusion Ipratropium [place] 0.5 mg 08/03/19 00:00 08/06/19 12:25 Atrovent Neb INHALATION 0.5 mg 0000,0400,1200,1600 LICHA Administration Levalbuterol HCl 0.63 mg 08/03/19 00:00 08/06/19 12:25 Xopenex 1.25 Mg/3 Ml INHALATION 0.63 mg 0000,0400,1200,1600 LICHA Administration Lisinopril 20 mg 08/01/19 13:09 08/02/19 09:32 Prinivil FEED TUBE 20 mg DAILY LICHA Administration Metoprolol Tartrate 50 mg 07/30/19 10:20 08/02/19 09:32 Lopressor PO 50 mg Q12HR LICHA Administration Multi-Ingred Cream/Lotion/Oil/Oint 1 applic 08/02/19 21:00 08/06/19 08:55 Lubrifresh Pm Eye Ointment EACH EYE 1 applic Q12HR LICHA Administration Multi-Ingred Cream/Lotion/Oil/Oint 1 applic 08/05/19 21:00 08/06/19 08:58 Lubrifresh Pm Eye Ointment EACH EYE 1 applic Q12HR LICHA Administration Chlorpromazine 12. 1 each 07/23/19 21:03 07/25/19 17:00 5mg Tablet FEED TUBE 08/22/19 21:04 1 each Q6H PRN Administration Hiccups Ondansetron HCl 4 mg 08/03/19
--- NOTE | 2019-08-06 15:39 | PM.PNPUL ---
Progress Note: A&P Assessment and Plan (1) Pneumonia: Qualifiers: Pneumonia type: due to unspecified organism Laterality: unspecified laterality Lung location: unspecified part of lung Qualified Code(s): J18.9 - Pneumonia, unspecified organism Code(s): J18.9 - Pneumonia, unspecified organism Status: Acute Assessment and Plan: - awaiting Klebsiella Pneumonia antibiotic susceptibility to r/o ESBL production. (2) Collapse of left lung: Code(s): J98.11 - Atelectasis Status: Acute Assessment and Plan: - continue incentive spirometer - daily ambulation if tolerable - consider flutter valve for chest PT Subjective Date/time seen: 08/06/19 15:39 Interval history: Extubated yesterday. Seems to be doing well. He has no complaints. CXR shows worsening LLL/ lingular atelectesis when compared to intubated CXR. There may be a pleural effusion present as well. Bronchial Washings are positive for Klebsiella Pneumonia but susceptibility testing is pending. Review of Systems Review of Systems: All systems reviewed & are unremarkable except as noted in HPI and below Exam Const: General: comfortable and no acute distress HENMT: Mouth: Yes moist mucous membranes Neck: Neck: supple and no JVD Resp: Auscultation: diminished lung sounds (to left up to mid lung melgar ) Cardio: Rate: regular rate Rhythm: regular rhythm GI: Auscultation: normal bowel sounds Skin: General skin exam: normal color Objective Data Vital Signs Vital Signs: Vital Signs - 24 hr 08/05/19 16:00 08/05/19 17:15 08/05/19 17:25 Temperature 36.4 C Pulse Rate 75 67 69 Respiratory Rate 19 18 18 Blood Pressure 167/89 H Pulse Oximetry 95 08/05/19 18:00 08/05/19 20:00 08/05/19 20:20 Temperature 36.6 C Pulse Rate 79 80 79 Respiratory Rate 15 19 18 Blood Pressure 163/93 H 157/86 H Pulse Oximetry 94 91 08/05/19 20:25 08/05/19 20:34 08/05/19 22:00 Temperature Pulse Rate 79 79 75 Respiratory Rate 18 16 Blood Pressure 157/88 H Pulse Oximetry 93 94 08/05/19 22:03 08/06/19 00:00 08/06/19 00:30 Temperature 36.6 C Pulse Rate 82 79 77 Respiratory Rate 17 18 Blood Pressure 150/85 H Pulse Oximetry 92 08/06/19 00:40 08/06/19 02:00 08/06/19 03:50 Temperature Pulse Rate 76 74 76 Respiratory Rate 18 14 16 Blood Pressure 145/82 H Pulse Oximetry 90 08/06/19 04:00 08/06/19 04:01 08/06/19 06:00 Temperature 36.8 C Pulse Rate 76 76 76 Respiratory Rate 17 16 17 Blood Pressure 145/79 H 146/89 H Pulse Oximetry 91 93 08/06/19 08:00 08/06/19 08:02 08/06/19 08:12 Temperature 36.8 C Pulse Rate 74 76 72 Respiratory Rate 17 16 16 Blood Pressure 151/89 H Pulse Oximetry 90 93 08/06/19 08:56 08/06/19 10:00 08/06/19 12:00 Temperature 37.2 C Pulse Rate 75 73 75 Respiratory Rate 16 21 H Blood Pressure 134/81 136/82 Pulse Oximetry 92 91 08/06/19 14:00 Temperature Pulse Rate 77 Respiratory Rate 18 Blood Pressure 142/79 H Pulse Oximetry 92 Intake/Output Intake/Output: Intake & Output 08/03/19 08/04/19 08/05/19 08/06/19 23:59 23:59 23:59 23:59 Intake Total 1450.0 1769 2103 720 Output Total 1275 2425 3650 2400 Balance 578 -656 -1547 -1680 Meds/Results Medications: Active Medications Generic Name Dose Route Start Last Admin Trade Name Freq PRN Reason Stop Dose Admin Acetaminophen 650 mg 08/01/19 13:11 08/05/19 09:55 Tylenol Elixir FEED TUBE 650 mg Q6HR PRN Administration pain or fever Amiodarone HCl 400 mg 07/30/19 10:30 08/06/19 08:56 Pacerone PO 400 mg Q12HR LICHA Administration Aspirin 81 mg 07/22/19 08:00 08/06/19 11:23 Aspirin Chewable FEED TUBE 81 mg DAILY@0800 LICHA Administration Atorvastatin Calcium 40 mg 07/22/19 21:00 08/05/19 22:02 Lipitor FEED TUBE 40 mg HS LICHA Administration Dornase [place] 2.5 mg 07/29/19 08:00 08/06/19 08:02 Pulmozyme INHALATION 2.
[2019-08-06] MEDS: ATORVASTATIN 40 MG TABLET FEED TUBE (23:09)
[2019-08-07] VITALS (33 sets, daily range): BP systolic 142–207; BP diastolic 80–115; PULSE 67–94; RESP 11–30; TEMP 36.4–37.2; O2SAT 87–99
[2019-08-07] MEDS: LEVALBUTEROL NEB 1.25 MG/3 ML 0.63 MG INHALATION ×5 (01:18→21:32)
[2019-08-07] MEDS: IPRATROPIUM BR 0.02% INH SOLN 0.5 MG/2.5 ML VIAL INHALATION ×5 (01:18→21:32)
[2019-08-07 06:10] LABS: Basophils Percent Auto 0.1 % (0.2-1.2); Eosinophils Absolute Auto 0.2 K/mm3 (0-0.3); Eosinophils Percent Auto 1.7 % (0-4.4); Hematocrit 36.1 % (42.0-52.0); Hemoglobin 11.3 g/dL (14.0-18.0); Immature Granulocyte Absolute 0.04 K/mm3 (0.00-0.031); Immature Granulocyte Percent A 0.4 % (0-0.5); Lymphocytes Absolute Auto 0.67 K/mm3 (0.9-3.2); Lymphocytes Percent Auto 6.1 % (18.3-44.2); Mean Corpuscular HGB Conc 31.3 g/dl (32-36); Mean Corpuscular Hemoglobin 27.9 pg (26-34); Mean Corpuscular Volume 89.1 fl (80-100); Mean Platelet Volume 9.1 fl (7.4-10.4); Monocytes Absolute Auto 0.8 K/mm3 (0.1-0.6); Monocytes Percent Auto 6.9 % (2.6-8.5); Neutrophils Absolute Auto 9.3 K/mm3 (1.3-6.7); Neutrophils Percent Auto 84.8 % (45.5-73.1); Platelet Count Result 459 k/mm3 (150-375); Red Blood Count 4.05 M/mm3 (4.6-6.20); Red Cell Distribution Width 13.3 % (11.5-14.5)
[2019-08-07] MEDS: GABAPENTIN 100 MG CAPSULE XX ×3 (06:13→20:33)
[2019-08-07 06:33] LABS: Blood Urea Nitrogen 16 mg/dL (9-20); Calcium 8.1 mg/dL (8.4-10.2); Carbon Dioxide 34 mmol/L (22-30); Chloride 96 mmol/L (98-107); Estimated CRCL calculation 109 ml/min; Estimated Glomerular Filt Rate > 60; Glucose 166 mg/dL (75-110); Magnesium 2.3 mg/dL (1.6-2.3); Phosphorus 2.9 mg/dL (2.5-4.5); Sodium 138 mmol/L (137-145)
[2019-08-07] MEDS: AMIODARONE HCL 200 MG TABLET 400 MG PO ×2 (08:20→20:34)
[2019-08-07] MEDS: predniSONE 10 MG TABLET PO (08:20)
[2019-08-07] MEDS: PANTOPRAZOLE SODIUM IV 40 MG VIAL IV PUSH (08:20)
[2019-08-07] MEDS: polyethylene glycoL 3350 17 GM POWD.PACK PO (08:20)
[2019-08-07] MEDS: SILVERGEL (ELTA) 45 ML 1 APPLIC TOPICAL (08:21)
--- NOTE | 2019-08-07 08:39 | PM.IMPN ---
Progress Note: A&P Assessment and Plan (1) Acute respiratory failure with hypoxia: Code(s): J96.01 - Acute respiratory failure with hypoxia Status: Acute Assessment and Plan: due to multifocal pneumonia on high flow cannula L until 08/02 at which point intubated and bronched with copius thick secretions removed 08/06 CXR with L pleural effusion; hold apixaban and repeat 08/07, consider U/s guided thoracentesis for dx/tx 08/07 chest x-ray with persistent left pleural effusion. Ultrasound-guided thoracentesis today for diagnostic and therapeutic intervention. (2) Pneumonia: Qualifiers: Pneumonia type: due to unspecified organism Laterality: unspecified laterality Lung location: unspecified part of lung Qualified Code(s): J18.9 - Pneumonia, unspecified organism Code(s): J18.9 - Pneumonia, unspecified organism Status: Acute Assessment and Plan: likely aspiration may be having ongoing episodes, perhaps silent, that are delaying his recovery finished 10 days zosyn 07/31 and continue prednisone with taper pulmonology bronched with mucous plug removal and started Vanc 08/02 along with cefepime 08/04 08/06 sputum growing Klebsiella (3) Atrial fibrillation with rapid ventricular response: Code(s): I48.91 - Unspecified atrial fibrillation Status: Acute Assessment and Plan: Continue amiodarone metoprolol on hold 07/28 rate controlled 07/30 back to SR (4) Renal failure, acute: Qualifiers: Acute renal failure type: unspecified Qualified Code(s): N17.9 - Acute kidney failure, unspecified Code(s): N17.9 - Acute kidney failure, unspecified Status: Acute Assessment and Plan: resolved (5) CVA (cerebral vascular accident): Qualifiers: CVA mechanism: thrombosis Precerebral and cerebral artery: vertebral artery Laterality of affected vessel: right Qualified Code(s): 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 Aspirin, statin, and antihypertensive speech therapy (6) Hypertension: Qualifiers: Hypertension type: essential hypertension Qualified Code(s): I10 - Essential (primary) hypertension Code(s): I10 - Essential (primary) hypertension Status: Acute Assessment and Plan: Metoprolol on hold and with creatinine down restarted lisinopril 07/29 and increased to 20 mg 07/31 Monitor Subjective Date/time seen: 08/07/19 08:39 Interval history: Oxygen increased to 7 L overnight. Still coughing up sputum. Does not know what color. Denied pain. Tolerating tube feeding. No abnormal bleeding. Review of Systems Review of Systems: All systems reviewed & are unremarkable except as noted in HPI and below Exam Narrative: Exam Narrative: HEENT: EOMI, PERRL, ET tube in place NECK: No JVD CHEST: Slightly coarse HEART: NL S1/S2, regular, no murmur ABDOMEN: BS+, soft, nontender, no mass, no bruits EXTREMITIES: No cyanosis or edema of legs, right arm with less edema NEUROLOGIC: CN appear symmetric, mild left weakness Objective Data Vital Signs Vital Signs: Vital Signs - 24 hr 08/06/19 08:56 08/06/19 10:00 08/06/19 12:00 Temperature 98.9 F Pulse Rate 75 73 75 Respiratory Rate 16 21 H Blood Pressure 134/81 136/82 Pulse Oximetry 92 91 08/06/19 12:28 08/06/19 12:38 08/06/19 14:00 Temperature Pulse Rate 74 77 77 Respiratory Rate 18 18 18 Blood Pressure 142/79 H Pulse Oximetry 92 08/06/19 16:00 08/06/19 16:26 08/06/19 16:36 Temperature Pulse Rate 75 75 77 Respiratory Rate 19 18 18 Blood Pressure 146/86 H Pulse Oximetry 90 95 08/06/19 18:00 08/06/19 20:00 08/06/19 21:28 Temperature 98.6 F Pulse Rate 74 72 73 Respiratory Rate 19 19 18 Blood Pressure 155/89 H 168/99 H Pulse Oximetry 91 93
[2019-08-07] MEDS: ASPIRIN 81 MG CHEWABLE TABLET FEED TUBE (09:06)
[2019-08-07] MEDS: SALINE 0.65% NAS SOLN 44 ML BTL 1 SPRAY NASAL ×2 (09:07→17:49)
[2019-08-07] MEDS: DORNASE ALFA INH SOLN 1 MG/ML 2.5 ML AMP 2.5 MG INHALATION ×2 (09:10→21:32)
[2019-08-07] MEDS: ALTEPLASE 2 MG VIAL (CATHFLO) 4 MG IV PUSH ×2 (09:10→15:38)
[2019-08-07] MEDS: IPRATROPIUM BR 0.02% INH SOLN 0.5 MG/2.5 ML VIAL (10:34)
--- NOTE | 2019-08-07 11:04 | PCDIET ---
ICU Rounding Note: Tube feedings currently on hold for thoracentesis. Previously tolerating Jevity 1.5 at goal rate of 55mL/hr with [place] BID. No residuals reported. Patient had NURSE PRACTITIONER HOME ASSESSMENTS evaluation 08/06/19 with recommendation for NPO until MBS more appropriate. Last recorded weight is 108.4kg which is increased. Bowel Motility: +BM on 08/06/19. Labs Reviewed: Glu (166), BUN (34), Ca (8.1), Hgb (11.3), Hct 36.1) Meds Noted: Protonix, Miralax, Prednisone, Vancomycin Additional Notes: No change in sacral ulcer reported. Expect tube feedings/[place] to resume post-procedure to support wound healing. Following daily in ICU rounds. Assessing/reassessing every Sunday/Sunday.
[2019-08-07 11:53] LABS: INR 1.1; Prothrombin Time 14.3 Seconds (11.1-14.7)
--- NOTE | 2019-08-07 13:17 | WPDINTPN ---
Progress Note: A&P Assessment and Plan (1) Acute respiratory failure with hypoxia: Code(s): J96.01 - Acute respiratory failure with hypoxia Status: Acute Assessment and Plan: patient successfully extubated on 08/05/2019 - he was initially intubated on 08/02/2023 left lung collapse. Status post bronchoscopy. - Bronchial washing cultures growing Klebsiella, patient on cefepime and vancomycin. - no fungal element seen on bronchial washing - Chest x-ray shows last left pleural effusion, will have ultrasound-guided thoracentesis, (2) Collapse of left lung: Code(s): J98.11 - Atelectasis Status: Acute Assessment and Plan: status post bronchoscopy. 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 - continue chest percussion therapy, Mucomyst Nebs, Pulmozyme, bronchodilators - Chest x-ray reviewed, large left pleural effusion, thoracentesis today - Appreciate pulmonology following the patient (3) Pneumonia: Qualifiers: Pneumonia type: due to unspecified organism Laterality: unspecified laterality Lung location: unspecified part of lung Qualified Code(s): J18.9 - Pneumonia, unspecified organism Code(s): J18.9 - Pneumonia, unspecified organism Status: Acute Assessment and Plan: patient has been treated with Zosyn for 10 days for presumed aspiration pneumonia - prolactin has been elevated, neutrophils of 93% - given the thick secretions on bronchoscopy, discussed with pulmonology, - bronch washing cultures growing Klebsiella continue cefepime - leukocytosis improving (4) CVA (cerebral vascular accident): Qualifiers: CVA mechanism: thrombosis Precerebral and cerebral artery: vertebral artery Laterality of affected vessel: right Qualified Code(s): 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) - speech therapy, PT /OT following the patient (5) Hypertension: Qualifiers: Hypertension type: essential hypertension Qualified Code(s): I10 - Essential (primary) hypertension Code(s): I10 - Essential (primary) hypertension Status: Acute Assessment and Plan: patient essential hypertension, blood pressures are stable (6) Dietary surveillance and counseling: Code(s): Z71.3 - Dietary counseling and surveillance Status: Acute Assessment and Plan: holding tube feeds for thoracentesis, will continue tube feeds is post thoracentesis - continue MiraLax as patient has not had a bowel movement since 08/01 (7) Atrial fibrillation: Qualifiers: Atrial fibrillation type: unspecified Qualified Code(s): I48.91 - Unspecified atrial fibrillation Code(s): I48.91 - Unspecified atrial fibrillation Status: Acute Assessment and Plan: patient on amiodarone, metoprolol and Eliquis (8) DVT prophylaxis: Code(s): Z29.9 - Encounter for prophylactic measures, unspecified Status: Acute Assessment and Plan: will restart Eliquis after thoracentesis Additional Plan Discussed with patient and his and updated with his plan of care. I let them know that he is going to have his thoracentesis done today. code status: Full code Critical care time spent: 32 minutes Due to a high probability of clinically significant, life threatening deterioration, the patient required my highest level of preparedness to intervene emergently and I personally spent this critical care time directly and personally managing the patient. This critical care time included obtaining a history; examining the patient; pulse oximetry; ordering and review of studies; arranging urgent treatment with development of a man
--- NOTE | 2019-08-07 14:19 | PCPTNOTE ---
Attempted to see patient for PT, however unable to see patient due to patient being out of the room for a X-ray.
[2019-08-07 14:25] LABS: pH Pleural Fluid 7.448 (7.210-7.500)
--- NOTE | 2019-08-07 14:36 | PM.PNPUL ---
Progress Note: A&P Assessment and Plan (1) Pneumonia: Qualifiers: Pneumonia type: due to unspecified organism Laterality: unspecified laterality Lung location: unspecified part of lung Qualified Code(s): J18.9 - Pneumonia, unspecified organism Code(s): J18.9 - Pneumonia, unspecified organism Status: Acute Assessment and Plan: - awaiting Klebsiella Pneumonia antibiotic susceptibility to r/o ESBL production. (2) Collapse of left lung: Code(s): J98.11 - Atelectasis Status: Acute Assessment and Plan: - continue incentive spirometer - daily ambulation if tolerable - consider flutter valve for chest PT - getting US guidued thoracentesis. Fluid should be sent for gram stain and culture, ph, glucose, protein, cell count with diff, albumin and LDH. If pH is less than 7.20 then a chest tube placement with continued antibiotics is recommend. serum LDH, protein and albumin should also be drawn Time Spent With Patient Time with patient: 15 - 25 minutes Subjective Date/time seen: 08/07/19 14:36 Interval history: Left seemingly pleural effusion with atelectis appears worse radiographically today but patient is clinically stable. Getting US guided thoracentesis today. Review of Systems Review of Systems: All systems reviewed & are unremarkable except as noted in HPI and below Exam Const: General: comfortable and no acute distress HENMT: Mouth: Yes moist mucous membranes Neck: Neck: supple and no JVD Resp: Auscultation: diminished lung sounds (to left up to mid lung melgar ) Cardio: Rate: regular rate Rhythm: regular rhythm GI: Auscultation: normal bowel sounds Skin: General skin exam: normal color Objective Data Vital Signs Vital Signs: Vital Signs - 24 hr 08/06/19 16:00 08/06/19 16:26 08/06/19 16:36 Temperature Pulse Rate 75 75 77 Respiratory Rate 19 18 18 Blood Pressure 146/86 H Pulse Oximetry 90 95 08/06/19 18:00 08/06/19 20:00 08/06/19 21:28 Temperature 37.0 C Pulse Rate 74 72 73 Respiratory Rate 19 19 18 Blood Pressure 155/89 H 168/99 H Pulse Oximetry 91 93 08/06/19 21:29 08/06/19 21:34 08/06/19 22:00 Temperature Pulse Rate 73 72 Respiratory Rate 18 17 Blood Pressure 154/92 H Pulse Oximetry 92 92 02/19/20 23:09 08/07/19 00:00 08/07/19 01:18 Temperature 37.2 C Pulse Rate 74 72 72 Respiratory Rate 17 16 Blood Pressure 157/90 H Pulse Oximetry 97 08/07/19 01:26 08/07/19 02:00 08/07/19 04:00 Temperature 37.0 C Pulse Rate 70 69 67 Respiratory Rate 15 15 13 Blood Pressure 156/90 H 149/86 H Pulse Oximetry 93 91 08/07/19 05:18 08/07/19 05:26 08/07/19 06:00 Temperature Pulse Rate 70 71 67 Respiratory Rate 18 16 11 L Blood Pressure 146/80 H Pulse Oximetry 91 08/07/19 08:00 08/07/19 08:20 08/07/19 09:12 Temperature 36.4 C Pulse Rate 72 71 71 Respiratory Rate 19 17 Blood Pressure 163/105 H Pulse Oximetry 88 L 08/07/19 09:17 08/07/19 09:26 08/07/19 10:00 Temperature Pulse Rate 72 74 Respiratory Rate 16 17 Blood Pressure 160/95 H Pulse Oximetry 87 L 88 L 08/07/19 11:00 08/07/19 11:52 08/07/19 12:00 Temperature 37.0 C Pulse Rate 71 73 Respiratory Rate 16 15 Blood Pressure 155/91 H Pulse Oximetry 90 95 08/07/19 12:02 08/07/19 14:15 08/07/19 14:16 Temperature Pulse Rate 75 93 94 Respiratory Rate 14 18 22 H Blood Pressure 190/96 H 173/108 H Pulse Oximetry 93 94 Intake/Output Intake/Output: Intake & Output 08/04/19 08/05/19 08/06/19 08/07/19 23:59 23:59 23:59 23:59 Intake Total 1769 2103 1992 696 Output Total 6370 7910 5780 1776 Banner [phone] Meds/Results Medications: Active Medications Generic Name Dose Route Start Last Admin Trade Name Freq PRN Reason Stop Dose Admin Acetaminophen 650 mg 08/01/19 13:11 08/05/19 09:55 Tylenol Elixir FEED TUBE 650 mg Q6HR PRN Administration pain or fever
[2019-08-07 17:42] LABS: Appearance Pleural Fluid Turbid (Clear); Color Pleural Fluid Brown (Colorless); Pleural fluid source Pleural fluid
[2019-08-07 17:43] LABS: Nucleated Cell Pleural Fluid 523 /uL (0-1000); RBC Pleural Fluid 0 /uL (0-0)
[2019-08-07 17:48] LABS: Lymphocytes Pleural Fluid 58 %; Neutrophils Pleural Fluid 32 % (0-25)
[2019-08-07 17:49] LABS: Macrophages Pleural Fluid 3 %; Monocytes Pleural Fluid 3 %; Other Cells Pleural Fluid 7 %
[2019-08-07] MEDS: ATORVASTATIN 40 MG TABLET FEED TUBE (20:34)
[2019-08-07 23:21] LABS: pH Pleural Fluid 7.674 (7.210-7.500)
[2019-08-08] VITALS (35 sets, daily range): BP systolic 134–173; BP diastolic 77–92; PULSE 67–78; RESP 12–32; TEMP 36.4–36.9; O2SAT 96–100
[2019-08-08] MEDS: IPRATROPIUM BR 0.02% INH SOLN 0.5 MG/2.5 ML VIAL INHALATION ×7 (03:34→23:10)
[2019-08-08] MEDS: LEVALBUTEROL NEB 1.25 MG/3 ML 0.63 MG INHALATION ×6 (03:34→23:09)
[2019-08-08] MEDS: GABAPENTIN 100 MG CAPSULE XX ×3 (05:15→22:11)
[2019-08-08 06:49] LABS: Vancomycin Trough 15.3 ug/mL (10.0-20.0)
[2019-08-08] MEDS: AMIODARONE HCL 200 MG TABLET 400 MG PO (08:21)
[2019-08-08] MEDS: polyethylene glycoL 3350 17 GM POWD.PACK PO (08:21)
[2019-08-08] MEDS: PANTOPRAZOLE SODIUM IV 40 MG VIAL IV PUSH (08:21)
[2019-08-08] MEDS: predniSONE 10 MG TABLET PO (08:21)
[2019-08-08] MEDS: ASPIRIN 81 MG CHEWABLE TABLET FEED TUBE (08:21)
[2019-08-08] MEDS: PHARMACIST COMMUNICATION ORDER 1 EACH XX (08:22)
[2019-08-08] MEDS: SILVERGEL (ELTA) 45 ML 1 APPLIC TOPICAL (08:22)
[2019-08-08] MEDS: LEVALBUTEROL NEB 1.25 MG/3 ML (09:22)
[2019-08-08] MEDS: DORNASE ALFA INH SOLN 1 MG/ML 2.5 ML AMP 2.5 MG INHALATION (09:23)
--- NOTE | 2019-08-08 11:48 | PCDIET ---
Nutrition Follow-Up Complete: Nutrition Diagnosis: Inadequate infusion of enteral nutrition related to aspiration/pneumonia as evidenced by NPO status. Nutrition Goal: Patient to meet estimated nutritional needs. Goal met. Patient tolerating Jevity 1.5 at 55mL/hr goal rate via PEG with [place] flush BID. Last recorded weight is 96.7 kg which is decreased. I/O negative. Bowel Motility: Small liquid BM on 08/07/19. Labs Reviewed: No new labs today. Meds Noted: Cefepime, Protonix, Miralax, Prednisone, Vancomycin Additional Notes: Sacral ulcer with no reported change. Plan for transfer to outside hospital when bed available. In mean time, recommend continuing tube feeding/[place] flushes. Nutrition Monitoring and Evaluation: Follow up every Sunday/Sunday. Follow daily in ICU rounds.
--- NOTE | 2019-08-08 11:59 | PM.IMPN ---
Progress Note: A&P Assessment and Plan (1) Acute respiratory failure with hypoxia: Code(s): J96.01 - Acute respiratory failure with hypoxia Status: Acute Assessment and Plan: due to multifocal pneumonia on high flow cannula L until 08/02 at which point intubated and bronched with copius thick secretions removed 08/06 CXR with L pleural effusion; hold apixaban and repeat 08/07, consider U/s guided thoracentesis for dx/tx 08/07 chest x-ray with persistent left pleural effusion. Ultrasound-guided thoracentesis 08/07 c/w parapneumonic effusion (2) Pneumonia: Qualifiers: Pneumonia type: due to unspecified organism Laterality: unspecified laterality Lung location: unspecified part of lung Qualified Code(s): J18.9 - Pneumonia, unspecified organism Code(s): J18.9 - Pneumonia, unspecified organism Status: Acute Assessment and Plan: likely aspiration may be having ongoing episodes, perhaps silent, that are delaying his recovery finished 10 days zosyn 07/31 and continue prednisone with taper pulmonology bronched with mucous plug removal and started Vanc 08/02 along with cefepime 08/04 08/06 sputum growing Klebsiella (3) Atrial fibrillation with rapid ventricular response: Code(s): I48.91 - Unspecified atrial fibrillation Status: Acute Assessment and Plan: Continue amiodarone metoprolol on hold 07/28 rate controlled 07/30 back to SR (4) Renal failure, acute: Qualifiers: Acute renal failure type: unspecified Qualified Code(s): N17.9 - Acute kidney failure, unspecified Code(s): N17.9 - Acute kidney failure, unspecified Status: Acute Assessment and Plan: resolved (5) CVA (cerebral vascular accident): Qualifiers: CVA mechanism: thrombosis Precerebral and cerebral artery: vertebral artery Laterality of affected vessel: right Qualified Code(s): 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 Aspirin, statin, and antihypertensive speech therapy (6) Hypertension: Qualifiers: Hypertension type: essential hypertension Qualified Code(s): I10 - Essential (primary) hypertension Code(s): I10 - Essential (primary) hypertension Status: Acute Assessment and Plan: Metoprolol on hold and with creatinine down restarted lisinopril 07/29 and increased to 20 mg 07/31 Monitor Subjective Date/time seen: 08/08/19 11:59 Interval history: Uneventful night. Tolerated TF. Tolerated chest PT. Review of Systems Review of Systems: All systems reviewed & are unremarkable except as noted in HPI and below ROS unobtainable: unobtainable due to endotracheal tube Exam Narrative: Exam Narrative: HEENT: EOMI, PERRL, ET tube in place NECK: No JVD CHEST: Slightly coarse HEART: NL S1/S2, regular, no murmur ABDOMEN: BS+, soft, nontender, no mass, no bruits EXTREMITIES: No cyanosis or edema of legs, right arm with less edema NEUROLOGIC: CN appear symmetric, mild-moderate left weakness Objective Data Vital Signs Vital Signs: Vital Signs - 24 hr 08/07/19 12:00 08/07/19 12:02 08/07/19 14:00 Temperature 98.6 F Pulse Rate 73 75 73 Respiratory Rate 15 14 15 Blood Pressure 155/91 H 173/108 H Pulse Oximetry 95 95 08/07/19 14:15 08/07/19 14:16 08/07/19 15:15 Temperature Pulse Rate 93 94 Respiratory Rate 18 22 H Blood Pressure 190/96 H 173/108 H Pulse Oximetry 93 94 90 08/07/19 16:00 08/07/19 16:38 08/07/19 16:50 Temperature 97.8 F Pulse Rate 74 71 73 Respiratory Rate 21 H 18 18 Blood Pressure 179/97 H Pulse Oximetry 90 08/07/19 18:00 08/07/19 18:36 08/07/19 20:00 Temperature 97.9 F Pulse Rate 73 74 73 Respiratory Rate 22 H 30 H 19 Blood Pressure 207/115 H 168/95 H Pulse Oximetry 98 97 99 08/07/19 20:34
--- NOTE | 2019-08-08 11:59 | P.PNIM_ITS ---
Progress Note: A&P Assessment and Plan (1) Acute respiratory failure with hypoxia: Code(s): J96.01 - Acute respiratory failure with hypoxia Status: Acute Assessment and Plan: * due to multifocal pneumonia * on high flow cannula L until 08/02 at which point intubated and bronched with copius thick secretions removed * 08/06 CXR with L pleural effusion; hold apixaban and repeat 08/07, consider U/s guided thoracentesis for dx/tx * 08/07 chest x-ray with persistent left pleural effusion. * Ultrasound-guided thoracentesis 08/07 c/w parapneumonic effusion (2) Pneumonia: Qualifiers: Pneumonia type: due to unspecified organism Laterality: unspecified laterality Lung location: unspecified part of lung Qualified Code(s): J18.9 - Pneumonia, unspecified organism Code(s): J18.9 - Pneumonia, unspecified organism Status: Acute Assessment and Plan: * likely aspiration * may be having ongoing episodes, perhaps silent, that are delaying his recovery * finished 10 days zosyn 07/31 and continue prednisone with taper * pulmonology bronched with mucous plug removal and started Vanc 08/02 along with cefepime 08/04 * 08/06 sputum growing Klebsiella (3) Atrial fibrillation with rapid ventricular response: Code(s): I48.91 - Unspecified atrial fibrillation Status: Acute Assessment and Plan: * Continue amiodarone * metoprolol on hold * 07/28 rate controlled * 07/30 back to SR (4) Renal failure, acute: Qualifiers: Acute renal failure type: unspecified Qualified Code(s): N17.9 - Acute kidney failure, unspecified Code(s): N17.9 - Acute kidney failure, unspecified Status: Acute Assessment and Plan: * resolved (5) CVA (cerebral vascular accident): Qualifiers: CVA mechanism: thrombosis Precerebral and cerebral artery: vertebral artery Laterality of affected vessel: right Qualified Code(s): 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 Aspirin, statin, and antihypertensive * speech therapy (6) Hypertension: Qualifiers: Hypertension type: essential hypertension Qualified Code(s): I10 - Essential (primary) hypertension Code(s): I10 - Essential (primary) hypertension Status: Acute Assessment and Plan: * Metoprolol on hold and with creatinine down restarted lisinopril 07/29 and increased to 20 mg 07/31 * Monitor Subjective Date/time seen: 08/08/19 11:59 Interval history: Uneventful night. Tolerated TF. Tolerated chest PT. Review of Systems Review of Systems: All systems reviewed & are unremarkable except as noted in HPI and below ROS unobtainable: unobtainable due to endotracheal tube Exam Narrative: Exam Narrative: HEENT: EOMI, PERRL, ET tube in place NECK: No JVD CHEST: Slightly coarse HEART: NL S1/S2, regular, no murmur ABDOMEN: BS+, soft, nontender, no mass, no bruits EXTREMITIES: No cyanosis or edema of legs, right arm with less edema NEUROLOGIC: CN appear symmetric, mild-moderate left weakness Objective Data Vital Signs Vital Signs: Vital Signs - 24 hr 08/07/19 12:00 08/07/19 12:02 08/07/19 14:00 Temperature 98.6 F Pulse Rate 73 75 73 Respiratory Rate 15 14 15 Blood Pressure 155/91 H 173/108 H Pulse Oximetry 95 95
--- NOTE | 2019-08-08 12:53 | WPDINTPN ---
Progress Note: A&P Assessment and Plan (1) Acute respiratory failure with hypoxia: Code(s): J96.01 - Acute respiratory failure with hypoxia Status: Acute Assessment and Plan: patient successfully extubated on 08/05/2019 - he was initially intubated on 08/02/2023 left lung collapse. Status post bronchoscopy. - Bronchial washing cultures growing Klebsiella, patient on cefepime and vancomycin. - no fungal element seen on bronchial washing - s/p thoracentesis on 08/07/2019, with removal of 300 ml turbid fluid - discussed with thoracic surgery at [facility] and MICU nurse practitioner was accepted the patient. Awaiting bed (2) Collapse of left lung: Code(s): J98.11 - Atelectasis Status: Acute Assessment and Plan: status post bronchoscopy. Please review bronchoscopy note per mortgage processor - continue chest percussion therapy, Mucomyst Nebs, Pulmozyme, bronchodilators - Chest x-ray reviewed, large left pleural effusion, thoracentesis as above - Appreciate pulmonology following the patient (3) Pneumonia: Qualifiers: Pneumonia type: due to unspecified organism Laterality: unspecified laterality Lung location: unspecified part of lung Qualified Code(s): J18.9 - Pneumonia, unspecified organism Code(s): J18.9 - Pneumonia, unspecified organism Status: Acute Assessment and Plan: patient has been treated with Zosyn for 10 days for presumed aspiration pneumonia - prolactin has been elevated, neutrophils of 93% - given the thick secretions on bronchoscopy, discussed with pulmonology, - bronch washing cultures growing Klebsiella continue cefepime - leukocytosis improving (4) CVA (cerebral vascular accident): Qualifiers: CVA mechanism: thrombosis Precerebral and cerebral artery: vertebral artery Laterality of affected vessel: right Qualified Code(s): 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 - speech therapy, PT /OT following the patient (5) Hypertension: Qualifiers: Hypertension type: essential hypertension Qualified Code(s): I10 - Essential (primary) hypertension Code(s): I10 - Essential (primary) hypertension Status: Acute Assessment and Plan: patient essential hypertension, blood pressures are stable (6) Dietary surveillance and counseling: Code(s): Z71.3 - Dietary counseling and surveillance Status: Acute Assessment and Plan: holding tube feeds for thoracentesis, will continue tube feeds is post thoracentesis - continue MiraLax as patient has not had a bowel movement since 08/01 (7) Atrial fibrillation: Qualifiers: Atrial fibrillation type: unspecified Qualified Code(s): I48.91 - Unspecified atrial fibrillation Code(s): I48.91 - Unspecified atrial fibrillation Status: Acute Assessment and Plan: patient on amiodarone, metoprolol and Eliquis (8) DVT prophylaxis: Code(s): Z29.9 - Encounter for prophylactic measures, unspecified Status: Acute Assessment and Plan: will restart Eliquis Additional Plan Discussed with patient and his and updated with his plan of care. They wanted the patient to be transferred to [facility], I call [facility] in spoke to the MICU nurse practitioner and the thoracic surgeon was willing to consult on the patient. Patient will be transferred once a bed is available code status: Full code Critical care time spent: 38 minutes Due to a high probability of clinically significant, life threatening deterioration, the patient required my highest level of preparedness to intervene
[2019-08-08] MEDS: lisinopriL 10 MG TABLET FEED TUBE (14:29)
[2019-08-08] MEDS: APIXABAN 5 MG TABLET PO ×2 (14:29→22:11)
--- NOTE | 2019-08-08 15:47 | PM.PNPUL ---
Progress Note: A&P Assessment and Plan (1) Pneumonia: Qualifiers: Pneumonia type: due to unspecified organism Laterality: unspecified laterality Lung location: unspecified part of lung Qualified Code(s): J18.9 - Pneumonia, unspecified organism Code(s): J18.9 - Pneumonia, unspecified organism Status: Acute Assessment and Plan: - awaiting Klebsiella Pneumonia antibiotic susceptibility to r/o ESBL production. - s/p US guided thoracentesis with improving CXR - persistent atelectasis likely complication of recent posterior circulation/cerebellar stroke. - keep head of bed at 45 degrees or higher - aspiration risk precautions - continue incnetive spirometer, mobilzation, flutter valve and chest PT (2) Collapse of left lung: Code(s): J98.11 - Atelectasis Status: Acute Assessment and Plan: - continue incentive spirometer - daily ambulation if tolerable - consider flutter valve for chest PT - getting US guidued thoracentesis. Fluid should be sent for gram stain and culture, ph, glucose, protein, cell count with diff, albumin and LDH. If pH is less than 7.20 then a chest tube placement with continued antibiotics is recommend. serum LDH, protein and albumin should also be drawn Time Spent With Patient Time with patient: 15 - 25 minutes Subjective Date/time seen: 08/08/19 15:47 Interval history: CXR is improved today after US guided thoracentesis from yesterday. It only produced about 300 cc of slightly blood fluid. cultures are pending. I've asked the lab twice to do susceptibility testing on Kleibsiella Pneumonia growing from bronch washing but there is still no update. The patient was getting chest PT this morning. The voiced to me that she would like her to [facility] for a second opinion. Review of Systems Review of Systems: All systems reviewed & are unremarkable except as noted in HPI and below Exam Const: General: comfortable and no acute distress HENMT: Mouth: Yes moist mucous membranes Neck: Neck: supple and no JVD Resp: Auscultation: diminished lung sounds (on the left ) Cardio: Rate: regular rate Rhythm: regular rhythm GI: Auscultation: normal bowel sounds Urinary Catheter: Urinary Catheter: patent and draining and urine clear Extrem: General: no edema and no pedal edema Objective Data Vital Signs Vital Signs: Vital Signs - 24 hr 08/07/19 16:00 08/07/19 16:38 08/07/19 16:50 Temperature 36.6 C Pulse Rate 74 71 73 Respiratory Rate 21 H 18 18 Blood Pressure 179/97 H Pulse Oximetry 90 08/07/19 18:00 08/07/19 18:36 08/07/19 20:00 Temperature 36.6 C Pulse Rate 73 74 73 Respiratory Rate 22 H 30 H 19 Blood Pressure 207/115 H 168/95 H Pulse Oximetry 98 97 99 08/07/19 20:34 08/07/19 21:43 08/07/19 21:53 Temperature Pulse Rate 73 72 76 Respiratory Rate 26 H 27 H Blood Pressure Pulse Oximetry 97 08/07/19 22:00 08/07/19 23:53 08/08/19 00:00 Temperature 36.9 C Pulse Rate 70 70 69 Respiratory Rate 21 H 28 H 17 Blood Pressure 142/89 H 141/82 H Pulse Oximetry 99 97 100 08/08/19 00:10 08/08/19 00:25 08/08/19 02:00 Temperature Pulse Rate 72 78 69 Respiratory Rate 23 H 26 H 18 Blood Pressure 152/80 H Pulse Oximetry 97 99 08/08/19 04:00 08/08/19 04:56 08/08/19 04:57 Temperature Pulse Rate 72 71 71 Respiratory Rate 19 24 H 24 H Blood Pressure 163/85 H Pulse Oximetry 100 99 08/08/19 05:04 08/08/19 06:00 08/08/19 08:00 Temperature 36.6 C Pulse Rate 71 71 67 Respiratory Rate 24 H 15 16 Blood Pressure 169/91 H 166/92 H Pulse Oximetry 98 99 08/08/19 08:21 08/08/19 09:23 08/08/19 09:29 Temperature Pulse Rate 74 72 72 Respiratory Rate 23 H 23 H Blood Pressure Pulse Oximetry 98 08/08/19 09:51 08/08/19 10:00 08/08/19 11:40 Temperature Pulse Rate 74 72 71 Respiratory Rate 23 H 15 23 H Blood Pressure 173/85 H Pulse Oximetry 98 08/08/19 11:47
--- NOTE | 2019-08-08 16:19 | PCOTNOTE ---
The patient treatment was not able to be completed on 08/08/2019. Will plan to continue treatment per plan of care.
--- NOTE | 2019-08-08 16:52 | PM.PNCARD ---
Progress Note: A&P Assessment and Plan (1) Atrial fibrillation with rapid ventricular response: Code(s): I48.91 - Unspecified atrial fibrillation Status: Acute Assessment and Plan: Maintaining sinus rhythm. Decrease amiodarone to 400 mg daily. 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 (4) Dysphagia: Qualifiers: Dysphagia type: oral phase Qualified Code(s): R13.11 - Dysphagia, oral phase Code(s): R13.10 - Dysphagia, unspecified Status: Acute Assessment and Plan: On continuous BiPAP. (5) Pneumonia: Qualifiers: Pneumonia type: due to unspecified organism Laterality: unspecified laterality Lung location: unspecified part of lung Qualified Code(s): J18.9 - Pneumonia, unspecified organism Code(s): J18.9 - Pneumonia, unspecified organism Status: Acute Assessment and Plan: Management per primary team Additional Plan Continue supportive care. Awaiting a bed at [place]. Plan discussed Dr. Lang 1005 08/08/2019 Subjective Date/time seen: 08/08/19 16:52 Interval history: Follow-up for: atrial fibrillation converted to normal sinus rhythm on amiodarone, extensive mucus plugging of the left lung, extubated 08/05/2019, back on continue BiPAP. Date of service: 08/08/2019 Subjective: On continuous BiPAP. CPT session in progress. Denies pain. at bedside. Awaiting bed at [place]. Review of Systems Constitutional: Constitutional: Denies chills, Denies excessive sweating, Reports fatigue and Denies headache(s) Eyes: Eyes: Denies blurry vision ENT: Reports Normal hearing present, Denies headache(s), Denies lip swelling and Denies neck pain Cardiovascular: Cardiovascular: Denies chest pain, Denies palpitations and Denies dyspnea Respiratory: Respiratory: Reports cough, Denies hemoptysis, Denies dyspnea and Reports dyspnea on exertion Comments: Back on continuous BiPAP. Gastrointestinal: Gastrointestinal: Denies abdominal pain Genitourinary: Genitourinary: Denies hematuria Musculoskeletal: Musculoskeletal: Denies neck pain Integumentary/Breasts: Skin/Breast: Reports as per HPI and Denies dry skin Neurologic: Reports Normal hearing present and Denies headache(s) Psychiatric: Psychiatric: Denies anxiety Endocrine: Endocrine: Denies excessive sweating, Reports fatigue and Denies palpitations Hematologic/Lymphatic: Hematologic/Lymphatic: Denies easy bleeding Allergic/Immunologic: Allergic/Immunologic: Denies lip swelling Exam Narrative: Exam Narrative: alert. No acute distress. CPT session in progress. Const: General: cooperative, comfortable and no acute distress Other: On continuous BiPAP HENMT: Head: normal to inspection General nose exam: Normal external nose present Mouth: Yes moist mucous membranes Eyes: Sclera: sclerae normal Pupils: Equal, round and reactive pupils present Neck: Neck: supple and no JVD Chest: Other: no chest wall pain to palpation Resp: Auscultation: diminished lung sounds diffuse Other: Coarse rhonchorous br
[2019-08-08] MEDS: SALINE 0.65% NAS SOLN 44 ML BTL 1 SPRAY NASAL (17:54)
--- NOTE | 2019-08-08 18:45 | PC.NURSE ---
Spoke with Courtney in bed placement at [facility] at 1615 today and she said that the patient is on her waiting list and at this time patients are waiting up to a few days for transfer. I informed the patient and his of this news. They stated their understanding.
[2019-08-08] MEDS: ATORVASTATIN 40 MG TABLET FEED TUBE (22:11)
[2019-08-09] VITALS (23 sets, daily range): BP systolic 134–146; BP diastolic 82–91; PULSE 70–79; RESP 13–23; TEMP 36.5–36.8; O2SAT 92–98
[2019-08-09] MEDS: IPRATROPIUM BR 0.02% INH SOLN 0.5 MG/2.5 ML VIAL INHALATION ×4 (02:59→16:44)
[2019-08-09] MEDS: LEVALBUTEROL NEB 1.25 MG/3 ML 0.63 MG INHALATION ×4 (02:59→16:44)
[2019-08-09 05:25] LABS: Basophils Percent Auto 0.2 % (0.2-1.2); Eosinophils Absolute Auto 0.2 K/mm3 (0-0.3); Eosinophils Percent Auto 1.8 % (0-4.4); Hematocrit 35.1 % (42.0-52.0); Hemoglobin 10.9 g/dL (14.0-18.0); Immature Granulocyte Absolute 0.08 K/mm3 (0.00-0.031); Immature Granulocyte Percent A 0.6 % (0-0.5); Lymphocytes Absolute Auto 0.74 K/mm3 (0.9-3.2); Lymphocytes Percent Auto 5.5 % (18.3-44.2); Mean Corpuscular HGB Conc 31.1 g/dl (32-36); Mean Corpuscular Hemoglobin 28.1 pg (26-34); Mean Corpuscular Volume 90.5 fl (80-100); Mean Platelet Volume 9.3 fl (7.4-10.4); Monocytes Absolute Auto 0.9 K/mm3 (0.1-0.6); Monocytes Percent Auto 6.9 % (2.6-8.5); Neutrophils Absolute Auto 11.4 K/mm3 (1.3-6.7); Platelet Count Result 393 k/mm3 (150-375); Red Blood Count 3.88 M/mm3 (4.6-6.20); Red Cell Distribution Width 13.2 % (11.5-14.5); White Blood Count 13.4 K/mm3 (4.5-10.0)
[2019-08-09] MEDS: GABAPENTIN 100 MG CAPSULE XX ×2 (05:39→15:53)
[2019-08-09 05:40] LABS: Blood Urea Nitrogen 25 mg/dL (9-20); Calcium 8.3 mg/dL (8.4-10.2); Carbon Dioxide 34 mmol/L (22-30); Chloride 95 mmol/L (98-107); Estimated CRCL calculation 106 ml/min; Estimated Glomerular Filt Rate > 60; Glucose 161 mg/dL (75-110); Magnesium 2.2 mg/dL (1.6-2.3); Phosphorus 3.3 mg/dL (2.5-4.5); Potassium 4.1 mmol/L (3.4-5.0); Sodium 137 mmol/L (137-145)
[2019-08-09] MEDS: SALINE 0.65% NAS SOLN 44 ML BTL 1 SPRAY NASAL (09:49)
[2019-08-09] MEDS: predniSONE 10 MG TABLET PO (09:52)
[2019-08-09] MEDS: ASPIRIN 81 MG CHEWABLE TABLET FEED TUBE (09:52)
[2019-08-09] MEDS: PANTOPRAZOLE 40 MG TABLET PO (09:52)
[2019-08-09] MEDS: AMIODARONE HCL 200 MG TABLET 400 MG PO (09:52)
[2019-08-09] MEDS: APIXABAN 5 MG TABLET PO (09:52)
--- NOTE | 2019-08-09 10:00 | P.PNIM_ITS ---
Progress Note: A&P Assessment and Plan (1) Acute respiratory failure with hypoxia: Code(s): J96.01 - Acute respiratory failure with hypoxia Status: Acute Assessment and Plan: * due to multifocal pneumonia * on high flow cannula L until 08/02 at which point intubated and bronched with copius thick secretions removed * 08/06 CXR with L pleural effusion; hold apixaban and repeat 08/07, consider U/s guided thoracentesis for dx/tx * 08/07 chest x-ray with persistent left pleural effusion. * Ultrasound-guided thoracentesis 08/07 c/w parapneumonic effusion * Continue Bipap at night, high flow during day, wean as possible (2) Pneumonia: Qualifiers: Pneumonia type: due to unspecified organism Laterality: unspecified laterality Lung location: unspecified part of lung Qualified Code(s): J18.9 - Pneumonia, unspecified organism Code(s): J18.9 - Pneumonia, unspecified organism Status: Acute Assessment and Plan: * likely aspiration * may be having ongoing episodes, perhaps silent, that are delaying his recovery * finished 10 days zosyn 07/31 and continue prednisone with taper * pulmonology bronched with mucous plug removal and started cefepime 08/04 * 08/06 sputum growing Klebsiella (3) Atrial fibrillation with rapid ventricular response: Code(s): I48.91 - Unspecified atrial fibrillation Status: Acute Assessment and Plan: * Continue amiodarone * metoprolol on hold * 07/28 rate controlled * 07/30 back to SR (4) Renal failure, acute: Qualifiers: Acute renal failure type: unspecified Qualified Code(s): N17.9 - Acute kidney failure, unspecified Code(s): N17.9 - Acute kidney failure, unspecified Status: Acute Assessment and Plan: * resolved (5) CVA (cerebral vascular accident): Qualifiers: CVA mechanism: thrombosis Precerebral and cerebral artery: vertebral a rtery Laterality of affected vessel: right Qualified Code(s): 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 Aspirin, statin, and antihypertensive * speech therapy (6) Hypertension: Qualifiers: Hypertension type: essential hypertension Qualified Code(s): I10 - Essential (primary) hypertension Code(s): I10 - Essential (primary) hypertension Status: Acute Assessment and Plan: * Metoprolol on hold and with creatinine down restarted lisinopril 07/29 and increased to 20 mg 07/31 * Monitor Subjective Date/time seen: 08/09/19 10:00 Interval history: Uneventful night. Tolerated TF. Tolerated chest PT. Review of Systems Review of Systems: All systems reviewed & are unremarkable except as noted in HPI and below Exam Narrative: Exam Narrative: HEENT: EOMI, PERRL, ET tube in place NECK: No JVD CHEST: Slightly coarse HEART: NL S1/S2, regular, no murmur ABDOMEN: BS+, soft, nontender, no mass, no bruits EXTREMITIES: No cyanosis or edema of legs, right arm with less edema NEUROLOGIC: CN appear symmetric, mild-moderate left weakness Objective Data Vital Signs Vital Signs: Vital Signs - 24 hr 08/08/19 11:40 08/08/19 11:47 08/08/19 11:59 Temperature Pulse Rate 71 71 73 Respiratory Rate 23 H 27 H 23 H Blood Pressure Pulse Oximetry 98 08/08/19 12:00 02
--- NOTE | 2019-08-09 10:00 | PM.IMPN ---
Progress Note: A&P Assessment and Plan (1) Acute respiratory failure with hypoxia: Code(s): J96.01 - Acute respiratory failure with hypoxia Status: Acute Assessment and Plan: due to multifocal pneumonia on high flow cannula L until 08/02 at which point intubated and bronched with copius thick secretions removed 08/06 CXR with L pleural effusion; hold apixaban and repeat 08/07, consider U/s guided thoracentesis for dx/tx 08/07 chest x-ray with persistent left pleural effusion. Ultrasound-guided thoracentesis 08/07 c/w parapneumonic effusion Continue Bipap at night, high flow during day, wean as possible (2) Pneumonia: Qualifiers: Pneumonia type: due to unspecified organism Laterality: unspecified laterality Lung location: unspecified part of lung Qualified Code(s): J18.9 - Pneumonia, unspecified organism Code(s): J18.9 - Pneumonia, unspecified organism Status: Acute Assessment and Plan: likely aspiration may be having ongoing episodes, perhaps silent, that are delaying his recovery finished 10 days zosyn 07/31 and continue prednisone with taper pulmonology bronched with mucous plug removal and started cefepime 08/04 08/06 sputum growing Klebsiella (3) Atrial fibrillation with rapid ventricular response: Code(s): I48.91 - Unspecified atrial fibrillation Status: Acute Assessment and Plan: Continue amiodarone metoprolol on hold 07/28 rate controlled 07/30 back to SR (4) Renal failure, acute: Qualifiers: Acute renal failure type: unspecified Qualified Code(s): N17.9 - Acute kidney failure, unspecified Code(s): N17.9 - Acute kidney failure, unspecified Status: Acute Assessment and Plan: resolved (5) CVA (cerebral vascular accident): Qualifiers: CVA mechanism: thrombosis Precerebral and cerebral artery: vertebral artery Laterality of affected vessel: right Qualified Code(s): 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 Aspirin, statin, and antihypertensive speech therapy (6) Hypertension: Qualifiers: Hypertension type: essential hypertension Qualified Code(s): I10 - Essential (primary) hypertension Code(s): I10 - Essential (primary) hypertension Status: Acute Assessment and Plan: Metoprolol on hold and with creatinine down restarted lisinopril 07/29 and increased to 20 mg 07/31 Monitor Subjective Date/time seen: 08/09/19 10:00 Interval history: Uneventful night. Tolerated TF. Tolerated chest PT. Review of Systems Review of Systems: All systems reviewed & are unremarkable except as noted in HPI and below Exam Narrative: Exam Narrative: HEENT: EOMI, PERRL, ET tube in place NECK: No JVD CHEST: Slightly coarse HEART: NL S1/S2, regular, no murmur ABDOMEN: BS+, soft, nontender, no mass, no bruits EXTREMITIES: No cyanosis or edema of legs, right arm with less edema NEUROLOGIC: CN appear symmetric, mild-moderate left weakness Objective Data Vital Signs Vital Signs: Vital Signs - 24 hr 08/08/19 11:40 08/08/19 11:47 08/08/19 11:59 Temperature Pulse Rate 71 71 73 Respiratory Rate 23 H 27 H 23 H Blood Pressure Pulse Oximetry 98 08/08/19 12:00 08/08/19 14:00 08/08/19 15:06 Temperature 97.7 F Pulse Rate 73 74 74 Respiratory Rate 16 32 H Blood Pressure 154/83 H Pulse Oximetry 99 98 08/08/19 16:00 08/08/19 16:20 08/08/19 16:40 Temperature Pulse Rate 76 75 77 Respiratory Rate 21 H 22 H 21 H Blood Pressure 159/89 H Pulse Oximetry 98 98 08/08/19 17:00 08/08/19 17:30 08/08/19 18:00 Temperature 98.2 F Pulse Rate 72 73 76 Respiratory Rate Blood Pressure Pulse Oximetry 98 97 08/08/19 20:00 08/08/19 20:39 08/08/19 20:52 Temperature 97.6 F Pulse Rate 73 7
[2019-08-09 10:09] LABS: Hematocrit 36.2 % (42.0-52.0); Hemoglobin 11.1 g/dL (14.0-18.0); Mean Corpuscular HGB Conc 30.7 g/dl (32-36); Mean Corpuscular Hemoglobin 27.6 pg (26-34); Mean Platelet Volume 9.2 fl (7.4-10.4); Platelet Count Result 422 k/mm3 (150-375); Red Blood Count 4.02 M/mm3 (4.6-6.20); Red Cell Distribution Width 13.2 % (11.5-14.5); White Blood Count 13.8 K/mm3 (4.5-10.0)
[2019-08-09 10:24] LABS: Blood Urea Nitrogen 24 mg/dL (9-20); Calcium 8.1 mg/dL (8.4-10.2); Carbon Dioxide 34 mmol/L (22-30); Chloride 94 mmol/L (98-107); Estimated CRCL calculation 106 ml/min; Estimated Glomerular Filt Rate > 60; Glucose 121 mg/dL (75-110); Magnesium 2.3 mg/dL (1.6-2.3); Potassium 4.2 mmol/L (3.4-5.0); Sodium 136 mmol/L (137-145)
[2019-08-09] MEDS: SILVERGEL (ELTA) 45 ML 1 APPLIC TOPICAL (11:54)
--- NOTE | 2019-08-09 12:24 | PM.PNPUL ---
Progress Note: A&P Assessment and Plan (1) Pneumonia: Qualifiers: Pneumonia type: due to unspecified organism Laterality: unspecified laterality Lung location: unspecified part of lung Qualified Code(s): J18.9 - Pneumonia, unspecified organism Code(s): J18.9 - Pneumonia, unspecified organism Status: Acute Assessment and Plan: - awaiting Klebsiella Pneumonia antibiotic susceptibility to r/o ESBL production. No need for change of antibiotics at this stage as patient is clinically improving - s/p US guided thoracentesis with improving CXR - persistent atelectasis likely complication of recent posterior circulation/cerebellar stroke. - keep head of bed at 45 degrees or higher - aspiration risk precautions - continue incnetive spirometer, mobilzation, flutter valve and chest PT - will d/c prednisone today as I see no benefit at this stage. (2) Collapse of left lung: Code(s): J98.11 - Atelectasis Status: Acute Assessment and Plan: - continue incentive spirometer - daily ambulation if tolerable - consider flutter valve for chest PT Subjective Date/time seen: 08/09/19 12:24 Interval history: CXR is improving. He is feeling better. Awaiting for bed at [place]. Klebsiella suscpetibility is pending and I was told yesterday it will take 3-7 business days. Review of Systems Review of Systems: All systems reviewed & are unremarkable except as noted in HPI and below Exam Const: General: comfortable and no acute distress HENMT: Mouth: Yes moist mucous membranes Neck: Neck: supple and no JVD Resp: Auscultation: diminished lung sounds (on the left ) Cardio: Rate: regular rate Rhythm: regular rhythm GI: Auscultation: normal bowel sounds Urinary Catheter: Urinary Catheter: patent and draining and urine clear Extrem: General: no edema and no pedal edema Objective Data Vital Signs Vital Signs: Vital Signs - 24 hr 08/08/19 14:00 08/08/19 15:06 08/08/19 16:00 Temperature Pulse Rate 74 74 76 Respiratory Rate 32 H 21 H Blood Pressure 159/89 H Pulse Oximetry 98 98 08/08/19 16:20 08/08/19 16:40 08/08/19 17:00 Temperature 36.8 C Pulse Rate 75 77 72 Respiratory Rate 22 H 21 H Blood Pressure Pulse Oximetry 98 98 08/08/19 17:30 08/08/19 18:00 08/08/19 20:00 Temperature 36.4 C Pulse Rate 73 76 73 Respiratory Rate 14 Blood Pressure 162/85 H Pulse Oximetry 97 96 08/08/19 20:39 08/08/19 20:52 08/08/19 21:35 Temperature Pulse Rate 73 75 76 Respiratory Rate 17 13 20 Blood Pressure Pulse Oximetry 98 08/08/19 23:11 08/08/19 23:13 08/08/19 23:20 Temperature Pulse Rate 71 75 73 Respiratory Rate 12 12 15 Blood Pressure Pulse Oximetry 97 08/08/19 23:51 08/09/19 00:00 08/09/19 02:21 Temperature 36.5 C Pulse Rate 74 74 79 Respiratory Rate 14 16 Blood Pressure 134/77 Pulse Oximetry 97 95 08/09/19 03:01 08/09/19 03:47 08/09/19 04:00 Temperature 36.6 C Pulse Rate 75 77 77 Respiratory Rate 21 H 19 Blood Pressure 139/82 Pulse Oximetry 96 08/09/19 04:42 08/09/19 08:00 08/09/19 08:06 Temperature Pulse Rate 70 75 75 Respiratory Rate 17 16 Blood Pressure Pulse Oximetry 98 96 08/09/19 08:19 08/09/19 08:44 08/09/19 09:28 Temperature 36.5 C Pulse Rate 75 77 76 Respiratory Rate 16 15 21 H Blood Pressure 134/91 H Pulse Oximetry 95 08/09/19 09:40 08/09/19 09:52 08/09/19 10:00 Temperature Pulse Rate 79 78 78 Respiratory Rate 16 Blood Pressure Pulse Oximetry 95 08/09/19 11:28 08/09/19 11:48 Temperature Pulse Rate 77 76 Respiratory Rate 23 H 13 Blood Pressure Pulse Oximetry Intake/Output Intake/Output: Intake & Output 08/06/19 08/07/19 08/08/19 08/09/19 23:59 23:59 23:59 23:59 Intake Total 1992 1991 3295 900 Output Total 4150 4100 2500 1650 [id number] Meds/Results Medications: Active Medications Generic Nam
--- NOTE | 2019-08-09 15:37 | PCSTNOTE ---
Attempted ST with patient this AM. Patient was being cleaned up by nursing and unable to participate in tx.
--- NOTE | 2019-08-09 16:24 | PCPTNOTE ---
The patient treatment was not able to be completed on 08/09/19. Will plan to continue treatment per plan of care.
--- NOTE | 2019-08-09 16:34 | P.TS_ITS ---
Transfer Discharge Sum: Prov Provider Date of admission: 07/21/19 07:58 Primary care physician: UNKNOWN,DOCTOR Admitting clinician: Bernardo Braun MD Consults: 07/21/19 Consult to Physician Routine Comment: DR. MENDEZ AWARE OF CONSULT Consulting Provider: Marjorie Mendez ross carrier driver/MD group to consult: high school social studies tutor Reason for consultation: sepsis, respiratory failure, renal failure Has provider been notified: Yes 07/22/19 Consult to Physician Routine Comment: 07/22/2019 Spoke with Digna Horn re: consult Consulting Provider: Fermin Lang ross carrier driver/MD group to consult: cardiology Dr lucia Reason for consultation: new onset afib RVR Has provider been notified: Yes 07/27/19 Consult to Physician Routine Comment: Consulting Provider: Maureen Mesa Reason for consultation: Respiratory Failure; multifocal pneumonia; high flow oxygen Has provider been notified: Yes 08/02/19 Consult to Physician Routine Comment: 08/02/2019 @ 1141 Valerie notified per RN Consulting Provider: Nidia Padilla ross carrier driver/MD group to consult: Valerie Reason for consultation: respiratory failure Has provider been notified: Yes 08/04/19 Wound/ET Consult Routine Reason for Consult:: worsening coccyx wound, now open with foul smelling drainage Attending physician on discharge: Jerry Turcios Discharging clinician: Jerry Turcios Anticipated date of transfer: 08/09/19 Receiving physician/facility: Dr. Rdz at [facility]. DS: Diagnosis Admitting Diagnosis Admitting Diagnosis: Acute respiratory failure with hypoxia Discharge Diagnosis (1) Acute respiratory failure with hypoxia: Code(s): J96.01 - Acute respiratory failure with hypoxia Status: Acute Assessment and Plan: * due to multifocal pneumonia * on high flow cannula L until 08/02 at which point intubated and bronched with copius thick secretions removed * 08/06 CXR with L pleural effusion; hold apixaban and repeat 08/07, consider U/s guided thoracentesis for dx/tx * 08/07 chest x-ray with persistent left pleural effusion. * Ultrasound-guided thoracentesis 08/07 c/w parapneumonic effusion * Continue Bipap at night, high flow during day, wean as possible * Transfer to [facility] (2) Pneumonia: Qualifiers: Pneumonia type: due to unspecified organism Laterality: unspecified laterality Lung location: unspecified part of lung Qualified Code(s): J18.9 - Pneumonia, unspecified organism Code(s): J18.9 - Pneumonia, unspecified organism Status: Acute Assessment and Plan: * likely aspiration * may be having ongoing episodes, perhaps silent, that are delaying his recovery * finished 10 days zosyn 07/31 and continue prednisone with taper * pulmonology bronched with mucous plug removal and started cefepime 08/02, now on day 7 * 08/06 sputum growing Klebsiella (3) Atrial fibrillation with rapid ventricular response: Code(s): I48.91 - Unspecified atrial fibrillation Status: Acute Assessment and Plan: * Continue amiodarone * metoprolol on hold * 07/28 rate controlled * 07/30 back to SR (4) Renal failure, acute: Qualifiers: Acute renal failure type: unspecified Qualified Code(s): N17.9 - Acute kidney failure, unspecified Code(s): N17.9 - Acute kidney failure, unspecified Status: Acute Assessment and Plan: * resolved (5) CVA (cerebral vascular accident): Qualifiers:
--- NOTE | 2019-08-09 16:34 | PM.TDS ---
Transfer Discharge Sum: Prov Provider Date of admission: 07/21/19 07:58 Primary care physician: UNKNOWN,DOCTOR Admitting clinician: Bernardo Braun MD Consults: 07/21/19 Consult to Physician Routine Comment: DR. MENDEZ AWARE OF CONSULT Consulting Provider: Marjorie Mendez collections assistant/MD group to consult: vp digital marketing Reason for consultation: sepsis, respiratory failure, renal failure Has provider been notified: Yes 07/22/19 Consult to Physician Routine Comment: 07/22/2019 Spoke with Digna Horn re: consult Consulting Provider: Fermin Lang collections assistant/MD group to consult: cardiology Dr lucia Reason for consultation: new onset afib RVR Has provider been notified: Yes 07/27/19 Consult to Physician Routine Comment: Consulting Provider: Maureen Mesa Reason for consultation: Respiratory Failure; multifocal pneumonia; high flow oxygen Has provider been notified: Yes 08/02/19 Consult to Physician Routine Comment: 08/02/2019 @ 1141 Valerie notified per RN Consulting Provider: Nidia Padilla collections assistant/MD group to consult: Valerie Reason for consultation: respiratory failure Has provider been notified: Yes 08/04/19 Wound/ET Consult Routine Reason for Consult:: worsening coccyx wound, now open with foul smelling drainage Attending physician on discharge: Jerry Turcios Discharging clinician: Jerry Turcios Anticipated date of transfer: 08/09/19 Receiving physician/facility: Dr. Rdz at [place]. DS: Diagnosis Admitting Diagnosis Admitting Diagnosis: Acute respiratory failure with hypoxia Discharge Diagnosis (1) Acute respiratory failure with hypoxia: Code(s): J96.01 - Acute respiratory failure with hypoxia Status: Acute Assessment and Plan: due to multifocal pneumonia on high flow cannula L until 08/02 at which point intubated and bronched with copius thick secretions removed 08/06 CXR with L pleural effusion; hold apixaban and repeat 08/07, consider U/s guided thoracentesis for dx/tx 08/07 chest x-ray with persistent left pleural effusion. Ultrasound-guided thoracentesis 08/07 c/w parapneumonic effusion Continue Bipap at night, high flow during day, wean as possible Transfer to [place] (2) Pneumonia: Qualifiers: Pneumonia type: due to unspecified organism Laterality: unspecified laterality Lung location: unspecified part of lung Qualified Code(s): J18.9 - Pneumonia, unspecified organism Code(s): J18.9 - Pneumonia, unspecified organism Status: Acute Assessment and Plan: likely aspiration may be having ongoing episodes, perhaps silent, that are delaying his recovery finished 10 days zosyn 07/31 and continue prednisone with taper pulmonology bronched with mucous plug removal and started cefepime 08/02, now on day 7 08/06 sputum growing Klebsiella (3) Atrial fibrillation with rapid ventricular response: Code(s): I48.91 - Unspecified atrial fibrillation Status: Acute Assessment and Plan: Continue amiodarone metoprolol on hold 07/28 rate controlled 07/30 back to SR (4) Renal failure, acute: Qualifiers: Acute renal failure type: unspecified Qualified Code(s): N17.9 - Acute kidney failure, unspecified Code(s): N17.9 - Acute kidney failure, unspecified Status: Acute Assessment and Plan: resolved (5) CVA (cerebral vascular accident): Qualifiers: CVA mechanism: thrombosis Precerebral and cerebral artery: vertebral artery Laterality of affected vessel: right Qualified Code(s): 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 Aspirin, statin, and antihypertensive speech therapy (6) Hypertension: Qualifiers: Hypertension type: essential hypertension Qualified Code(s): I10 - Essential (primary) hy
[2019-08-09] MEDS: ONDANSETRON INJ 4 MG/2 ML VIAL IV PUSH (17:16)
[2019-08-10 03:39] LABS: Glucose Pleural Fluid 131 mg/dL; LDH Pleural Fluid 251 U/L; Total Protein Pleural Fluid 3.7 g/dL
[2019-08-11 02:36] LABS: Amylase, Pleural Fluid <10 U/L
[2019-08-11 19:32] LABS: Albumin Pleural Fluid 1.4 g/dL
== END 2019-08-09 20:33 | disposition short-term general hospital (02) | DRG 208 ==
LOC: ANHICU 07-25 13:32 → ANHIMU 08-11 15:07
PROVIDERS: Family Medicine; Internal Medicine; Internal Medicine Cardiovascular Disease; Internal Medicine Critical Care Medicine; Admitting Provider Internal Medicine; Visit Provider Internal Medicine
PROC: 0BJ08ZZ Inspection of Tracheobronchial Tree, Via Natural or Artificial Opening Endoscopic (ICD-10-PCS; CPT 31622; principal; 2019-08-02 12:30)
DX: J96.01 Acute respiratory failure with hypoxia (principal); J69.0 Pneumonitis due to inhalation of food and vomit; G93.41 Metabolic encephalopathy; N17.9 Acute kidney failure, unspecified; J98.11 Atelectasis; J90 Pleural effusion, not elsewhere classified; R13.11 Dysphagia, oral phase; I48.0 Paroxysmal atrial fibrillation; F32.9 Major depressive disorder, single episode, unspecified; E78.5 Hyperlipidemia, unspecified; I10 Essential (primary) hypertension; E66.9 Obesity, unspecified; Z68.32 Body mass index [BMI] 32.0-32.9, adult; I69.391 Dysphagia following cerebral infarction; I69.398 Other sequelae of cerebral infarction; R26.89 Other abnormalities of gait and mobility; Z85.828 Personal history of other malignant neoplasm of skin; I95.9 Hypotension, unspecified; E86.1 Hypovolemia; Z93.1 Gastrostomy status; I69.328 Other speech and language deficits following cerebral infarction; T17.990A Other foreign object in respiratory tract, part unspecified in causing asphyxiation, initial encounter
CPT/HCPCS: 31500; 32555; 36415; 36569; 36600; 70450; 71045; 71046; 74018; 74176; 76775; 80048; 80053; 80069; 80076; 80162; 80202; 80299; 81001; 82042; 82150; 82375; 82436; 82570; 82805; 82945; 83050; 83605; 83615; 83690; 83735; 83986; 84100; 84133; 84145; 84157; 84300; 84311; 84439; 84443; 84478; 85025; 85027; 85610; 85730; 85999; 87015; 87040; 87070; 87075; 87077; 87081; 87086; 87102; 87116; 87205; 87206; 87252; 87279; 88104; 88108; 88184; 88305; 89051; 92526; 92610; 93005; 93308; 93971; 94002; 94003; 94640; 94667; 94668; 94669; 95816; 96375; 97110; 97116; 97161; 97162; 97166; 97530; 97535; A9270; C1751; C9113; J0282; J0330; J0692; J1160; J1170; J1644; J1815; J1940; J2405; J2543; J2704; J2997; J3370; J7030; J7050; J7120; J7512